=== PATIENT | male | born 1945 | race Caucasian/White ===

== ENCOUNTER 2022-09-13 07:16 | Outpatient (OUT) | payer MEDICARE, SELFPAY ==
[2022-09-13 07:51] LABS: Basophils Percent Auto 0.5 % (0.2-2.0); Eosinophils Absolute Auto 0.1 10^3/uL (0.0-0.7); Eosinophils Percent Auto 1.9 % (0.9-7.0); Hematocrit 43.2 % (42.0-54.0); Immature Granulocytes Abs Auto 0.04 10^3/uL (0.00-0.03); Immature Granulocytes Pct Auto 0.7 % (0.0-0.5); Lymphocytes Absolute Auto 2.5 10^3/uL (1.2-3.8); Lymphocytes Percent Auto 42.4 % (20.5-60.0); Mean Corpuscular HGB Conc 32.4 g/dL (29.9-35.2); Mean Corpuscular Hemoglobin 30.9 pg (25.9-34.0); Mean Corpuscular Volume 95.4 fL (80.0-94.0); Mean Platelet Volume 10.1 fL (9.5-13.5); Monocytes Absolute Auto 0.6 10^3/uL (0.3-0.8); Monocytes Percent Auto 9.5 % (1.7-12.0); Neutrophils Absolute Auto 2.6 10^3/uL (1.4-6.5); Platelet Count 227 10^3/uL (150-450); Red Blood Count 4.53 10^6/uL (4.70-6.10); Red Cell Distribution Width 13.2 % (11.0-15.0); White Blood Count 5.9 10^3/uL (4.0-11.0)
[2022-09-13 08:31] LABS: Estimated Average Glucose 160 mg/dL; Glycohemoglobin A1C 7.2 % (4.5-6.2)
[2022-09-13 08:34] LABS: Alanine Aminotransferase 24 U/L (16-63); Anion Gap 12.2; BUN Creatinine Ratio 19.1; Calcium 9.5 mg/dL (8.5-10.1); Carbon Dioxide 26.4 mmol/L (21.0-32.0); Chloride 107 mmol/L (98-107); Chol HDL Ratio 4.6; Cholesterol 146 mg/dL (<=200); Estimated GFR (African America 52 (>=60); Estimated GFR (Non-African Ame 43 (>=60); Glucose 148 mg/dL (74-106); HDL Cholesterol 32 mg/dL (40-60); Potassium 4.6 mmol/L (3.5-5.1); Sodium 141 mmol/L (136-145); Triglycerides 99 mg/dL (<=150); VLDL CHOLESTEROL 19.8 mg/dL
[2022-09-13 09:35] LABS: Microalbumin Urine Random 2.6 mg/dL (<=30.0)
[2022-09-13 11:05] LABS: Prostate Specific Antigen Scrn 0.94 ng/mL (<=4.00)
== END 2022-09-13 07:17 | disposition home or self-care (01) ==
LOC: LAB 07:24
PROVIDERS: PCP Internal Medicine; Visit Provider Internal Medicine
DX: E11.65 Type 2 diabetes mellitus with hyperglycemia (principal); E78.00 Pure hypercholesterolemia, unspecified; I10 Essential (primary) hypertension; Z12.5 Encounter for screening for malignant neoplasm of prostate; Z79.899 Other long term (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 therapy
CPT/HCPCS: 36415; 80048; 80061; 82043; 83036; 84460; 85025; G0103

== ENCOUNTER 2023-02-05 06:43 | Outpatient (OUT) | payer MEDICARE, SELFPAY ==
[2023-02-05 07:41] LABS: Estimated Average Glucose 146 mg/dL; Glycohemoglobin A1C 6.7 % (4.5-6.2)
== END 2023-02-05 06:44 | disposition home or self-care (01) ==
LOC: LAB 06:44
PROVIDERS: PCP Internal Medicine; Visit Provider Internal Medicine
DX: E11.65 Type 2 diabetes mellitus with hyperglycemia (principal)
CPT/HCPCS: 36415; 83036

== ENCOUNTER 2023-10-30 07:53 | Outpatient (OUT) | payer MEDICARE, SELFPAY ==
--- OUTSIDE RECORDS SUMMARY | 2023-10-30 08:14 | XMS_ITS | CCD ---
Author Organization [facility] Care Team Providers Care Placement Assistant Name Role Phone NAOMI, DR PRITCHETT Attending Unavailable BALL, DR PRITCHETT Consulting Unavailable BALL, DR PRITCHETT Primary Care Unavailable BALL, DR PRITCHETT Admitting Unavailable BALL, DR PRITCHETT Attending Unavailable BALL, DR PRITCHETT Consulting Unavailable BALL, DR PRITCHETT Primary Care Unavailable BALL, DR PRITCHETT Admitting Unavailable BALL, DR PRITCHETT Consulting Unavailable BALL, DR PRITCHETT Primary Care Unavailable BALL, DR PRITCHETT Admitting Unavailable BALL, DR PRITCHETT Attending Unavailable Ball, Brian Unavailable Allergies Allergy Classification Reported Allergen(s) Allergy Type Date of Onset Reaction(s) Facility (5 sources) empagliflozin Drug Allergy 06-11-19 Unknown, Unknown Reaction [facility] (5 sources) Simvastatin Drug Allergy 06-11-19 Unknown, Unknown Reaction [facility] (3 sources) Sulfonamides (Antibiotic) Propensity to adverse reactions Unknown [facility] Other (1 source) Substance with sulfonamide structure and antibacterial mechanism of action (substance) Drug allergy Unknown [facility] Other (2 sources) Sulfonamides (Antibiotic) Allergy to substance 06-11-19 Unknown Reaction [facility] Medications Current Medications Medication Drug Class(es) Dates Sig (Normalized) Sig (Original) benazepril hydrochloride 20 mg oral tablet (5 sources) Angiotensin Converting Enzyme Inhibitor Start: 06-08-2023 take 20 mg by mouth once daily Benazepril Active 20 MG PO Daily June 08, 2023 12:00am take 1 tablet by mouth once jordan y Benazepril HCl 20 MG TAKE 1 TABLET BY MOUTH DAILY Active fenofibrate 160 mg oral tablet (5 sources) Peroxisome Proliferator Receptor alpha Agonist Start: 06-08-2023 take 160 mg by mouth once daily Fenofibrate Active 160 MG PO Daily June 08, 2023 12:00am take 1 tablet by mouth once jordan y Fenofibrate 160 MG TAKE 1 TABLET BY MOUTH DAILY Active glimepiride 4 mg oral tablet (5 sources) Sulfonylurea Start: 06-08-2023 take 1 tablet by mouth once daily at breakfast Glimepiride Active 4 MG PO Daily June 08, 2023 12:00am TAKE 1 TABLET BY MOUTH DAILY 1/2 HOUR PRIOR TO BREAKFAST take 1 tablet by eddie th once daily at breakfast Glimepiride 4 MG TAKE 1 TABLET BY MOUTH DAILY 1/2 HOUR PRIOR TO BREAKFAST Active linagliptin 5 mg oral tablet (5 sources) Dipeptidyl Peptidase 4 Inhibitor Start: 06-08-2023 take 5 mg by mouth once daily Linagliptin Active 5 MG PO Daily June 08, 2023 12:00am take 1 tablet by mouth once jordan y Tradjenta 5 MG TAKE 1 TABLET BY MOUTH DAILY Active pioglitazone 45 mg oral tablet (5 sources) Peroxisome Proliferator Receptor alpha Agonist, Peroxisome Proliferator Receptor gamma Agonist, Thiazolidinedione Start: 06-08-2023 take 45 mg by mouth once daily Pioglitazone Active 45 MG PO Daily June 08, 2023 12:00am take 1 tablet by mouth once jordan y Pioglitazone HCl 45 MG TAKE 1 TABLET BY MOUTH DAILY Active Problems Problem Classification Problem Date Documented Date Episodic/Chronic Anxiety disorders (7 sources) Generalized anxiety disorder; Translations: [Generalized anxiety disorder] Chronic Chronic kidney disease (4 sources) Chronic kidney disease; Translations: [Chronic kidney disease, unspecified] 06-08-2023 Chronic Chronic kidney disease (1 source) Chronic kidney disease; Translations: [CHRONIC KIDNEY DISEASE STAGE 3B] Onset: 08-17-2021 Diabetes mellitus with complications (20 sources) Type 2 diabetes mellitus with hyperglycemia; Translations: [Type 2 diabetes mellitus with diabetic chronic kidney disease] Onset: 08-17-2021 Chronic Disorders of lipid metabolism (14 sources) Mixed hyperlipidemia; Translations: [Hypercholesterolemi a] Onset: 08-15-2021 Chronic Essential hypertension (11 sources) Essential (primary) hypertension; Translations: [Essential hypertension] Onset: 08-17-2021 Chronic Other aftercare (1 source) Other usp (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 therapy Episodic Other diseases of veins and lymphatics (1 source) Venous insufficiency of leg; Translations: [Venous insufficiency (chronic) (peripheral)] 09-10-2023 Episodic Other diseases of veins and lymphatics (1 source) Venous insufficiency (chronic) (peripheral); Translations: [Venous (peripheral) insufficiency, unspecified] 09-10-2023 Episodic Other nutritional; endocrine; and metabolic disorders (6 sources) Body mass index 30+ - obesity; Translations: [Body mass index (BMI) 31.0-31.9, adult] Chronic Other nutritional; endocrine; and metabolic disorders (3 sources) Obesity; Translations: [Other obesity due to excess calories] Chronic Other nutritional; endocrine; and metabolic disorders (2 sources) Other obesity due to excess calories Chronic Other nutritional; endocrine; and metabolic disorders (2 sources) Body mass index (BMI) 31.0-31.9, adult Chronic Other screening for suspected conditions (not mental disorders or infectious disease) (4 sources) Encounter for screening for malignant neoplasm of prostate; Translations: [Patient encounter status] Onset: 08-17-2021 Episodic Results Test Name Value Interpretation Reference Range Facil ity GLYCOHEMOGLOBIN A1Con 2021 ADA RECOMMENDATION SEE BELOW Normal [facility] Comment on above: Result Comment: ADA RECOMMENDED LIMIT 4.0 - 6.0 ADA THERAPEUTIC TARGET < 7.0 ACTION SUGGESTED > 7.0 Performed By: #### A 1C #### [facility] [address] [place] [address] Dr. Petros Perez Glucose [Mass/Vol] 143 mg/dL Normal [facility] Comment on above: Performed By: #### A 1C #### [facility] [address] [place] [address] Dr. Petros Perez HbA1c (Bld) [Mass fraction] 6.6 % Critically high 4.5-6.2 The [facility] Comment on above: Performed By: #### A 1C #### [facility] [address] [address] [address] Petros Perez CBC AUTO DIFFon 08-15-2021 BASO # 0.0 103/ul Normal 0.0-0.1 [facility] Comment on above: Performed By: #### C BC #### [facility] [address] [address] [address] Petros Perez Basophils/100 WBC (Bld) 0.3 % Normal 0.2-2.0 [facility] Comment on above: Performed By: #### C BC #### [facility] [address] [address] [address] Petros Perez EO # 0.1 103/ul Normal 0.0-0.7 The [facility] Comment on above: Performed By: #### C BC #### [facility] [address] [address] [address] Petros Perez Eosinophils/100 WBC (Bld) 2.2 % Normal 0.9-7.0 [facility] Comment on above: Performed By: #### C BC #### [facility] [address] [place] [address] Dr. Petros Perez Erythrocyte distribution width (RBC) [Ratio] 13.4 % Normal 11.0-15.0 [facility] Comment on above: Performed By: #### C BC #### [facility] [address] [place] [address] Dr. Petros Perez Hematocrit (Bld) [Volume fraction] 42.8 % Normal 42.0-54.0 [facility] Comment on above: Performed By: #### C BC #### [facility] [address] [place] [address] Dr. Petros Perez Hemoglobin (Bld) [Mass/Vol] 14.1 g/dL Normal 14.0-18.0 [facility] Comment on above: Performed By: #### C BC #### [facility] [address] [place] [address] Dr. Petros Perez IG # 0.04 10e3/ul Critically high 0.00-0.03 The [facility] Comment on above: Performed By: #### C BC #### [facility] [address] [place] [address] Dr. Petros Perez IG % 0.7 % Critically high 0.0-0.5 [facility] Comment on above: Performed By: #### C BC #### [facility] [address] [place] [address] Dr. Petros Perez LYMPH # 2.2 103/ul Normal 1.2-3.8 The [facility] Comment on above: Performed By: #### C BC #### [facility] [address] [place] [address] Dr. Petros Perez Lymphocytes/100 WBC (Bld) 38.2 % Normal 20.5-60.0 The [facility] Comment on above: Performed By: #### C BC #### [facility] [address] [place] [address] Dr. Petros Perez MANUAL DIFF REQ NO Normal [facility] Comment on above: Performed By: #### C BC #### [facility] [address] [place] [address] Dr. Petros Perez MCH (RBC) [Entitic mass] 30.6 pg Normal 25.9-34.0 The [facility] Comment on above: Performed By: #### C BC #### [facility] [address] [place] [address] Dr. Petros Perez MCHC (RBC) [Mass/Vol] 32.9 g/dL Normal 29.9-35.2 The [facility] Comment on above: Performed By: #### C BC #### [facility] [address] [place] [address] Dr. Petros Perez MCV (RBC) [Entitic vol] 92.8 fL Normal 80.0-94.0 The [facility] Comment on above: Performed By: #### C BC #### [facility] [address] [place] [address] Dr. Petros Perez MONO # 0.5 103/ul Normal 0.3-0.8 The [facility] Comment on above: Performed By: #### C BC #### [facility] [address] [place] [address] Dr. Petros Perez Monocytes/100 WBC (Bld) 8.6 % Normal 1.7-12.0 The [facility] Comment on above: Performed By: #### C BC #### [facility] [address] [place] [address] Dr. Petros Perez NEUT # 2.9 103/ul Normal 1.4-6.5 The [facility] Comment on above: Performed By: #### C BC #### [facility] [address] [place] [address] Dr. Petros Perez Neutrophils/100 WBC (Bld) 50.0 % Normal 43.0-75.0 [facility] Comment on above: Performed By: #### C BC #### [facility] [address] [address] [address] Petros Perez Platelet mean volume (Bld) [Entitic vol] 10.2 fL Normal 9.5-13.5 [facility] Comment on above: Performed By: #### C BC #### [facility] [address] [address] [address] Petros Perez PLT 219 103/ul Normal 150-450 [facility] Comment on above: Performed By: #### C BC #### [facility] [address] [address] [address] Petros Perez RBC 4.61 106/ul Critically low 4.70-6.10 [facility] Comment on above: Performed By: #### C BC #### [facility] [address] [address] [address] Petros Perez WBC 5.8 103/ul Normal 4.0-11.0 [facility] Comment on above: Performed By: #### C BC #### [facility] [address] [place] [address] Dr. Petros Perez GLYCOHEMOGLOBIN A1Con 2021 ADA RECOMMENDATION SEE BELOW Normal [facility] Comment on above: Result Comment: ADA RECOMMENDED LIMIT 4.0 - 6.0 ADA THERAPEUTIC TARGET < 7.0 ACTION SUGGESTED > 7.0 Performed By: #### A 1C #### [facility] [address] [place] [address] Dr. Petros Perez Glucose [Mass/Vol] 163 mg/dL Normal [facility] Comment on above: Performed By: #### A 1C #### [facility] [address] [place] [address] Dr. Petros Perez HbA1c (Bld) [Mass fraction] 7.3 % Critically high 4.5-6.2 [facility] Comment on above: Performed By: #### A 1C #### [facility] [address] [place] [address] Dr. Petros Perez LIPID PROFILEon 08-15-2021 CHOL-HDL RATIO NORM SEE BELOW Normal [facility] Comment on above: Result Comment: 3.3 - 4.4 LOW RISK 4.4 - 7.1 AVERAGE RISK 7.1 - 11.0 MODERATE RISK >11.0 HIGH RISK Performed By: #### L IPID, BMP #### [facility] [address] [address] [address] Petros Perez Cholesterol [Mass/Vol] 148 mg/dL Normal <=200 [facility] Comment on above: Performed By: #### L IPID, BMP #### [facility] [address] [address] [address] Petros Perez Cholesterol in HDL [Mass/Vol] 33 mg/dL Critically low 40-60 [facility] Comment on above: Performed By: #### L IPID, BMP #### [facility] [address] [place] [address] Dr. Petros Perez Cholesterol in LDL [Mass/Vol] 95.8 mg/dL Normal [facility] Comment on above: Performed By: #### L IPID, BMP #### [facility] [address] [place] [address] Dr. Petros Perez Cholesterol.total/Cho lesterol in HDL [Mass ratio] 4.5 {ratio} Normal [facility] Comment on above: Performed By: #### L IPID, BMP #### [facility] [address] [place] [address] Dr. Petros Perez HDL NORMAL > or = 60 mg/dl - LOW CARDIOVASCULAR RISK <40 mg/dl - HIGH CARDIOVASCULAR RISK Normal [facility] Comment on above: Performed By: #### L IPID, BMP #### [facility] [address] [place] [address] Dr. Petros Perez LDL CALC NORMAL SEE BELOW Normal [facility] Comment on above: Result Comment: <100 mg/dl OPTIMAL 100 - 129 mg/dl NEAR OR ABOVE OPTIMAL 130 - 159 mg/dl BORDERLINE HIGH 160 - 189 mg/dl HIGH >190 mg/dl VERY HIGH Performed By: #### L IPID, BMP #### [facility] [address] [address] [address] Petros Perez Triglyceride [Mass/Vol] 96 mg/dL Normal <=150 [facility] Comment on above: Performed By: #### L IPID, BMP #### [facility] [address] [address] [address] Petros Perez VLDL CALC 19.2 mg/dL Normal [facility] Comment on above: Performed By: #### L IPID, BMP #### [facility] [address] [place] [address] Dr. Petros Perez MICROALBUMIN, RAND URon - mALB 3.2 mg/L Normal <=30.0 [facility] Comment on above: Performed By: #### M ALBR #### [facility] [address] [place] [address] Dr. Petros Perez PROF CHEM 8 (BAS METB)on Anion gap [Moles/Vol] 13.1 mmol/L Normal [facility] Comment on above: Performed By: #### L IPID, BMP #### [facility] [address] [address] [address] Petros Perez Calcium [Mass/Vol] 9.2 mg/dL Normal 8.5-10.1 [facility] Comment on above: Performed By: #### L IPID, BMP #### [facility] [address] [place] [address] Dr. Petros Perez Chloride [Moles/Vol] 106 mmol/L Normal 98-107 [facility] Comment on above: Performed By: #### L IPID, BMP #### [facility] [address] [place] [address] Dr. Petros Perez CO2 [Moles/Vol] 24.1 mmol/L Normal 21.0-32.0 [facility] Comment on above: Performed By: #### L IPID, BMP #### [facility] [address] [address] [address] Petros Perez Creatinine [Mass/Vol] 1.56 mg/dL Critically high 0.70-1.30 [facility] Comment on above: Performed By: #### L IPID, BMP #### [facility] [address] [place] [address] Dr. Petros Perez EGFR-AF IRISH 53 mL/min/1.73m2 Critically low >=60 [facility] Comment on above: Performed By: #### L IPID, BMP #### [facility] [address] [place] [address] Dr. Petros Perez EGFR-NON AF IRISH 43 mL/min/1.73m2 Critically low >=60 [facility] Comment on above: Performed By: #### L IPID, BMP #### [facility] [address] [place] [address] Dr. Petros Perez Glucose [Mass/Vol] 139 mg/dL Critically high 74-106 [facility] Comment on above: Performed By: #### L IPID, BMP #### [facility] [address] [place] [address] Dr. Petros Perez Potassium [Moles/Vol] 4.2 mmol/L Normal 3.5-5.1 [facility] Comment on above: Performed By: #### L IPID, BMP #### [facility] [address] [place] [address] Dr. Petros Perez Sodium [Moles/Vol] 139 mmol/L Normal 136-145 [facility] Comment on above: Performed By: #### L IPID, BMP #### [facility] [address] [place] [address] Dr. Petros Perez Urea nitrogen [Mass/Vol] 25.0 mg/dL Critically high 7.0-18.0 [facility] Comment on above: Performed By: #### L IPID, BMP #### [facility] [address] [place] [address] Dr. Petros Perez Urea nitrogen/Creatinine [Mass ratio] 16.0 mg/mg Normal [facility] Comment on above: Performed By: #### L IPID, BMP #### [facility] [address] [place] [address] Dr. Petros Perez GLYCOHEMOGLOBIN A1Con 2021 ADA RECOMMENDATION ADA THERAPEUTIC TARGET 6.0 - 7.0 ACTION SUGGESTED > 7.0 Normal [facility] Comment on above: Performed By: #### A 1C #### [facility] [address] [address] [address] Petros Perez Glucose [Mass/Vol] 180 mg/dL Normal [facility] Comment on above: Performed By: #### A 1C #### [facility] [address] [address] [address] Petros Perez HbA1c (Bld) [Mass fraction] 7.9 % Critically high <=6.0 [facility] Comment on above: Performed By: #### A 1C #### [facility] [address] [address] [address] Petros Perez Consent for COVID Vaccineon 05-14-2020 SARS-CoV-2 (COVID-19) RNA EUN+probe Ql (Unsp spec) [id number] 3#1.00CD:127 Normal [facility] Consent for Treatmenton 05-02 Consent for Treatment [id number] 8#1.00CD:127 Normal [facility] Coding Summary.on 05-13-2020 Coding Summary. CODING DATE: 05/13/2020 [facility] STATUS: PAYOR: Medicare ADMIT DX: REASON FOR VISIT DX: Z23 Encounter for immunization FINAL DX: PRINCIPAL: Z23 Encounter for immunization SECONDARY: PYMT PROC APC STAT DESCRIPTION DOCTOR NAME DATE NOTE: The code number assigned matches the documented diagnosis and / or procedure in the patient's chart. However, the narrative phrase printed from the coding software may appear abbreviated, or result in slightly different terminology. Coded By: Saritha Simmons Date Saved: 05/13/2020 11:13 am [facility] Vital Signs Date Time Vital Sign Value Performing Clinician Facility 09-10-2023 [id number] Body height 182.88 cm [facility] 09-10-2023 09:28-0400 Body mass index (BMI) [Ratio] 32.3 kg/m2 [facility] 09-10-2023 09:28-0400 Body weight 108.12 kg [facility] 09-10-2023 09:28-0400 Diastolic blood pressure 61 mm[Hg] [facility] 09-10-2023 09:28-0400 Heart rate 56 /min [facility] 09-10-2023 09:28-0400 Respiratory rate 12 /min [facility] 09-10-2023 09:28-0400 Systolic blood pressure 123 mm[Hg] [facility] 06-11-2023 09:02-0400 Body height 182.88 cm [facility] 06-11-2023 09:02-0400 Body mass index (BMI) [Ratio] 33 kg/m2 [facility] 06-11-2023 09:02-0400 Body weight 110.67 kg [facility] 06-11-2023 09:02-0400 Diastolic blood pressure 65 mm[Hg] [facility] 06-11-2023 09:02-0400 Heart rate 62 /min [facility] 06-11-2023 09:02-0400 Respiratory rate 12 /min [facility] 06-11-2023 09:02-0400 Systolic blood pressure 149 mm[Hg] [facility] 11-08-2022 10:00-0400 Body height 182.88 cm Brian Ball Other [facility] [employer] Other 11-08-2022 10:00-0400 Body mass index (BMI) [Ratio] 31.27 kg/m2 Brian Ball Other [employer] [facility] [employer] Other 11-08-2022 10:00-0400 Body weight 104.6 kg Brian Ball Other [employer] [facility] [employer] Other 11-08-2022 10:00-0400 Diastolic blood pressure 72 mm[Hg] Brian Ball Other [employer] [facility] [employer] Other 11-08-2022 10:00-0400 Respiratory rate 12 /min Brian Ball Other [facility] Other 11-08-2022 10:00-0400 Systolic blood pressure 148 mm[Hg] Brian Ball Other [facility] Other 08-09-2022 10:00-0400 Body height 182.88 cm Brian Ball Other [facility] Other 08-09-2022 10:00-0400 Body mass index (BMI) [Ratio] 31.46 kg/m2 Brian Ball Other [facility] Other 08-09-2022 10:00-0400 Body weight 105.24 kg Brian Ball Other [facility] Other 08-09-2022 10:00-0400 Diastolic blood pressure 75 mm[Hg] Brian Ball Other [facility] Other 08-09-2022 10:00-0400 Respiratory rate 12 /min Brian Ball Other [facility] Other 08-09-2022 10:00-0400 Systolic blood pressure 170 mm[Hg] Brian Ball Other [facility] Other Encounters Encounter Date Encounter Type Care Provider Facility Start: 09-10-2023 End: 09-10-2023 ambulatory [facility] Work Phone: Start: 09-10-2023 End: 09-10-2023 Patient encounter procedure [facility] Physician [facility] Work Phone: Start: 06-11-2023 End: 06-11-2023 ambulatory [facility] Work Phone: Start: 06-11-2023 End: 06-11-2023 Patient encounter procedure [facility] Work Phone: Start: 11-08-2022 End: 11-08-2022 ambulatory Brian Salgado Other [facility] Other Start: 11-08-2022 Office outpatient vi sit 25 minutes Brian Salagdo [facility] Start: 09-13-2022 End: 09-13-2022 ambulatory Brian Salgado Other [facility] Other Start: 09-13-2022 Telephone encounter Brian Salgado FP [facility] Start: 08-09-2022 End: 08-09-2022 ambulatory Brian Salgado Other [facility] Other Start: 08-09-2022 Patient encounter procedure Brian Salgado [facility] Start: 12-27-2021 End: 12-28-[address] BRIAN SALGADO Facility:[facility] Start: 08-15-2021 End: 08-16-[address] BRIAN SALGADO Facility:[facility] Start: 04-25-2021 End: 04-26-[address] BRIAN SALGADO Facility:[facility] Procedures Date Procedure Procedure Detail Performing Clinician Start: 08-15-[address] LAM [place] Comment on above: Performed By: #### [facility] #### [facility] [address] [place] [address] Dr. Petros Perez Plan of Treatment Date Care Activity Detail Author Comprehensive metabo lic 2000 panel - Serum or Plasma [facility] enter [facility] Immunizations Immunization Date Immunization Notes Care Provider Fa cility 01-21-2023 influenza virus vaccine, unspecified formulation [facility] 11-21-2021 influenza virus vaccine, split virus (incl. purified surface antigen) Brian Salgado Other [facility] Other 11-21-2021 influenza virus vaccine, unspecified formulation [facility] 11-21-2021 influenza, high dose seasonal, preservative-free Brian Salgado Other [facility] Other 02-22-2021 COVID-19 Vaccine Pfi zer - Documentation Purposes Only Brian Salgado Other [facility] 12-30-2020 influenza virus vaccine, split virus (incl. purified surface antigen) Brian Naomi Other [employer] Other 12-30-2020 influenza virus vaccine, unspecified formulation [facility] 05-06-2020 COVID-19 Vaccine Slim - Documentation Purposes Only Brian Naomi Other [facility] 01-12-2020 influenza virus vaccine, split virus (incl. purified surface antigen) Brian Naomi Other [employer] Other 01-12-2020 influenza virus vaccine, unspecified formulation [facility] 01-13-2019 influenza virus vaccine, split virus (incl. purified surface antigen) Brian Naomi Other [employer] Other 01-13-2019 influenza virus vaccine, unspecified formulation [facility] 12-02-2017 influenza virus vaccine, split virus (incl. purified surface antigen) Brian Naomi Other [employer] Other 12-02-2017 influenza virus vaccine, unspecified formulation [facility] 12-27-2016 influenza virus vaccine, split virus (incl. purified surface antigen) Brian Naomi Other [employer] Other 12-27-2016 influenza virus vaccine, unspecified formulation [facility] 12-22-2015 influenza virus vaccine, split virus (incl. purified surface antigen) Brian Salgado Other [employer] Other 12-22-2015 influenza virus vaccine, unspecified formulation [facility] 03-15-2015 pneumococcal conjuga te vaccine, 13 valent Brian Salgado Other [facility] 12-07-2014 influenza virus vaccine, split virus (incl. purified surface antigen) Brian Salgado Other [facility] [employer] Other 12-07-2014 influenza virus vaccine, unspecified formulation [facility] 11-10-2013 tetanus and diphther ia toxoids, adsorbed, preservative free, for adult use (5 Lf of tetanus toxoid and 2 Lf of diphtheria toxoid) Brian Salgado Other [facility] 12-10-2012 tetanus and diphther ia toxoids, adsorbed, preservative free, for adult use (5 Lf of tetanus toxoid and 2 Lf of diphtheria toxoid) Brian Salgado Other [facility] 02-14-2011 pneumococcal polysaccharide vaccine, 23 valent Brian Salgado Other [facility] Payers Date Payer Category Payer Medicare [id number] 1960 Unknown [id number] 1945 Unknown [id number] 1945 Unknown [id number] 1945 Unknown [id number] Social History Date Type Detail Facility Sex Assigned At [facility] [employer] Other Start: 1945 Sex Assigned At Male [facility] Evaluation note 11-08-2022 Note Date & Type Note Facility 11-08-2022 Evaluation note Encounter Date Diagnosis Assessment Notes Nov, Primary hypertension (ICD-10 - I10) This patient is instructed to consume a healthy, low-fat, low-salt diet. They are also encouraged to continue exercise to achieve/maintain a normal BMI. Patient is instructed on home BP measurements: - rest for 5 minutes w/o talking- positioned w/ feet on floor and arm supported- average best 2/3 readings w/ goal < 135/85 Nov, Type 2 diabetes mellitus with hyperglycemia, without long-term current use of insulin (ICD-10 - E11.65) This patient is following a comprehensive diabetic treatment plan. They are checking their feet daily for calluses and nonhealing ulcers. They are being seen for yearly dilated eye examinations. Goals: SBP less than 130, LDL less than 100, FBS less than 140, AC and A1C less than 7%. They are checking their BS daily, will which are reviewed at the office visit. Continue regular routine monitoring of A1C,] Microalbumin, Dilated eye exam and Foot exam Nov, Type 2 diabetes mellitus with diabetic polyneuropathy, without long-term current use of insulin (ICD-10 - E11.42) Inspect feet daily for cuts and calluses.Recommen d diabetic shoes and inserts to prevent callus formation.Fall precautions. Nov, Elevated cholesterol (ICD-10 - E78.00) Instructed on diet and exercise with continued statin therapy.Discussed the beneficial effects of lowering cholesterol in reducing the risk for cerebrovascular and cardiovascular disease. Nov, EMERSON (generalized anxiety disorder) (ICD-10 - F41.1) Healthy diet, exercise and keep active No change in medical therapy Nov, Other obesity due to excess calories (ICD-10 - E66.09) This patient has been instructed on a low-fat, high-fiber diet. They are instructed to reduce calories, portion sizes and snacks. It is recommended that they exercise for 30 minutes, 3-5 times weekly. Nov, Body mass index [BMI] 31.0-31.9, adult (ICD-10 - Z68.31) Goal is BMI < 30 Increase exercise and reduce calories. [employer] Other Evaluation note 08-09-2022 Note Date & Type Note Facility 08-09-2022 Evaluation note Encounter Date Diagnosis Assessment Notes Aug, Medicare annual wellness visit, subsequent (ICD-10 - Z00.00) Personalized health advice was given to the beneficiary including a written plan for screenings discussed and provided. Advanced care planning reviewed and/or information given as requested. Additional counseling was provided here today in regards to, [ ]. The above visit was performed by [ ], under direct supervision of [ ]. Document reviewed and amended by provider signed below. Aug, Primary hypertension (ICD-10 - I10) This patient is instructed to consume a healthy, low-fat, low-salt diet. They are also encouraged to continue exercise to achieve/maintain a normal BMI. Patient is instructed on home BP measurements: - rest for 5 minutes w/o talking- positioned w/ feet on floor and arm supported- average best 2/3 readings w/ goal < 135-85 Aug, Elevated cholesterol (ICD-10 - E78.00) Instructed on diet and exercise with continued statin therapy.Discussed the beneficial effects of lowering cholesterol in reducing the risk for cerebrovascular and cardiovascular disease. Aug, Type 2 diabetes mellitus with hyperglycemia, without long-term current use of insulin (ICD-10 - E11.65) This patient is following a comprehensive diabetic treatment plan. They are checking their feet daily for calluses and nonhealing ulcers. They are being seen for yearly dilated eye examinations. Goals: SBP less than 130, LDL less than 100, FBS less than 140, AC and A1C less than 7%. They are checking their BS daily, will which are reviewed at the office visit. Continue regular routine monitoring of A1C,] Microalbumin, Dilated eye exam and Foot exam Aug, Type 2 diabetes mellitus with diabetic polyneuropathy, without long-term current use of insulin (ICD-10 - E11.42) Inspect feet daily for cuts and calluses.Recommen d diabetic shoes and inserts to prevent callus formation.Fall precautions. Aug, EMERSON (generalized anxiety disorder) (ICD-10 - F41.1) Healthy diet, exercise and keep active Aug, Screening PSA (prostate specific antigen) (ICD-10 - Z12.5) Aug, Other obesity due to excess calories (ICD-10 - E66.09) This patient has been instructed on a low-fat, high-fiber diet. They are instructed to reduce calories, portion sizes and snacks. It is recommended that they exercise for 30 minutes, 3-5 times weekly. Aug, Body mass index [BMI] 31.0-31.9, adult (ICD-10 - Z68.31) Aug, High risk medication use (ICD-10 - Z79.899) [employer] Other Evaluation note Note Date & Type Note Facility Evaluation note No [employer] Other Evaluation note Note Date & Type Note Facility Evaluation note Diagnosis Onset Date Chronic kidney disease acute Elevated cholesterol acute Hypertension acute Type 2 diabetes mellitus wit h diabetic polyneuropathy acute Type 2 diabetes mellitus with hyperglycemia acute [facility] Work Phone: Evaluation note Note Date & Type Note Facility Evaluation note Diagnosis Onset Date Chronic kidney disease acute Chronic venous insufficiency of lower extremity acute Elevated cholesterol acute Hypertension acute Screening PSA (prostate specific antigen) acute Type 2 diabetes mellitus wit h diabetic polyneuropathy acute Type 2 diabetes mellitus with hyperglycemia acute Medicare annual wellness visit, subsequent noneactive [facility] Work Phone: History general Narrative - Reported Note Date & Type Note Facility History general Narrative - Reported Type Medical History Primary hypertension Medical History Elevated cholesterol Medical History Controlled type 2 di abetes mellitus with hyperglycemia, without long-term current use of insulin Medical History Type 2 diabetes jeanette itus with diabetic polyneuropathy, without long-term current use of insulin Surgical History TONSILLECTOMY Surgical History APPENDECTOMY Hospitalization History SEE SURGICAL HX [employer] Other Summary Purpose Family History No Family History Records FoundNo Family History Records Found Advance Directives Advance Directive Response Recorded Date/ Time Advance Directives No March 27, 2023 1:44pm Chief Complaint and Reason for Visit Chief Complaint 4 month follow up Reason for Visit Chronic kidney disea se Elevated cholesterol Hypertension Type 2 diabetes mellitus with diabetic polyneuropathy Type 2 diabetes mellitus with hyperglycemia Chief Complaint 3 month follow up Reason for Visit Chronic kidney disea se Chronic venous insufficiency of lower extremity Elevated cholesterol Hypertension Screening PSA (prostate specific antigen) Type 2 diabetes mellitus with diabetic polyneuropathy Type 2 diabetes mellitus with hyperglycemia Medicare annual wellness visit, subsequent Additional Source Comments (unrecognized sect ion and content) No Status Records FoundNo Status Records Found INFORMATION SOURCE (unrecogn ized section and content) DATE CREATED AUTHOR 08/06/2020 [facility] DATE CREATED AUTHOR AUTHOR'S ORGANIZ ATION 12/31/2021 [facility] REASON FOR VISIT (unrecogniz ed section and content) WELLNESSLab Results3 month F ollow up Care Teams (unrecognized sec tion and content) Team Status: Active Member Role Status Dates Brian Salgado DO Primary Care Provider Active Team Status: Inactive Member Role Status Dates Brian Salgado DO Primary Care Provide r, Attending Provider Active Start: June 11, 2023 End: Theresa 9th, 2024 Team Status: Inactive Member Role Status Dates Brian Salgado , DO Primary Care Provide r, Attending Provider Active Start: September 10, 2023 End: September 10, 2023 Goals (unrecognized section and content) Goals may be documented in a n alternate section FOR RECORDS PERTAINING TO PATIENTS WHO ARE OR HAVE BEEN ENROLLED IN A CHEMICAL DEPENDENCY/SUBSTANCEABUSE PROGRAM, SOME INFORMATION MAY BE OMITTED. This clinical summary was aggregated from multiple sources. Caution should be exercised in using it in the provision of clinical care. This summary normalizes information from multiple sources, and as a consequence, information in this document may materially change the coding, format and clinical context of patient data. In addition, data may be omitted in some cases. CLINICAL DECISIONS SHOULD BE BASED ON THE PRIMARY CLINICAL RECORDS. [facility] [employer] provides no warranty or guarantee of the accuracy or completeness of information in this document.
[2023-10-30 08:18] LABS: Basophils Absolute Auto 0.1 10^3/uL (0.0-0.1); Basophils Percent Auto 0.8 % (0.2-2.0); Hematocrit 38.8 % (42.0-54.0); Hemoglobin 12.8 g/dL (14.0-18.0); Immature Granulocytes Abs Auto 0.04 10^3/uL (0.00-0.03); Immature Granulocytes Pct Auto 0.6 % (0.0-0.5); Lymphocytes Absolute Auto 2.1 10^3/uL (1.2-3.8); Lymphocytes Percent Auto 31.4 % (20.5-60.0); Mean Corpuscular Hemoglobin 31.7 pg (25.9-34.0); Mean Platelet Volume 10.1 fL (9.5-13.5); Monocytes Absolute Auto 0.6 10^3/uL (0.3-0.8); Monocytes Percent Auto 9.2 % (1.7-12.0); Neutrophils Absolute Auto 3.8 10^3/uL (1.4-6.5); Platelet Count 221 10^3/uL (150-450); Red Blood Count 4.04 10^6/uL (4.70-6.10); Red Cell Distribution Width 13.7 % (11.0-15.0); White Blood Count 6.6 10^3/uL (4.0-11.0)
[2023-10-30 08:40] LABS: Alanine Aminotransferase 22 U/L (16-63); Albumin Globulin Ratio 0.9; Albumin Level 3.2 g/dL (3.4-5.0); Alkaline Phosphatase 31 U/L (46-116); Anion Gap 14.4; Aspartate Amino Transferase 22 U/L (15-37); BUN Creatinine Ratio 18.2; Bilirubin Total 0.5 mg/dL (0.2-1.0); Calcium 9.4 mg/dL (8.5-10.1); Chloride 109 mmol/L (98-107); Chol HDL Ratio 4.5; Cholesterol 116 mg/dL (<=200); Estimated GFR (African America 41 (>=60); Estimated GFR (Non-African Ame 34 (>=60); Globulin 3.4 g/dL; Glucose 118 mg/dL (74-106); HDL Cholesterol 26 mg/dL (40-60); Potassium 5.4 mmol/L (3.5-5.1); Sodium 142 mmol/L (136-145); Total Protein 6.6 g/dL (6.4-8.2); Triglycerides 97 mg/dL (<=150); VLDL CHOLESTEROL 19.4 mg/dL
[2023-10-30 08:48] LABS: Estimated Average Glucose 126 mg/dL
[2023-10-30 09:37] LABS: Prostate Specific Antigen Scrn 1.04 ng/mL (<=4.00)
[2023-10-30 15:21] LABS: Creatinine Urine Random 148.56 mg/dL (20.00-300.00); Total Protein Urine Random 15.4 mg/dL (<=11.9)
== END 2023-10-30 07:54 | disposition home or self-care (01) ==
LOC: LAB 07:55
PROVIDERS: PCP Internal Medicine; Visit Provider Internal Medicine
DX: I12.9 Hypertensive chronic kidney disease with stage 1 through stage 4 chronic kidney disease, or unspecified chronic kidney disease (principal); N18.9 Chronic kidney disease, unspecified; E11.65 Type 2 diabetes mellitus with hyperglycemia; E78.00 Pure hypercholesterolemia, unspecified; Z12.5 Encounter for screening for malignant neoplasm of prostate
CPT/HCPCS: 36415; 80053; 80061; 82570; 83036; 84156; 85025; G0103

== ENCOUNTER 2023-11-08 09:29 | Outpatient (OUT) | payer MEDICARE, SELFPAY ==
--- NOTE | 2023-11-08 09:33 | US_ITS ---
The [address] [address] Patient Name: JF HERNÁNDEZ MRN: [id number] date: 1945 Sex: M Assigned Patient Location: Current Patient Location: LAB Accession/Order Number: [id number] Exam Date: 11/08/2023 09:38 Report Date: 11/08/2023 17:18 At the request of: YARELY SALGADO Procedure: US renal BI Ultrasound kidneys, bilateral HISTORY: Chronic Kidney Disease COMPARISON: None. TECHNIQUE: Transabdominal ultrasound imaging of both kidneys was performed. FINDINGS: Both kidneys demonstrate normal echotexture and echogenicity. The right kidney measures 11.5 x 4.9 x 6.3 cm. Renal cortex measures 1.5 cm. There is no hydronephrosis of right kidney. The left kidney measures 10.8 x 4.8 x 6.3 cm. Renal cortex of 0.9 cm. No hydronephrosis of left kidney. The bladder is decompressed with prevoid bladder volume of 72 cc. US/US renal BI IMPRESSION: 1. Normal size kidneys for age with mild left renal cortical thinning. No hydronephrosis. 2. Nondistended bladder. Electronically authenticated by: NATHANIEL QUIÑONEZ Date: 11/08/2023 17:18
--- OUTSIDE RECORDS SUMMARY | 2023-11-08 09:53 | XMS_ITS | CCD ---
Author Organization [facility] Care Team Providers Care Inspector And Clipper Name Role Phone NAOMI, DR PRITCHETT Attending [...] empagliflozin Drug Allergy 06-11-19 Unknown, Unknown Reaction [facility] (5 sources) Simvastatin Drug Allergy 06-11-19 Unknown, Unknown Reaction [facility] (3 sources) Sulfonamides (Antibiotic) Propensity to adverse reactions Unknown [facility] (1 source) Substance with sulfonamide structure and antibacterial mechanism of action (substance) Drug allergy Unknown [facility] (2 sources) Sulfonamides (Antibiotic) Allergy to substance 06-11-19 Unknown Reaction [facility] Medications Current Medications Medication Drug Class(es) Dates [...] 08-17-2021 Chronic Other aftercare (1 source) 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 [address] [place] [address] Dr. Petros Perez Glucose [Mass/Vol] 143 mg/dL Normal [facility] Comment on above: Performed By: #### A 1C #### [facility] [address] [place] [address] Dr. Petros Perez HbA1c (Bld) [Mass fraction] 6.6 % Critically high 4.5-6.[address] [facility] Comment on above: Performed By: #### A 1C #### [facility] [address] [address] [address] Petros Perez CBC AUTO DIFFon 08-15-2021 BASO # 0.0 103/ul Normal 0.0-0.1 [facility] Comment on above: Performed By: #### C BC #### [facility] [address] [address] [address] Petros Perez Basophils/100 WBC (Bld) 0.3 % Normal 0.2-2.0 [facility] Comment on above: Performed By: #### C BC #### [facility] [address] [address] [address] Petros Perez EO # 0.1 103/ul Normal 0.0-0.[address] [facility] Comment on above: Performed By: #### C BC #### [facility] [address] [address] [address] Petros Perez Eosinophils/100 WBC (Bld) 2.2 % Normal 0.9-7.0 [facility] Comment on above: Performed By: #### C BC #### [facility] [address] [place] [address] Dr. Petros Perez Erythrocyte distribution width (RBC) [Ratio] 13.4 % Normal 11.0-15.0 [facility] Comment on above: Performed By: #### C BC #### [facility] [address] [place] [address] Dr. Petros Perez Hematocrit (Bld) [Volume fraction] 42.8 % Normal 42.0-54.0 [facility] Comment on above: Performed By: #### C BC #### [facility] [address] [place] [address] Dr. Petros Perez Hemoglobin (Bld) [Mass/Vol] 14.1 g/dL Normal 14.0-18.0 [facility] Comment on above: Performed By: #### C BC #### [facility] [address] [place] [address] Dr. Pertos Perez IG # 0.04 10e3/ul Critically high 0.00-0.03 [facility] Comment on above: Performed By: #### C BC #### [facility] [address] [place] [address] Dr. Petros Perez IG % 0.7 % Critically high 0.0-0.5 [facility] Comment on above: Performed By: #### C BC #### [facility] [address] [place] [address] Dr. Petros Perez LYMPH # 2.2 103/ul Normal 1.2-3.[address] [facility] Comment on above: Performed By: #### C BC #### [facility] [address] [place] [address] Dr. Petros Perez Lymphocytes/100 WBC (Bld) 38.2 % Normal 20.5-60.[address] [facility] Comment on above: Performed By: #### C BC #### [facility] [address] [place] [address] Dr. Petros Perez MANUAL DIFF REQ NO Normal [facility] Comment on above: Performed By: #### C BC #### [facility] [address] [place] [address] Dr. Petros Perez MCH (RBC) [Entitic mass] 30.6 pg Normal 25.9-34.[address] [facility] Comment on above: Performed By: #### C BC #### [facility] [address] [place] [address] Dr. Petros Perez MCHC (RBC) [Mass/Vol] 32.9 g/dL Normal 29.9-35.[address] [facility] Comment on above: Performed By: #### C BC #### [facility] [address] [place] [address] Dr. Petros Perez MCV (RBC) [Entitic vol] 92.8 fL Normal 80.0-94.[address] [facility] Comment on above: Performed By: #### C BC #### [facility] [address] [place] [address] Dr. Petros Perez MONO # 0.5 103/ul Normal 0.3-0.[address] [facility] Comment on above: Performed By: #### C BC #### [facility] [address] [place] [address] Dr. Petros Perez Monocytes/100 WBC (Bld) 8.6 % Normal 1.7-12.[address] [facility] Comment on above: Performed By: #### C BC #### [facility] [address] [place] [address] Dr. Petros Perez NEUT # 2.9 103/ul Normal 1.4-6.[address] [facility] Comment on above: Performed By: #### C BC #### [facility] [address] [place] [address] Dr. Petros Perez Neutrophils/100 WBC (Bld) 50.0 % Normal 43.0-75.0 [facility] Comment on above: Performed By: #### C BC #### [facility] [address] [address] [address] Petros Peerz Platelet mean volume (Bld) [Entitic vol] 10.2 fL Normal 9.5-13.5 [facility] Comment on above: Performed By: #### C BC #### [facility] [address] [address] [address] Petros Perez PLT 219 103/ul Normal 150-450 [facility] Comment on above: Performed By: #### C BC #### [facility] [address] [address] [address] Petros Perez RBC 4.61 106/ul Critically low 4.70-6.10 [facility] Comment on above: Performed By: #### C BC #### [facility] [address] [address] [address] Petros Perez WBC 5.8 103/ul Normal 4.0-11.0 [facility] Comment on above: Performed By: #### C BC #### [facility] [address] [place] [address] Dr. Petros Perez GLYCOHEMOGLOBIN A1Con 2021 ADA RECOMMENDATION SEE BELOW Normal [facility] Comment on above: Result Comment: ADA RECOMMENDED LIMIT 4.0 - 6.0 ADA THERAPEUTIC TARGET < 7.0 ACTION SUGGESTED > 7.0 Performed By: #### A 1C #### [facility] [address] [place] [address] Dr. Petros Perez Glucose [Mass/Vol] 163 mg/dL Normal [facility] Comment on above: Performed By: #### A 1C #### [facility] [address] [place] [address] Dr. Petros Perez HbA1c (Bld) [Mass fraction] 7.3 % Critically high 4.5-6.2 [facility] Comment on above: Performed By: #### A 1C #### [facility] [address] [place] [address] Dr. Petros Perez LIPID PROFILEon 08-15-2021 CHOL-HDL RATIO NORM SEE BELOW Normal [facility] Comment on above: Result Comment: 3.3 - 4.4 LOW RISK 4.4 - 7.1 AVERAGE RISK 7.1 - 11.0 MODERATE RISK >11.0 HIGH RISK Performed By: #### L IPID, BMP #### [facility] [address] [address] [address] Petros Perez Cholesterol [Mass/Vol] 148 mg/dL Normal <=200 [facility] Comment on above: Performed By: #### L IPID, BMP #### [facility] [address] [address] [address] Petros Perez Cholesterol in HDL [Mass/Vol] 33 mg/dL Critically low 40-60 [facility] Comment on above: Performed By: #### L IPID, BMP #### [facility] [address] [place] [address] Dr. Petros Perez Cholesterol in LDL [Mass/Vol] 95.8 mg/dL Normal [facility] Comment on above: Performed By: #### L IPID, BMP #### [facility] [address] [place] [address] Dr. Petros Perez Cholesterol.total/Cho lesterol in HDL [Mass ratio] 4.5 {ratio} Normal [facility] Comment on above: Performed By: #### L IPID, BMP #### [facility] [address] [place] [address] Dr. Petros Perez HDL NORMAL > or = 60 mg/dl - LOW CARDIOVASCULAR RISK <40 mg/dl - HIGH CARDIOVASCULAR RISK Normal [facility] Comment on above: Performed By: #### L IPID, BMP #### [facility] [address] [place] [address] Dr. Petros Perez LDL CALC NORMAL SEE BELOW Normal [facility] Comment on above: Result Comment: <100 mg/dl OPTIMAL 100 - 129 mg/dl NEAR OR ABOVE OPTIMAL 130 - 159 mg/dl BORDERLINE HIGH 160 - 189 mg/dl HIGH >190 mg/dl VERY HIGH Performed By: #### L IPID, BMP #### [facility] [address] [address] [address] Petros Perez Triglyceride [Mass/Vol] 96 mg/dL Normal <=150 [facility] Comment on above: Performed By: #### L IPID, BMP #### [facility] [address] [address] [address] Petros Perez VLDL CALC 19.2 mg/dL Normal [facility] Comment on above: Performed By: #### L IPID, BMP #### [facility] [address] [place] [address] Dr. Petros Perez MICROALBUMIN, RAND URon - mALB 3.2 mg/L Normal <=30.0 [facility] Comment on above: Performed By: #### M ALBR #### [facility] [address] [place] [address] Dr. Petros Perez PROF CHEM 8 (BAS METB)on Anion gap [Moles/Vol] 13.1 mmol/L Normal [facility] Comment on above: Performed By: #### L IPID, BMP #### [facility] [address] [address] [address] Petros Perez Calcium [Mass/Vol] 9.2 mg/dL Normal 8.5-10.1 [facility] Comment on above: Performed By: #### L IPID, BMP #### [facility] [address] [place] [address] Dr. Petros Perez Chloride [Moles/Vol] 106 mmol/L Normal 98-107 [facility] Comment on above: Performed By: #### L IPID, BMP #### [facility] [address] [place] [address] Dr. Petros Perez CO2 [Moles/Vol] 24.1 mmol/L Normal 21.0-32.0 [facility] Comment on above: Performed By: #### L IPID, BMP #### [facility] [address] [address] [address] Petros Preez Creatinine [Mass/Vol] 1.56 mg/dL Critically high 0.70-1.30 [facility] Comment on above: Performed By: #### L IPID, BMP #### [facility] [address] [place] [address] Dr. Petros Perez EGFR-AF UGANDAN 53 mL/min/1.73m2 Critically low >=60 [facility] Comment on above: Performed By: #### L IPID, BMP #### [facility] [address] [place] [address] Dr. Petros Perez EGFR-NON AF UGANDAN 43 mL/min/1.73m2 Critically low >=60 [facility] Comment on above: Performed By: #### L IPID, BMP #### [facility] [address] [place] [address] Dr. Petros Perez Glucose [Mass/Vol] 139 mg/dL Critically high 74-106 [facility] Comment on above: Performed By: #### L IPID, BMP #### [facility] [address] [place] [address] Dr. Petros Perez Potassium [Moles/Vol] 4.2 mmol/L Normal 3.5-5.1 [facility] Comment on above: Performed By: #### L IPID, BMP #### [facility] [address] [place] [address] Dr. Petros Perez Sodium [Moles/Vol] 139 mmol/L Normal 136-145 [facility] Comment on above: Performed By: #### L IPID, BMP #### [facility] [address] [place] [address] Dr. Petros Perez Urea nitrogen [Mass/Vol] 25.0 mg/dL Critically high 7.0-18.0 [facility] Comment on above: Performed By: #### L IPID, BMP #### [facility] [address] [place] [address] Dr. Petros Perez Urea nitrogen/Creatinine [Mass ratio] 16.0 mg/mg Normal [facility] Comment on above: Performed By: #### L IPID, BMP #### [facility] [address] [place] [address] Dr. Petros Perez GLYCOHEMOGLOBIN A1Con 2021 ADA RECOMMENDATION ADA THERAPEUTIC TARGET 6.0 - 7.0 ACTION SUGGESTED > 7.0 Normal [facility] Comment on above: Performed By: #### A 1C #### [facility] [address] [address] [address] Petros Perez Glucose [Mass/Vol] 180 mg/dL Normal [facility] Comment on above: Performed By: #### A 1C #### [facility] [address] [address] [address] Petros Perez HbA1c (Bld) [Mass fraction] 7.9 % Critically high <=6.0 [facility] Comment on above: Performed By: #### A 1C #### [facility] [address] [address] [address] Petros Perez Consent for COVID Vaccineon 05-14-2020 SARS-CoV-2 (COVID-19) RNA EUN+probe Ql (Unsp spec) [id number] 3#1.00CD:127 Normal [facility] Consent for Treatmenton 05-02 Consent for Treatment [id number] 8#1.00CD:127 Normal [facility] Coding Summary.on 05-13-2020 Coding Summary. CODING DATE: 05/13/2020 [facility] STATUS: PAYOR: Medicare ADMIT DX: REASON [...] Saritha Simmons Date Saved: 05/13/2020 11:13 am [facility] Vital Signs Date Time Vital Sign Value Performing Clinician Facility 09-10-2023 [id number] Body height 182.88 cm [facility] 09-10-2023 09:28-0400 Body mass index (BMI) [Ratio] 32.3 kg/m2 [facility] 09-10-2023 09:28-0400 Body weight 108.12 kg [facility] 09-10-2023 09:28-0400 Diastolic blood pressure 61 mm[Hg] [facility] 09-10-2023 09:28-0400 Heart rate 56 /min [facility] 09-10-2023 09:28-0400 Respiratory rate 12 /min [facility] 09-10-2023 09:28-0400 Systolic blood pressure 123 mm[Hg] [facility] 06-11-2023 09:02-0400 Body height 182.88 cm [facility] 06-11-2023 09:02-0400 Body mass index (BMI) [Ratio] 33 kg/m2 [facility] 06-11-2023 09:02-0400 Body weight 110.67 kg [facility] 06-11-2023 09:02-0400 Diastolic blood pressure 65 mm[Hg] [facility] 06-11-2023 09:02-0400 Heart rate 62 /min [facility] 06-11-2023 09:02-0400 Respiratory rate 12 /min [facility] 06-11-2023 09:02-0400 Systolic blood pressure 149 mm[Hg] [facility] 11-08-2022 10:00-0400 Body height 182.88 cm Brian Ball Other [facility] Other 11-08-2022 10:00-0400 Body mass index (BMI) [Ratio] 31.27 kg/m2 Brian Ball Other [facility] Other 11-08-2022 10:00-0400 Body weight 104.6 kg Brian Ball Other [facility] Other 11-08-2022 10:00-0400 Diastolic blood pressure 72 mm[Hg] Brian Ball Other [facility] Other 11-08-2022 10:00-0400 Respiratory rate 12 /min Brian Ball Other [facility] Other 11-08-2022 10:00-0400 Systolic blood pressure 148 mm[Hg] Brian Ball Other [facility] Other 08-09-2022 10:00-0400 Body height 182.88 cm Brian Ball Other [facility] Other 08-09-2022 10:00-0400 Body mass index (BMI) [Ratio] 31.46 kg/m2 Brian Ball Other [facility] Other 08-09-2022 10:00-0400 Body weight 105.24 kg Brian Ball Other [facility] Other 08-09-2022 10:00-0400 Diastolic blood pressure 75 mm[Hg] Brian Ball Other [facility] Other 08-09-2022 10:00-0400 Respiratory rate 12 /min Brian Ball Other [facility] Other 08-09-2022 10:00-0400 Systolic blood pressure 170 mm[Hg] Brian Ball Other [facility] Other Encounters Encounter Date Encounter Type Care Provider Facility Start: 09-10-2023 End: 09-10-2023 ambulatory [facility] Work Phone: Start: 09-10-2023 End: 09-10-2023 Patient encounter procedure Counts Include 234 Beds At [facility] Physician [facility] Work Phone: Start: 06-11-2023 End: 06-11-2023 ambulatory [facility] Work Phone: Start: 06-11-2023 End: 06-11-2023 Patient encounter procedure Counts Include 234 Beds At [facility] Work Phone: Start: 11-08-2022 End: 11-08-2022 ambulatory Brian Salgado Other [facility] Other Start: 11-08-2022 Office outpatient vi sit 25 minutes Brian Salgado [facility] Start: 09-13-2022 End: 09-13-2022 ambulatory Brian Salgado Other [facility] Other Start: 09-13-2022 Telephone encounter Brian Salgado FP [facility] Start: 08-09-2022 End: 08-09-2022 ambulatory Brian Salgado Other [facility] Other Start: 08-09-2022 Patient encounter procedure Brian Slagado [facility] Start: 12-27-2021 End: 12-28-[address] BRIAN SALGADO Facility:[facility] Start: 08-15-2021 End: 08-16-[address] BRIAN SALGADO Facility:[facility] Start: 04-25-2021 End: 04-26-[address] BRIAN SALGADO Facility:[facility] Procedures Date Procedure Procedure Detail Performing Clinician Start: 08-15-[address] LAM [place] Comment on above: Performed By: #### P [facility] #### [facility] [address] [place] [address] Dr. Petros Perez Plan of Treatment Date Care Activity Detail Author Comprehensive metabo lic 2000 panel - Serum or Plasma [facility] enter [facility] Immunizations Immunization Date Immunization Notes Care Provider Fa cility 01-21-2023 influenza virus vaccine, unspecified formulation [facility] 11-21-2021 influenza virus vaccine, split virus (incl. purified surface antigen) Brian Salgado Other [facility] Other 11-21-2021 influenza virus vaccine, unspecified formulation [facility] 11-21-2021 influenza, high dose seasonal, preservative-free Brian Salgado Other [facility] Other 02-22-2021 COVID-19 Vaccine Pfi zer - Documentation Purposes Only Brian Salgado Other [facility] 12-30-2020 influenza virus vaccine, split virus (incl. purified surface antigen) Brian Naomi Other [place] [facility] Other 12-30-2020 influenza virus vaccine, unspecified formulation [facility] 05-06-2020 COVID-19 Vaccine Slim - Documentation Purposes Only Brian Naomi Other [facility] 01-12-2020 influenza virus vaccine, split virus (incl. purified surface antigen) Brian Naomi Other [place] [facility] Other 01-12-2020 influenza virus vaccine, unspecified formulation [facility] 01-13-2019 influenza virus vaccine, split virus (incl. purified surface antigen) Brian Naomi Other [place] [facility] Other 01-13-2019 influenza virus vaccine, unspecified formulation [facility] 12-02-2017 influenza virus vaccine, split virus (incl. purified surface antigen) Brian Naomi Other [place] [facility] Other 12-02-2017 influenza virus vaccine, unspecified formulation [facility] 12-27-2016 influenza virus vaccine, split virus (incl. purified surface antigen) Brian Naomi Other [facility] Other 12-27-2016 influenza virus vaccine, unspecified formulation [facility] 12-22-2015 influenza virus vaccine, split virus (incl. purified surface antigen) Brian Salgado Other [place] [facility] Other 12-22-2015 influenza virus vaccine, unspecified formulation [facility] 03-15-2015 pneumococcal conjuga te vaccine, 13 valent Brian Salgado Other [facility] 12-07-2014 influenza virus vaccine, split virus (incl. purified surface antigen) Brian Salgado Other [facility] Other 12-07-2014 influenza virus vaccine, unspecified formulation [facility] 11-10-2013 tetanus and diphther ia toxoids, adsorbed, preservative free, for adult use (5 Lf of tetanus toxoid and 2 Lf of diphtheria toxoid) Brian Salgado Other [facility] 12-10-2012 tetanus and diphther ia toxoids, adsorbed, preservative free, for adult use (5 Lf of tetanus toxoid and 2 Lf of diphtheria toxoid) Brian Salgado Other [facility] 02-14-2011 pneumococcal polysaccharide vaccine, 23 valent Brian Salgado Other [facility] Payers Date Payer Category Payer Medicare [id number] 1960 Unknown [id number] 1945 Unknown [id number] 1945 Unknown [id number] 1945 Unknown [id number] Social History Date Type Detail Facility Sex Assigned At [facility] Other Start: 1945 Sex Assigned At Male F [facility] Evaluation note 11-08-2022 Note Date & Type [...] < 30 Increase exercise and reduce calories. [facility] Other Evaluation note 08-09-2022 Note Date & [...] High risk medication use (ICD-10 - Z79.899) [facility] Other Evaluation note Note Date & Type Note Facility Evaluation note No Information [facility] Other Evaluation note Note Date & Type Note Facility Evaluation note Diagnosis Onset Date Chronic kidney disease acute Elevated cholesterol acute Hypertension acute Type 2 diabetes mellitus wit h diabetic polyneuropathy acute Type 2 diabetes mellitus with hyperglycemia acute [facility] Work Phone: Evaluation note Note Date & Type Note Facility Evaluation note Diagnosis Onset Date Chronic kidney disease acute Chronic venous insufficiency of lower extremity acute Elevated cholesterol acute Hypertension acute Screening PSA (prostate specific antigen) acute Type 2 diabetes mellitus wit h diabetic polyneuropathy acute Type 2 diabetes mellitus with hyperglycemia acute Medicare annual wellness visit, subsequent noneactive [facility] Work Phone: History general Narrative - Reported [...] History APPENDECTOMY Hospitalization History SEE SURGICAL HX [facility] Other Summary Purpose Family History No Family [...] and content) DATE CREATED AUTHOR 08/06/2020 Perea Starke [facility] DATE CREATED AUTHOR AUTHOR'S ORGANIZ ATION [...] BE BASED ON THE PRIMARY CLINICAL RECORDS. [facility] [employer] provides no warranty or guarantee of the accuracy or completeness of information in this document.
== END 2023-11-08 09:30 | disposition home or self-care (01) ==
LOC: US 09:29
PROVIDERS: PCP Internal Medicine; Visit Provider Internal Medicine
DX: N18.32 Chronic kidney disease, stage 3b (principal)
CPT/HCPCS: 76775

== ENCOUNTER 2023-11-08 10:06 | Outpatient (OUT) | payer MEDICARE, SELFPAY ==
--- NOTE | 2023-11-08 | XR_ITS ---
The [address] [address] Patient Name: JF HERNÁNDEZ MRN: [id number] date: 1945 Sex: M Assigned Patient Location: Current Patient Location: Accession/Order Number: [id number] Exam Date: 11/08/2023 10:15 Report Date: 11/09/2023 08:03 At the request of: EVELIN PICHARDO Procedure: XR foot LT min 3V PROCEDURE: XR foot LT min 3V HISTORY: LEFT FOOT PAIN COMPARISON: XR foot left 09/09/2018 FINDINGS: BONES:Moderate degenerative change of first metatarsophalangeal joint. Prior resection of the head of the third metatarsal and base of the third proximal phalanx. SOFT TISSUES:Distal dorsal soft tissue swelling. EFFUSION:None visible. OTHER: Negative. XR/XR foot LT min 3V IMPRESSION: 1. No appreciable acute abnormality or findings to suggest osteomyelitis. 2. Surgical resection of bones adjacent the third metatarsophalangeal joint. 4. Moderate degenerative change of first metatarsophalangeal joint. Electronically authenticated by: MARICARMEN LIEBERMAN Date: 11/09/2023 08:03
--- OUTSIDE RECORDS SUMMARY | 2023-11-08 10:26 | XMS_ITS | CCD ---
Author Organization [facility] Care Team Providers Care Corporate Health Consultant Name Role Phone NAOMI, DR PRITCHETT Attending [...] empagliflozin Drug Allergy 06-11-19 Unknown, Unknown Reaction [facility] (5 sources) Simvastatin Drug Allergy 06-11-19 Unknown, Unknown Reaction [facility] (3 sources) Sulfonamides (Antibiotic) Propensity to adverse reactions Unknown [facility] Other (1 source) Substance with sulfonamide structure and antibacterial mechanism of action (substance) Drug allergy Unknown [facility] Other (2 sources) Sulfonamides (Antibiotic) Allergy to substance 06-11-19 Unknown Reaction [facility] Medications Current Medications Medication Drug Class(es) [...] 08-17-2021 Chronic Other aftercare (1 source) 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 Petros Perez Glucose [Mass/Vol] 143 mg/dL Normal [facility] Comment on above: Performed By: #### A 1C #### [facility] [address] [place] [address] Dr. Petros Perez HbA1c (Bld) [Mass fraction] 6.6 % Critically high 4.5-6.2 [facility] Comment on above: Performed By: #### A 1C #### [facility] [address] [address] [address] Petros Perez CBC AUTO DIFFon 08-15-2021 BASO # 0.0 103/ul Normal 0.0-0.1 [facility] Comment on above: Performed By: #### C BC #### [facility] [address] [address] [address] Petros Perez Basophils/100 WBC (Bld) 0.3 % Normal 0.2-2.0 [facility] Comment on above: Performed By: #### C BC #### [facility] [address] [address] [address] Petros Perez EO # 0.1 103/ul Normal 0.0-0.7 [facility] Comment on above: Performed By: #### C BC #### [facility] [address] [address] [address] Petros Perez Eosinophils/100 WBC (Bld) 2.2 % Normal 0.9-7.0 [facility] Comment on above: Performed By: #### C BC #### [facility] [address] [place] [address] Dr. Petros Perez Erythrocyte distribution width (RBC) [Ratio] 13.4 % Normal 11.0-15.0 [facility] Comment on above: Performed By: #### C BC #### [facility] [address] [place] [address] Dr. Petros Perez Hematocrit (Bld) [Volume fraction] 42.8 % Normal 42.0-54.0 [facility] Comment on above: Performed By: #### C BC #### [facility] [address] [place] [address] Dr. Petros Perez Hemoglobin (Bld) [Mass/Vol] 14.1 g/dL Normal 14.0-18.0 [facility] Comment on above: Performed By: #### C BC #### [facility] [address] [place] [address] Dr. Petros Perez IG # 0.04 10e3/ul Critically high 0.00-0.03 [facility] Comment on above: Performed By: #### C BC #### [facility] [address] [place] [address] Dr. Petros Perez IG % 0.7 % Critically high 0.0-0.5 [facility] Comment on above: Performed By: #### C BC #### [facility] [address] [place] [address] Dr. Petros Perez LYMPH # 2.2 103/ul Normal 1.2-3.8 [facility] Comment on above: Performed By: #### C BC #### [facility] [address] [place] [address] Dr. Petros Perez Lymphocytes/100 WBC (Bld) 38.2 % Normal 20.5-60.0 [facility] Comment on above: Performed By: #### C BC #### [facility] [address] [place] [address] Dr. Petros Perez MANUAL DIFF REQ NO Normal [facility] Comment on above: Performed By: #### C BC #### [facility] [address] [place] [address] Dr. Petros Perez MCH (RBC) [Entitic mass] 30.6 pg Normal 25.9-34.0 [facility] Comment on above: Performed By: #### C BC #### [facility] [address] [place] [address] Dr. Petros Perez MCHC (RBC) [Mass/Vol] 32.9 g/dL Normal 29.9-35.2 [facility] Comment on above: Performed By: #### C BC #### [facility] [address] [place] [address] Dr. Petros Perez MCV (RBC) [Entitic vol] 92.8 fL Normal 80.0-94.0 [facility] Comment on above: Performed By: #### C BC #### [facility] [address] [place] [address] Dr. Petros Perez MONO # 0.5 103/ul Normal 0.3-0.8 [facility] Comment on above: Performed By: #### C BC #### [facility] [address] [place] [address] Dr. Petros Perez Monocytes/100 WBC (Bld) 8.6 % Normal 1.7-12.0 [facility] Comment on above: Performed By: #### C BC #### [facility] [address] [place] [address] Dr. Petros Perez NEUT # 2.9 103/ul Normal 1.4-6.5 [facility] Comment on above: Performed By: #### C BC #### [facility] [address] [place] [address] Dr. Petros Perez Neutrophils/100 WBC (Bld) 50.0 % Normal 43.0-75.0 [facility] Comment on above: Performed By: #### C BC #### [facility] [address] [address] [address] Petros Perez Platelet mean volume (Bld) [Entitic vol] 10.2 fL Normal 9.5-13.5 [facility] Comment on above: Performed By: #### C BC #### [facility] [address] [address] [address] Petros Perez PLT 219 103/ul Normal 150-450 [facility] Comment on above: Performed By: #### C BC #### [facility] [address] [address] [address] Petros Perez RBC 4.61 106/ul Critically low 4.70-6.10 [facility] Comment on above: Performed By: #### C BC #### [facility] [address] [address] [address] Petros Perez WBC 5.8 103/ul Normal 4.0-11.0 [facility] Comment on above: Performed By: #### C BC #### [facility] [address] [place] [address] Dr. Petros Perez GLYCOHEMOGLOBIN A1Con 2021 ADA RECOMMENDATION SEE BELOW Normal [facility] Comment on above: Result Comment: ADA RECOMMENDED LIMIT 4.0 - 6.0 ADA THERAPEUTIC TARGET < 7.0 ACTION SUGGESTED > 7.0 Performed By: #### A 1C #### [facility] [address] [place] [address] Dr. Petros Perez Glucose [Mass/Vol] 163 mg/dL Normal [facility] Comment on above: Performed By: #### A 1C #### [facility] [address] [place] [address] Dr. Petros Perez HbA1c (Bld) [Mass fraction] 7.3 % Critically high 4.5-6.2 [facility] Comment on above: Performed By: #### A 1C #### [facility] [address] [place] [address] Dr. Petros Perez LIPID PROFILEon 08-15-2021 CHOL-HDL RATIO NORM SEE BELOW Normal [facility] Comment on above: Result Comment: 3.3 - 4.4 LOW RISK 4.4 - 7.1 AVERAGE RISK 7.1 - 11.0 MODERATE RISK >11.0 HIGH RISK Performed By: #### L IPID, BMP #### [facility] [address] [address] [address] Petros Perez Cholesterol [Mass/Vol] 148 mg/dL Normal <=200 [facility] Comment on above: Performed By: #### L IPID, BMP #### [facility] [address] [address] [address] Petros Perez Cholesterol in HDL [Mass/Vol] 33 mg/dL Critically low 40-60 [facility] Comment on above: Performed By: #### L IPID, BMP #### [facility] [address] [place] [address] Dr. Petros Perez Cholesterol in LDL [Mass/Vol] 95.8 mg/dL Normal [facility] Comment on above: Performed By: #### L IPID, BMP #### [facility] [address] [place] [address] Dr. Petros Perez Cholesterol.total/Cho lesterol in HDL [Mass ratio] 4.5 {ratio} Normal [facility] Comment on above: Performed By: #### L IPID, BMP #### [facility] [address] [place] [address] Dr. Petros Perez HDL NORMAL > or = 60 mg/dl - LOW CARDIOVASCULAR RISK <40 mg/dl - HIGH CARDIOVASCULAR RISK Normal [facility] Comment on above: Performed By: #### L IPID, BMP #### [facility] [address] [place] [address] Dr. Petros Perez LDL CALC NORMAL SEE BELOW Normal [facility] Comment on above: Result Comment: <100 mg/dl OPTIMAL 100 - 129 mg/dl NEAR OR ABOVE OPTIMAL 130 - 159 mg/dl BORDERLINE HIGH 160 - 189 mg/dl HIGH >190 mg/dl VERY HIGH Performed By: #### L IPID, BMP #### [facility] [address] [address] [address] Petros Perez Triglyceride [Mass/Vol] 96 mg/dL Normal <=150 [facility] Comment on above: Performed By: #### L IPID, BMP #### [facility] [address] [address] [address] Petros Perez VLDL CALC 19.2 mg/dL Normal [facility] Comment on above: Performed By: #### L IPID, BMP #### [facility] [address] [place] [address] Dr. Petros Perez MICROALBUMIN, RAND URon - mALB 3.2 mg/L Normal <=30.0 [facility] Comment on above: Performed By: #### M ALBR #### [facility] [address] [place] [address] Dr. Petros Perez PROF CHEM 8 (BAS METB)on Anion gap [Moles/Vol] 13.1 mmol/L Normal [facility] Comment on above: Performed By: #### L IPID, BMP #### [facility] [address] [address] [address] Petros Perez Calcium [Mass/Vol] 9.2 mg/dL Normal 8.5-10.1 [facility] Comment on above: Performed By: #### L IPID, BMP #### [facility] [address] [place] [address] Dr. Petros Perez Chloride [Moles/Vol] 106 mmol/L Normal 98-107 [facility] Comment on above: Performed By: #### L IPID, BMP #### [facility] [address] [place] [address] Dr. Petros Perez CO2 [Moles/Vol] 24.1 mmol/L Normal 21.0-32.0 [facility] Comment on above: Performed By: #### L IPID, BMP #### [facility] [address] [address] [address] Petros Perez Creatinine [Mass/Vol] 1.56 mg/dL Critically high 0.70-1.30 [facility] Comment on above: Performed By: #### L IPID, BMP #### [facility] [address] [place] [address] Dr. Petros Perez EGFR-AF MALAYSIAN 53 mL/min/1.73m2 Critically low >=60 [facility] Comment on above: Performed By: #### L IPID, BMP #### [facility] [address] [place] [address] Dr. Petros Perez EGFR-NON AF MALAYSIAN 43 mL/min/1.73m2 Critically low >=60 [facility] Comment on above: Performed By: #### L IPID, BMP #### [facility] [address] [place] [address] Dr. Petros Perez Glucose [Mass/Vol] 139 mg/dL Critically high 74-106 T [facility] Comment on above: Performed By: #### L IPID, BMP #### [facility] [address] [place] [address] Dr. Petros Perez Potassium [Moles/Vol] 4.2 mmol/L Normal 3.5-5.1 [facility] Comment on above: Performed By: #### L IPID, BMP #### [facility] [address] [place] [address] Dr. Petros Perez Sodium [Moles/Vol] 139 mmol/L Normal 136-145 [facility] Comment on above: Performed By: #### L IPID, BMP #### [facility] [address] [place] [address] Dr. Petros Perez Urea nitrogen [Mass/Vol] 25.0 mg/dL Critically high 7.0-18.0 [facility] Comment on above: Performed By: #### L IPID, BMP #### [facility] [address] [place] [address] Dr. Petros Perez Urea nitrogen/Creatinine [Mass ratio] 16.0 mg/mg Normal [facility] Comment on above: Performed By: #### L IPID, BMP #### [facility] [address] [place] [address] Dr. Petros Perez GLYCOHEMOGLOBIN A1Con 2021 ADA RECOMMENDATION ADA THERAPEUTIC TARGET 6.0 - 7.0 ACTION SUGGESTED > 7.0 Normal [facility] Comment on above: Performed By: #### A 1C #### [facility] [address] [address] [address] Petros Perez Glucose [Mass/Vol] 180 mg/dL Normal [facility] Comment on above: Performed By: #### A 1C #### [facility] [address] [address] [address] Petros Perez HbA1c (Bld) [Mass fraction] 7.9 % Critically high <=6.0 [facility] Comment on above: Performed By: #### A 1C #### [facility] [address] [address] [address] Petros Perez Consent for COVID Vaccineon 05-14-2020 SARS-CoV-2 (COVID-19) RNA EUN+probe Ql (Unsp spec) [id number] 3#1.00CD:127 Normal [facility] Consent for Treatmenton 05-02 Consent for Treatment [id number] 8#1.00CD:127 Normal [facility] Coding Summary.on 05-13-2020 Coding Summary. CODING DATE: 05/13/2020 [facility] STATUS: PAYOR: Medicare ADMIT DX: REASON [...] Saritha Simmons Date Saved: 05/13/2020 11:13 am [facility] Vital Signs Date Time Vital Sign Value Performing Clinician Facility 09-10-2023 [id number] Body height 182.88 cm [facility] 09-10-2023 09:28-0400 Body mass index (BMI) [Ratio] 32.3 kg/m2 [facility] 09-10-2023 09:28-0400 Body weight 108.12 kg [facility] 09-10-2023 09:28-0400 Diastolic blood pressure 61 mm[Hg] [facility] 09-10-2023 09:28-0400 Heart rate 56 /min [facility] 09-10-2023 09:28-0400 Respiratory rate 12 /min [facility] 09-10-2023 09:28-0400 Systolic blood pressure 123 mm[Hg] [facility] 06-11-2023 09:02-0400 Body height 182.88 cm [facility] 06-11-2023 09:02-0400 Body mass index (BMI) [Ratio] 33 kg/m2 [facility] 06-11-2023 09:02-0400 Body weight 110.67 kg [facility] 06-11-2023 09:02-0400 Diastolic blood pressure 65 mm[Hg] [facility] 06-11-2023 09:02-0400 Heart rate 62 /min [facility] 06-11-2023 09:02-0400 Respiratory rate 12 /min [facility] 06-11-2023 09:02-0400 Systolic blood pressure 149 mm[Hg] [facility] 11-08-2022 10:00-0400 Body height 182.88 cm Brian Ball Other [facility] Other 11-08-2022 10:00-0400 Body mass index (BMI) [Ratio] 31.27 kg/m2 Brian Ball Other [facility] Other 11-08-2022 10:00-0400 Body weight 104.6 kg Brian Ball Other [facility] Other 11-08-2022 10:00-0400 Diastolic blood pressure 72 mm[Hg] Brian Ball Other [facility] Other 11-08-2022 10:00-0400 Respiratory rate 12 /min Brian Ball Other [facility] Other 11-08-2022 10:00-0400 Systolic blood pressure 148 mm[Hg] Brian Ball Other [facility] Other 08-09-2022 10:00-0400 Body height 182.88 cm Brian Ball Other [facility] Other 08-09-2022 10:00-0400 Body mass index (BMI) [Ratio] 31.46 kg/m2 Brian Ball Other [facility] Other 08-09-2022 10:00-0400 Body weight 105.24 kg Brian Ball Other [facility] Other 08-09-2022 10:00-0400 Diastolic blood pressure 75 mm[Hg] Brian Ball Other [facility] Other 08-09-2022 10:00-0400 Respiratory rate 12 /min Brian Ball Other [facility] Other 08-09-2022 10:00-0400 Systolic blood pressure 170 mm[Hg] Brian Ball Other [facility] Other Encounters Encounter Date Encounter Type Care Provider Facility Start: 09-10-2023 End: 09-10-2023 ambulatory [facility] Work Phone: Start: 09-10-2023 End: 09-10-2023 Patient encounter procedure [facility] Physician [facility] Work Phone: Start: 06-11-2023 End: 06-11-2023 ambulatory [facility] Work Phone: Start: 06-11-2023 End: 06-11-2023 Patient encounter procedure [facility] Work Phone: Start: 11-08-2022 End: 11-08-2022 ambulatory Brian Salgado Other [facility] Other Start: 11-08-2022 Office outpatient vi sit 25 minutes Brian Salgado [facility] Start: 09-13-2022 End: 09-13-2022 ambulatory Brian Salgado Other [facility] Other Start: 09-13-2022 Telephone encounter Brian Salgado [facility] Start: 08-09-2022 End: 08-09-2022 ambulatory Brian Salgado Other [facility] Other Start: 08-09-2022 Patient encounter procedure Brian Salgado [facility] Start: 12-27-2021 End: 12-28-[address] BRIAN SALGADO Facility:[facility] Start: 08-15-2021 End: 08-16-[address] BRIAN SALGADO Facility:[facility] Start: 04-25-2021 End: 04-26-[address] BRIAN SALGADO Facility:[facility] Procedures Date Procedure Procedure Detail Performing Clinician Start: 08-15-[address] LAM [place] Comment on above: Performed By: #### P [facility] #### [facility] [address] [place] [address] Dr. Petros Perez Plan of Treatment Date Care Activity Detail Author Comprehensive metabo lic 2000 panel - Serum or Plasma [facility] enter [facility] Immunizations Immunization Date Immunization Notes Care Provider Fa cility 01-21-2023 influenza virus vaccine, unspecified formulation [facility] 11-21-2021 influenza virus vaccine, split virus (incl. purified surface antigen) Brian Salgado Other [facility] Other 11-21-2021 influenza virus vaccine, unspecified formulation [facility] 11-21-2021 influenza, high dose seasonal, preservative-free Brian Salgado Other [facility] Other 02-22-2021 COVID-19 Vaccine Pfi zer - Documentation Purposes Only Brian Salgado Other [facility] 12-30-2020 influenza virus vaccine, split virus (incl. purified surface antigen) Brian Naomi Other [facility] Other 12-30-2020 influenza virus vaccine, unspecified formulation [facility] 05-06-2020 COVID-19 Vaccine Slim - Documentation Purposes Only Brian Naomi Other [facility] 01-12-2020 influenza virus vaccine, split virus (incl. purified surface antigen) Brian Naomi Other [facility] Other 01-12-2020 influenza virus vaccine, unspecified formulation [facility] 01-13-2019 influenza virus vaccine, split virus (incl. purified surface antigen) Brian Naomi Other [facility] Other 01-13-2019 influenza virus vaccine, unspecified formulation [facility] 12-02-2017 influenza virus vaccine, split virus (incl. purified surface antigen) Brian Naomi Other [facility] Other 12-02-2017 influenza virus vaccine, unspecified formulation [facility] 12-27-2016 influenza virus vaccine, split virus (incl. purified surface antigen) Brian Naomi Other [facility] Other 12-27-2016 influenza virus vaccine, unspecified formulation [facility] 12-22-2015 influenza virus vaccine, split virus (incl. purified surface antigen) Brian Salgado Other [facility] Other 12-22-2015 influenza virus vaccine, unspecified formulation [facility] 03-15-2015 pneumococcal conjuga te vaccine, 13 valent Brian Salgado Other [facility] 12-07-2014 influenza virus vaccine, split virus (incl. purified surface antigen) Brian Salgado Other [facility] Other 12-07-2014 influenza virus vaccine, unspecified formulation [facility] 11-10-2013 tetanus and diphther ia toxoids, adsorbed, preservative free, for adult use (5 Lf of tetanus toxoid and 2 Lf of diphtheria toxoid) Brian Salgado Other [facility] 12-10-2012 tetanus and diphther ia toxoids, adsorbed, preservative free, for adult use (5 Lf of tetanus toxoid and 2 Lf of diphtheria toxoid) Brian Salgado Other [facility] 02-14-2011 pneumococcal polysaccharide vaccine, 23 valent Brian Salgado Other [facility] Payers Date Payer Category Payer Medicare [id number] 1960 Unknown [id number] 1945 Unknown [id number] 1945 Unknown [id number] 1945 Unknown [id number] Social History Date Type Detail Facility Sex Assigned At [facility] Other Start: 1945 Sex Assigned At Male F [facility] Evaluation note 11-08-2022 Note Date & Type [...] < 30 Increase exercise and reduce calories. [facility] Other Evaluation note 08-09-2022 Note Date & [...] High risk medication use (ICD-10 - Z79.899) [facility] Other Evaluation note Note Date & Type Note Facility Evaluation note No Information [facility] Other Evaluation note Note Date & Type Note Facility Evaluation note Diagnosis Onset Date Chronic kidney disease acute Elevated cholesterol acute Hypertension acute Type 2 diabetes mellitus wit h diabetic polyneuropathy acute Type 2 diabetes mellitus with hyperglycemia acute [facility] Work Phone: Evaluation note Note Date & Type Note Facility Evaluation note Diagnosis Onset Date Chronic kidney disease acute Chronic venous insufficiency of lower extremity acute Elevated cholesterol acute Hypertension acute Screening PSA (prostate specific antigen) acute Type 2 diabetes mellitus wit h diabetic polyneuropathy acute Type 2 diabetes mellitus with hyperglycemia acute Medicare annual wellness visit, subsequent noneactive [facility] Work Phone: History general Narrative - [...] History APPENDECTOMY Hospitalization History SEE SURGICAL HX [facility] Other Summary Purpose Family History No Family [...] and content) DATE CREATED AUTHOR 08/06/2020 [place] [facility] DATE CREATED AUTHOR AUTHOR'S ORGANIZ [...] BE BASED ON THE PRIMARY CLINICAL RECORDS. [facility] provides no warranty or guarantee of the accuracy or completeness of information in this document.
== END 2023-11-08 10:07 | disposition home or self-care (01) ==
LOC: WC 10:06
PROVIDERS: PCP Internal Medicine; Visit Provider Podiatrist Foot & Ankle Surgery
DX: N18.32 Chronic kidney disease, stage 3b (principal); S91.302A Unspecified open wound, left foot, initial encounter; E11.621 Type 2 diabetes mellitus with foot ulcer; L97.423 Non-pressure chronic ulcer of left heel and midfoot with necrosis of muscle; T81.89XD Other complications of procedures, not elsewhere classified, subsequent encounter
CPT/HCPCS: 11043; 73630; 76775; 87070; 87075; 87150; 87186; G0463

== ENCOUNTER 2023-11-08 12:01 | Outpatient (REF) | payer MEDICARE, SELFPAY ==
--- OUTSIDE RECORDS SUMMARY | 2023-11-08 12:18 | XMS_ITS | CCD ---
Author Organization [facility] Care Team Providers Care Sustainability Coordinator Name Role Phone NAOMI, DR PRITCHETT Attending [...] empagliflozin Drug Allergy 06-11-19 Unknown, Unknown Reaction [facility] (5 sources) Simvastatin Drug Allergy 06-11-19 Unknown, Unknown Reaction [facility] (3 sources) Sulfonamides (Antibiotic) Propensity to adverse reactions Unknown [facility] Other (1 source) Substance with sulfonamide structure and antibacterial mechanism of action (substance) Drug allergy Unknown [facility] Other (2 sources) Sulfonamides (Antibiotic) Allergy to substance 06-11-19 Unknown Reaction [facility] Medications Current Medications Medication Drug Class(es) [...] 08-17-2021 Chronic Other aftercare (1 source) Other termination clerk (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 therapy Episodic Other diseases of [...] 2021 ADA RECOMMENDATION SEE BELOW Normal [facility] Comment on above: Result Comment: ADA RECOMMENDED LIMIT 4.0 - 6.0 ADA THERAPEUTIC TARGET < 7.0 ACTION SUGGESTED > 7.0 Performed By: #### A 1C #### [facility] [address] [place] [address] Dr. Petros Perez Glucose [Mass/Vol] 143 mg/dL Normal [facility] Comment on above: Performed By: #### A 1C #### [facility] [address] [place] [address] Dr. Petros Perez HbA1c (Bld) [Mass fraction] 6.6 % Critically high 4.5-6.2 [facility] Comment on above: Performed By: #### A 1C #### [facility] [address] [address] [address] Petros Perez CBC AUTO DIFFon 08-15-2021 BASO # 0.0 103/ul Normal 0.0-0.1 [facility] Comment on above: Performed By: #### C BC #### [facility] [address] [address] [address] Petros Perez Basophils/100 WBC (Bld) 0.3 % Normal 0.2-2.0 [facility] Comment on above: Performed By: #### C BC #### [facility] [address] [address] [address] Petros Perez EO # 0.1 103/ul Normal 0.0-0.7 [facility] Comment on above: Performed By: #### C BC #### [facility] [address] [address] [address] Petros Perez Eosinophils/100 WBC (Bld) 2.2 % Normal 0.9-7.0 [facility] Comment on above: Performed By: #### C BC #### [facility] [address] [place] [address] Dr. Petros Perez Erythrocyte distribution width (RBC) [Ratio] 13.4 % Normal 11.0-15.0 [facility] Comment on above: Performed By: #### C BC #### [facility] [address] [place] [address] Dr. Petros Perez Hematocrit (Bld) [Volume fraction] 42.8 % Normal 42.0-54.0 [facility] Comment on above: Performed By: #### C BC #### [facility] [address] [place] [address] Dr. Petros Perez Hemoglobin (Bld) [Mass/Vol] 14.1 g/dL Normal 14.0-18.0 [facility] Comment on above: Performed By: #### C BC #### [facility] [address] [place] [address] Dr. Petros Perez IG # 0.04 10e3/ul Critically high 0.00-0.03 [facility] Comment on above: Performed By: #### C BC #### [facility] [address] [place] [address] Dr. Petros Perez IG % 0.7 % Critically high 0.0-0.5 [facility] Comment on above: Performed By: #### C BC #### [facility] [address] [place] [address] Dr. Petros Perez LYMPH # 2.2 103/ul Normal 1.2-3.8 [facility] Comment on above: Performed By: #### C BC #### [facility] [address] [place] [address] Dr. Petros Perez Lymphocytes/100 WBC (Bld) 38.2 % Normal 20.5-60.0 [facility] Comment on above: Performed By: #### C BC #### [facility] [address] [place] [address] Dr. Petros Perez MANUAL DIFF REQ NO Normal [facility] Comment on above: Performed By: #### C BC #### [facility] [address] [place] [address] Dr. Petros Perez MCH (RBC) [Entitic mass] 30.6 pg Normal 25.9-34.0 [facility] Comment on above: Performed By: #### C BC #### [facility] [address] [place] [address] Dr. Petros Perez MCHC (RBC) [Mass/Vol] 32.9 g/dL Normal 29.9-35.2 [facility] Comment on above: Performed By: #### C BC #### [facility] [address] [place] [address] Dr. Petros Perez MCV (RBC) [Entitic vol] 92.8 fL Normal 80.0-94.0 [facility] Comment on above: Performed By: #### C BC #### [facility] [address] [place] [address] Dr. Petros Perez MONO # 0.5 103/ul Normal 0.3-0.8 [facility] Comment on above: Performed By: #### C BC #### [facility] [address] [place] [address] Dr. Petros Perez Monocytes/100 WBC (Bld) 8.6 % Normal 1.7-12.0 [facility] Comment on above: Performed By: #### C BC #### [facility] [address] [place] [address] Dr. Petros Perez NEUT # 2.9 103/ul Normal 1.4-6.5 [facility] Comment on above: Performed By: #### C BC #### [facility] [address] [place] [address] Dr. Petros Perez Neutrophils/100 WBC (Bld) 50.0 % Normal 43.0-75.0 [facility] Comment on above: Performed By: #### C BC #### [facility] [address] [address] [address] Petros Perez Platelet mean volume (Bld) [Entitic vol] 10.2 fL Normal 9.5-13.5 [facility] Comment on above: Performed By: #### C BC #### [facility] [address] [address] [address] Petros Perez PLT 219 103/ul Normal 150-450 [facility] Comment on above: Performed By: #### C BC #### [facility] [address] [address] [address] Petros Perez RBC 4.61 106/ul Critically low 4.70-6.10 [facility] Comment on above: Performed By: #### C BC #### [facility] [address] [address] [address] Petros Perez WBC 5.8 103/ul Normal 4.0-11.0 [facility] Comment on above: Performed By: #### C BC #### [facility] [address] [place] [address] Dr. Petros Perez GLYCOHEMOGLOBIN A1Con 2021 ADA RECOMMENDATION SEE BELOW Normal [facility] Comment on above: Result Comment: ADA RECOMMENDED LIMIT 4.0 - 6.0 ADA THERAPEUTIC TARGET < 7.0 ACTION SUGGESTED > 7.0 Performed By: #### A 1C #### [facility] [address] [place] [address] Dr. Petros Perez Glucose [Mass/Vol] 163 mg/dL Normal [facility] Comment on above: Performed By: #### A 1C #### [facility] [address] [place] [address] Dr. Petros Perez HbA1c (Bld) [Mass fraction] 7.3 % Critically high 4.5-6.2 [facility] Comment on above: Performed By: #### A 1C #### [facility] [address] [place] [address] Dr. Petros Perez LIPID PROFILEon 08-15-2021 CHOL-HDL RATIO NORM SEE BELOW Normal [facility] Comment on above: Result Comment: 3.3 - 4.4 LOW RISK 4.4 - 7.1 AVERAGE RISK 7.1 - 11.0 MODERATE RISK >11.0 HIGH RISK Performed By: #### L IPID, BMP #### [facility] [address] [address] [address] Petros Perez Cholesterol [Mass/Vol] 148 mg/dL Normal <=200 [facility] Comment on above: Performed By: #### L IPID, BMP #### [facility] [address] [address] [address] Petros Perez Cholesterol in HDL [Mass/Vol] 33 mg/dL Critically low 40-60 [facility] Comment on above: Performed By: #### L IPID, BMP #### [facility] [address] [place] [address] Dr. Petros Perez Cholesterol in LDL [Mass/Vol] 95.8 mg/dL Normal [facility] Comment on above: Performed By: #### L IPID, BMP #### [facility] [address] [place] [address] Dr. Petros Perez Cholesterol.total/Cho lesterol in HDL [Mass ratio] 4.5 {ratio} Normal [facility] Comment on above: Performed By: #### L IPID, BMP #### [facility] [address] [place] [address] Dr. Petros Perez HDL NORMAL > or = 60 mg/dl - LOW CARDIOVASCULAR RISK <40 mg/dl - HIGH CARDIOVASCULAR RISK Normal [facility] Comment on above: Performed By: #### L IPID, BMP #### [facility] [address] [place] [address] Dr. Petros Perez LDL CALC NORMAL SEE BELOW Normal [facility] Comment on above: Result Comment: <100 mg/dl OPTIMAL 100 - 129 mg/dl NEAR OR ABOVE OPTIMAL 130 - 159 mg/dl BORDERLINE HIGH 160 - 189 mg/dl HIGH >190 mg/dl VERY HIGH Performed By: #### L IPID, BMP #### [facility] [address] [address] [address] Petros Perez Triglyceride [Mass/Vol] 96 mg/dL Normal <=150 [facility] Comment on above: Performed By: #### L IPID, BMP #### [facility] [address] [address] [address] Petros Perez VLDL CALC 19.2 mg/dL Normal [facility] Comment on above: Performed By: #### L IPID, BMP #### [facility] [address] [place] [address] Dr. Petros Perez MICROALBUMIN, RAND URon - mALB 3.2 mg/L Normal <=30.0 [facility] Comment on above: Performed By: #### M ALBR #### [facility] [address] [place] [address] Dr. Petros Perez PROF CHEM 8 (BAS METB)on Anion gap [Moles/Vol] 13.1 mmol/L Normal [facility] Comment on above: Performed By: #### L IPID, BMP #### [facility] [address] [address] [address] Petros Perez Calcium [Mass/Vol] 9.2 mg/dL Normal 8.5-10.1 [facility] Comment on above: Performed By: #### L IPID, BMP #### [facility] [address] [place] [address] Dr. Petros Perez Chloride [Moles/Vol] 106 mmol/L Normal 98-107 [facility] Comment on above: Performed By: #### L IPID, BMP #### [facility] [address] [place] [address] Dr. Petros Perez CO2 [Moles/Vol] 24.1 mmol/L Normal 21.0-32.0 [facility] Comment on above: Performed By: #### L IPID, BMP #### [facility] [address] [address] [address] Petros Perez Creatinine [Mass/Vol] 1.56 mg/dL Critically high 0.70-1.30 [facility] Comment on above: Performed By: #### L IPID, BMP #### [facility] [address] [place] [address] Dr. Petros Preez EGFR-AF BELGIAN 53 mL/min/1.73m2 Critically low >=60 [facility] Comment on above: Performed By: #### L IPID, BMP #### [facility] [address] [place] [address] Dr. Petros Perez EGFR-NON AF BELGIAN 43 mL/min/1.73m2 Critically low >=60 [facility] Comment on above: Performed By: #### L IPID, BMP #### [facility] [address] [place] [address] Dr. Petros Perez Glucose [Mass/Vol] 139 mg/dL Critically high 74-106 T [facility] Comment on above: Performed By: #### L IPID, BMP #### [facility] [address] [place] [address] Dr. Petros Perez Potassium [Moles/Vol] 4.2 mmol/L Normal 3.5-5.1 [facility] Comment on above: Performed By: #### L IPID, BMP #### [facility] [address] [place] [address] Dr. Petros Perez Sodium [Moles/Vol] 139 mmol/L Normal 136-145 [facility] Comment on above: Performed By: #### L IPID, BMP #### [facility] [address] [place] [address] Dr. Petros Perez Urea nitrogen [Mass/Vol] 25.0 mg/dL Critically high 7.0-18.0 [facility] Comment on above: Performed By: #### L IPID, BMP #### [facility] [address] [place] [address] Dr. Petros Perez Urea nitrogen/Creatinine [Mass ratio] 16.0 mg/mg Normal [facility] Comment on above: Performed By: #### L IPID, BMP #### [facility] [address] [place] [address] Dr. Petros Perez GLYCOHEMOGLOBIN A1Con 2021 ADA RECOMMENDATION ADA THERAPEUTIC TARGET 6.0 - 7.0 ACTION SUGGESTED > 7.0 Normal [facility] Comment on above: Performed By: #### A 1C #### [facility] [address] [address] [address] Petros Perez Glucose [Mass/Vol] 180 mg/dL Normal [facility] Comment on above: Performed By: #### A 1C #### [facility] [address] [address] [address] Petros Perez HbA1c (Bld) [Mass fraction] 7.9 % Critically high <=6.0 [facility] Comment on above: Performed By: #### A 1C #### [facility] [address] [address] [address] Petros Perez Consent for COVID Vaccineon 05-14-2020 SARS-CoV-2 (COVID-19) RNA EUN+probe Ql (Unsp spec) [id number] 3#1.00CD:127 Normal [place] Consent for Treatmenton 05-02 Consent for Treatment [id number] 8#1.00CD:127 Normal [place] Coding Summary.on 05-13-2020 Coding Summary. CODING DATE: 05/13/2020 [facility] STATUS: PAYOR: Medicare ADMIT DX: REASON FOR [...] Saritha Simmons Date Saved: 05/13/2020 11:13 am [facility] Vital Signs Date Time Vital Sign Value Performing Clinician Facility 09-10-2023 [id number] Body height 182.88 cm [facility] 09-10-2023 09:28-0400 Body mass index (BMI) [Ratio] 32.3 kg/m2 [facility] 09-10-2023 09:28-0400 Body weight 108.12 kg [facility] 09-10-2023 09:28-0400 Diastolic blood pressure 61 mm[Hg] [facility] 09-10-2023 09:28-0400 Heart rate 56 /min [facility] 09-10-2023 09:28-0400 Respiratory rate 12 /min [facility] 09-10-2023 09:28-0400 Systolic blood pressure 123 mm[Hg] [facility] 06-11-2023 09:02-0400 Body height 182.88 cm [facility] 06-11-2023 09:02-0400 Body mass index (BMI) [Ratio] 33 kg/m2 [facility] 06-11-2023 09:02-0400 Body weight 110.67 kg [facility] 06-11-2023 09:02-0400 Diastolic blood pressure 65 mm[Hg] [facility] 06-11-2023 09:02-0400 Heart rate 62 /min [facility] 06-11-2023 09:02-0400 Respiratory rate 12 /min [facility] 06-11-2023 09:02-0400 Systolic blood pressure 149 mm[Hg] [facility] 11-08-2022 10:00-0400 Body height 182.88 cm Brian Ball Other [facility] Other 11-08-2022 10:00-0400 Body mass index (BMI) [Ratio] 31.27 kg/m2 Brian Ball Other [place] Other 11-08-2022 10:00-0400 Body weight 104.6 kg Brian Ball Other [place] [facility] Other 11-08-2022 10:00-0400 Diastolic blood pressure 72 mm[Hg] Brian Ball Other [place] [facility] Other 11-08-2022 10:00-0400 Respiratory rate 12 /min Brian Ball Other [facility] Other 11-08-2022 10:00-0400 Systolic blood pressure 148 mm[Hg] Brian Ball Other [facility] Other 08-09-2022 10:00-0400 Body height 182.88 cm Brian Ball Other [facility] Other 08-09-2022 10:00-0400 Body mass index (BMI) [Ratio] 31.46 kg/m2 Brian Ball Other [facility] Other 08-09-2022 10:00-0400 Body weight 105.24 kg Brian Ball Other [facility] Other 08-09-2022 10:00-0400 Diastolic blood pressure 75 mm[Hg] Brian Ball Other [facility] Other 08-09-2022 10:00-0400 Respiratory rate 12 /min Brian Ball Other [facility] Other 08-09-2022 10:00-0400 Systolic blood pressure 170 mm[Hg] Brian Ball Other [facility] Other Encounters Encounter Date Encounter Type Care Provider Facility Start: 09-10-2023 End: 09-10-2023 ambulatory [facility] Work Phone: Start: 09-10-2023 End: 09-10-2023 Patient encounter procedure [facility] Work Phone: Start: 06-11-2023 End: 06-11-2023 ambulatory [facility] Work Phone: Start: 06-11-2023 End: 06-11-2023 Patient encounter procedure [facility] Work Phone: Start: 11-08-2022 End: 11-08-2022 ambulatory Brian Salgado Other [employer] Other Start: 11-08-2022 Office outpatient vi sit 25 minutes Brian Salgado [facility] Start: 09-13-2022 End: 09-13-2022 ambulatory Brian Salgado Other [facility] Other Start: 09-13-2022 Telephone encounter Brian Salgado [facility] Start: 08-09-2022 End: 08-09-2022 ambulatory Brian Salgado Other [facility] Other Start: 08-09-2022 Patient encounter procedure Brian Salgado [facility] Start: 12-27-2021 End: 12-28-[address] BRIAN SALGADO Facility:[facility] Start: 08-15-2021 End: 08-16-[address] BRIAN SALGADO Facility:[facility] Start: 04-25-2021 End: 04-26-[address] BRIAN SALGADO Facility:[facility] Procedures Date Procedure Procedure Detail Performing Clinician Start: 08-15-[address] LAM [facility] Comment on above: Performed By: #### P [facility] #### [facility] [address] [place] [address] Dr. Petros Perez Plan of Treatment Date Care Activity Detail Author Comprehensive metabo lic 2000 panel - Serum or Plasma [facility] enter [facility] Immunizations Immunization Date Immunization Notes Care Provider Fa cility 01-21-2023 influenza virus vaccine, unspecified formulation [facility] 11-21-2021 influenza virus vaccine, split virus (incl. purified surface antigen) Brian Salgado Other [employer] [facility] Other 11-21-2021 influenza virus vaccine, unspecified formulation [facility] 11-21-2021 influenza, high dose seasonal, preservative-free Brian Salgado Other [employer] [facility] Other 02-22-2021 COVID-19 Vaccine Pfi zer - Documentation Purposes Only Brian Salgado Other [facility] 12-30-2020 influenza virus vaccine, split virus (incl. purified surface antigen) Brian Naomi Other [place] [facility] Other 12-30-2020 influenza virus vaccine, unspecified formulation [facility] 05-06-2020 COVID-19 Vaccine Slim - Documentation Purposes Only Brian Naomi Other [facility] 01-12-2020 influenza virus vaccine, split virus (incl. purified surface antigen) Brian Naomi Other [place] [facility] Other 01-12-2020 influenza virus vaccine, unspecified formulation [facility] 01-13-2019 influenza virus vaccine, split virus (incl. purified surface antigen) Brian Naomi Other [place] [facility] Other 01-13-2019 influenza virus vaccine, unspecified formulation [facility] 12-02-2017 influenza virus vaccine, split virus (incl. purified surface antigen) Brian Naomi Other [place] [facility] Other 12-02-2017 influenza virus vaccine, unspecified formulation [facility] 12-27-2016 influenza virus vaccine, split virus (incl. purified surface antigen) Brian Naomi Other [employer] [facility] Other 12-27-2016 influenza virus vaccine, unspecified formulation [facility] 12-22-2015 influenza virus vaccine, split virus (incl. purified surface antigen) Brian Salgado Other [place] [employer] Other 12-22-2015 influenza virus vaccine, unspecified formulation [facility] 03-15-2015 pneumococcal conjuga te vaccine, 13 valent Brian Salgado Other [facility] 12-07-2014 influenza virus vaccine, split virus (incl. purified surface antigen) Brian Salgado Other [facility] Other 12-07-2014 influenza virus vaccine, unspecified formulation [facility] 11-10-2013 tetanus and diphther ia toxoids, adsorbed, preservative free, for adult use (5 Lf of tetanus toxoid and 2 Lf of diphtheria toxoid) Brian Salgado Other [facility] 12-10-2012 tetanus and diphther ia toxoids, adsorbed, preservative free, for adult use (5 Lf of tetanus toxoid and 2 Lf of diphtheria toxoid) Brian Salgado Other [facility] 02-14-2011 pneumococcal polysaccharide vaccine, 23 valent Brian Salgado Other [facility] Payers Date Payer Category Payer Medicare [id number] 1960 Unknown [id number] 1945 Unknown [id number] 1945 Unknown [id number] 1945 Unknown [id number] Social History Date Type Detail Facility Sex Assigned At [facility] Other Start: 1945 Sex Assigned At Male [facility] Evaluation note 11-08-2022 Note Date & [...] < 30 Increase exercise and reduce calories. [facility] Other Evaluation note 08-09-2022 Note Date & [...] High risk medication use (ICD-10 - Z79.899) [facility] Other Evaluation note Note Date & Type Note Facility Evaluation note No Information [facility] Other Evaluation note Note Date & Type Note Facility Evaluation note Diagnosis Onset Date Chronic kidney disease acute Elevated cholesterol acute Hypertension acute Type 2 diabetes mellitus wit h diabetic polyneuropathy acute Type 2 diabetes mellitus with hyperglycemia acute [facility] Work Phone: Evaluation note Note Date & Type Note Facility Evaluation note Diagnosis Onset Date Chronic kidney disease acute Chronic venous insufficiency of lower extremity acute Elevated cholesterol acute Hypertension acute Screening PSA (prostate specific antigen) acute Type 2 diabetes mellitus wit h diabetic polyneuropathy acute Type 2 diabetes mellitus with hyperglycemia acute Medicare annual wellness visit, subsequent noneactive [facility] Work Phone: History general Narrative - [...] History APPENDECTOMY Hospitalization History SEE SURGICAL HX [facility] Other Summary Purpose Family History No Family [...] and content) DATE CREATED AUTHOR 08/06/2020 [facility] DATE CREATED AUTHOR AUTHOR'S ORGANIZ ATION [...] BE BASED ON THE PRIMARY CLINICAL RECORDS. [facility] [employer] provides no warranty or guarantee of the accuracy or completeness of information in this document.
== END 2023-11-08 12:02 | disposition home or self-care (01) ==
LOC: LAB 12:01
PROVIDERS: PCP Internal Medicine
DX: S91.302A Unspecified open wound, left foot, initial encounter (principal)
CPT/HCPCS: 87070; 87075

== ENCOUNTER 2023-11-18 15:11 | Outpatient (OUT) | payer MEDICARE, SELFPAY | END 2023-11-18 15:12 | disposition home or self-care (01) | LOC: WC 15:11 | PROVIDERS: PCP Internal Medicine; Visit Provider Physician Assistant | DX: E11.621 Type 2 diabetes mellitus with foot ulcer (principal); L97.423 Non-pressure chronic ulcer of left heel and midfoot with necrosis of muscle | CPT/HCPCS: 11043 ==

== ENCOUNTER 2023-11-27 10:39 | Outpatient (OUT) | payer MEDICARE, SELFPAY ==
--- NOTE | 2023-11-27 10:40 | VEIN_ITS ---
The [address] [address] Patient Name: JF HERNÁNDEZ MRN: [id number] date: 1945 Sex: M Assigned Patient Location: Current Patient Location: Accession/Order Number: [id number] Exam Date: 11/27/2023 10:41 Report Date: 11/27/2023 12:57 At the request of: EVELIN PICHARDO Procedure: VC SEGMENTAL PRESSURES EXAM: VC SEGMENTAL PRESSURES HISTORY: R09.80 Peripheral vascular disease COMPARISON: None TECHNIQUE: Resting ABIs and segmental limb pressures FINDINGS: Right resting TONI 1.27. Left resting TONI 1.35. Waveforms are multiphasic. Thigh cuffs were abnormally high likely due to rigidity. VEIN/VC SEGMENTAL PRESSURES IMPRESSION: Normal resting ABIs. No gradients noted. Electronically authenticated by: Walter OSCAR Date: 11/27/2023 12:57
--- OUTSIDE RECORDS SUMMARY | 2023-11-27 10:49 | XMS_ITS | CCD ---
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 Name Role Phone NAOMI, DR PRITCHETT Attending [...] empagliflozin Drug Allergy 06-11-19 Unknown, Unknown Reaction [facility] (5 sources) Simvastatin Drug Allergy 06-11-19 Unknown, Unknown Reaction [facility] (3 sources) Sulfonamides (Antibiotic) Propensity to adverse reactions Unknown [facility] Other (1 source) Substance with sulfonamide structure and antibacterial mechanism of action (substance) Drug allergy Unknown [facility] Other (2 sources) Sulfonamides (Antibiotic) Allergy to substance 06-11-19 Unknown Reaction [facility] Medications Current Medications Medication Drug Class(es) [...] 08-17-2021 Chronic Other aftercare (1 source) Other prison (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 therapy Episodic Other diseases of [...] 2021 ADA RECOMMENDATION SEE BELOW Normal The [facility] Comment on above: Result Comment: ADA RECOMMENDED LIMIT 4.0 - 6.0 ADA THERAPEUTIC TARGET < 7.0 ACTION SUGGESTED > 7.0 Performed By: #### A 1C #### [facility] [address] [place] [address] Dr. Petros Perez Glucose [Mass/Vol] 143 mg/dL Normal [facility] Comment on above: Performed By: #### A 1C #### [facility] [address] [place] [address] Dr. Petros Perez HbA1c (Bld) [Mass fraction] 6.6 % Critically high 4.5-6.2 [facility] Comment on above: Performed By: #### A 1C #### [facility] [address] [address] [address] Petros Perez CBC AUTO DIFFon 08-15-2021 BASO # 0.0 103/ul Normal 0.0-0.1 [facility] Comment on above: Performed By: #### C BC #### [facility] [address] [address] [address] Petros Perez Basophils/100 WBC (Bld) 0.3 % Normal 0.2-2.0 [facility] Comment on above: Performed By: #### C BC #### [facility] [address] [address] [address] Petros Perez EO # 0.1 103/ul Normal 0.0-0.7 [facility] Comment on above: Performed By: #### C BC #### [facility] [address] [address] [address] Petros Perez Eosinophils/100 WBC (Bld) 2.2 % Normal 0.9-7.0 [facility] Comment on above: Performed By: #### C BC #### [facility] [address] [place] [address] Dr. Petros Perez Erythrocyte distribution width (RBC) [Ratio] 13.4 % Normal 11.0-15.0 [facility] Comment on above: Performed By: #### C BC #### [facility] [address] [place] [address] Dr. Petros Perez Hematocrit (Bld) [Volume fraction] 42.8 % Normal 42.0-54.0 [facility] Comment on above: Performed By: #### C BC #### [facility] [address] [place] [address] Dr. Petros Perez Hemoglobin (Bld) [Mass/Vol] 14.1 g/dL Normal 14.0-18.0 [facility] Comment on above: Performed By: #### C BC #### [facility] [address] [place] [address] Dr. Petros Perez IG # 0.04 10e3/ul Critically high 0.00-0.03 [facility] Comment on above: Performed By: #### C BC #### [facility] [address] [place] [address] Dr. Petros Perez IG % 0.7 % Critically high 0.0-0.5 [facility] Comment on above: Performed By: #### C BC #### [facility] [address] [place] [address] Dr. Petros Perez LYMPH # 2.2 103/ul Normal 1.2-3.8 [facility] Comment on above: Performed By: #### C BC #### [facility] [address] [place] [address] Dr. Petros Perez Lymphocytes/100 WBC (Bld) 38.2 % Normal 20.5-60.0 [facility] Comment on above: Performed By: #### C BC #### [facility] [address] [place] [address] Dr. Petros Perez MANUAL DIFF REQ NO Normal [facility] Comment on above: Performed By: #### C BC #### [facility] [address] [place] [address] Dr. Petros Perez MCH (RBC) [Entitic mass] 30.6 pg Normal 25.9-34.0 [facility] Comment on above: Performed By: #### C BC #### [facility] [address] [place] [address] Dr. Petros Perez MCHC (RBC) [Mass/Vol] 32.9 g/dL Normal 29.9-35.2 [facility] Comment on above: Performed By: #### C BC #### [facility] [address] [place] [address] Dr. Petros Perez MCV (RBC) [Entitic vol] 92.8 fL Normal 80.0-94.0 [facility] Comment on above: Performed By: #### C BC #### [facility] [address] [place] [address] Dr. Petros Perez MONO # 0.5 103/ul Normal 0.3-0.8 [facility] Comment on above: Performed By: #### C BC #### [facility] [address] [place] [address] Dr. Petros Perez Monocytes/100 WBC (Bld) 8.6 % Normal 1.7-12.0 [facility] Comment on above: Performed By: #### C BC #### [facility] [address] [place] [address] Dr. Petros Perez NEUT # 2.9 103/ul Normal 1.4-6.5 [facility] Comment on above: Performed By: #### C BC #### [facility] [address] [place] [address] Dr. Petros Perez Neutrophils/100 WBC (Bld) 50.0 % Normal 43.0-75.0 [facility] Comment on above: Performed By: #### C BC #### [facility] [address] [address] [address] Petros Perez Platelet mean volume (Bld) [Entitic vol] 10.2 fL Normal 9.5-13.5 [facility] Comment on above: Performed By: #### C BC #### [facility] [address] [address] [address] Petros Perez PLT 219 103/ul Normal 150-450 [facility] Comment on above: Performed By: #### C BC #### [facility] [address] [address] [address] Petros Perez RBC 4.61 106/ul Critically low 4.70-6.10 [facility] Comment on above: Performed By: #### C BC #### [facility] [address] [address] [address] Petros Perez WBC 5.8 103/ul Normal 4.0-11.0 [facility] Comment on above: Performed By: #### C BC #### [facility] [address] [place] [address] Dr. Petros Perez GLYCOHEMOGLOBIN A1Con 2021 ADA RECOMMENDATION SEE BELOW Normal [facility] Comment on above: Result Comment: ADA RECOMMENDED LIMIT 4.0 - 6.0 ADA THERAPEUTIC TARGET < 7.0 ACTION SUGGESTED > 7.0 Performed By: #### A 1C #### [facility] [address] [place] [address] Dr. Petros Perez Glucose [Mass/Vol] 163 mg/dL Normal [facility] Comment on above: Performed By: #### A 1C #### [facility] [address] [place] [address] Dr. Petros Perez HbA1c (Bld) [Mass fraction] 7.3 % Critically high 4.5-6.2 [facility] Comment on above: Performed By: #### A 1C #### [facility] [address] [place] [address] Dr. Petros Perez LIPID PROFILEon 08-15-2021 CHOL-HDL RATIO NORM SEE BELOW Normal [facility] Comment on above: Result Comment: 3.3 - 4.4 LOW RISK 4.4 - 7.1 AVERAGE RISK 7.1 - 11.0 MODERATE RISK >11.0 HIGH RISK Performed By: #### L IPID, BMP #### [facility] [address] [address] [address] Petros Perez Cholesterol [Mass/Vol] 148 mg/dL Normal <=200 [facility] Comment on above: Performed By: #### L IPID, BMP #### [facility] [address] [address] [address] Petros Perez Cholesterol in HDL [Mass/Vol] 33 mg/dL Critically low 40-60 [facility] Comment on above: Performed By: #### L IPID, BMP #### [facility] [address] [place] [address] Dr. Petros Perez Cholesterol in LDL [Mass/Vol] 95.8 mg/dL Normal [facility] Comment on above: Performed By: #### L IPID, BMP #### [facility] [address] [place] [address] Dr. Petros Perez Cholesterol.total/Cho lesterol in HDL [Mass ratio] 4.5 {ratio} Normal [facility] Comment on above: Performed By: #### L IPID, BMP #### [facility] [address] [place] [address] Dr. Petros Perez HDL NORMAL > or = 60 mg/dl - LOW CARDIOVASCULAR RISK <40 mg/dl - HIGH CARDIOVASCULAR RISK Normal [facility] Comment on above: Performed By: #### L IPID, BMP #### [facility] [address] [place] [address] Dr. Petros Perez LDL CALC NORMAL SEE BELOW Normal [facility] Comment on above: Result Comment: <100 mg/dl OPTIMAL 100 - 129 mg/dl NEAR OR ABOVE OPTIMAL 130 - 159 mg/dl BORDERLINE HIGH 160 - 189 mg/dl HIGH >190 mg/dl VERY HIGH Performed By: #### L IPID, BMP #### [facility] [address] [address] [address] Petros Perez Triglyceride [Mass/Vol] 96 mg/dL Normal <=150 [facility] Comment on above: Performed By: #### L IPID, BMP #### [facility] [address] [address] [address] Petros Perez VLDL CALC 19.2 mg/dL Normal [facility] Comment on above: Performed By: #### L IPID, BMP #### [facility] [address] [place] [address] Dr. Petros Perez MICROALBUMIN, RAND URon - mALB 3.2 mg/L Normal <=30.0 [facility] Comment on above: Performed By: #### M ALBR #### [facility] [address] [place] [address] Dr. Petros Perez PROF CHEM 8 (BAS METB)on Anion gap [Moles/Vol] 13.1 mmol/L Normal [facility] Comment on above: Performed By: #### L IPID, BMP #### [facility] [address] [address] [address] Petros Perez Calcium [Mass/Vol] 9.2 mg/dL Normal 8.5-10.1 [facility] Comment on above: Performed By: #### L IPID, BMP #### [facility] [address] [place] [address] Dr. Petros Perez Chloride [Moles/Vol] 106 mmol/L Normal 98-107 [facility] Comment on above: Performed By: #### L IPID, BMP #### [facility] [address] [place] [address] Dr. Petros Perez CO2 [Moles/Vol] 24.1 mmol/L Normal 21.0-32.0 [facility] Comment on above: Performed By: #### L IPID, BMP #### [facility] [address] [address] [address] Petros Perez Creatinine [Mass/Vol] 1.56 mg/dL Critically high 0.70-1.30 [facility] Comment on above: Performed By: #### L IPID, BMP #### [facility] [address] [place] [address] Dr. Petros Perez EGFR-AF CHILEAN 53 mL/min/1.73m2 Critically low >=60 [facility] Comment on above: Performed By: #### L IPID, BMP #### [facility] [address] [place] [address] Dr. Petros Perez EGFR-NON AF CHILEAN 43 mL/min/1.73m2 Critically low >=60 [facility] Comment on above: Performed By: #### L IPID, BMP #### [facility] [address] [place] [address] Dr. Petros Perez Glucose [Mass/Vol] 139 mg/dL Critically high 74-[address] [facility] Comment on above: Performed By: #### L IPID, BMP #### [facility] [address] [place] [address] Dr. Petros Perez Potassium [Moles/Vol] 4.2 mmol/L Normal 3.5-5.1 [facility] Comment on above: Performed By: #### L IPID, BMP #### [facility] [address] [place] [address] Dr. Petros Perez Sodium [Moles/Vol] 139 mmol/L Normal 136-145 [facility] Comment on above: Performed By: #### L IPID, BMP #### [facility] [address] [place] [address] Dr. Petros Perez Urea nitrogen [Mass/Vol] 25.0 mg/dL Critically high 7.0-18.0 [facility] Comment on above: Performed By: #### L IPID, BMP #### [facility] [address] [place] [address] Dr. Petros Perez Urea nitrogen/Creatinine [Mass ratio] 16.0 mg/mg Normal [facility] Comment on above: Performed By: #### L IPID, BMP #### [facility] [address] [place] [address] Dr. Petros Perez GLYCOHEMOGLOBIN A1Con 2021 ADA RECOMMENDATION ADA THERAPEUTIC TARGET 6.0 - 7.0 ACTION SUGGESTED > 7.0 Normal [facility] Comment on above: Performed By: #### A 1C #### [facility] [address] [address] [address] Petros Perez Glucose [Mass/Vol] 180 mg/dL Normal [facility] Comment on above: Performed By: #### A 1C #### [facility] [address] [address] [address] Petros Perez HbA1c (Bld) [Mass fraction] 7.9 % Critically high <=6.0 [facility] Comment on above: Performed By: #### A 1C #### [facility] [address] [address] [address] Petros Perez Consent for COVID Vaccineon 05-14-2020 SARS-CoV-2 (COVID-19) RNA EUN+probe Ql (Unsp spec) [id number] 3#1.00CD:127 Normal [facility] Consent for Treatmenton 05-02 Consent for Treatment [id number] 8#1.00CD:127 Normal [facility] Coding Summary.on 05-13-2020 Coding Summary. CODING DATE: 05/13/2020 [facility] STATUS: PAYOR: Medicare ADMIT DX: REASON [...] Saritha Simmons Date Saved: 05/13/2020 11:13 am [facility] Vital Signs Date Time Vital Sign Value Performing Clinician Facility 09-10-2023 [id number] Body height 182.88 cm [facility] 09-10-2023 09:28-0400 Body mass index (BMI) [Ratio] 32.3 kg/m2 [facility] 09-10-2023 09:28-0400 Body weight 108.12 kg [facility] 09-10-2023 09:28-0400 Diastolic blood pressure 61 mm[Hg] [facility] 09-10-2023 09:28-0400 Heart rate 56 /min [facility] 09-10-2023 09:28-0400 Respiratory rate 12 /min [facility] 09-10-2023 09:28-0400 Systolic blood pressure 123 mm[Hg] [facility] 06-11-2023 09:02-0400 Body height 182.88 cm [facility] 06-11-2023 09:02-0400 Body mass index (BMI) [Ratio] 33 kg/m2 [facility] 06-11-2023 09:02-0400 Body weight 110.67 kg [facility] 06-11-2023 09:02-0400 Diastolic blood pressure 65 mm[Hg] [facility] 06-11-2023 09:02-0400 Heart rate 62 /min [facility] 06-11-2023 09:02-0400 Respiratory rate 12 /min [facility] 06-11-2023 09:02-0400 Systolic blood pressure 149 mm[Hg] [facility] 11-08-2022 10:00-0400 Body height 182.88 cm Brian Ball Other [facility] Other 11-08-2022 10:00-0400 Body mass index (BMI) [Ratio] 31.27 kg/m2 Brian Ball Other [facility] [employer] Other 11-08-2022 10:00-0400 Body weight 104.6 kg Brian Ball Other [facility] Other 11-08-2022 10:00-0400 Diastolic blood pressure 72 mm[Hg] Brian Ball Other [facility] [employer] Other 11-08-2022 10:00-0400 Respiratory rate 12 /min Brian Ball Other [facility] Other 11-08-2022 10:00-0400 Systolic blood pressure 148 mm[Hg] Brian Ball Other [facility] Other 08-09-2022 10:00-0400 Body height 182.88 cm Brian Ball Other [facility] Other 08-09-2022 10:00-0400 Body mass index (BMI) [Ratio] 31.46 kg/m2 Brian Ball Other [facility] Other 08-09-2022 10:00-0400 Body weight 105.24 kg Brian Ball Other [facility] Other 08-09-2022 10:00-0400 Diastolic blood pressure 75 mm[Hg] Brian Ball Other [facility] Other 08-09-2022 10:00-0400 Respiratory rate 12 /min Brian Ball Other [facility] Other 08-09-2022 10:00-0400 Systolic blood pressure 170 mm[Hg] Brian Ball Other [facility] Other Encounters Encounter Date Encounter Type Care Provider Facility Start: 09-10-2023 End: 09-10-[address] [facility] Work Phone: Start: 09-10-2023 End: 09-10-2023 Patient encounter procedure [facility] Physician [facility] Work Phone: Start: 06-11-2023 End: 06-11-[address] [facility] Work Phone: Start: 06-11-2023 End: 06-11-2023 Patient encounter procedure [facility] Work Phone: Start: 11-08-2022 End: 11-08-2022 ambulatory Brian Salgado Other [facility] Other Start: 11-08-2022 Office outpatient vi sit 25 minutes Brian Salgado [facility] Start: 09-13-2022 End: 09-13-2022 ambulatory Brian Salgado Other [facility] Other Start: 09-13-2022 Telephone encounter Brian Salgado FP [facility] Start: 08-09-2022 End: 08-09-2022 ambulatory Brian Salgado Other [facility] Other Start: 08-09-2022 Patient encounter procedure Brain Salgado [facility] Start: 12-27-2021 End: 12-28-[address] BRIAN SALGADO Facility:[facility] Start: 08-15-2021 End: 08-16-[address] BRIAN SALGADO Facility:[facility] Start: 04-25-2021 End: 04-26-[address] BRIAN SALGADO Facility:[facility] Procedures Date Procedure Procedure Detail Performing Clinician Start: 08-15-[address] LAM [place] Comment on above: Performed By: #### P [facility] #### [facility] [address] [place] [address] Dr. Petros Perez Plan of Treatment Date Care Activity Detail Author Comprehensive metabo lic 2000 panel - Serum or Plasma [facility] Immunizations Immunization Date Immunization Notes Care Provider Fa cility 01-21-2023 influenza virus vaccine, unspecified formulation [facility] 11-21-2021 influenza virus vaccine, split virus (incl. purified surface antigen) Brian Salgado Other [facility] Other 11-21-2021 influenza virus vaccine, unspecified formulation [facility] 11-21-2021 influenza, high dose seasonal, preservative-free Brian Salgado Other [facility] Other 02-22-2021 COVID-19 Vaccine Pfi zer - Documentation Purposes Only Brian Salgado Other [facility] 12-30-2020 influenza virus vaccine, split virus (incl. purified surface antigen) Brian Naomi Other [place] [employer] Other 12-30-2020 influenza virus vaccine, unspecified formulation [facility] 05-06-2020 COVID-19 Vaccine Slim - Documentation Purposes Only Brian Naomi Other [facility] 01-12-2020 influenza virus vaccine, split virus (incl. purified surface antigen) Brian Naomi Other [place] [employer] Other 01-12-2020 influenza virus vaccine, unspecified formulation [facility] 01-13-2019 influenza virus vaccine, split virus (incl. purified surface antigen) Brian Naomi Other [place] [employer] Other 01-13-2019 influenza virus vaccine, unspecified formulation [facility] 12-02-2017 influenza virus vaccine, split virus (incl. purified surface antigen) Brian Naomi Other [place] [employer] Other 12-02-2017 influenza virus vaccine, unspecified formulation [facility] 12-27-2016 influenza virus vaccine, split virus (incl. purified surface antigen) Brian Naomi Other [facility] Other 12-27-2016 influenza virus vaccine, unspecified formulation [facility] 12-22-2015 influenza virus vaccine, split virus (incl. purified surface antigen) Brian Salgado Other [place] [employer] Other 12-22-2015 influenza virus vaccine, unspecified formulation [facility] 03-15-2015 pneumococcal conjuga te vaccine, 13 valent Brian Salgado Other [facility] 12-07-2014 influenza virus vaccine, split virus (incl. purified surface antigen) Brian Salgado Other [facility] Other 12-07-2014 influenza virus vaccine, unspecified formulation [facility] 11-10-2013 tetanus and diphther ia toxoids, adsorbed, preservative free, for adult use (5 Lf of tetanus toxoid and 2 Lf of diphtheria toxoid) Brian Salgado Other [facility] 12-10-2012 tetanus and diphther ia toxoids, adsorbed, preservative free, for adult use (5 Lf of tetanus toxoid and 2 Lf of diphtheria toxoid) Brian Salgado Other [facility] 02-14-2011 pneumococcal polysaccharide vaccine, 23 valent Brian Salgado Other [facility] Payers Date Payer Category Payer Medicare [id number] 1960 Unknown [id number] 1945 Unknown [id number] 1945 Unknown [id number] 1945 Unknown [id number] Social History Date Type Detail Facility Sex Assigned At [facility] Other Start: 1945 Sex Assigned At Male F [facility] Evaluation note 11-08-2022 Note Date & [...] < 30 Increase exercise and reduce calories. [facility] Other Evaluation note 08-09-2022 Note Date & [...] High risk medication use (ICD-10 - Z79.899) [facility] Other Evaluation note Note Date & Type Note Facility Evaluation note No Information [facility] Other Evaluation note Note Date & Type Note Facility Evaluation note Diagnosis Onset Date Chronic kidney disease acute Elevated cholesterol acute Hypertension acute Type 2 diabetes mellitus wit h diabetic polyneuropathy acute Type 2 diabetes mellitus with hyperglycemia acute [facility] Work Phone: Evaluation note Note Date & Type Note Facility Evaluation note Diagnosis Onset Date Chronic kidney disease acute Chronic venous insufficiency of lower extremity acute Elevated cholesterol acute Hypertension acute Screening PSA (prostate specific antigen) acute Type 2 diabetes mellitus wit h diabetic polyneuropathy acute Type 2 diabetes mellitus with hyperglycemia acute Medicare annual wellness visit, subsequent noneactive [facility] Work Phone: History general Narrative - [...] History APPENDECTOMY Hospitalization History SEE SURGICAL HX [facility] Other Summary Purpose Family History No Family [...] content) DATE CREATED AUTHOR 08/06/2020 Perea Carlos [facility] DATE CREATED AUTHOR AUTHOR'S ORGANIZ ATION 12/31/2021 [facility] REASON FOR VISIT (unrecogniz ed [...] PRIMARY CLINICAL RECORDS. [facility] [employer] provides no warranty or guarantee of the accuracy or completeness of information in this document.
== END 2023-11-27 10:40 | disposition home or self-care (01) ==
LOC: VC 10:39
PROVIDERS: PCP Internal Medicine; Visit Provider Podiatrist Foot & Ankle Surgery
DX: R09.89 Other specified symptoms and signs involving the circulatory and respiratory systems (principal)
CPT/HCPCS: 93923

== ENCOUNTER 2023-12-03 12:06 | Outpatient (OUT) | payer MEDICARE, SELFPAY ==
--- OUTSIDE RECORDS SUMMARY | 2023-12-03 12:13 | XMS_ITS | CCD ---
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 Name Role Phone NAOMI, DR PRITCHETT Attending [...] empagliflozin Drug Allergy 06-11-19 Unknown, Unknown Reaction [facility] (5 sources) Simvastatin Drug Allergy 06-11-19 Unknown, Unknown Reaction [facility] (3 sources) Sulfonamides (Antibiotic) Propensity to adverse reactions Unknown [facility] Other (1 source) Substance with sulfonamide structure and antibacterial mechanism of action (substance) Drug allergy Unknown [facility] Other (2 sources) Sulfonamides (Antibiotic) Allergy to substance 06-11-19 Unknown Reaction [facility] Medications Current Medications Medication Drug [...] 08-17-2021 Chronic Other aftercare (1 source) Other snf (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 therapy Episodic Other diseases of [...] 2021 ADA RECOMMENDATION SEE BELOW Normal [facility] Comment on above: Result Comment: ADA RECOMMENDED LIMIT 4.0 - 6.0 ADA THERAPEUTIC TARGET < 7.0 ACTION SUGGESTED > 7.0 Performed By: #### A 1C #### [facility] [address] [place] [address] Dr. Petros Perez Glucose [Mass/Vol] 143 mg/dL Normal [facility] Comment on above: Performed By: #### A 1C #### [facility] [address] [place] [address] Dr. Petros Perez HbA1c (Bld) [Mass fraction] 6.6 % Critically high 4.5-6.2 [facility] Comment on above: Performed By: #### A 1C #### [facility] [address] [address] [address] Petros Perez CBC AUTO DIFFon 08-15-2021 BASO # 0.0 103/ul Normal 0.0-0.1 [facility] Comment on above: Performed By: #### C BC #### [facility] [address] [address] [address] Petros Perez Basophils/100 WBC (Bld) 0.3 % Normal 0.2-2.0 [facility] Comment on above: Performed By: #### C BC #### [facility] [address] [address] [address] Petros Perez EO # 0.1 103/ul Normal 0.0-0.7 [facility] Comment on above: Performed By: #### C BC #### [facility] [address] [address] [address] Petros Perez Eosinophils/100 WBC (Bld) 2.2 % Normal 0.9-7.0 [facility] Comment on above: Performed By: #### C BC #### [facility] [address] [place] [address] Dr. Petros Perez Erythrocyte distribution width (RBC) [Ratio] 13.4 % Normal 11.0-15.0 [facility] Comment on above: Performed By: #### C BC #### [facility] [address] [place] [address] Dr. Petros Perez Hematocrit (Bld) [Volume fraction] 42.8 % Normal 42.0-54.0 [facility] Comment on above: Performed By: #### C BC #### [facility] [address] [place] [address] Dr. Petros Perez Hemoglobin (Bld) [Mass/Vol] 14.1 g/dL Normal 14.0-18.0 [facility] Comment on above: Performed By: #### C BC #### [facility] [address] [place] [address] Dr. Petros Perez IG # 0.04 10e3/ul Critically high 0.00-0.03 [facility] Comment on above: Performed By: #### C BC #### [facility] [address] [place] [address] Dr. Petros Perez IG % 0.7 % Critically high 0.0-0.5 [facility] Comment on above: Performed By: #### C BC #### [facility] [address] [place] [address] Dr. Petros Perez LYMPH # 2.2 103/ul Normal 1.2-3.8 [facility] Comment on above: Performed By: #### C BC #### [facility] [address] [place] [address] Dr. Petros Perez Lymphocytes/100 WBC (Bld) 38.2 % Normal 20.5-60.0 [facility] Comment on above: Performed By: #### C BC #### [facility] [address] [place] [address] Dr. Petros Perez MANUAL DIFF REQ NO Normal [facility] Comment on above: Performed By: #### C BC #### [facility] [address] [place] [address] Dr. Petros Perez MCH (RBC) [Entitic mass] 30.6 pg Normal 25.9-34.0 [facility] Comment on above: Performed By: #### C BC #### [facility] [address] [place] [address] Dr. Petros Perze MCHC (RBC) [Mass/Vol] 32.9 g/dL Normal 29.9-35.2 [facility] Comment on above: Performed By: #### C BC #### [facility] [address] [place] [address] Dr. Petros Perez MCV (RBC) [Entitic vol] 92.8 fL Normal 80.0-94.0 [facility] Comment on above: Performed By: #### C BC #### [facility] [address] [place] [address] Dr. Petros Perez MONO # 0.5 103/ul Normal 0.3-0.8 [facility] Comment on above: Performed By: #### C BC #### [facility] [address] [place] [address] Dr. Petros Perez Monocytes/100 WBC (Bld) 8.6 % Normal 1.7-12.0 [facility] Comment on above: Performed By: #### C BC #### [facility] [address] [place] [address] Dr. Petros Perez NEUT # 2.9 103/ul Normal 1.4-6.5 [facility] Comment on above: Performed By: #### C BC #### [facility] [address] [place] [address] Dr. Petros Perez Neutrophils/100 WBC (Bld) 50.0 % Normal 43.0-75.0 [facility] Comment on above: Performed By: #### C BC #### [facility] [address] [address] [address] Petros Perez Platelet mean volume (Bld) [Entitic vol] 10.2 fL Normal 9.5-13.5 [facility] Comment on above: Performed By: #### C BC #### [facility] [address] [address] [address] Petros Perez PLT 219 103/ul Normal 150-450 [facility] Comment on above: Performed By: #### C BC #### [facility] [address] [address] [address] Petros Perez RBC 4.61 106/ul Critically low 4.70-6.10 [facility] Comment on above: Performed By: #### C BC #### [facility] [address] [address] [address] Petros Perez WBC 5.8 103/ul Normal 4.0-11.0 [facility] Comment on above: Performed By: #### C BC #### [facility] [address] [place] [address] Dr. Petros Perez GLYCOHEMOGLOBIN A1Con 2021 ADA RECOMMENDATION SEE BELOW Normal [facility] Comment on above: Result Comment: ADA RECOMMENDED LIMIT 4.0 - 6.0 ADA THERAPEUTIC TARGET < 7.0 ACTION SUGGESTED > 7.0 Performed By: #### A 1C #### [facility] [address] [place] [address] Dr. Petros Perez Glucose [Mass/Vol] 163 mg/dL Normal [facility] Comment on above: Performed By: #### A 1C #### [facility] [address] [place] [address] Dr. Petros Perez HbA1c (Bld) [Mass fraction] 7.3 % Critically high 4.5-6.2 [facility] Comment on above: Performed By: #### A 1C #### [facility] [address] [place] [address] Dr. Petros Perez LIPID PROFILEon 08-15-2021 CHOL-HDL RATIO NORM SEE BELOW Normal [facility] Comment on above: Result Comment: 3.3 - 4.4 LOW RISK 4.4 - 7.1 AVERAGE RISK 7.1 - 11.0 MODERATE RISK >11.0 HIGH RISK Performed By: #### L IPID, BMP #### [facility] [address] [address] [address] Petros Perez Cholesterol [Mass/Vol] 148 mg/dL Normal <=200 [facility] Comment on above: Performed By: #### L IPID, BMP #### [facility] [address] [address] [address] Petros Perez Cholesterol in HDL [Mass/Vol] 33 mg/dL Critically low 40-60 [facility] Comment on above: Performed By: #### L IPID, BMP #### [facility] [address] [place] [address] Dr. Petros Perez Cholesterol in LDL [Mass/Vol] 95.8 mg/dL Normal [facility] Comment on above: Performed By: #### L IPID, BMP #### [facility] [address] [place] [address] Dr. Petros Perez Cholesterol.total/Cho lesterol in HDL [Mass ratio] 4.5 {ratio} Normal [facility] Comment on above: Performed By: #### L IPID, BMP #### [facility] [address] [place] [address] Dr. Petros Perez HDL NORMAL > or = 60 mg/dl - LOW CARDIOVASCULAR RISK <40 mg/dl - HIGH CARDIOVASCULAR RISK Normal [facility] Comment on above: Performed By: #### L IPID, BMP #### [facility] [address] [place] [address] Dr. Petros Perez LDL CALC NORMAL SEE BELOW Normal [facility] Comment on above: Result Comment: <100 mg/dl OPTIMAL 100 - 129 mg/dl NEAR OR ABOVE OPTIMAL 130 - 159 mg/dl BORDERLINE HIGH 160 - 189 mg/dl HIGH >190 mg/dl VERY HIGH Performed By: #### L IPID, BMP #### [facility] [address] [address] [address] Petros Perez Triglyceride [Mass/Vol] 96 mg/dL Normal <=150 [facility] Comment on above: Performed By: #### L IPID, BMP #### [facility] [address] [address] [address] Petros Perez VLDL CALC 19.2 mg/dL Normal [facility] Comment on above: Performed By: #### L IPID, BMP #### [facility] [address] [place] [address] Dr. Petros Perez MICROALBUMIN, RAND URon - mALB 3.2 mg/L Normal <=30.0 [facility] Comment on above: Performed By: #### M ALBR #### [facility] [address] [place] [address] Dr. Petros Perez PROF CHEM 8 (BAS METB)on Anion gap [Moles/Vol] 13.1 mmol/L Normal [facility] Comment on above: Performed By: #### L IPID, BMP #### [facility] [address] [address] [address] Petros Perez Calcium [Mass/Vol] 9.2 mg/dL Normal 8.5-10.1 [facility] Comment on above: Performed By: #### L IPID, BMP #### [facility] [address] [place] [address] Dr. Petros Perez Chloride [Moles/Vol] 106 mmol/L Normal 98-107 [facility] Comment on above: Performed By: #### L IPID, BMP #### [facility] [address] [place] [address] Dr. Petros Perez CO2 [Moles/Vol] 24.1 mmol/L Normal 21.0-32.0 [facility] Comment on above: Performed By: #### L IPID, BMP #### [facility] [address] [address] [address] Petros Perez Creatinine [Mass/Vol] 1.56 mg/dL Critically high 0.70-1.30 [facility] Comment on above: Performed By: #### L IPID, BMP #### [facility] [address] [place] [address] Dr. Petros Perez EGFR-AF [place] 53 mL/min/1.73m2 Critically low >=60 [facility] Comment on above: Performed By: #### L IPID, BMP #### [facility] [address] [place] [address] Dr. Petros Perez EGFR-NON AF [place] 43 mL/min/1.73m2 Critically low >=60 [facility] Comment on above: Performed By: #### L IPID, BMP #### [facility] [address] [place] [address] Dr. Petros Perez Glucose [Mass/Vol] 139 mg/dL Critically high 74-106 [facility] Comment on above: Performed By: #### L IPID, BMP #### [facility] [address] [place] [address] Dr. Petros Perez Potassium [Moles/Vol] 4.2 mmol/L Normal 3.5-5.1 [facility] Comment on above: Performed By: #### L IPID, BMP #### [facility] [address] [place] [address] Dr. Petros Perez Sodium [Moles/Vol] 139 mmol/L Normal 136-145 [facility] Comment on above: Performed By: #### L IPID, BMP #### [facility] [address] [place] [address] Dr. Petros Perez Urea nitrogen [Mass/Vol] 25.0 mg/dL Critically high 7.0-18.0 [facility] Comment on above: Performed By: #### L IPID, BMP #### [facility] [address] [place] [address] Dr. Petros Perez Urea nitrogen/Creatinine [Mass ratio] 16.0 mg/mg Normal [facility] Comment on above: Performed By: #### L IPID, BMP #### [facility] [address] [place] [address] Dr. Petros Perez GLYCOHEMOGLOBIN A1Con 2021 ADA RECOMMENDATION ADA THERAPEUTIC TARGET 6.0 - 7.0 ACTION SUGGESTED > 7.0 Normal [facility] Comment on above: Performed By: #### A 1C #### [facility] [address] [address] [address] Petros Perez Glucose [Mass/Vol] 180 mg/dL Normal [facility] Comment on above: Performed By: #### A 1C #### [facility] [address] [address] [address] Petros Perez HbA1c (Bld) [Mass fraction] 7.9 % Critically high <=6.0 [facility] Comment on above: Performed By: #### A 1C #### [facility] [address] [address] [address] Petros Perez Consent for COVID Vaccineon 05-14-2020 SARS-CoV-2 (COVID-19) RNA EUN+probe Ql (Unsp spec) [id number] 3#1.00CD:127 Normal [facility] Consent for Treatmenton 05-02 Consent for Treatment [id number] 8#1.00CD:127 Normal [facility] Coding Summary.on 05-13-2020 Coding Summary. CODING DATE: 05/13/2020 [facility] STATUS: PAYOR: Medicare ADMIT DX: REASON [...] Saritha Simmons Date Saved: 05/13/2020 11:13 am [facility] Vital Signs Date Time Vital Sign Value Performing Clinician Facility 09-10-2023 [id number] Body height 182.[address] [facility] 09-10-2023 09:28-0400 Body mass index (BMI) [Ratio] 32.3 kg/m2 [facility] 09-10-2023 09:28-0400 Body weight 108.[address] [facility] 09-10-2023 09:28-0400 Diastolic blood pressure 61 mm[Hg] [facility] 09-10-2023 09:28-0400 Heart rate 56 /min [facility] 09-10-2023 09:28-0400 Respiratory rate 12 /min [facility] 09-10-2023 09:28-0400 Systolic blood pressure 123 mm[Hg] [facility] 06-11-2023 09:02-0400 Body height 182.[address] [facility] 06-11-2023 09:02-0400 Body mass index (BMI) [Ratio] 33 kg/m2 [facility] 06-11-2023 09:02-0400 Body weight 110.[address] [facility] 06-11-2023 09:02-0400 Diastolic blood pressure 65 mm[Hg] [facility] 06-11-2023 09:02-0400 Heart rate 62 /min [facility] 06-11-2023 09:02-0400 Respiratory rate 12 /min [facility] 06-11-2023 09:02-0400 Systolic blood pressure 149 mm[Hg] [facility] 11-08-2022 10:00-0400 Body height 182.88 cm Brian Ball Other [facility] Other 11-08-2022 10:00-0400 Body mass index (BMI) [Ratio] 31.27 kg/m2 Brian Ball Other [facility] Other 11-08-2022 10:00-0400 Body weight 104.6 kg Brian Ball Other [facility] Other 11-08-2022 10:00-0400 Diastolic blood pressure 72 mm[Hg] Brian Ball Other [facility] Other 11-08-2022 10:00-0400 Respiratory rate 12 /min Brian Ball Other [facility] Other 11-08-2022 10:00-0400 Systolic blood pressure 148 mm[Hg] Brian Ball Other [facility] Other 08-09-2022 10:00-0400 Body height 182.88 cm Brian Ball Other [facility] Other 08-09-2022 10:00-0400 Body mass index (BMI) [Ratio] 31.46 kg/m2 Brian Ball Other [facility] Other 08-09-2022 10:00-0400 Body weight 105.24 kg Brian Ball Other [facility] Other 08-09-2022 10:00-0400 Diastolic blood pressure 75 mm[Hg] Brian Ball Other [facility] Other 08-09-2022 10:00-0400 Respiratory rate 12 /min Brian Ball Other [facility] Other 08-09-2022 10:00-0400 Systolic blood pressure 170 mm[Hg] Brian Ball Other [facility] Other Encounters Encounter Date Encounter Type Care Provider Facility Start: 09-10-2023 End: 09-10-2023 ambulatory [facility] Work Phone: Start: 09-10-2023 End: 09-10-2023 Patient encounter procedure [facility] Work Phone: Start: 06-11-2023 End: 06-11-2023 ambulatory [facility] Work Phone: Start: 06-11-2023 End: 06-11-2023 Patient encounter procedure [facility] Work Phone: Start: 11-08-2022 End: 11-08-2022 ambulatory Brian Salgado Other [facility] Other Start: 11-08-2022 Office outpatient vi sit 25 minutes Brian Salgado [facility] Start: 09-13-2022 End: 09-13-2022 ambulatory Brian Salgado Other [facility] Other Start: 09-13-2022 Telephone encounter Brian Salgado FP [facility] Start: 08-09-2022 End: 08-09-2022 ambulatory Brian Salgado Other [facility] Other Start: 08-09-2022 Patient encounter procedure Brian Salgado [facility] Start: 12-27-2021 End: 12-28-[address] BRIAN SALGADO Facility:[facility] Start: 08-15-2021 End: 08-16-[address] BRIAN SALGADO Facility:[facility] Start: 04-25-2021 End: 04-26-[address] BRIAN SALGADO Facility:[facility] Procedures Date Procedure Procedure Detail Performing Clinician Start: 08-15-[address] LAM [place] Comment on above: Performed By: #### [facility] #### [facility] [address] [place] [address] Dr. Petros Perez Plan of Treatment Date Care Activity Detail Author Comprehensive metabo lic 2000 panel - Serum or Plasma [facility] Immunizations Immunization Date Immunization Notes Care Provider Fa cility 01-21-2023 influenza virus vaccine, unspecified formulation [facility] 11-21-2021 influenza virus vaccine, split virus (incl. purified surface antigen) Brian Salgado Other [facility] Other 11-21-2021 influenza virus vaccine, unspecified formulation [facility] 11-21-2021 influenza, high dose seasonal, preservative-free Brian Salgado Other [facility] Other 02-22-2021 COVID-19 Vaccine Pfi zer - Documentation Purposes Only Brian Salgado Other [facility] 12-30-2020 influenza virus vaccine, split virus (incl. purified surface antigen) Brian Naomi Other [place] [facility] Other 12-30-2020 influenza virus vaccine, unspecified formulation [facility] 05-06-2020 COVID-19 Vaccine Slim - Documentation Purposes Only Brian Naomi Other [facility] 01-12-2020 influenza virus vaccine, split virus (incl. purified surface antigen) Brian Naomi Other [place] [facility] Other 01-12-2020 influenza virus vaccine, unspecified formulation [facility] 01-13-2019 influenza virus vaccine, split virus (incl. purified surface antigen) Brian Naomi Other [place] [facility] Other 01-13-2019 influenza virus vaccine, unspecified formulation [facility] 12-02-2017 influenza virus vaccine, split virus (incl. purified surface antigen) Brian Naomi Other [place] [facility] Other 12-02-2017 influenza virus vaccine, unspecified formulation [facility] 12-27-2016 influenza virus vaccine, split virus (incl. purified surface antigen) Brian Naomi Other [facility] Other 12-27-2016 influenza virus vaccine, unspecified formulation [facility] 12-22-2015 influenza virus vaccine, split virus (incl. purified surface antigen) Brian Salgado Other [place] [facility] Other 12-22-2015 influenza virus vaccine, unspecified formulation [facility] 03-15-2015 pneumococcal conjuga te vaccine, 13 valent Brian Salgado Other [facility] 12-07-2014 influenza virus vaccine, split virus (incl. purified surface antigen) Brian Salgado Other [facility] Other 12-07-2014 influenza virus vaccine, unspecified formulation [facility] 11-10-2013 tetanus and diphther ia toxoids, adsorbed, preservative free, for adult use (5 Lf of tetanus toxoid and 2 Lf of diphtheria toxoid) Brian Salgado Other [facility] 12-10-2012 tetanus and diphther ia toxoids, adsorbed, preservative free, for adult use (5 Lf of tetanus toxoid and 2 Lf of diphtheria toxoid) Brian Salgado Other [facility] 02-14-2011 pneumococcal polysaccharide vaccine, 23 valent Brian Salgado Other [facility] Payers Date Payer Category Payer Medicare [id number] 1960 Unknown [id number] 1945 Unknown [id number] 1945 Unknown [id number] 1945 Unknown [id number] Social History Date Type Detail Facility Sex Assigned At [facility] Other Start: 1945 Sex Assigned At Male F [facility] Evaluation note 11-08-2022 Note Date & [...] < 30 Increase exercise and reduce calories. [facility] Other Evaluation note 08-09-2022 Note Date & [...] High risk medication use (ICD-10 - Z79.899) [facility] Other Evaluation note Note Date & Type Note Facility Evaluation note No Information [employer] Other Evaluation note Note Date & Type Note Facility Evaluation note Diagnosis Onset Date Chronic kidney disease acute Elevated cholesterol acute Hypertension acute Type 2 diabetes mellitus wit h diabetic polyneuropathy acute Type 2 diabetes mellitus with hyperglycemia acute [facility] Work Phone: Evaluation note Note Date & Type Note Facility Evaluation note Diagnosis Onset Date Chronic kidney disease acute Chronic venous insufficiency of lower extremity acute Elevated cholesterol acute Hypertension acute Screening PSA (prostate specific antigen) acute Type 2 diabetes mellitus wit h diabetic polyneuropathy acute Type 2 diabetes mellitus with hyperglycemia acute Medicare annual wellness visit, subsequent noneactive [facility] Work Phone: History general Narrative - Reported [...] History APPENDECTOMY Hospitalization History SEE SURGICAL HX [facility] Other Summary Purpose Family History No Family [...] content) DATE CREATED AUTHOR 08/06/2020 Perea Carlos [facility] DATE CREATED AUTHOR AUTHOR'S ORGANIZ ATION [...] BASED ON THE PRIMARY CLINICAL RECORDS. [facility] [employer] provides no warranty or guarantee of the accuracy or completeness of information in this document.
== END 2023-12-03 12:07 | disposition home or self-care (01) ==
LOC: WC 12:06
PROVIDERS: PCP Internal Medicine; Visit Provider Physician Assistant
DX: E11.621 Type 2 diabetes mellitus with foot ulcer (principal); L97.423 Non-pressure chronic ulcer of left heel and midfoot with necrosis of muscle
CPT/HCPCS: 11043; 29445

== ENCOUNTER 2023-12-06 09:41 | Outpatient (OUT) | payer MEDICARE, SELFPAY ==
--- OUTSIDE RECORDS SUMMARY | 2023-12-06 09:50 | XMS_ITS | CCD ---
Author Organization [facility] Care Team Providers Care Warp Clamper Name Role Phone NAOMI, DR PRITCHETT Attending Unavailable BALL, DR PRITCHETT Consulting Unavailable BALL, DR PRITCHETT Primary Care Unavailable BALL, DR PRITCHETT Admitting Unavailable BALL, DR PRITCHETT Attending Unavailable BALL, DR PRITCHETT Consulting Unavailable BALL, DR PRITCHETT Primary Care Unavailable BALL, DR PRITCHETT Admitting Unavailable BALL, DR PRITCHETT Consulting Unavailable BALL, DR PIRTCHETT Primary Care Unavailable BALL, DR PRITCHETT Admitting Unavailable BALL, DR PRITCHETT Attending Unavailable Ball, Brian Unavailable Allergies Allergy Classification Reported Allergen(s) Allergy Type Date of Onset Reaction(s) Facility (5 sources) empagliflozin Drug Allergy 06-11-19 Unknown, Unknown Reaction [facility] (5 sources) Simvastatin Drug Allergy 06-11-19 Unknown, Unknown Reaction [facility] (3 sources) Sulfonamides (Antibiotic) Propensity to adverse reactions Unknown [facility] Other (1 source) Substance with sulfonamide structure and antibacterial mechanism of action (substance) Drug allergy Unknown [facility] Other (2 sources) Sulfonamides (Antibiotic) Allergy to substance 06-11-19 Unknown Reaction [facility] Medications Current Medications Medication Drug [...] 2021 ADA RECOMMENDATION SEE BELOW Normal [facility] Comment on above: Result Comment: ADA RECOMMENDED LIMIT 4.0 - 6.0 ADA THERAPEUTIC TARGET < 7.0 ACTION SUGGESTED > 7.0 Performed By: #### A 1C #### [facility] [address] [place] [address] Dr. Petros Perez Glucose [Mass/Vol] 143 mg/dL Normal [facility] Comment on above: Performed By: #### A 1C #### [facility] [address] [place] [address] Dr. Petros Perez HbA1c (Bld) [Mass fraction] 6.6 % Critically high 4.5-6.2 [facility] Comment on above: Performed By: #### A 1C #### [facility] [address] [address] [address] Petros Perez CBC AUTO DIFFon 08-15-2021 BASO # 0.0 103/ul Normal 0.0-0.1 [facility] Comment on above: Performed By: #### C BC #### [facility] [address] [address] [address] Petros Perez Basophils/100 WBC (Bld) 0.3 % Normal 0.2-2.0 [facility] Comment on above: Performed By: #### C BC #### [facility] [address] [address] [address] Petros Perez EO # 0.1 103/ul Normal 0.0-0.7 [facility] Comment on above: Performed By: #### C BC #### [facility] [address] [address] [address] Petros Perez Eosinophils/100 WBC (Bld) 2.2 % Normal 0.9-7.0 [facility] Comment on above: Performed By: #### C BC #### [facility] [address] [place] [address] Dr. Petros Perez Erythrocyte distribution width (RBC) [Ratio] 13.4 % Normal 11.0-15.0 [facility] Comment on above: Performed By: #### C BC #### [facility] [address] [place] [address] Dr. Petros Perez Hematocrit (Bld) [Volume fraction] 42.8 % Normal 42.0-54.0 [facility] Comment on above: Performed By: #### C BC #### [facility] [address] [place] [address] Dr. Petros Perez Hemoglobin (Bld) [Mass/Vol] 14.1 g/dL Normal 14.0-18.0 [facility] Comment on above: Performed By: #### C BC #### [facility] [address] [place] [address] Dr. Petros Perez IG # 0.04 10e3/ul Critically high 0.00-0.03 [facility] Comment on above: Performed By: #### C BC #### [facility] [address] [place] [address] Dr. Petros Perez IG % 0.7 % Critically high 0.0-0.5 [facility] Comment on above: Performed By: #### C BC #### [facility] [address] [place] [address] Dr. Petros Perez LYMPH # 2.2 103/ul Normal 1.2-3.8 [facility] Comment on above: Performed By: #### C BC #### [facility] [address] [place] [address] Dr. Petros Perez Lymphocytes/100 WBC (Bld) 38.2 % Normal 20.5-60.0 [facility] Comment on above: Performed By: #### C BC #### [facility] [address] [place] [address] Dr. Petros Perez MANUAL DIFF REQ NO Normal [facility] Comment on above: Performed By: #### C BC #### [facility] [address] [place] [address] Dr. Petros Perez MCH (RBC) [Entitic mass] 30.6 pg Normal 25.9-34.0 [facility] Comment on above: Performed By: #### C BC #### [facility] [address] [place] [address] Dr. Petros Perez MCHC (RBC) [Mass/Vol] 32.9 g/dL Normal 29.9-35.2 [facility] Comment on above: Performed By: #### C BC #### [facility] [address] [place] [address] Dr. Petros Perez MCV (RBC) [Entitic vol] 92.8 fL Normal 80.0-94.0 [facility] Comment on above: Performed By: #### C BC #### [facility] [address] [place] [address] Dr. Petros Perez MONO # 0.5 103/ul Normal 0.3-0.8 [facility] Comment on above: Performed By: #### C BC #### [facility] [address] [place] [address] Dr. Petros Perez Monocytes/100 WBC (Bld) 8.6 % Normal 1.7-12.0 [facility] Comment on above: Performed By: #### C BC #### [facility] [address] [place] [address] Dr. Petros Perez NEUT # 2.9 103/ul Normal 1.4-6.5 [facility] Comment on above: Performed By: #### C BC #### [facility] [address] [place] [address] Dr. Petros Perez Neutrophils/100 WBC (Bld) 50.0 % Normal 43.0-75.0 [facility] Comment on above: Performed By: #### C BC #### [facility] [address] [address] [address] Petros Perez Platelet mean volume (Bld) [Entitic vol] 10.2 fL Normal 9.5-13.5 [facility] Comment on above: Performed By: #### C BC #### [facility] [address] [address] [address] Petros Perez PLT 219 103/ul Normal 150-450 [facility] Comment on above: Performed By: #### C BC #### [facility] [address] [address] [address] Petros Perez RBC 4.61 106/ul Critically low 4.70-6.10 [facility] Comment on above: Performed By: #### C BC #### [facility] [address] [address] [address] Petros Perez WBC 5.8 103/ul Normal 4.0-11.0 [facility] Comment on above: Performed By: #### C BC #### [facility] [address] [place] [address] Dr. Petros Perez GLYCOHEMOGLOBIN A1Con 2021 ADA RECOMMENDATION SEE BELOW Normal [facility] Comment on above: Result Comment: ADA RECOMMENDED LIMIT 4.0 - 6.0 ADA THERAPEUTIC TARGET < 7.0 ACTION SUGGESTED > 7.0 Performed By: #### A 1C #### [facility] [address] [place] [address] Dr. Petros Perez Glucose [Mass/Vol] 163 mg/dL Normal [facility] Comment on above: Performed By: #### A 1C #### [facility] [address] [place] [address] Dr. Petros Perez HbA1c (Bld) [Mass fraction] 7.3 % Critically high 4.5-6.2 [facility] Comment on above: Performed By: #### A 1C #### [facility] [address] [place] [address] Dr. Petros Perez LIPID PROFILEon 08-15-2021 CHOL-HDL RATIO NORM SEE BELOW Normal [facility] Comment on above: Result Comment: 3.3 - 4.4 LOW RISK 4.4 - 7.1 AVERAGE RISK 7.1 - 11.0 MODERATE RISK >11.0 HIGH RISK Performed By: #### L IPID, BMP #### [facility] [address] [address] [address] Petros Perez Cholesterol [Mass/Vol] 148 mg/dL Normal <=200 [facility] Comment on above: Performed By: #### L IPID, BMP #### [facility] [address] [address] [address] Petros Perez Cholesterol in HDL [Mass/Vol] 33 mg/dL Critically low 40-60 [facility] Comment on above: Performed By: #### L IPID, BMP #### [facility] [address] [place] [address] Dr. Petros Perez Cholesterol in LDL [Mass/Vol] 95.8 mg/dL Normal [facility] Comment on above: Performed By: #### L IPID, BMP #### [facility] [address] [place] [address] Dr. Petros Perez Cholesterol.total/Cho lesterol in HDL [Mass ratio] 4.5 {ratio} Normal [facility] Comment on above: Performed By: #### L IPID, BMP #### [facility] [address] [place] [address] Dr. Petros Perez HDL NORMAL > or = 60 mg/dl - LOW CARDIOVASCULAR RISK <40 mg/dl - HIGH CARDIOVASCULAR RISK Normal [facility] Comment on above: Performed By: #### L IPID, BMP #### [facility] [address] [place] [address] Dr. Petros Perez LDL CALC NORMAL SEE BELOW Normal [facility] Comment on above: Result Comment: <100 mg/dl OPTIMAL 100 - 129 mg/dl NEAR OR ABOVE OPTIMAL 130 - 159 mg/dl BORDERLINE HIGH 160 - 189 mg/dl HIGH >190 mg/dl VERY HIGH Performed By: #### L IPID, BMP #### [facility] [address] [address] [address] Petros Perez Triglyceride [Mass/Vol] 96 mg/dL Normal <=150 [facility] Comment on above: Performed By: #### L IPID, BMP #### [facility] [address] [address] [address] Petros Perez VLDL CALC 19.2 mg/dL Normal [facility] Comment on above: Performed By: #### L IPID, BMP #### [facility] [address] [place] [address] Dr. Petros Perez MICROALBUMIN, RAND URon - mALB 3.2 mg/L Normal <=30.0 [facility] Comment on above: Performed By: #### M ALBR #### [facility] [address] [place] [address] Dr. Petros Perez PROF CHEM 8 (BAS METB)on Anion gap [Moles/Vol] 13.1 mmol/L Normal [facility] Comment on above: Performed By: #### L IPID, BMP #### [facility] [address] [address] [address] Petros Perez Calcium [Mass/Vol] 9.2 mg/dL Normal 8.5-10.1 [facility] Comment on above: Performed By: #### L IPID, BMP #### [facility] [address] [place] [address] Dr. Petros Perez Chloride [Moles/Vol] 106 mmol/L Normal 98-107 [facility] Comment on above: Performed By: #### L IPID, BMP #### [facility] [address] [place] [address] Dr. Petros Perez CO2 [Moles/Vol] 24.1 mmol/L Normal 21.0-32.0 [facility] Comment on above: Performed By: #### L IPID, BMP #### [facility] [address] [address] [address] Petros Perez Creatinine [Mass/Vol] 1.56 mg/dL Critically high 0.70-1.30 [facility] Comment on above: Performed By: #### L IPID, BMP #### [facility] [address] [place] [address] Dr. Petros Perez EGFR-AF ANDORRAN 53 mL/min/1.73m2 Critically low >=60 [facility] Comment on above: Performed By: #### L IPID, BMP #### [facility] [address] [place] [address] Dr. Petros Perez EGFR-NON AF ANDORRAN 43 mL/min/1.73m2 Critically low >=60 [facility] Comment on above: Performed By: #### L IPID, BMP #### [facility] [address] [place] [address] Dr. Petros Perez Glucose [Mass/Vol] 139 mg/dL Critically high 74-106 [facility] Comment on above: Performed By: #### L IPID, BMP #### [facility] [address] [place] [address] Dr. Petros Perez Potassium [Moles/Vol] 4.2 mmol/L Normal 3.5-5.1 [facility] Comment on above: Performed By: #### L IPID, BMP #### [facility] [address] [place] [address] Dr. Petros Perez Sodium [Moles/Vol] 139 mmol/L Normal 136-145 [facility] Comment on above: Performed By: #### L IPID, BMP #### [facility] [address] [place] [address] Dr. Petros Perez Urea nitrogen [Mass/Vol] 25.0 mg/dL Critically high 7.0-18.0 [facility] Comment on above: Performed By: #### L IPID, BMP #### [facility] [address] [place] [address] Dr. Petros Perez Urea nitrogen/Creatinine [Mass ratio] 16.0 mg/mg Normal [facility] Comment on above: Performed By: #### L IPID, BMP #### [facility] [address] [place] [address] Dr. Petros Perez GLYCOHEMOGLOBIN A1Con 2021 ADA RECOMMENDATION ADA THERAPEUTIC TARGET 6.0 - 7.0 ACTION SUGGESTED > 7.0 Normal [facility] Comment on above: Performed By: #### A 1C #### [facility] [address] [address] [address] Petros Perez Glucose [Mass/Vol] 180 mg/dL Normal [facility] Comment on above: Performed By: #### A 1C #### [facility] [address] [address] [address] Petros Perez HbA1c (Bld) [Mass fraction] 7.9 % Critically high <=6.0 [facility] Comment on above: Performed By: #### A 1C #### [facility] [address] [address] [address] Petros Perez Consent for COVID Vaccineon 05-14-2020 SARS-CoV-2 (COVID-19) RNA EUN+probe Ql (Unsp spec) [id number] 3#1.00CD:127 Normal [facility] Consent for Treatmenton 05-02 Consent for Treatment [id number] 8#1.00CD:127 Normal [facility] Coding Summary.on 05-13-2020 Coding Summary. CODING DATE: 05/13/2020 [facility] STATUS: PAYOR: Medicare ADMIT DX: REASON [...] Saritha Simmons Date Saved: 05/13/2020 11:13 am [facility] Vital Signs Date Time Vital Sign Value Performing Clinician Facility 09-10-2023 [id number] Body height 182.88 cm [facility] 09-10-2023 09:28-0400 Body mass index (BMI) [Ratio] 32.3 kg/m2 [facility] 09-10-2023 09:28-0400 Body weight 108.12 kg [facility] 09-10-2023 09:28-0400 Diastolic blood pressure 61 mm[Hg] [facility] 09-10-2023 09:28-0400 Heart rate 56 /min [facility] 09-10-2023 09:28-0400 Respiratory rate 12 /min [facility] 09-10-2023 09:28-0400 Systolic blood pressure 123 mm[Hg] [facility] 06-11-2023 09:02-0400 Body height 182.88 cm [facility] 06-11-2023 09:02-0400 Body mass index (BMI) [Ratio] 33 kg/m2 [facility] 06-11-2023 09:02-0400 Body weight 110.67 kg [facility] 06-11-2023 09:02-0400 Diastolic blood pressure 65 mm[Hg] [facility] 06-11-2023 09:02-0400 Heart rate 62 /min [facility] 06-11-2023 09:02-0400 Respiratory rate 12 /min [facility] 06-11-2023 09:02-0400 Systolic blood pressure 149 mm[Hg] [facility] 11-08-2022 10:00-0400 Body height 182.88 cm Brian Ball Other [facility] Other 11-08-2022 10:00-0400 Body mass index (BMI) [Ratio] 31.27 kg/m2 Brian Ball Other [facility] Other 11-08-2022 10:00-0400 Body weight 104.6 kg Brian Ball Other [facility] Other 11-08-2022 10:00-0400 Diastolic blood pressure 72 mm[Hg] Brian Ball Other [facility] Other 11-08-2022 10:00-0400 Respiratory rate 12 /min Brian Ball Other [facility] Other 11-08-2022 10:00-0400 Systolic blood pressure 148 mm[Hg] Brian Ball Other [facility] Other 08-09-2022 10:00-0400 Body height 182.88 cm Brian Ball Other [facility] Other 08-09-2022 10:00-0400 Body mass index (BMI) [Ratio] 31.46 kg/m2 Brian Ball Other [facility] Other 08-09-2022 10:00-0400 Body weight 105.24 kg Brian Ball Other [facility] Other 08-09-2022 10:00-0400 Diastolic blood pressure 75 mm[Hg] Brian Ball Other [facility] Other 08-09-2022 10:00-0400 Respiratory rate 12 /min Brian Ball Other [facility] Other 08-09-2022 10:00-0400 Systolic blood pressure 170 mm[Hg] Brian Ball Other [facility] Other Encounters Encounter Date Encounter Type Care Provider Facility Start: 09-10-2023 End: 09-10-2023 ambulatory [facility] Work Phone: Start: 09-10-2023 End: 09-10-2023 Patient encounter procedure Formerly [facility] Physician [facility] Work Phone: Start: 06-11-2023 End: 06-11-2023 ambulatory [facility] Work Phone: Start: 06-11-2023 End: 06-11-2023 Patient encounter procedure Formerly [facility]ician [facility] Work Phone: Start: 11-08-2022 End: 11-08-2022 ambulatory Brian Salgado Other [facility] Other Start: 11-08-2022 Office outpatient vi sit 25 minutes Brian Salgado [facility] Start: 09-13-2022 End: 09-13-2022 ambulatory Brian Salgado Other [facility] Other Start: 09-13-2022 Telephone encounter Brian Salgado FP [facility] Start: 08-09-2022 End: 08-09-2022 ambulatory Brian Salgado Other [facility] Other Start: 08-09-2022 Patient encounter procedure Brian Salgado [facility] Start: 12-27-2021 End: 12-28-[address] BRIAN SALGADO Facility:[facility] Start: 08-15-2021 End: 08-16-[address] BRIAN SALGADO Facility:[facility] Start: 04-25-2021 End: 04-26-[address] BRIAN SALGADO Facility:[facility] Procedures Date Procedure Procedure Detail Performing Clinician Start: 08-15-[address] LAM [place] Comment on above: Performed By: #### P [facility] #### [facility] [address] [place] [address] Dr. Petros Perez Plan of Treatment Date Care Activity Detail Author Comprehensive metabo lic 2000 panel - Serum or Plasma [facility] enter [facility] Immunizations Immunization Date Immunization Notes Care Provider Fa cility 01-21-2023 influenza virus vaccine, unspecified formulation [facility] 11-21-2021 influenza virus vaccine, split virus (incl. purified surface antigen) Brian Salgado Other [facility] Other 11-21-2021 influenza virus vaccine, unspecified formulation [facility] 11-21-2021 influenza, high dose seasonal, preservative-free Brian Salgado Other [facility] Other 02-22-2021 COVID-19 Vaccine Pfi zer - Documentation Purposes Only Brian Salgado Other [facility] 12-30-2020 influenza virus vaccine, split virus (incl. purified surface antigen) Brian Naomi Other [facility] Other 12-30-2020 influenza virus vaccine, unspecified formulation [facility] 05-06-2020 COVID-19 Vaccine Slim - Documentation Purposes Only Brian Naomi Other [facility] 01-12-2020 influenza virus vaccine, split virus (incl. purified surface antigen) Brian Naomi Other [facility] Other 01-12-2020 influenza virus vaccine, unspecified formulation [facility] 01-13-2019 influenza virus vaccine, split virus (incl. purified surface antigen) Brian Naomi Other [facility] Other 01-13-2019 influenza virus vaccine, unspecified formulation [facility] 12-02-2017 influenza virus vaccine, split virus (incl. purified surface antigen) Brian Naomi Other [facility] Other 12-02-2017 influenza virus vaccine, unspecified formulation [facility] 12-27-2016 influenza virus vaccine, split virus (incl. purified surface antigen) Brian Naomi Other [facility] Other 12-27-2016 influenza virus vaccine, unspecified formulation [facility] 12-22-2015 influenza virus vaccine, split virus (incl. purified surface antigen) Brian Salgado Other [facility] Other 12-22-2015 influenza virus vaccine, unspecified formulation [facility] 03-15-2015 pneumococcal conjuga te vaccine, 13 valent Brian Salgado Other [facility] 12-07-2014 influenza virus vaccine, split virus (incl. purified surface antigen) Brian Salgado Other [facility] Other 12-07-2014 influenza virus vaccine, unspecified formulation [facility] 11-10-2013 tetanus and diphther ia toxoids, adsorbed, preservative free, for adult use (5 Lf of tetanus toxoid and 2 Lf of diphtheria toxoid) Brian Salgado Other [facility] 12-10-2012 tetanus and diphther ia toxoids, adsorbed, preservative free, for adult use (5 Lf of tetanus toxoid and 2 Lf of diphtheria toxoid) Brian Salgado Other [facility] 02-14-2011 pneumococcal polysaccharide vaccine, 23 valent Brian Salgado Other [facility] Payers Date Payer Category Payer Medicare [id number] 1960 Unknown [id number] 1945 Unknown [id number] 1945 Unknown [id number] 1945 Unknown [id number] Social History Date Type Detail Facility Sex Assigned At [facility] Other Start: 1945 Sex Assigned At Male F [facility] Evaluation note 11-08-2022 Note Date & Type [...] < 30 Increase exercise and reduce calories. [facility] Other Evaluation note 08-09-2022 Note Date & [...] High risk medication use (ICD-10 - Z79.899) [facility] Other Evaluation note Note Date & Type Note Facility Evaluation note No Information [facility] Other Evaluation note Note Date & Type Note Facility Evaluation note Diagnosis Onset Date Chronic kidney disease acute Elevated cholesterol acute Hypertension acute Type 2 diabetes mellitus wit h diabetic polyneuropathy acute Type 2 diabetes mellitus with hyperglycemia acute [facility] Work Phone: Evaluation note Note Date & Type Note Facility Evaluation note Diagnosis Onset Date Chronic kidney disease acute Chronic venous insufficiency of lower extremity acute Elevated cholesterol acute Hypertension acute Screening PSA (prostate specific antigen) acute Type 2 diabetes mellitus wit h diabetic polyneuropathy acute Type 2 diabetes mellitus with hyperglycemia acute Medicare annual wellness visit, subsequent noneactive [facility] Work Phone: History general Narrative - Reported [...] History APPENDECTOMY Hospitalization History SEE SURGICAL HX [employer] Other Summary Purpose Family History No Family [...] content) DATE CREATED AUTHOR 08/06/2020 Perea Carlos [facility] DATE CREATED AUTHOR AUTHOR'S [...] BE BASED ON THE PRIMARY CLINICAL RECORDS. [facility] [employer] provides no warranty or guarantee of the accuracy or completeness of information in this document.
[2023-12-06 09:56] LABS: Bilirubin Urine NEGATIVE (NEGATIVE); Blood Urine NEGATIVE (NEGATIVE); Clarity Urine CLEAR (CLEAR); Color Urine LT. YELLOW (YELLOW); Glucose Urine UA NEGATIVE (NEGATIVE); Ketones Urine NEGATIVE (NEGATIVE); Leukocyte Esterase Urine NEGATIVE (NEGATIVE); Nitrite Urine NEGATIVE (NEGATIVE); Protein Urine NEGATIVE (NEG/TRACE); Specific Gravity Urine 1.025 (1.005-1.025); Urobilinogen Urine 0.2 EU/dL (0.2-1.0); pH Urine 5.5 (5.0-9.0)
[2023-12-06 10:34] LABS: Bacteria Urine NONE SEEN #/HPF (NONE SEEN); Cast Seen? NONE SEEN #/LPF (NONE SEEN); Crystals Seen? None Seen #/HPF (None Seen); Mucus Urine NONE SEEN (NONE SEEN); RBC Urine 0-2 #/HPF (0-2); Squamous Epithelial Cell Urine FEW #/LPF (NONE/RARE); WBC Urine NONE SEEN #/HPF (NONE SEEN)
[2023-12-06 10:52] LABS: BUN Creatinine Ratio 23.1; Calcium 8.7 mg/dL (8.5-10.1); Chloride 107 mmol/L (98-107); Estimated GFR (African America 35 (>=60 mL/min/1.73m^2); Estimated GFR (Non-African Ame 29 (>=60 mL/min/1.73m^2); Glucose 91 mg/dL (74-106); Potassium 4.1 mmol/L (3.5-5.1); Sodium 138 mmol/L (136-145)
[2023-12-06 11:18] LABS: Anion Gap 12.9; Carbon Dioxide 22.2 mmol/L (21.0-32.0)
[2023-12-07 05:08] LABS: HBsAg Screen Negative (Negative); Hep B Core Ab, Tot Negative (Negative)
[2023-12-09 17:11] LABS: Albumin 3.2 g/dL (2.9-4.4); Alpha-1-Globulin 0.3 g/dL (0.0-0.4); Alpha-2-Globulin 0.8 g/dL (0.4-1.0); Free Kappa Lt Chains,S 34.5 mg/L (3.3-19.4); Free Lambda Lt Chains,S 18.2 mg/L (5.7-26.3); Immunoglobulin A, Qn, Serum 367 mg/dL (61-437); Immunoglobulin G, Qn, Serum 1078 mg/dL (603-1613); Immunoglobulin M, Qn, Serum 38 mg/dL (15-143); Protein, Total 6.3 g/dL (6.0-8.5)
== END 2023-12-06 09:42 | disposition home or self-care (01) ==
LOC: LAB 09:41
PROVIDERS: PCP Internal Medicine; Visit Provider Internal Medicine
DX: I12.9 Hypertensive chronic kidney disease with stage 1 through stage 4 chronic kidney disease, or unspecified chronic kidney disease (principal); N18.32 Chronic kidney disease, stage 3b; E11.65 Type 2 diabetes mellitus with hyperglycemia
CPT/HCPCS: 36415; 80048; 81001; 82784; 83521; 84155; 84165; 86317; 86704; 87340

== ENCOUNTER 2023-12-06 10:15 | Outpatient (OUT) | payer MEDICARE, SELFPAY ==
--- OUTSIDE RECORDS SUMMARY | 2023-12-06 10:27 | XMS_ITS | CCD ---
Author Organization [facility] Care Team Providers Care Crm Technical Lead Name Role Phone NAOMI, DR PRITCHETT Attending Unavailable BALL, DR PRITCHETT Consulting Unavailable BALL, DR PRITCHETT Primary Care Unavailable BALL, DR PRITCHETT Admitting Unavailable BALL, DR PRITCHTET Attending Unavailable BALL, DR PRITCHETT Consulting Unavailable BALL, DR PRITCHETT Primary Care Unavailable BALL, DR PRITCHETT Admitting Unavailable BALL, DR PRITCHETT Consulting Unavailable BALL, DR PRITCHETT Primary Care Unavailable BALL, DR PRITCHETT Admitting Unavailable BALL, DR PRITCHETT Attending Unavailable Ball, Brian Unavailable Allergies Allergy Classification Reported Allergen(s) Allergy Type Date of Onset Reaction(s) Facility (5 sources) empagliflozin Drug Allergy 06-11-19 Unknown, Unknown Reaction [facility] (5 sources) Simvastatin Drug Allergy 06-11-19 Unknown, Unknown Reaction [facility] (3 sources) Sulfonamides (Antibiotic) Propensity to adverse reactions Unknown [facility] Other (1 source) Substance with sulfonamide structure and antibacterial mechanism of action (substance) Drug allergy Unknown [facility] Other (2 sources) Sulfonamides (Antibiotic) Allergy to substance 06-11-19 Unknown Reaction [facility] Medications Current Medications Medication Drug Class(es) Dates [...] 08-17-2021 Chronic Other aftercare (1 source) Other skilled nursing (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 therapy Episodic Other diseases of [...] 2021 ADA RECOMMENDATION SEE BELOW Normal [facility] Comment on above: Result Comment: ADA RECOMMENDED LIMIT 4.0 - 6.0 ADA THERAPEUTIC TARGET < 7.0 ACTION SUGGESTED > 7.0 Performed By: #### A 1C #### [facility] [address] [place] [address] Dr. Petros Perez Glucose [Mass/Vol] 143 mg/dL Normal [facility] Comment on above: Performed By: #### A 1C #### [facility] [address] [place] [address] Dr. Petros Perez HbA1c (Bld) [Mass fraction] 6.6 % Critically high 4.5-6.2 [facility] Comment on above: Performed By: #### A 1C #### [facility] [address] [address] [address] Petros Perez CBC AUTO DIFFon 08-15-2021 BASO # 0.0 103/ul Normal 0.0-0.1 [facility] Comment on above: Performed By: #### C BC #### [facility] [address] [address] [address] Petros Perez Basophils/100 WBC (Bld) 0.3 % Normal 0.2-2.0 [facility] Comment on above: Performed By: #### C BC #### [facility] [address] [address] [address] Petros Perez EO # 0.1 103/ul Normal 0.0-0.7 [facility] Comment on above: Performed By: #### C BC #### [facility] [address] [address] [address] Petros Perez Eosinophils/100 WBC (Bld) 2.2 % Normal 0.9-7.0 [facility] Comment on above: Performed By: #### C BC #### [facility] [address] [place] [address] Dr. Petros Perez Erythrocyte distribution width (RBC) [Ratio] 13.4 % Normal 11.0-15.0 [facility] Comment on above: Performed By: #### C BC #### [facility] [address] [place] [address] Dr. Petros Perez Hematocrit (Bld) [Volume fraction] 42.8 % Normal 42.0-54.0 [facility] Comment on above: Performed By: #### C BC #### [facility] [address] [place] [address] Dr. Petros Perez Hemoglobin (Bld) [Mass/Vol] 14.1 g/dL Normal 14.0-18.0 [facility] Comment on above: Performed By: #### C BC #### [facility] [address] [place] [address] Dr. Petros Perez IG # 0.04 10e3/ul Critically high 0.00-0.03 [facility] Comment on above: Performed By: #### C BC #### [facility] [address] [place] [address] Dr. Petros Perez IG % 0.7 % Critically high 0.0-0.5 [facility] Comment on above: Performed By: #### C BC #### [facility] [address] [place] [address] Dr. Petros Perez LYMPH # 2.2 103/ul Normal 1.2-3.8 [facility] Comment on above: Performed By: #### C BC #### [facility] [address] [place] [address] Dr. Petros Perez Lymphocytes/100 WBC (Bld) 38.2 % Normal 20.5-60.0 [facility] Comment on above: Performed By: #### C BC #### [facility] [address] [place] [address] Dr. Petros Perez MANUAL DIFF REQ NO Normal [facility] Comment on above: Performed By: #### C BC #### [facility] [address] [place] [address] Dr. Petros Perez MCH (RBC) [Entitic mass] 30.6 pg Normal 25.9-34.0 [facility] Comment on above: Performed By: #### C BC #### [facility] [address] [place] [address] Dr. Petros Perez MCHC (RBC) [Mass/Vol] 32.9 g/dL Normal 29.9-35.2 [facility] Comment on above: Performed By: #### C BC #### [facility] [address] [place] [address] Dr. Petros Perez MCV (RBC) [Entitic vol] 92.8 fL Normal 80.0-94.0 [facility] Comment on above: Performed By: #### C BC #### [facility] [address] [place] [address] Dr. Petros Perez MONO # 0.5 103/ul Normal 0.3-0.8 [facility] Comment on above: Performed By: #### C BC #### [facility] [address] [place] [address] Dr. Petros Perez Monocytes/100 WBC (Bld) 8.6 % Normal 1.7-12.0 [facility] Comment on above: Performed By: #### C BC #### [facility] [address] [place] [address] Dr. Petros Perez NEUT # 2.9 103/ul Normal 1.4-6.5 [facility] Comment on above: Performed By: #### C BC #### [facility] [address] [place] [address] Dr. Petros Perez Neutrophils/100 WBC (Bld) 50.0 % Normal 43.0-75.0 [facility] Comment on above: Performed By: #### C BC #### [facility] [address] [address] [address] Petros Perez Platelet mean volume (Bld) [Entitic vol] 10.2 fL Normal 9.5-13.5 [facility] Comment on above: Performed By: #### C BC #### [facility] [address] [address] [address] Petros Perez PLT 219 103/ul Normal 150-450 [facility] Comment on above: Performed By: #### C BC #### [facility] [address] [address] [address] Petros Perez RBC 4.61 106/ul Critically low 4.70-6.10 [facility] Comment on above: Performed By: #### C BC #### [facility] [address] [address] [address] Petros Perez WBC 5.8 103/ul Normal 4.0-11.0 [facility] Comment on above: Performed By: #### C BC #### [facility] [address] [place] [address] Dr. Petros Perez GLYCOHEMOGLOBIN A1Con 2021 ADA RECOMMENDATION SEE BELOW Normal [facility] Comment on above: Result Comment: ADA RECOMMENDED LIMIT 4.0 - 6.0 ADA THERAPEUTIC TARGET < 7.0 ACTION SUGGESTED > 7.0 Performed By: #### A 1C #### [facility] [address] [place] [address] Dr. Petros Perez Glucose [Mass/Vol] 163 mg/dL Normal [facility] Comment on above: Performed By: #### A 1C #### [facility] [address] [place] [address] Dr. Petros Perez HbA1c (Bld) [Mass fraction] 7.3 % Critically high 4.5-6.2 [facility] Comment on above: Performed By: #### A 1C #### [facility] [address] [place] [address] Dr. Petros Perez LIPID PROFILEon 08-15-2021 CHOL-HDL RATIO NORM SEE BELOW Normal [facility] Comment on above: Result Comment: 3.3 - 4.4 LOW RISK 4.4 - 7.1 AVERAGE RISK 7.1 - 11.0 MODERATE RISK >11.0 HIGH RISK Performed By: #### L IPID, BMP #### [facility] [address] [address] [address] Petros Perez Cholesterol [Mass/Vol] 148 mg/dL Normal <=200 [facility] Comment on above: Performed By: #### L IPID, BMP #### [facility] [address] [address] [address] Petros Perez Cholesterol in HDL [Mass/Vol] 33 mg/dL Critically low 40-60 [facility] Comment on above: Performed By: #### L IPID, BMP #### [facility] [address] [place] [address] Dr. Petros Perez Cholesterol in LDL [Mass/Vol] 95.8 mg/dL Normal [facility] Comment on above: Performed By: #### L IPID, BMP #### [facility] [address] [place] [address] Dr. Petros Perez Cholesterol.total/Cho lesterol in HDL [Mass ratio] 4.5 {ratio} Normal [facility] Comment on above: Performed By: #### L IPID, BMP #### [facility] [address] [place] [address] Dr. Petros Perez HDL NORMAL > or = 60 mg/dl - LOW CARDIOVASCULAR RISK <40 mg/dl - HIGH CARDIOVASCULAR RISK Normal [facility] Comment on above: Performed By: #### L IPID, BMP #### [facility] [address] [place] [address] Dr. Petros Perez LDL CALC NORMAL SEE BELOW Normal [facility] Comment on above: Result Comment: <100 mg/dl OPTIMAL 100 - 129 mg/dl NEAR OR ABOVE OPTIMAL 130 - 159 mg/dl BORDERLINE HIGH 160 - 189 mg/dl HIGH >190 mg/dl VERY HIGH Performed By: #### L IPID, BMP #### [facility] [address] [address] [address] Petros Perez Triglyceride [Mass/Vol] 96 mg/dL Normal <=150 [facility] Comment on above: Performed By: #### L IPID, BMP #### [facility] [address] [address] [address] Petros Perez VLDL CALC 19.2 mg/dL Normal [facility] Comment on above: Performed By: #### L IPID, BMP #### [facility] [address] [place] [address] Dr. Petros Perez MICROALBUMIN, RAND URon - mALB 3.2 mg/L Normal <=30.0 [facility] Comment on above: Performed By: #### M ALBR #### [facility] [address] [place] [address] Dr. Petros Perez PROF CHEM 8 (BAS METB)on Anion gap [Moles/Vol] 13.1 mmol/L Normal [facility] Comment on above: Performed By: #### L IPID, BMP #### [facility] [address] [address] [address] Petros Perez Calcium [Mass/Vol] 9.2 mg/dL Normal 8.5-10.1 [facility] Comment on above: Performed By: #### L IPID, BMP #### [facility] [address] [place] [address] Dr. Petros Perez Chloride [Moles/Vol] 106 mmol/L Normal 98-107 [facility] Comment on above: Performed By: #### L IPID, BMP #### [facility] [address] [place] [address] Dr. Petros Perez CO2 [Moles/Vol] 24.1 mmol/L Normal 21.0-32.0 [facility] Comment on above: Performed By: #### L IPID, BMP #### [facility] [address] [address] [address] Petros Perez Creatinine [Mass/Vol] 1.56 mg/dL Critically high 0.70-1.30 [facility] Comment on above: Performed By: #### L IPID, BMP #### [facility] [address] [place] [address] Dr. Petros Perez EGFR-AF SINGAPOREAN 53 mL/min/1.73m2 Critically low >=60 [facility] Comment on above: Performed By: #### L IPID, BMP #### [facility] [address] [place] [address] Dr. Petros Perez EGFR-NON AF [place]OREAN 43 mL/min/1.73m2 Critically low >=60 [facility] Comment on above: Performed By: #### L IPID, BMP #### [facility] [address] [place] [address] Dr. Petros Perez Glucose [Mass/Vol] 139 mg/dL Critically high 74-106 [facility] Comment on above: Performed By: #### L IPID, BMP #### [facility] [address] [place] [address] Dr. Petros Perez Potassium [Moles/Vol] 4.2 mmol/L Normal 3.5-5.1 [facility] Comment on above: Performed By: #### L IPID, BMP #### [facility] [address] [place] [address] Dr. Petros Perez Sodium [Moles/Vol] 139 mmol/L Normal 136-145 [facility] Comment on above: Performed By: #### L IPID, BMP #### [facility] [address] [place] [address] Dr. Petros Preez Urea nitrogen [Mass/Vol] 25.0 mg/dL Critically high 7.0-18.0 [facility] Comment on above: Performed By: #### L IPID, BMP #### [facility] [address] [place] [address] Dr. Petros Perez Urea nitrogen/Creatinine [Mass ratio] 16.0 mg/mg Normal [facility] Comment on above: Performed By: #### L IPID, BMP #### [facility] [address] [place] [address] Dr. Petros ePrez GLYCOHEMOGLOBIN A1Con 2021 ADA RECOMMENDATION ADA THERAPEUTIC TARGET 6.0 - 7.0 ACTION SUGGESTED > 7.0 Normal [facility] Comment on above: Performed By: #### A 1C #### [facility] [address] [address] [address] Petros Perez Glucose [Mass/Vol] 180 mg/dL Normal [facility] Comment on above: Performed By: #### A 1C #### [facility] [address] [address] [address] Petros Perez HbA1c (Bld) [Mass fraction] 7.9 % Critically high <=6.0 [facility] Comment on above: Performed By: #### A 1C #### [facility] [address] [address] [address] Petros Perez Consent for COVID Vaccineon 05-14-2020 SARS-CoV-2 (COVID-19) RNA EUN+probe Ql (Unsp spec) [id number] 3#1.00CD:127 Normal [facility] Consent for Treatmenton 05-02 Consent for Treatment [id number] 8#1.00CD:127 Normal [facility] Coding Summary.on 05-13-2020 Coding Summary. CODING DATE: 05/13/2020 [facility] STATUS: PAYOR: Medicare ADMIT DX: [...] Saritha Simmons Date Saved: 05/13/2020 11:13 am [facility] Vital Signs Date Time Vital Sign Value Performing Clinician Facility 09-10-2023 [id number] Body height 182.88 cm [facility] 09-10-2023 09:28-0400 Body mass index (BMI) [Ratio] 32.3 kg/m2 [facility] 09-10-2023 09:28-0400 Body weight 108.12 kg [facility] 09-10-2023 09:28-0400 Diastolic blood pressure 61 mm[Hg] [facility] 09-10-2023 09:28-0400 Heart rate 56 /min [facility] 09-10-2023 09:28-0400 Respiratory rate 12 /min [facility] 09-10-2023 09:28-0400 Systolic blood pressure 123 mm[Hg] [facility] 06-11-2023 09:02-0400 Body height 182.88 cm [facility] 06-11-2023 09:02-0400 Body mass index (BMI) [Ratio] 33 kg/m2 [facility] 06-11-2023 09:02-0400 Body weight 110.67 kg [facility] 06-11-2023 09:02-0400 Diastolic blood pressure 65 mm[Hg] [facility] 06-11-2023 09:02-0400 Heart rate 62 /min [facility] 06-11-2023 09:02-0400 Respiratory rate 12 /min [facility] 06-11-2023 09:02-0400 Systolic blood pressure 149 mm[Hg] [facility] 11-08-2022 10:00-0400 Body height 182.88 cm Brian Ball Other [facility] Other 11-08-2022 10:00-0400 Body mass index (BMI) [Ratio] 31.27 kg/m2 Brian Ball Other [facility] Other 11-08-2022 10:00-0400 Body weight 104.6 kg Brian Ball Other [facility] Other 11-08-2022 10:00-0400 Diastolic blood pressure 72 mm[Hg] Brian Ball Other [facility] Other 11-08-2022 10:00-0400 Respiratory rate 12 /min Brian Ball Other [facility] Other 11-08-2022 10:00-0400 Systolic blood pressure 148 mm[Hg] Brian Ball Other [facility] Other 08-09-2022 10:00-0400 Body height 182.88 cm Brian Ball Other [facility] Other 08-09-2022 10:00-0400 Body mass index (BMI) [Ratio] 31.46 kg/m2 Brian Ball Other [facility] Other 08-09-2022 10:00-0400 Body weight 105.24 kg Brian Ball Other [facility] Other 08-09-2022 10:00-0400 Diastolic blood pressure 75 mm[Hg] Brian Ball Other [facility] Other 08-09-2022 10:00-0400 Respiratory rate 12 /min Brian Ball Other [facility] Other 08-09-2022 10:00-0400 Systolic blood pressure 170 mm[Hg] Brian Ball Other [facility] Other Encounters Encounter Date Encounter Type Care Provider Facility Start: 09-10-2023 End: 09-10-2023 ambulatory [facility] Work Phone: Start: 09-10-2023 End: 09-10-2023 Patient encounter procedure [facility] Physician [facility] Work Phone: Start: 06-11-2023 End: 06-11-2023 ambulatory [facility] Work Phone: Start: 06-11-2023 End: 06-11-2023 Patient encounter procedure [facility] Work Phone: Start: 11-08-2022 End: 11-08-2022 ambulatory Brian Salgado Other [facility] Other Start: 11-08-2022 Office outpatient vi sit 25 minutes Brian Salgado [facility] Start: 09-13-2022 End: 09-13-2022 ambulatory Brian Salgado Other [facility] Other Start: 09-13-2022 Telephone encounter Brian Salgado [facility] Start: 08-09-2022 End: 08-09-2022 ambulatory Brian Salgado Other [facility] Other Start: 08-09-2022 Patient encounter procedure Brian Salgado [facility] Start: 12-27-2021 End: 12-28-[address] BRIAN SALGADO Facility:[facility] Start: 08-15-2021 End: 08-16-[address] BRIAN SALGADO Facility:[facility] Start: 04-25-2021 End: 04-26-[address] BRIAN SALGADO Facility:[facility] Procedures Date Procedure Procedure Detail Performing Clinician Start: 08-15-[address] LAM [facility] [place] Comment on above: Performed By: #### P [facility] #### [facility] [address] [place] [address] Dr. Petros Perez Plan of Treatment Date Care Activity Detail Author Comprehensive metabo lic 2000 panel - Serum or Plasma [facility] Immunizations Immunization Date Immunization Notes Care Provider Fa cility 01-21-2023 influenza virus vaccine, unspecified formulation [facility] 11-21-2021 influenza virus vaccine, split virus (incl. purified surface antigen) Brian Salgado Other [facility] Other 11-21-2021 influenza virus vaccine, unspecified formulation [facility] 11-21-2021 influenza, high dose seasonal, preservative-free Brian Salgado Other [facility] Other 02-22-2021 COVID-19 Vaccine Pfi zer - Documentation Purposes Only Brian Salgado Other [facility] 12-30-2020 influenza virus vaccine, split virus (incl. purified surface antigen) Brian Naomi Other [place] [facility] Other 12-30-2020 influenza virus vaccine, unspecified formulation [facility] 05-06-2020 COVID-19 Vaccine Slim - Documentation Purposes Only Brian Naomi Other [facility] 01-12-2020 influenza virus vaccine, split virus (incl. purified surface antigen) Brian Naomi Other [place] [facility] Other 01-12-2020 influenza virus vaccine, unspecified formulation [facility] 01-13-2019 influenza virus vaccine, split virus (incl. purified surface antigen) Brian Naomi Other [place] [facility] Other 01-13-2019 influenza virus vaccine, unspecified formulation [facility] 12-02-2017 influenza virus vaccine, split virus (incl. purified surface antigen) Brian Naomi Other [place] [facility] Other 12-02-2017 influenza virus vaccine, unspecified formulation [facility] 12-27-2016 influenza virus vaccine, split virus (incl. purified surface antigen) Brian Naomi Other [facility] Other 12-27-2016 influenza virus vaccine, unspecified formulation [facility] 12-22-2015 influenza virus vaccine, split virus (incl. purified surface antigen) Brian Salgado Other [place] [employer] Other 12-22-2015 influenza virus vaccine, unspecified formulation [facility] 03-15-2015 pneumococcal conjuga te vaccine, 13 valent Brian Salgado Other [facility] 12-07-2014 influenza virus vaccine, split virus (incl. purified surface antigen) Brian Salgado Other [facility] Other 12-07-2014 influenza virus vaccine, unspecified formulation [facility] 11-10-2013 tetanus and diphther ia toxoids, adsorbed, preservative free, for adult use (5 Lf of tetanus toxoid and 2 Lf of diphtheria toxoid) Brian Salgado Other [facility] 12-10-2012 tetanus and diphther ia toxoids, adsorbed, preservative free, for adult use (5 Lf of tetanus toxoid and 2 Lf of diphtheria toxoid) Brian Salgado Other [facility] 02-14-2011 pneumococcal polysaccharide vaccine, 23 valent Brian Salgado Other [facility] Payers Date Payer Category Payer Medicare [id number] 1960 Unknown [id number] 1945 Unknown [id number] 1945 Unknown [id number] 1945 Unknown [id number] Social History Date Type Detail Facility Sex Assigned At [facility] Other Start: 1945 Sex Assigned At Male F [facility] Evaluation note 11-08-2022 Note Date [...] < 30 Increase exercise and reduce calories. [facility] Other Evaluation note 08-09-2022 Note Date & [...] High risk medication use (ICD-10 - Z79.899) [facility] Other Evaluation note Note Date & Type Note Facility Evaluation note No Information [employer] Other Evaluation note Note Date & Type Note Facility Evaluation note Diagnosis Onset Date Chronic kidney disease acute Elevated cholesterol acute Hypertension acute Type 2 diabetes mellitus wit h diabetic polyneuropathy acute Type 2 diabetes mellitus with hyperglycemia acute [facility] Work Phone: Evaluation note Note Date & Type Note Facility Evaluation note Diagnosis Onset Date Chronic kidney disease acute Chronic venous insufficiency of lower extremity acute Elevated cholesterol acute Hypertension acute Screening PSA (prostate specific antigen) acute Type 2 diabetes mellitus wit h diabetic polyneuropathy acute Type 2 diabetes mellitus with hyperglycemia acute Medicare annual wellness visit, subsequent noneactive [facility] Work Phone: History general Narrative - [...] History APPENDECTOMY Hospitalization History SEE SURGICAL HX [place] Other Summary Purpose Family History No Family [...] content) DATE CREATED AUTHOR 08/06/2020 Perea Carlos [facility] DATE CREATED AUTHOR AUTHOR'S ORGANIZ [...] BE BASED ON THE PRIMARY CLINICAL RECORDS. [facility] [employer] provides no warranty or guarantee of the accuracy or completeness of information in this document.
== END 2023-12-06 10:16 | disposition home or self-care (01) ==
LOC: WC 10:15
PROVIDERS: PCP Internal Medicine; Visit Provider Podiatrist Foot & Ankle Surgery
DX: E11.621 Type 2 diabetes mellitus with foot ulcer (principal); L97.423 Non-pressure chronic ulcer of left heel and midfoot with necrosis of muscle; L97.526 Non-pressure chronic ulcer of other part of left foot with bone involvement without evidence of necrosis
CPT/HCPCS: 29445

== ENCOUNTER 2023-12-12 15:39 | Outpatient (OUT) | payer MEDICARE, SELFPAY ==
--- OUTSIDE RECORDS SUMMARY | 2023-12-12 15:44 | XMS_ITS | CCD ---
Author Organization [facility] Care Team Providers Care Vice President [employer]idential [employer] Name Role Phone NAOMI, DR PRITCHETT Attending [...] empagliflozin Drug Allergy 06-11-[address], [address] [facility] (5 sources) Simvastatin Drug Allergy 06-11-[address], [address] [facility] (3 sources) Sulfonamides (Antibiotic) Propensity to adverse reactions Unknown [facility] Other (1 source) Substance with sulfonamide structure and antibacterial mechanism of action (substance) Drug allergy Unknown [facility] Other (2 sources) Sulfonamides (Antibiotic) Allergy to substance 06-11-[address] [facility] Medications Current Medications Medication Drug Class(es) [...] 08-17-2021 Chronic Other aftercare (1 source) Other custodial (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 therapy Episodic Other diseases of [...] 2021 ADA RECOMMENDATION SEE BELOW Normal [facility] Comment on above: Result Comment: ADA RECOMMENDED LIMIT 4.0 - 6.0 ADA THERAPEUTIC TARGET < 7.0 ACTION SUGGESTED > 7.0 Performed By: #### A 1C #### [facility] [address] [place] [address] Dr. Petros Perez Glucose [Mass/Vol] 143 mg/dL Normal [facility] Comment on above: Performed By: #### A 1C #### [facility] [address] [place] [address] Dr. Petros Perez HbA1c (Bld) [Mass fraction] 6.6 % Critically high 4.5-6.2 [facility] Comment on above: Performed By: #### A 1C #### [facility] [address] [address] [address] Petros Perez CBC AUTO DIFFon 08-15-2021 BASO # 0.0 103/ul Normal 0.0-0.1 [facility] Comment on above: Performed By: #### C BC #### [facility] [address] [address] [address] Petros Perez Basophils/100 WBC (Bld) 0.3 % Normal 0.2-2.0 [facility] Comment on above: Performed By: #### C BC #### [facility] [address] [address] [address] Petros Perez EO # 0.1 103/ul Normal 0.0-0.7 [facility] Comment on above: Performed By: #### C BC #### [facility] [address] [address] [address] Petros Perez Eosinophils/100 WBC (Bld) 2.2 % Normal 0.9-7.0 [facility] Comment on above: Performed By: #### C BC #### [facility] [address] [place] [address] Dr. Petros Perez Erythrocyte distribution width (RBC) [Ratio] 13.4 % Normal 11.0-15.0 [facility] Comment on above: Performed By: #### C BC #### [facility] [address] [place] [address] Dr. Petros Perez Hematocrit (Bld) [Volume fraction] 42.8 % Normal 42.0-54.0 [facility] Comment on above: Performed By: #### C BC #### [facility] [address] [place] [address] Dr. Petros Perez Hemoglobin (Bld) [Mass/Vol] 14.1 g/dL Normal 14.0-18.0 [facility] Comment on above: Performed By: #### C BC #### [facility] [address] [place] [address] Dr. Petros Perez IG # 0.04 10e3/ul Critically high 0.00-0.03 [facility] Comment on above: Performed By: #### C BC #### [facility] [address] [place] [address] Dr. Petros Perez IG % 0.7 % Critically high 0.0-0.5 [facility] Comment on above: Performed By: #### C BC #### [facility] [address] [place] [address] Dr. Petros Perez LYMPH # 2.2 103/ul Normal 1.2-3.8 [facility] Comment on above: Performed By: #### C BC #### [facility] [address] [place] [address] Dr. Petros Perez Lymphocytes/100 WBC (Bld) 38.2 % Normal 20.5-60.0 [facility] Comment on above: Performed By: #### C BC #### [facility] [address] [place] [address] Dr. Petros Perez MANUAL DIFF REQ NO Normal [facility] Comment on above: Performed By: #### C BC #### [facility] [address] [place] [address] Dr. Petros Perez MCH (RBC) [Entitic mass] 30.6 pg Normal 25.9-34.0 [facility] Comment on above: Performed By: #### C BC #### [facility] [address] [place] [address] Dr. Petros Perez MCHC (RBC) [Mass/Vol] 32.9 g/dL Normal 29.9-35.2 [facility] Comment on above: Performed By: #### C BC #### [facility] [address] [place] [address] Dr. Petros Perez MCV (RBC) [Entitic vol] 92.8 fL Normal 80.0-94.0 [facility] Comment on above: Performed By: #### C BC #### [facility] [address] [place] [address] Dr. Petros Perez MONO # 0.5 103/ul Normal 0.3-0.8 [facility] Comment on above: Performed By: #### C BC #### [facility] [address] [place] [address] Dr. Petros Perez Monocytes/100 WBC (Bld) 8.6 % Normal 1.7-12.0 [facility] Comment on above: Performed By: #### C BC #### [facility] [address] [place] [address] Dr. Petros Perez NEUT # 2.9 103/ul Normal 1.4-6.5 [facility] Comment on above: Performed By: #### C BC #### [facility] [address] [place] [address] Dr. Petros Perez Neutrophils/100 WBC (Bld) 50.0 % Normal 43.0-75.0 [facility] Comment on above: Performed By: #### C BC #### [facility] [address] [address] [address] Petros Perez Platelet mean volume (Bld) [Entitic vol] 10.2 fL Normal 9.5-13.5 [facility] Comment on above: Performed By: #### C BC #### [facility] [address] [address] [address] Petros Perez PLT 219 103/ul Normal 150-450 [facility] Comment on above: Performed By: #### C BC #### [facility] [address] [address] [address] Petros Perez RBC 4.61 106/ul Critically low 4.70-6.10 [facility] Comment on above: Performed By: #### C BC #### [facility] [address] [address] [address] Petros Perez WBC 5.8 103/ul Normal 4.0-11.0 [facility] Comment on above: Performed By: #### C BC #### [facility] [address] [place] [address] Dr. Petros Perez GLYCOHEMOGLOBIN A1Con 2021 ADA RECOMMENDATION SEE BELOW Normal [facility] Comment on above: Result Comment: ADA RECOMMENDED LIMIT 4.0 - 6.0 ADA THERAPEUTIC TARGET < 7.0 ACTION SUGGESTED > 7.0 Performed By: #### A 1C #### [facility] [address] [place] [address] Dr. Petros Perez Glucose [Mass/Vol] 163 mg/dL Normal [facility] Comment on above: Performed By: #### A 1C #### [facility] [address] [place] [address] Dr. Petros Perez HbA1c (Bld) [Mass fraction] 7.3 % Critically high 4.5-6.2 [facility] Comment on above: Performed By: #### A 1C #### [facility] [address] [place] [address] Dr. Petros Perez LIPID PROFILEon 08-15-2021 CHOL-HDL RATIO NORM SEE BELOW Normal [facility] Comment on above: Result Comment: 3.3 - 4.4 LOW RISK 4.4 - 7.1 AVERAGE RISK 7.1 - 11.0 MODERATE RISK >11.0 HIGH RISK Performed By: #### L IPID, BMP #### [facility] [address] [address] [address] Petros Perez Cholesterol [Mass/Vol] 148 mg/dL Normal <=200 [facility] Comment on above: Performed By: #### L IPID, BMP #### [facility] [address] [address] [address] Petros Perez Cholesterol in HDL [Mass/Vol] 33 mg/dL Critically low 40-60 [facility] Comment on above: Performed By: #### L IPID, BMP #### [facility] [address] [place] [address] Dr. Petros Perez Cholesterol in LDL [Mass/Vol] 95.8 mg/dL Normal [facility] Comment on above: Performed By: #### L IPID, BMP #### [facility] [address] [place] [address] Dr. Petros Perez Cholesterol.total/Cho lesterol in HDL [Mass ratio] 4.5 {ratio} Normal [facility] Comment on above: Performed By: #### L IPID, BMP #### [facility] [address] [place] [address] Dr. Petros Perez HDL NORMAL > or = 60 mg/dl - LOW CARDIOVASCULAR RISK <40 mg/dl - HIGH CARDIOVASCULAR RISK Normal [facility] Comment on above: Performed By: #### L IPID, BMP #### [facility] [address] [place] [address] Dr. Petros Perez LDL CALC NORMAL SEE BELOW Normal [facility] Comment on above: Result Comment: <100 mg/dl OPTIMAL 100 - 129 mg/dl NEAR OR ABOVE OPTIMAL 130 - 159 mg/dl BORDERLINE HIGH 160 - 189 mg/dl HIGH >190 mg/dl VERY HIGH Performed By: #### L IPID, BMP #### [facility] [address] [address] [address] Petros Perez Triglyceride [Mass/Vol] 96 mg/dL Normal <=150 [facility] Comment on above: Performed By: #### L IPID, BMP #### [facility] [address] [address] [address] Petros Perez VLDL CALC 19.2 mg/dL Normal [facility] Comment on above: Performed By: #### L IPID, BMP #### [facility] [address] [place] [address] Dr. Petros Perez MICROALBUMIN, RAND URon - mALB 3.2 mg/L Normal <=30.0 [facility] Comment on above: Performed By: #### M ALBR #### [facility] [address] [place] [address] Dr. Petros Perez PROF CHEM 8 (BAS METB)on Anion gap [Moles/Vol] 13.1 mmol/L Normal [facility] Comment on above: Performed By: #### L IPID, BMP #### [facility] [address] [address] [address] Petros Perez Calcium [Mass/Vol] 9.2 mg/dL Normal 8.5-10.1 [facility] Comment on above: Performed By: #### L IPID, BMP #### [facility] [address] [place] [address] Dr. Petros Perez Chloride [Moles/Vol] 106 mmol/L Normal 98-107 [facility] Comment on above: Performed By: #### L IPID, BMP #### [facility] [address] [place] [address] Dr. Petros Perez CO2 [Moles/Vol] 24.1 mmol/L Normal 21.0-32.0 [facility] Comment on above: Performed By: #### L IPID, BMP #### [facility] [address] [address] [address] Petros Perez Creatinine [Mass/Vol] 1.56 mg/dL Critically high 0.70-1.30 [facility] Comment on above: Performed By: #### L IPID, BMP #### [facility] [address] [place] [address] Dr. Petros Perez EGFR-AF SWEDISH 53 mL/min/1.73m2 Critically low >=60 [facility] Comment on above: Performed By: #### L IPID, BMP #### [facility] [address] [place] [address] Dr. Petros Perez EGFR-NON AF SWEDISH 43 mL/min/1.73m2 Critically low >=60 [facility] Comment on above: Performed By: #### L IPID, BMP #### [facility] [address] [place] [address] Dr. Petros Perez Glucose [Mass/Vol] 139 mg/dL Critically high 74-106 [facility] Comment on above: Performed By: #### L IPID, BMP #### [facility] [address] [place] [address] Dr. Petros Perez Potassium [Moles/Vol] 4.2 mmol/L Normal 3.5-5.1 [facility] Comment on above: Performed By: #### L IPID, BMP #### [facility] [address] [place] [address] Dr. Petros Perez Sodium [Moles/Vol] 139 mmol/L Normal 136-145 [facility] Comment on above: Performed By: #### L IPID, BMP #### [facility] [address] [place] [address] Dr. Petros Perez Urea nitrogen [Mass/Vol] 25.0 mg/dL Critically high 7.0-18.0 [facility] Comment on above: Performed By: #### L IPID, BMP #### [facility] [address] [place] [address] Dr. Petros Perez Urea nitrogen/Creatinine [Mass ratio] 16.0 mg/mg Normal [facility] Comment on above: Performed By: #### L IPID, BMP #### [facility] [address] [place] [address] Dr. Petros Perez GLYCOHEMOGLOBIN A1Con 2021 ADA RECOMMENDATION ADA THERAPEUTIC TARGET 6.0 - 7.0 ACTION SUGGESTED > 7.0 Normal [facility] Comment on above: Performed By: #### A 1C #### [facility] [address] [address] [address] Petros Perez Glucose [Mass/Vol] 180 mg/dL Normal [facility] Comment on above: Performed By: #### A 1C #### [facility] [address] [address] [address] Petros Perez HbA1c (Bld) [Mass fraction] 7.9 % Critically high <=6.0 [facility] Comment on above: Performed By: #### A 1C #### [facility] [address] [address] [address] Petros Perez Consent for COVID Vaccineon 05-14-2020 SARS-CoV-2 (COVID-19) RNA EUN+probe Ql (Unsp spec) [id number] 3#1.00CD:127 Normal [facility] Consent for Treatmenton 05-02 Consent for Treatment [id number] 8#1.00CD:127 Normal [facility] Coding Summary.on 05-13-2020 Coding Summary. CODING DATE: 05/13/2020 [facility] STATUS: PAYOR: Medicare ADMIT DX: REASON [...] Saritha Simmons Date Saved: 05/13/2020 11:13 am [facility] Vital Signs Date Time Vital Sign Value Performing Clinician Facility 09-10-2023 [id number] Body height 182.88 cm [facility] 09-10-2023 09:28-0400 Body mass index (BMI) [Ratio] 32.3 kg/m2 [facility] 09-10-2023 09:28-0400 Body weight 108.12 kg [facility] 09-10-2023 09:28-0400 Diastolic blood pressure 61 mm[Hg] [facility] 09-10-2023 09:28-0400 Heart rate 56 /min [facility] 09-10-2023 09:28-0400 Respiratory rate 12 /min [facility] 09-10-2023 09:28-0400 Systolic blood pressure 123 mm[Hg] [facility] 06-11-2023 09:02-0400 Body height 182.88 cm [facility] 06-11-2023 09:02-0400 Body mass index (BMI) [Ratio] 33 kg/m2 [facility] 06-11-2023 09:02-0400 Body weight 110.67 kg [facility] 06-11-2023 09:02-0400 Diastolic blood pressure 65 mm[Hg] [facility] 06-11-2023 09:02-0400 Heart rate 62 /min [facility] 06-11-2023 09:02-0400 Respiratory rate 12 /min [facility] 06-11-2023 09:02-0400 Systolic blood pressure 149 mm[Hg] [facility] 11-08-2022 10:00-0400 Body height 182.88 cm Brian Ball Other [facility] Other 11-08-2022 10:00-0400 Body mass index (BMI) [Ratio] 31.27 kg/m2 Brian Ball Other [employer] [facility] Other 11-08-2022 10:00-0400 Body weight 104.6 kg Brian Ball Other [employer] [facility] Other 11-08-2022 10:00-0400 Diastolic blood pressure 72 mm[Hg] Brian Ball Other [employer] [facility] Other 11-08-2022 10:00-0400 Respiratory rate 12 /min Brian Ball Other [facility] Other 11-08-2022 10:00-0400 Systolic blood pressure 148 mm[Hg] Brian Ball Other [facility] Other 08-09-2022 10:00-0400 Body height 182.88 cm Brian Ball Other [facility] Other 08-09-2022 10:00-0400 Body mass index (BMI) [Ratio] 31.46 kg/m2 Brian Ball Other [facility] Other 08-09-2022 10:00-0400 Body weight 105.24 kg Brian Ball Other [facility] Other 08-09-2022 10:00-0400 Diastolic blood pressure 75 mm[Hg] Brian Ball Other [facility] Other 08-09-2022 10:00-0400 Respiratory rate 12 /min Brian Ball Other [facility] Other 08-09-2022 10:00-0400 Systolic blood pressure 170 mm[Hg] Brian Ball Other [facility] Other Encounters Encounter Date Encounter Type Care Provider Facility Start: 09-10-2023 End: 09-10-2023 ambulatory [facility] Work Phone: Start: 09-10-2023 End: 09-10-2023 Patient encounter procedure [facility] Work Phone: Start: 06-11-2023 End: 06-11-2023 ambulatory [facility] Work Phone: Start: 06-11-2023 End: 06-11-2023 Patient encounter procedure [facility] Work Phone: Start: 11-08-2022 End: 11-08-2022 ambulatory Brian Salgado Other [facility] Other Start: 11-08-2022 Office outpatient vi sit 25 minutes Brian Salgado [facility] Start: 09-13-2022 End: 09-13-2022 ambulatory Brian Salgado Other [facility] Other Start: 09-13-2022 Telephone encounter Brian Slagado [facility] Start: 08-09-2022 End: 08-09-2022 ambulatory Brian Salgado Other [facility] Other Start: 08-09-2022 Patient encounter procedure Brian Salgado [facility] Start: 12-27-2021 End: 12-28-[address] BRIAN SALGADO Facility:[facility] Start: 08-15-2021 End: 08-16-[address] BRIAN SALGADO Facility:[facility] Start: 04-25-2021 End: 04-26-[address] BRIAN SALGADO Facility:[facility] Procedures Date Procedure Procedure Detail Performing Clinician Start: 08-15-[address] LAM IN [place] Comment on above: Performed By: #### [facility] #### [facility] [address] [place] [address] Dr. Petros Perez Plan of Treatment Date Care Activity Detail Author Comprehensive metabo lic 2000 panel - Serum or Plasma [facility] enter [facility] Immunizations Immunization Date Immunization Notes Care Provider Fa cility 01-21-2023 influenza virus vaccine, unspecified formulation [facility] 11-21-2021 influenza virus vaccine, split virus (incl. purified surface antigen) Brian Salgado Other [facility] Other 11-21-2021 influenza virus vaccine, unspecified formulation [facility] 11-21-2021 influenza, high dose seasonal, preservative-free Brian Salgado Other [facility] Other 02-22-2021 COVID-19 Vaccine Pfi zer - Documentation Purposes Only Brian Salgado Other [facility] 12-30-2020 influenza virus vaccine, split virus (incl. purified surface antigen) Brian Naomi Other [place] [facility] Other 12-30-2020 influenza virus vaccine, unspecified formulation [facility] 05-06-2020 COVID-19 Vaccine Slim - Documentation Purposes Only Brian Naomi Other [facility] 01-12-2020 influenza virus vaccine, split virus (incl. purified surface antigen) Brian Naomi Other [place] [facility] Other 01-12-2020 influenza virus vaccine, unspecified formulation [facility] 01-13-2019 influenza virus vaccine, split virus (incl. purified surface antigen) Brian Naomi Other [place] [facility] Other 01-13-2019 influenza virus vaccine, unspecified formulation [facility] 12-02-2017 influenza virus vaccine, split virus (incl. purified surface antigen) Brian Naomi Other [place] [facility] Other 12-02-2017 influenza virus vaccine, unspecified formulation [facility] 12-27-2016 influenza virus vaccine, split virus (incl. purified surface antigen) Brian Naomi Other [facility] Other 12-27-2016 influenza virus vaccine, unspecified formulation [facility] 12-22-2015 influenza virus vaccine, split virus (incl. purified surface antigen) Brian Salgado Other [place] [facility] Other 12-22-2015 influenza virus vaccine, unspecified formulation [facility] 03-15-2015 pneumococcal conjuga te vaccine, 13 valent Brian Salgado Other [facility] 12-07-2014 influenza virus vaccine, split virus (incl. purified surface antigen) Brian Salgado Other [facility] [employer] Other 12-07-2014 influenza virus vaccine, unspecified formulation [facility] 11-10-2013 tetanus and diphther ia toxoids, adsorbed, preservative free, for adult use (5 Lf of tetanus toxoid and 2 Lf of diphtheria toxoid) Brian Salgado Other [facility] 12-10-2012 tetanus and diphther ia toxoids, adsorbed, preservative free, for adult use (5 Lf of tetanus toxoid and 2 Lf of diphtheria toxoid) Brian Salgado Other [facility] 02-14-2011 pneumococcal polysaccharide vaccine, 23 valent Brian Salgado Other [facility] Payers Date Payer Category Payer Medicare [id number] 1960 Unknown [id number] 1945 Unknown [id number] 1945 Unknown [id number] 1945 Unknown [id number] Social History Date Type Detail Facility Sex Assigned At [facility] [employer] Other Start: 1945 Sex Assigned At Male F [facility] Evaluation note 11-08-2022 Note Date & [...] < 30 Increase exercise and reduce calories. [facility] Other Evaluation note 08-09-2022 Note Date & [...] High risk medication use (ICD-10 - Z79.899) [facility] Other Evaluation note Note Date & Type Note Facility Evaluation note No Information [employer] Other Evaluation note Note Date & Type Note Facility Evaluation note Diagnosis Onset Date Chronic kidney disease acute Elevated cholesterol acute Hypertension acute Type 2 diabetes mellitus wit h diabetic polyneuropathy acute Type 2 diabetes mellitus with hyperglycemia acute [facility] Work Phone: Evaluation note Note Date & Type Note Facility Evaluation note Diagnosis Onset Date Chronic kidney disease acute Chronic venous insufficiency of lower extremity acute Elevated cholesterol acute Hypertension acute Screening PSA (prostate specific antigen) acute Type 2 diabetes mellitus wit h diabetic polyneuropathy acute Type 2 diabetes mellitus with hyperglycemia acute Medicare annual wellness visit, subsequent noneactive [facility] Work Phone: History general Narrative - Reported [...] History APPENDECTOMY Hospitalization History SEE SURGICAL HX [facility] Other Summary Purpose Family History No Family [...] and content) DATE CREATED AUTHOR 08/06/[address] [place] [place] [facility] DATE CREATED AUTHOR AUTHOR'S ORGANIZ ATION 12/31/2021 [facility] REASON FOR VISIT (unrecogniz ed section and content) WELLNESSLab Results3 month F ollow up Care Teams (unrecognized sec tion and content) Team Status: Active Member Role Status Dates Brian Salgado DO Primary Care Provider Active Team Status: Inactive Member Role Status Dates Brian Salgado DO Primary Care Provide r, Attending Provider Active Start: June 11, 2023 End: Thereas 9th, 2024 Team Status: Inactive Member Role [...] BE BASED ON THE PRIMARY CLINICAL RECORDS. [facility] [employer] provides no warranty or guarantee of the accuracy or completeness of information in this document.
== END 2023-12-12 15:40 | disposition home or self-care (01) ==
LOC: WC 15:40
PROVIDERS: PCP Internal Medicine; Visit Provider Physician Assistant
DX: L97.526 Non-pressure chronic ulcer of other part of left foot with bone involvement without evidence of necrosis (principal)
CPT/HCPCS: 29445

== ENCOUNTER 2023-12-16 13:10 | Outpatient (OUT) | payer MEDICARE, SELFPAY ==
--- NOTE | 2023-12-16 13:26 | ECG_ITS ---
[facility] Test Date: 2023-12-16 Pat Name: JF HERNÁNDEZ Department: Room: - Gender: Male Director Of Social Work: : 1945 Requested By: EVELIN PICHARDO Order Number: [id number] Reading MD: YARELY SALGADO Measurements Intervals [place] Rate: 62 P: TX: 160 QRS: -21 QRSD: 94 T: 29 QT: 399 QTc: 407 Interpretive Statements Sinus arrhythmia BORDERLINE LEFT AXIS DEVIATION [QRS AXIS < -20] ABNORMAL RHYTHM ECG Compared to ECG 08/28/2018 20:15:02 No significant change Electronically Signed On 12-16-2023 22:46:11 EDT by YARELY SALGADO
--- NOTE | 2023-12-16 14:06 | P.GSHP_ITS ---
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 Please see HPI from Dr. Carroll dated 12/06/2023. Review of Systems ROS Narrative REVIEW OF SYSTEMS: Negative except as stated in HPI, ten or more systems reviewed. Constitutional: No fever, chills, weakness ENT: No sore throat or epistaxis Cardiovascular: No edema, chest pain, palpitations, or activity intolerance Respiratory: No shortness of breath, cough, or wheezing Gastrointestinal: No abdominal pain, constipation, diarrhea, or vomiting Genitourinary: No dysuria or hematuria Neurological: No numbness, tingling, weakness, or headache Psychiatric: No mood changes PFSH PFSH Medical History (Updated 12/16/23 @ 13:34 by Yvonne Sexton NP) Osteoarthritis ?M19.90 - Unspecified osteoarthritis, unspecified site (ICD-10) Hypertension ?I10 - Essential (primary) hypertension (ICD-10) Neuropathy ?G62.9 - Polyneuropathy, unspecified (ICD-10) Chronic kidney disease, stage 3 ?N18.30 - Chronic kidney disease, stage 3 unspecified (ICD-10) Hammertoe of left foot ?M20.42 - Other hammer toe(s) (acquired), left foot (ICD-10) Acquired deformity of left foot ?M21.962 - Unspecified acquired deformity of left lower leg (ICD-10) Diabetes ?E11.9 - Type 2 diabetes mellitus without complications (ICD-10) Diabetic foot ulcer ?E11.621 - Type 2 diabetes mellitus with foot ulcer (ICD-10) ?L97.509 - Non-pressure chronic ulcer of other part of unspecified foot with unspecified severity (ICD-10) Surgical History (Updated 12/16/23 @ 13:47 by Yvonne Sexton NP) S/P cataract extraction and insertion of intraocular lens ?Z98.49 - Cataract extraction status, unspecified eye (ICD-10) ?Z96.1 - Presence of intraocular lens (ICD-10) History of foot surgery ?Z98.890 - Other specified postprocedural states (ICD-10) History of appendectomy ?Z90.49 - Acquired absence of other specified parts of digestive tract (ICD- 10) Family History (Updated 12/16/23 @ 13:32 by Yvonne Sexton NP) Other Family history of cancer Heart disease Social History (Updated 12/16/23 @ 13:43 by Yvonne Sexton NP) Within the past year, how often did you have a drink containing alcohol: monthly or less Smoking status: Former smoker Non-prescribed substance use: denies use Highest level of school completed/degree received: high school graduate Meds Home Medications and Allergies Home Medications ?Medication ?Instructions ?Recorded ?Confirmed ?Type benazepril 20 mg tablet 20 mg PO DAILY 12/16/23 12/16/23 History fenofibrate 160 mg tablet 160 mg PO DAILY 12/16/23 12/16/23 History glimepiride 4 mg tablet 4 mg PO DAILY 12/16/23 12/16/23 History linagliptin 5 mg tablet (Tradjenta) 5 mg PO DAILY 12/16/23 12/16/23 History pioglitazone 15 mg tablet 15 mg PO DAILY 12/16/23 12/16/23 History Allergies Allergy/AdvReac Type Severity Reaction Status Date / Time No Known Drug Allergies Allergy Verified 12/16/23 13:42 Exam Narrative Exam Narrative: Constitutional: Awake, alert, comfortable, well-appearing, nontoxic, interactive, vital signs as charted Head: Normocephalic, atraumatic Neck: Supple, normal appearance, normal range of motion, no meningeal signs, no lymphadenopathy Respiratory: No respiratory distress, breath sounds clear Cardiovascular: Irregularly irregular rhythm, normal rate, no murmur Psychiatric: Oriented ?3, normal affect Assessment and Plan Assessment and Plan (1) Diabetic foot ulcer: (2) Acquired deformity of left foot: (3) Hammertoe of left foot: Plan Left second metatarsal head resection with delayed primary closure and application of total contact cast scheduled with Dr. Carroll December 26, 2023. Patient had an abnormal EKG here today in preadmission testing. This was reported to Dr. Foote's office. Dr. Foote requested a 30 second monitor strip to be sent to his office, he states the patient can be discharged home and he will follow-up with the patient tomorrow or as needed.
[2023-12-16 14:30] LABS: BUN Creatinine Ratio 17.4; Carbon Dioxide 23.7 mmol/L (21.0-32.0); Chloride 113 mmol/L (98-107); Estimated GFR (African America 48 (>=60 mL/min/1.73m^2); Estimated GFR (Non-African Ame 40 (>=60 mL/min/1.73m^2); Glucose 106 mg/dL (74-106); Potassium 4.7 mmol/L (3.5-5.1); Sodium 145 mmol/L (136-145)
[2023-12-16 14:32] LABS: Basophils Percent Auto 0.4 % (0.2-2.0); Eosinophils Percent Auto 0.1 % (0.9-7.0); Hematocrit 34.5 % (42.0-54.0); Hemoglobin 11.1 g/dL (14.0-18.0); Immature Granulocytes Abs Auto 0.05 10^3/uL (0.00-0.03); Immature Granulocytes Pct Auto 0.7 % (0.0-0.5); Lymphocytes Absolute Auto 1.4 10^3/uL (1.2-3.8); Lymphocytes Percent Auto 21.1 % (20.5-60.0); Mean Corpuscular HGB Conc 32.2 g/dL (29.9-35.2); Mean Corpuscular Volume 99.4 fL (80.0-94.0); Mean Platelet Volume 10.7 fL (9.5-13.5); Monocytes Absolute Auto 0.7 10^3/uL (0.3-0.8); Monocytes Percent Auto 10.1 % (1.7-12.0); Neutrophils Absolute Auto 4.5 10^3/uL (1.4-6.5); Neutrophils Percent Auto 67.6 % (43.0-75.0); Platelet Count 233 10^3/uL (150-450); Red Blood Count 3.47 10^6/uL (4.70-6.10); Red Cell Distribution Width 14.8 % (11.0-15.0); White Blood Count 6.7 10^3/uL (4.0-11.0)
== END 2023-12-16 13:11 | disposition home or self-care (01) ==
LOC: PST 13:12
PROVIDERS: PCP Internal Medicine; Visit Provider Podiatrist Foot & Ankle Surgery
DX: Z01.810 Encounter for preprocedural cardiovascular examination (principal); Z01.812 Encounter for preprocedural laboratory examination; E11.621 Type 2 diabetes mellitus with foot ulcer; L97.429 Non-pressure chronic ulcer of left heel and midfoot with unspecified severity; N18.9 Chronic kidney disease, unspecified; E11.22 Type 2 diabetes mellitus with diabetic chronic kidney disease
CPT/HCPCS: 80048; 85025; 93005; G0463

== ENCOUNTER 2023-12-19 15:31 | Outpatient (OUT) | payer MEDICARE, SELFPAY ==
--- OUTSIDE RECORDS SUMMARY | 2023-12-19 15:36 | XMS_ITS | CCD ---
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 Name Role Phone QAMAR, DR PRITCHETT Attending Unavailable BALL, DR PRITCHETT [...] Allergy Type Date of Onset Reaction(s) Facility (6 sources) empagliflozin Drug Allergy 06-11-19 Unknown, Unknown Reaction [facility] (6 sources) Simvastatin Drug Allergy 06-11-19 Unknown, Unknown Reaction [facility] (3 sources) Sulfonamides (Antibiotic) Propensity to adverse reactions Unknown [email or web address] Other (1 source) Substance with sulfonamide structure and antibacterial mechanism of action (substance) Drug allergy Unknown [email or web address] Other (3 sources) Sulfonamides (Antibiotic) Allergy to substance 06-11-19 Unknown Reaction [facility] Medications Current Medications Medication Drug Class(es) Dates Sig (Normalized) Sig (Original) benazepril hydrochloride 20 mg oral tablet (6 sources) Angiotensin Converting Enzyme Inhibitor Start: 06-08-2023 take 20 mg by mouth once daily Benazepril Active 20 MG PO Daily June 08, 2023 12:00am take 1 tablet by mouth once jordan y Benazepril HCl 20 MG TAKE 1 TABLET BY MOUTH DAILY Active fenofibrate 160 mg oral tablet (6 sources) Peroxisome Proliferator Receptor alpha Agonist Start: 06-08-2023 take 160 mg by mouth once daily Fenofibrate Active 160 MG PO Daily June 08, 2023 12:00am take 1 tablet by mouth once jordan y Fenofibrate 160 MG TAKE 1 TABLET BY MOUTH DAILY Active glimepiride 4 mg oral tablet (6 sources) Sulfonylurea Start: 06-08-2023 take 1 tablet [...] BREAKFAST Active linagliptin 5 mg oral tablet (6 sources) Dipeptidyl Peptidase 4 Inhibitor Start: 06-08-2023 take 5 mg by mouth once daily Linagliptin Active 5 MG PO Daily June 08, 2023 12:00am take 1 tablet by mouth once jordan y Tradjenta 5 MG TAKE 1 TABLET BY MOUTH DAILY Active pioglitazone 45 mg oral tablet (6 sources) Peroxisome Proliferator Receptor alpha Agonist, Peroxisome Proliferator Receptor gamma Agonist, Thiazolidinedione Start: 06-08-2023 take 45 mg by mouth once daily Pioglitazone Active 45 MG PO Daily June 08, 2023 12:00am take 1 tablet by mouth once jordan y Pioglitazone HCl 45 MG TAKE 1 TABLET BY MOUTH DAILY Active Problems Problem Classification Problem Date Documented Date Episodic/Chronic Anxiety disorders (8 sources) Generalized anxiety disorder; Translations: [Generalized anxiety disorder] Chronic Chronic kidney disease (6 sources) Chronic kidney disease; Translations: [Chronic kidney disease, unspecified] 06-08-2023 Chronic Chronic kidney disease (1 source) Chronic kidney disease; Translations: [CHRONIC KIDNEY DISEASE STAGE 3B] Onset: 08-17-2021 Diabetes mellitus with complications (20 sources) Type 2 diabetes mellitus with hyperglycemia; Translations: [Type 2 diabetes mellitus with diabetic chronic kidney disease] Onset: 08-17-2021 Chronic Disorders of lipid metabolism (16 sources) Mixed hyperlipidemia; Translations: [Hypercholesterolemi a] Onset: 08-15-2021 Chronic Essential hypertension (13 sources) Essential (primary) hypertension; Translations: [Essential hypertension] Onset: 08-17-2021 Chronic Other aftercare (1 source) Other skilled nursing (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 therapy Episodic Other diseases of veins and lymphatics (2 sources) Venous insufficiency of leg; Translations: [Venous insufficiency (chronic) (peripheral)] 09-10-2023 Episodic Other diseases of veins and lymphatics (2 sources) Venous insufficiency (chronic) (peripheral); Translations: [Venous (peripheral) [...] conditions (not mental disorders or infectious disease) (5 sources) Encounter for screening for malignant neoplasm of prostate; Translations: [Patient encounter status] Onset: 08-17-2021 Episodic Results Test Name Value Interpretation Reference Range Facility Albumin [Mass/volume] in Ser um or Plasmaon 12-06-2023 Albumin [Mass/Vol] 3.2 g/dL 2.9-4.4 [facility] Estimated glomerular filtrat ion rate (GFR) non- Americanon 12-06-2023 GFR/1.73 sq M.predicted among non-blacks MDRD (S/P/Bld) [Vol rate/Area] 29 mL/min/{1.73_m2} Low >=60 mL/min/1.73m 2 [facility] Hepatitis B virus surface Ab [Presence] in Serumon 12-06-2023 HBV surface Ab Ql (S) 40478.0 mIU/mL Immunity>1 0 [facility] Comment on above: Results confirmed on dilution. Status of Immunity Anti-HBs Level Inconsistent with Immunity 0.0 - 10.0Consistent with Immunity >10.0 Hepatitis B virus surface Ag [Presence] in Serum or Plasma by Immunoassayon 12-06-2023 HBV surface Ag IA Ql Negative Negative [facility] IgA [Mass/volume] in Serum o r Plasmaon 12-06-2023 IgA [Mass/Vol] 367 mg/dL 61-437 [facility] IgG [Mass/volume] in Serum o r Plasmaon 12-06-2023 IgG [Mass/Vol] 1078 mg/dL [id number] [facility] IgM [Mass/volume] in Serum o r Plasmaon 12-06-2023 IgM [Mass/Vol] 38 mg/dL 15-143 [facility] Immunoglobulin light chains. kappa.free [Mass/volume] in Serumon 12-06-2023 Immunoglobulin light chains.kappa.free (S) [Mass/Vol] 34.5 mg/L Abnormal 3.3-19.4 [facility] Immunoglobulin light chains. kappa.free/Immunoglobulin light chains.lambda.free [Luis 12-06-2023 Immunoglobulin light chains.kappa.free/Immunog lobulin light chains.lambda.free (S) [Mass ratio] 1.90 Abnormal 0.26-1.65 [facility] Comment on above: Performed at: [facility] [employer] [id number] Director: Lb Kaur PhD, Phone: [phone] Immunoglobulin light chains. lambda.free [Mass/volume] in Serum or Plasmaon 12-06-2023 Immunoglobulin light chains.lambda.free [Mass/Vol] 18.2 mg/L 5.7-26.3 [facility] Laboratory - Chemistry and C hemistry - challengeon 12-06-2023 Calcium [Mass/Vol] 8.7 mg/dL 8.5-10.1 [facility] Chloride [Moles/Vol] 107 mmol/L 98-107 [facility] CO2 [Moles/Vol] 22.2 mmol/L 21.0-32.0 [facility] Creatinine [Mass/Vol] 2.21 mg/dL High 0.70-1.[address] [facility] GFR/1.73 sq M.predicted MDRD (S/P/Bld) [Vol rate/Area] 35 mL/min/{1.73_m2} Low >=60 mL/min/1.73m 2 [facility] Glucose [Mass/Vol] 91 mg/dL 74-106 [facility] Potassium [Moles/Vol] 4.1 mmol/L 3.5-5.[address] [facility] Sodium [Moles/Vol] 138 mmol/L 136-145 [facility] Urea nitrogen [Mass/Vol] 51.0 mg/dL High 7.0-18.0 [facility] Urea nitrogen/Creatinine [Mass ratio] 23.1 mg/mg [facility] Bilirubin Ql (U) Negative NEGATIVE [facility] Glucose (U) [Mass/Vol] Negative NEGATIVE [facility] Ketones Ql (U) Negative NEGATIVE [facility] pH (U) 5.5 [pH] 5.0-9.0 [facility] Specific gravity (U) [Rel density] 1.025 1.005-1.025 [facility] Urobilinogen Qn (U) 0.2 {Mirta'U}/dL 0.2-1.0 [facility] Laboratory - Specimen inform ationon 12-06-2023 Appearance (U) CLEAR CLEAR [facility] Color (U) LT. YELLOW YELLOW [facility] Laboratory - Urinalysison Leukocyte esterase Test strip Ql (U) Negative NEGATIVE [facility] Mucus Ql (Urine sed) NONE SEEN NONE SEEN [facility] Nitrite Ql (U) Negative NEGATIVE [facility] Protein Ql (U) Negative NEG/TRACE [facility] No Panel Informationon 12-05 Hepatitis B Core Total Antibody Negative Negative [facility] Comment on above: Performed at: - [employer] [address] [id number] Director: Lb Kaur PhD, Phone: [phone] Protein Electrophoresis M-Alexandru Not Observed g/dL Not Observed [facility] Protein Electrophoresis Note Comment . [facility] Comment on above: Protein electrophore sis scan will follow via computer,mail, or spline rolling machine job setter delivery. Urine Bacteria NONE SEEN #/HPF NONE SEEN [facility] Urine Occult Blood Negative NEGATIVE [facility] Urine Other Casts NONE SEEN #/LPF NONE SEEN [facility] Urine Other Crystals None Seen #/HPF None Seen [facility] Urine RBC 0-2 #/HPF 0-2 [facility] Urine Squamous Epithelial Cells FEW #/LPF Abnormal NONE/RARE [facility] Urine WBC NONE SEEN #/HPF NONE SEEN [facility] Protein [Mass/volume] in Ser um or Plasmaon 12-06-2023 Protein [Mass/Vol] 6.3 g/dL 6.0-8.5 [facility] Serum globulin measurement ( mass/volume)on 12-06-2023 Globulin (S) [Mass/Vol] 3.1 g/dL 2.2-3.9 [facility] Serum or plasma albumin/glob ulin mass ratioon 12-06-2023 Albumin/Globulin [Mass ratio] 1.1 {ratio} 0.7-1.7 [facility] Serum or plasma alpha 1 glob ulin measurement by electrophoresis (mass/volume)on 12-06-2023 Alpha 1 globulin Elph [Mass/Vol] 0.3 g/dL 0.0-0.4 [facility] Serum or plasma alpha 2 glob ulin measurement by electrophoresis (mass/volume)on 12-06-2023 Alpha 2 globulin Elph [Mass/Vol] 0.8 g/dL 0.4-1.0 [facility] Serum or plasma anion gap de terminationon 12-06-2023 Anion gap [Moles/Vol] 12.9 mmol/L [facility] Serum or plasma beta globuli n measurement by electrophoresis (mass/volume)on 12-06-2023 Beta globulin Elph [Mass/Vol] 1.0 g/dL 0.7-1.3 [facility] Serum or plasma gamma globul in measurement by electrophoresis (mass/volume)on 12-06-2023 Gamma globulin Elph [Mass/Vol] 1.0 g/dL 0.4-1.8 [facility] Serum or plasma immunoelectr ophoresis interpretationon 12-06-2023 Interpretation IEP [Interp] Comment . [facility] Comment on above: No monoclonality det ected. No Panel InformationOrdered By: Brian Salgado on 11-08-2023 Aerobic Culture [facility] Anaerobic Culture [facility] Basophils Auto (Bld) [#/Vol] on 10-30-2023 Basophils (Bld) [#/Vol] 0.1 10 3/uL 0.0-0.1 [facility] Basophils/100 WBC Auto (Bld) on 10-30-2023 Basophils/100 WBC (Bld) 0.8 % 0.2-2.0 [facility] Cholesterol in LDL Calc [Mas s/Vol]on 10-30-2023 Cholesterol in LDL [Mass/Vol] 71.0 mg/dL [facility] Comment on above: <100 mg/dl [id number] 0-129 mg/dl NEAR OR ABOVE [id number] mg/dl BORDERLINE [id number] mg/dl HIGH>190 mg/dl VERY HIGH Cholesterol in VLDL Calc [Ma ss/Vol]on 10-30-2023 Cholesterol in VLDL [Mass/Vol] 19.4 mg/dL [facility] Eosinophils/100 WBC Auto (Bl d)on 10-30-2023 Eosinophils/100 WBC (Bld) 0.0 % Low 0.9-7.0 [facility] Erythrocyte distribution wid th Auto (RBC) [Ratio]on 10-30-2023 Erythrocyte distribution width (RBC) [Ratio] 13.7 % 11.0-15.0 [facility] Estimated glomerular filtrat ion rate (GFR) non- Americanon 10-30-2023 GFR/1.73 sq M.predicted among non-blacks MDRD (S/P/Bld) [Vol rate/Area] 34 mL/min/{1.73_m2} Low >=60 [facility] Globulin Calc (S) [Mass/Vol] on 10-30-2023 Globulin (S) [Mass/Vol] 3.4 g/dL [facility] Glucose mean value [Mass/vol ume] in Blood Estimated from glycated hemoglobinon 10-30-2023 Average glucose Estimated from glycated hemoglobin (Bld) [Mass/Vol] 126 mg/dL [facility] Hematocrit Auto (Bld) [Volum e fraction]on 10-30-2023 Hematocrit (Bld) [Volume fraction] 38.8 % Low 42.0-54.0 [facility] Hemoglobin [Mass/volume] in Bloodon 10-30-2023 Hemoglobin (Bld) [Mass/Vol] 12.8 g/dL Low 14.0-18.0 [facility] Laboratory - Chemistry and C hemistry - challengeon 10-30-2023 Albumin [Mass/Vol] 3.2 g/dL Low 3.4-5.0 [facility] ALP [Catalytic activity/Vol] 31 U/L Low 46-116 [facility] ALT [Catalytic activity/Vol] 22 U/L 16-63 [facility] AST [Catalytic activity/Vol] 22 U/L 15-37 [facility] Bilirubin [Mass/Vol] 0.5 mg/dL 0.2-1.0 [facility] Calcium [Mass/Vol] 9.4 mg/dL 8.5-10.1 [facility] Chloride [Moles/Vol] 109 mmol/L High 98-107 [facility] Cholesterol [Mass/Vol] 116 mg/dL <=200 [facility] Cholesterol in HDL [Mass/Vol] 26 mg/dL Low 40-60 [facility] Comment on above: > or =60 mg/dl - LOW CARDIOVASCULAR RISK<40 mg/dl - HIGH CARDIOVASCULAR RISK CO2 [Moles/Vol] 24.0 mmol/L 21.0-32.0 [facility] Creatinine [Mass/Vol] 1.92 mg/dL High 0.70-1.[address] [facility] GFR/1.73 sq M.predicted MDRD (S/P/Bld) [Vol rate/Area] 41 mL/min/{1.73_m2} Low >=60 [facility] Glucose [Mass/Vol] 118 mg/dL High 74-106 [facility] Potassium [Moles/Vol] 5.4 mmol/L High 3.5-5.[address] [facility] Protein [Mass/Vol] 6.6 g/dL 6.4-8.2 [facility] Sodium [Moles/Vol] 142 mmol/L 136-145 [facility] Triglyceride [Mass/Vol] 97 mg/dL <=150 [facility] Urea nitrogen [Mass/Vol] 35.0 mg/dL High 7.0-18.0 [facility] Urea nitrogen/Creatinine [Mass ratio] 18.2 mg/mg [facility] Laboratory - Hematology and Cell countson 10-30-2023 HbA1c (Bld) [Mass fraction] 6.0 % 4.5-6.2 [facility] Comment on above: ADA RECOMMENDED LIMI T 4.0 - 6.0ADA THERAPEUTIC TARGET < 7.0ACTION SUGGESTED> 7.0 Immature granulocytes/100 WBC (Bld) 0.6 % High 0.0-0.5 [facility] Laboratory - Urinalysison Protein (U) [Mass/Vol] 15.4 mg/dL High <=11.9 [facility] Leukocytes [#/volume] correc ben for nucleated erythrocytes in Blood by Automated counon 10-30-2023 WBC corrected for nucl RBC Auto (Bld) [#/Vol] 6.6 10 3/uL 4.0-11.0 [facility] Lymphocytes Auto (Bld) [#/Vo l]on 10-30-2023 Lymphocytes (Bld) [#/Vol] 2.1 10 3/uL 1.2-3.8 [facility] Lymphocytes/100 WBC Auto (Bl d)on 10-30-2023 Lymphocytes/100 WBC (Bld) 31.4 % 20.5-60.0 [facility] MCH Auto (RBC) [Entitic mass ]on 10-30-2023 MCH (RBC) [Entitic mass] 31.7 pg 25.9-34.0 [facility] MCHC Auto (RBC) [Mass/Vol]on 10-30-2023 MCHC (RBC) [Mass/Vol] 33.0 g/dL 29.9-35.2 [facility] MCV Auto (RBC) [Entitic vol] on 10-30-2023 MCV (RBC) [Entitic vol] 96.0 fL High 80.0-94.0 [facility] Monocytes Auto (Bld) [#/Vol] on 10-30-2023 Monocytes (Bld) [#/Vol] 0.6 10 3/uL 0.3-0.8 [facility] Monocytes/100 WBC Auto (Bld) on 10-30-2023 Monocytes/100 WBC (Bld) 9.2 % 1.7-12.0 [facility] Neutrophils Auto (Bld) [#/Vo l]on 10-30-2023 Neutrophils (Bld) [#/Vol] 3.8 10 3/uL 1.4-6.5 [facility] Neutrophils/100 WBC Auto (Bl d)on 10-30-2023 Neutrophils/100 WBC (Bld) 58.0 % 43.0-75.0 [facility] No Panel Informationon 10-29 Urine Random Creatinine 148.56 mg/dL 20.00-300. 00 [facility] Eosinophils # (Auto) 0.0 10 3/uL 0.0-0.7 [facility] Immature Granulocyte # (Auto) 0.04 10 3/uL High 0.00-0.03 [facility] Prostate Specific Antigen Screen 1.04 ng/mL <=4.00 [facility] Platelet mean volume Auto (B ld) [Entitic vol]on 10-30-2023 Platelet mean volume (Bld) [Entitic vol] 10.1 fL 9.5-13.5 [facility] Platelets Auto (Bld) [#/Vol] on 10-30-2023 Platelets (Bld) [#/Vol] 221 10 3/uL 150-450 [facility] RBC Auto (Bld) [#/Vol]on RBC (Bld) [#/Vol] 4.04 10 6/uL Low 4.70-6.10 [facility] Serum or plasma albumin/glob ulin mass ratioon 10-30-2023 Albumin/Globulin [Mass ratio] 0.9 {ratio} [facility] Serum or plasma anion gap de terminationon 10-30-2023 Anion gap [Moles/Vol] 14.4 mmol/L [facility] Serum or plasma total choles terol/high density lipoprotein (HDL) cholesterol mass gene 10-30-2023 Cholesterol.total/Cholest andrea in HDL [Mass ratio] 4.5 {ratio} [facility] Comment on above: 3.3 - 4.4 LOW RISK4. 4 - 7.1 AVERAGE RISK7.1 - 11.0 MODERATE RISK>11.0 HIGH RISK Urine protein/creatinine rat ioon 10-30-2023 Protein/Creatinine (U) [Ratio] 0.10 [facility] GLYCOHEMOGLOBIN A1Con 2021 ADA RECOMMENDATION SEE BELOW Normal [facility] Comment on above: Result Comment: ADA RECOMMENDED LIMIT 4.0 - 6.0 ADA THERAPEUTIC TARGET < 7.0 ACTION SUGGESTED > 7.0 Performed By: #### A 1C #### [facility] [address] [place] [address] Dr. Petros Perez Glucose [Mass/Vol] 143 mg/dL Normal [facility] Comment on above: Performed By: #### A 1C #### [facility] [address] [place] [address] Dr. Petros Perez HbA1c (Bld) [Mass fraction] 6.6 % Critically high 4.5-6.2 [facility] Comment on above: Performed By: #### A 1C #### [facility] [address] [place] [address] Dr. Petros Perez CBC AUTO DIFFon 08-15-2021 BASO # 0.0 103/ul Normal 0.0-0.1 [facility] Comment on above: Performed By: #### C BC #### [facility] [address] [place] [address] Dr. Petros Perez Basophils/100 WBC (Bld) 0.3 % Normal 0.2-2.0 [facility] Comment on above: Performed By: #### C BC #### [facility] [address] [place] [address] Dr. Petros Perez EO # 0.1 103/ul Normal 0.0-0.7 [facility] Comment on above: Performed By: #### C BC #### [facility] [address] [place] [address] Dr. Petros Perez Eosinophils/100 WBC (Bld) 2.2 % Normal 0.9-7.0 [facility] Comment on above: Performed By: #### C BC #### [facility] [address] [place] [address] Dr. Petros Perez Erythrocyte distribution width (RBC) [Ratio] 13.4 % Normal 11.0-15.0 [facility] Comment on above: Performed By: #### C BC #### [facility] [address] [place] [address] Dr. Petros Perez Hematocrit (Bld) [Volume fraction] 42.8 % Normal 42.0-54.0 [facility] Comment on above: Performed By: #### C BC #### [facility] [address] [place] [address] Dr. Petros Perez Hemoglobin (Bld) [Mass/Vol] 14.1 g/dL Normal 14.0-18.0 [facility] Comment on above: Performed By: #### C BC #### [facility] [address] [place] [address] Dr. Petros Perez IG # 0.04 10e3/ul Critically high 0.00-0.[address] [facility] Comment on above: Performed By: #### C BC #### [facility] [address] [place] [address] Dr. Petros Perez IG % 0.7 % Critically high 0.0-0.5 [facility] Comment on above: Performed By: #### C BC #### [facility] [address] [place] [address] Dr. Petros Perez LYMPH # 2.2 103/ul Normal 1.2-3.8 [facility] Comment on above: Performed By: #### C BC #### [facility] [address] [place] [address] Dr. Petros ePrez Lymphocytes/100 WBC (Bld) 38.2 % Normal 20.5-60.0 [facility] Comment on above: Performed By: #### C BC #### [facility] [address] [place] [address] Dr. Petros Perez MANUAL DIFF REQ NO Normal [facility] Comment on above: Performed By: #### C BC #### [facility] [address] [place] [address] Dr. Petros Perez MCH (RBC) [Entitic mass] 30.6 pg Normal 25.9-34.0 [facility] Comment on above: Performed By: #### C BC #### [facility] [address] [place] [address] Dr. Petros Perez MCHC (RBC) [Mass/Vol] 32.9 g/dL Normal 29.9-35.2 [facility] Comment on above: Performed By: #### C BC #### [facility] [address] [place] [address] Dr. Petros Perez MCV (RBC) [Entitic vol] 92.8 fL Normal 80.0-94.0 [facility] Comment on above: Performed By: #### C BC #### [facility] [address] [place] [address] Dr. Petros Perez MONO # 0.5 103/ul Normal 0.3-0.8 [facility] Comment on above: Performed By: #### C BC #### [facility] [address] [place] [address] Dr. Petros Perez Monocytes/100 WBC (Bld) 8.6 % Normal 1.7-12.0 [facility] Comment on above: Performed By: #### C BC #### [facility] [address] [place] [address] Dr. Petros Perez NEUT # 2.9 103/ul Normal 1.4-6.5 [facility] Comment on above: Performed By: #### C BC #### [facility] [address] [place] [address] Dr. Petros Perez Neutrophils/100 WBC (Bld) 50.0 % Normal 43.0-75.0 [facility] Comment on above: Performed By: #### C BC #### [facility] [address] [place] [address] Dr. Petros Perez Platelet mean volume (Bld) [Entitic vol] 10.2 fL Normal 9.5-13.5 [facility] Comment on above: Performed By: #### C BC #### [facility] [address] [place] [address] Dr. Petros Perez PLT 219 103/ul Normal 150-450 [facility] Comment on above: Performed By: #### C BC #### [facility] [address] [place] [address] Dr. Petros Perez RBC 4.61 106/ul Critically low 4.70-6.10 [facility] Comment on above: Performed By: #### C BC #### [facility] [address] [address] [address] Petros Perez WBC 5.8 103/ul Normal 4.0-11.0 [facility] Comment on above: Performed By: #### C BC #### [facility] [address] [address] [address] Petros Perez GLYCOHEMOGLOBIN A1Con 2021 ADA RECOMMENDATION SEE BELOW Normal [facility] Comment on above: Result Comment: ADA RECOMMENDED LIMIT 4.0 - 6.0 ADA THERAPEUTIC TARGET < 7.0 ACTION SUGGESTED > 7.0 Performed By: #### A 1C #### [facility] [address] [place] [address] Dr. Petros Perez Glucose [Mass/Vol] 163 mg/dL Normal [facility] Comment on above: Performed By: #### A 1C #### [facility] [address] [place] [address] Dr. Petros Perez HbA1c (Bld) [Mass fraction] 7.3 % Critically high 4.5-6.2 [facility] Comment on above: Performed By: #### A 1C #### [facility] [address] [place] [address] Dr. Petros Perez LIPID PROFILEon 08-15-2021 CHOL-HDL RATIO NORM SEE BELOW Normal [facility] Comment on above: Result Comment: 3.3 - 4.4 LOW RISK 4.4 - 7.1 AVERAGE RISK 7.1 - 11.0 MODERATE RISK >11.0 HIGH RISK Performed By: #### L IPID, BMP #### [facility] [address] [address] [address] Petros Perez Cholesterol [Mass/Vol] 148 mg/dL Normal <=200 [facility] Comment on above: Performed By: #### L IPID, BMP #### [facility] [address] [address] [address] Petros Perez Cholesterol in HDL [Mass/Vol] 33 mg/dL Critically low 40-60 [facility] Comment on above: Performed By: #### L IPID, BMP #### [facility] [address] [address] [address] Petros Perez Cholesterol in LDL [Mass/Vol] 95.8 mg/dL Normal [facility] Comment on above: Performed By: #### L IPID, BMP #### [facility] [address] [address] [address] Petros Perez Cholesterol.total/Cholest andrea in HDL [Mass ratio] 4.5 {ratio} Normal [facility] Comment on above: Performed By: #### L IPID, BMP #### [facility] [address] [address] [address] Petros Perez HDL NORMAL > or = 60 mg/dl - LOW CARDIOVASCULAR RISK <40 mg/dl - HIGH CARDIOVASCULAR RISK Normal [facility] Comment on above: Performed By: #### L IPID, BMP #### [facility] [address] [place] [address] Dr. Petros Perez LDL CALC NORMAL SEE BELOW Normal [facility] Comment on above: Result Comment: <100 mg/dl OPTIMAL 100 - 129 mg/dl NEAR OR ABOVE OPTIMAL 130 - 159 mg/dl BORDERLINE HIGH 160 - 189 mg/dl HIGH >190 mg/dl VERY HIGH Performed By: #### L IPID, BMP #### [facility] [address] [address] [address] Petros Perez Triglyceride [Mass/Vol] 96 mg/dL Normal <=150 T [facility] Comment on above: Performed By: #### L IPID, BMP #### [facility] [address] [address] [address] Petros Perez VLDL CALC 19.2 mg/dL Normal [facility] Comment on above: Performed By: #### L IPID, BMP #### [facility] [address] [place] [address] Dr. Petros Perez MICROALBUMIN, RAND URon 06-1 mALB 3.2 mg/L Normal <=30.0 [facility] Comment on above: Performed By: #### M ALBR #### [facility] [address] [address] [address] Petros Perez PROF CHEM 8 (BAS METB)on Anion gap [Moles/Vol] 13.1 mmol/L Normal Th [facility] Comment on above: Performed By: #### L IPID, BMP #### [facility] [address] [place] [address] Dr. Petros Perez Calcium [Mass/Vol] 9.2 mg/dL Normal 8.5-10.1 [facility] Comment on above: Performed By: #### L IPID, BMP #### [facility] [address] [address] [address] Petros Perez Chloride [Moles/Vol] 106 mmol/L Normal 98-107 [facility] Comment on above: Performed By: #### L IPID, BMP #### [facility] [address] [place] [address] Dr. Petros Perez CO2 [Moles/Vol] 24.1 mmol/L Normal 21.0-32.0 [facility] Comment on above: Performed By: #### L IPID, BMP #### [facility] [address] [place] [address] Dr. Petros Perez Creatinine [Mass/Vol] 1.56 mg/dL Critically high 0.70-1.30 [facility] Comment on above: Performed By: #### L IPID, BMP #### [facility] [address] [place] [address] Dr. Petros Perez EGFR-AF [place]IZ[place] 53 mL/min/1.73m2 Critically low >=60 [facility] Comment on above: Performed By: #### L IPID, BMP #### [facility] [address] [place] [address] Dr. Petros Perez EGFR-NON AF CITIZEN OF [place] 43 mL/min/1.73m2 Critically low >=60 [facility] Comment on above: Performed By: #### L IPID, BMP #### [facility] [address] [place] [address] Dr. Petros Perez Glucose [Mass/Vol] 139 mg/dL Critically high 74-106 [facility] Comment on above: Performed By: #### L IPID, BMP #### [facility] [address] [place] [address] Dr. Petros Perez Potassium [Moles/Vol] 4.2 mmol/L Normal 3.5-5.1 [facility] Comment on above: Performed By: #### L IPID, BMP #### [facility] [address] [address] [address] Petros Perez Sodium [Moles/Vol] 139 mmol/L Normal 136-145 [facility] Comment on above: Performed By: #### L IPID, BMP #### [facility] [address] [place] [address] Dr. Petros Perez Urea nitrogen [Mass/Vol] 25.0 mg/dL Critically high 7.0-18 .0 [facility] Comment on above: Performed By: #### L IPID, BMP #### [facility] [address] [place] [address] Dr. Petros Perez Urea nitrogen/Creatinine [Mass ratio] 16.0 mg/mg Normal [facility] Comment on above: Performed By: #### L IPID, BMP #### [facility] [address] [place] [address] Dr. Petros Perez GLYCOHEMOGLOBIN A1Con 2021 ADA RECOMMENDATION ADA THERAPEUTIC TARGET 6.0 - 7.0 ACTION SUGGESTED > 7.0 Normal [facility] Comment on above: Performed By: #### A 1C #### [facility] [address] [place] [address] Dr. Petros Perez Glucose [Mass/Vol] 180 mg/dL Normal [facility] Comment on above: Performed By: #### A 1C #### [facility] [address] [place] [address] Dr. Petros Perez HbA1c (Bld) [Mass fraction] 7.9 % Critically high <=6.0 [facility] Comment on above: Performed By: #### A 1C #### [facility] [address] [place] [address] Dr. Petros Perez Consent for COVID Vaccineon 05-14-2020 SARS-CoV-2 (COVID-19) RNA EUN+probe Ql (Unsp spec) [id number]#1.00CD:127 [facility] Consent for Treatmenton 05-02 Consent for Treatment [id number]#1.00CD:127 [facility] Coding Summary.on 05-13-2020 Coding Summary. CODING DATE: 05/13/2020 FINAL [facility] STATUS: PAYOR: Medicare ADMIT DX: REASON [...] Saritha Simmons Date Saved: 05/13/2020 11:13 am [facility] Vital Signs Date Time Vital Sign Value Performing Clinician Facility 12-12-2023 09:250400 Body height 182.88 cm [facility] 12-12-2023 09:25-0400 Body mass index (BMI) [Ratio] 33.7 kg/m2 [facility] 12-12-2023 09:25-0400 Body weight 112.94 kg [facility] 12-12-2023 09:25-0400 Diastolic blood pressure 71 mm[Hg] [facility] 12-12-2023 09:25-0400 Heart rate 76 /min [facility] 12-12-2023 09:25-0400 Respiratory rate 12 /min [facility] 12-12-2023 09:25-0400 Systolic blood pressure 149 mm[Hg] [facility] 09-10-2023 09:28-0400 Body height 182.88 cm [facility] 09-10-2023 09:28-0400 Body mass index (BMI) [Ratio] 32.3 kg/m2 [facility] 09-10-2023 09:28-0400 Body weight 108.12 kg [facility] 09-10-2023 09:28-0400 Diastolic blood pressure 61 mm[Hg] [facility] 09-10-2023 09:28-0400 Heart rate 56 /min [facility] 09-10-2023 09:28-0400 Respiratory rate 12 /min [facility] 09-10-2023 09:28-0400 Systolic blood pressure 123 mm[Hg] [facility] 06-11-2023 09:02-0400 Body height 182.88 cm [facility] 06-11-2023 09:02-0400 Body mass index (BMI) [Ratio] 33 kg/m2 [facility] 06-11-2023 09:02-0400 Body weight 110.67 kg [facility] 06-11-2023 09:02-0400 Diastolic blood pressure 65 mm[Hg] [facility] 06-11-2023 09:02-0400 Heart rate 62 /min [facility] 06-11-2023 09:02-0400 Respiratory rate 12 /min [facility] 06-11-2023 09:02-0400 Systolic blood pressure 149 mm[Hg] [facility] 11-08-2022 10:00-0400 Body height 182.88 cm Brian Ball Other [facility] [email or web address] Other 11-08-2022 10:00-0400 Body mass index (BMI) [Ratio] 31.27 kg/m2 Brian Ball Other [facility] [email or web address] Other 11-08-2022 10:00-0400 Body weight 104.6 kg Brian Ball Other [email or web address] Other 11-08-2022 10:00-0400 Diastolic blood pressure 72 mm[Hg] Brian Ball Other [email or web address] Other 11-08-2022 10:00-0400 Respiratory rate 12 /min Brian Ball Other [email or web address] Other 11-08-2022 10:00-0400 Systolic blood pressure 148 mm[Hg] Brian Ball Other [email or web address] Other 08-09-2022 10:00-0400 Body height 182.88 cm Brian Ball Other [email or web address] Other 08-09-2022 10:00-0400 Body mass index (BMI) [Ratio] 31.46 kg/m2 Brian [employer] Other [email or web address] Other 08-09-2022 10:00-0400 Body weight 105.24 kg Brian Ball Other [email or web address] Other 08-09-2022 10:00-0400 Diastolic blood pressure 75 mm[Hg] Brian Ball Other [email or web address] Other 08-09-2022 10:00-0400 Respiratory rate 12 /min Brian [employer] Other [email or web address] Other 08-09-2022 10:00-0400 Systolic blood pressure 170 mm[Hg] Brian [employer] Other [email or web address] Other Encounters Encounter Date Encounter Type Care Provider Facility Start: 12-12-2023 End: 12-12-2023 ambulatory [facility] Work Phone: Start: 12-12-2023 End: 12-12-2023 Patient encounter procedure [facility] Work Phone: Start: 12-06-2023 Non-patient / Non-visit [facility] Work Phone: Start: 11-08-2023 [facility] Start: 10-30-2023 Non-patient / Non-visit [facility] [employer] Work Phone: Start: 09-10-2023 End: 09-10-2023 ambulatory [facility] Work Phone: Start: 09-10-2023 End: 09-10-2023 Patient encounter procedure [facility] Work Phone: Start: 06-11-2023 End: 06-11-2023 ambulatory [facility] Work Phone: Start: 06-11-2023 End: 06-11-2023 Patient encounter procedure [facility] Work Phone: Start: 11-08-2022 End: 11-08-2022 ambulatory Brian Salgado Other [email or web address] Other Start: 11-08-2022 Office outpatient vi sit 25 minutes Brian Salgado [facility] Start: 09-13-2022 End: 09-13-2022 ambulatory Brian Salgado Other [email or web address] Other Start: 09-13-2022 Telephone encounter Brian Salgado [facility] Start: 08-09-2022 End: 08-09-2022 ambulatory Brian Salgado Other [email or web address] Other Start: 08-09-2022 Patient encounter procedure Brian Salgado [facility] Start: 12-27-2021 End: 12-28-[address] BRIAN SALGADO Facility:[facility] Start: 08-15-2021 End: 08-16-[address] BRIAN SALGADO Facility:[facility] Start: 04-25-2021 End: 04-26-[address] BRIAN SALGADO Facility:[facility] Procedures Date Procedure Procedure Detail Performing Clinician Start: 11-08-2023 Aerobic Culture Start: 11-08-2023 Anaerobic Culture Start: 08-15-[address] LAM [place] Comment on above: Performed By: #### P [facility] #### [facility] [address] [address] [address] Petros Perez Plan of Treatment Date Care Activity Detail Author Comprehensive metabo lic 2000 panel - Serum or Plasma [facility] enter [facility] Immunizations Immunization Date Immunization Notes Care Provider Fa ciligabi 01-21-2023 influenza virus vaccine, unspecified formulation [facility] 11-21-2021 influenza virus vaccine, split virus (incl. purified surface antigen) Brian Salgado Other [facility] [email or web address] Other 11-21-2021 influenza virus vaccine, unspecified formulation [facility] 11-21-2021 influenza, high dose seasonal, preservative-free Brian Salgado Other [facility] [email or web address] Other 02-22-2021 COVID-19 Vaccine Pfi zer - Documentation Purposes Only Brian Salgado Other [facility] 12-30-2020 influenza virus vaccine, split virus (incl. purified surface antigen) Brian Salgado Other [facility] [email or web address] Other 12-30-2020 influenza virus vaccine, unspecified formulation [facility] 05-06-2020 COVID-19 Vaccine Slim - Documentation Purposes Only Brian Salgado Other [facility] 01-12-2020 influenza virus vaccine, split virus (incl. purified surface antigen) Brian Salgado Other [facility] [email or web address] Other 01-12-2020 influenza virus vaccine, unspecified formulation [facility] 01-13-2019 influenza virus vaccine, split virus (incl. purified surface antigen) Brian Salgado Other [facility] [email or web address] Other 01-13-2019 influenza virus vaccine, unspecified formulation [facility] 12-02-2017 influenza virus vaccine, split virus (incl. purified surface antigen) Brian Salgado Other [facility] [email or web address] Other 12-02-2017 influenza virus vaccine, unspecified formulation [facility] 12-27-2016 influenza virus vaccine, split virus (incl. purified surface antigen) Brian Qamar Other [facility] [email or web address] Other 12-27-2016 influenza virus vaccine, unspecified formulation [facility] 12-22-2015 influenza virus vaccine, split virus (incl. purified surface antigen) Brian Qamar Other [facility] [email or web address] Other 12-22-2015 influenza virus vaccine, unspecified formulation [facility] 03-15-2015 pneumococcal conjuga te vaccine, 13 valent Brian Qamar Other [facility] 12-07-2014 influenza virus vaccine, split virus (incl. purified surface antigen) Brian Qamar Other [facility] [email or web address] Other 12-07-2014 influenza virus vaccine, unspecified formulation [facility] 11-10-2013 tetanus and diphther ia toxoids, adsorbed, preservative free, for adult use (5 Lf of tetanus toxoid and 2 Lf of diphtheria toxoid) Brian Qamar Other [facility] 12-10-2012 tetanus and diphther ia toxoids, adsorbed, preservative free, for adult use (5 Lf of tetanus toxoid and 2 Lf of diphtheria toxoid) Brian Salgado Other [facility] 02-14-2011 pneumococcal polysaccharide vaccine, 23 valent Brian Qamar Other [facility] Payers Date Payer Category Payer Medicare [id number] 1960 Unknown [id number] 1945 Unknown [id number] 1945 Unknown [id number] 1945 Unknown [id number] Social History Date Type Detail Facility Sex Assigned At [facility] [email or web address] Other Start: 1945 Sex Assigned At Male F [facility] Evaluation note 11-08-2022 Note Date & Type [...] < 30 Increase exercise and reduce calories. [email or web address] Other Evaluation note 08-09-2022 Note Date & [...] High risk medication use (ICD-10 - Z79.899) [email or web address] Other Evaluation note Note Date & Type Note Facility Evaluation note No Information [employer] Other Evaluation note Note Date & Type Note Facility Evaluation note Diagnosis Onset Date Chronic kidney disease acute Elevated cholesterol acute Hypertension acute Type 2 diabetes mellitus wit h diabetic polyneuropathy acute Type 2 diabetes mellitus with hyperglycemia acute [facility] Work Phone: Evaluation note Note Date & Type Note Facility Evaluation note Diagnosis Onset Date Chronic kidney disease acute Chronic venous insufficiency of lower extremity acute Elevated cholesterol acute Hypertension acute Screening PSA (prostate specific antigen) acute Type 2 diabetes mellitus wit h diabetic polyneuropathy acute Type 2 diabetes mellitus with hyperglycemia acute Medicare annual wellness visit, subsequent noneactive [facility] Work Phone: Evaluation note Note Date & Type Note Facility Evaluation note Diagnosis Onset Date Chronic kidney disease acute Chronic venous insufficiency of lower extremity acute Elevated cholesterol acute Hypertension acute Type 2 diabetes mellitus wit h diabetic polyneuropathy acute Type 2 diabetes mellitus with hyperglycemia acute [facility] Work Phone: History general Narrative - [...] History APPENDECTOMY Hospitalization History SEE SURGICAL HX [email or web address] Other Summary Purpose Family History No Family [...] with hyperglycemia Medicare annual wellness visit, subsequent Chief Complaint 3 MONTH F/U Reason for Visit Chronic kidney disea se Chronic venous insufficiency of lower extremity Elevated cholesterol Hypertension Type 2 diabetes mellitus with diabetic polyneuropathy Type 2 diabetes mellitus with hyperglycemia Additional Source Comments (unrecognized sect ion and content) No Status Records FoundNo Status Records Found INFORMATION SOURCE (unrecogn ized section and content) DATE CREATED AUTHOR [facility] CREATED AUTHOR AUTHOR'S ORGANIZ ATION 12/31/2021 [facility] REASON FOR VISIT (unrecogniz ed section and content) WELLNESSLab Results3 month F ollow up Care Teams (unrecognized sec tion and content) Team Status: Active Member Role Status Luis Salgado DO Primary Care Provider Active Team Status: Active Member Role Status Luis Salgado DO Primary Care Provide r, Attending Provider Active Start: October 30, 2023 Team Status: Active Member Role Status Luis Salgado DO Primary Care Provide r, Attending Provider Active Start: November 08, 2023 Team Status: Active Member Role Status Luis Salgado DO Primary Care Provide r, Attending Provider Active Start: December 06, 2023 Team Status: Inactive Member Role Status Luis Salgado DO Primary Care Provide r, Attending Provider Active Start: December 12, 2023 End: December 12, 2023 Team Status: Active Member Role Status Luis Salgado DO Primary Care Provider Active Team Status: Inactive Member Role Status Luis Salgado DO Primary Care Provide r, Attending Provider Active Start: June 11, 2023 End: June 11, 2023 Team Status: Inactive Member Role Status Luis Salgado DO Primary Care Provide r, Attending Provider Active Start: September 10, 2023 End: September 10, 2023 Team Status: Active Member Role Status Luis Salgado DO Primary Care Provide r, Attending Provider Active Start: October 30, 2023 Team Status: Active Member Role Status Luis Salgado DO Primary Care Provide r, Attending Provider Active Start: November 08, 2023 Team Status: Active Member Role Status Dates Brian Salgado , DO Primary Care Provide r, Attending Provider Active Start: December 06, 2023 Team Status: Inactive Member Role Status Dates Brian Salgado , DO Primary Care Provide r, Attending Provider Active Start: December 12, 2023 End: December 12, 2023 Goals (unrecognized section and content) Goals [...] BE BASED ON THE PRIMARY CLINICAL RECORDS. [facility] [employer] [facility]. provides no warranty or guarantee of the accuracy or completeness of information in this document.
== END 2023-12-19 15:32 | disposition home or self-care (01) ==
LOC: WC 15:32
PROVIDERS: PCP Internal Medicine; Visit Provider Physician Assistant
DX: L97.526 Non-pressure chronic ulcer of other part of left foot with bone involvement without evidence of necrosis (principal)
CPT/HCPCS: 29445

== ENCOUNTER 2023-12-26 08:34 | Day surgery (SDC) | payer MEDICARE, SELFPAY ==
[2023-12-16 14:03] VITALS: BP 165/73; PULSE 60; TEMP 36.3; O2SAT 99; BMI 34.8
[2023-12-26] VITALS (10 sets, daily range): BP systolic 130–154; BP diastolic 54–70; PULSE 52–68; TEMP 36.1–36.6; O2SAT 94–98; BMI 34.8
--- OUTSIDE RECORDS SUMMARY | 2023-12-26 08:38 | XMS_ITS | CCD ---
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 Name Role Phone QAMAR, DR PRITCHETT Attending [...] Allergy Type Date of Onset Reaction(s) Facility (7 sources) empagliflozin Drug Allergy 06-11-19 Unknown, Unknown Reaction [facility] (7 sources) Simvastatin Drug Allergy 06-11-19 Unknown, Unknown Reaction [facility] (3 sources) Sulfonamides (Antibiotic) Propensity to adverse reactions Unknown [facility] Other (1 source) Substance with sulfonamide structure and antibacterial mechanism of action (substance) Drug allergy Unknown [place] Other (4 sources) Sulfonamides (Antibiotic) Allergy to substance 06-11-19 Unknown Reaction [facility] Medications Current Medications Medication Drug Class(es) Dates Sig (Normalized) Sig (Original) benazepril hydrochloride 20 mg oral tablet (7 sources) Angiotensin Converting Enzyme Inhibitor Start: 06-08-2023 take 20 mg by mouth once daily Benazepril Active 20 MG PO Daily June 08, 2023 12:00am take 1 tablet by mouth once jordan y Benazepril HCl 20 MG TAKE 1 TABLET BY MOUTH DAILY Active fenofibrate 160 mg oral tablet (7 sources) Peroxisome Proliferator Receptor alpha Agonist Start: 06-08-2023 take 160 mg by mouth once daily Fenofibrate Active 160 MG PO Daily June 08, 2023 12:00am take 1 tablet by mouth once jordan y Fenofibrate 160 MG TAKE 1 TABLET BY MOUTH DAILY Active glimepiride 4 mg oral tablet (7 sources) Sulfonylurea Start: 06-08-2023 take 1 tablet [...] BREAKFAST Active linagliptin 5 mg oral tablet (7 sources) Dipeptidyl Peptidase 4 Inhibitor Start: 06-08-2023 take 5 mg by mouth once daily Linagliptin Active 5 MG PO Daily June 08, 2023 12:00am take 1 tablet by mouth once jordan y Tradjenta 5 MG TAKE 1 TABLET BY MOUTH DAILY Active Completed/Discontinued Medications Medication Drug Class(es) Dates Sig (Normalized) Sig (Original) pioglitazone 45 mg oral tablet (7 sources) Peroxisome Proliferator Receptor alpha Agonist, Peroxisome Proliferator Receptor gamma Agonist, Thiazolidinedione Start: 06-08-2023 End: 12-19-2023 take 45 mg by mouth once daily Pioglitazone Discontinued 45 MG PO Daily June 08, 2023 12:00am December 19, 2023 9:23pm take 1 tablet by mouth once jordan y Pioglitazone HCl 45 MG TAKE 1 TABLET BY MOUTH DAILY Active Problems Problem Classification Problem Date Documented Date Episodic/Chronic Anxiety disorders (9 sources) Generalized anxiety disorder; Translations: [Generalized anxiety disorder] Chronic Chronic kidney disease (9 sources) Chronic kidney disease; Translations: [Chronic kidney disease, unspecified] 06-08-2023 Chronic Chronic kidney disease (1 source) Chronic kidney disease; Translations: [CHRONIC KIDNEY DISEASE STAGE 3B] Onset: 08-17-2021 Diabetes mellitus with complications (20 sources) Type 2 diabetes mellitus with hyperglycemia; Translations: [Type 2 diabetes mellitus with diabetic chronic kidney disease] Onset: 08-17-2021 Chronic Disorders of lipid metabolism (19 sources) Mixed hyperlipidemia; Translations: [Hypercholesterolemi a] Onset: 08-15-2021 Chronic Essential hypertension (16 sources) Essential (primary) hypertension; Translations: [Essential hypertension] Onset: 08-17-2021 Chronic Other aftercare (1 source) Other director long term care (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 therapy Episodic Other diseases of veins and lymphatics (3 sources) Venous insufficiency of leg; Translations: [Venous insufficiency (chronic) (peripheral)] 09-10-2023 Episodic Other diseases of veins and lymphatics (4 sources) Venous insufficiency (chronic) (peripheral); Translations: [Venous [...] conditions (not mental disorders or infectious disease) (6 sources) Encounter for screening for malignant neoplasm of prostate; Translations: [Patient encounter status] Onset: 08-17-2021 Episodic Results Test Name Value Interpretation Reference Range Facility Basophils Auto (Bld) [#/Vol] on 12-16-2023 Basophils (Bld) [#/Vol] 0.0 10 3/uL 0.0-0.1 [facility] Basophils/100 WBC Auto (Bld) on 12-16-2023 Basophils/100 WBC (Bld) 0.4 % 0.2-2.0 [facility] Eosinophils/100 WBC Auto (Bl d)on 12-16-2023 Eosinophils/100 WBC (Bld) 0.1 % Low 0.9-7.0 [facility] Erythrocyte distribution wid th Auto (RBC) [Ratio]on 12-16-2023 Erythrocyte distribution width (RBC) [Ratio] 14.8 % 11.0-15.0 [facility] Estimated glomerular filtrat ion rate (GFR) non- Americanon 12-16-2023 GFR/1.73 sq M.predicted among non-blacks MDRD (S/P/Bld) [Vol rate/Area] 40 mL/min/{1.73_m2} Low >=60 mL/min/1.73m 2 [facility] Hematocrit Auto (Bld) [Volum e fraction]on 12-16-2023 Hematocrit (Bld) [Volume fraction] 34.5 % Low 42.0-54.0 [facility] Hemoglobin [Mass/volume] in Bloodon 12-16-2023 Hemoglobin (Bld) [Mass/Vol] 11.1 g/dL Low 14.0-18.0 [facility] Laboratory - Chemistry and C hemistry - challengeon 12-16-2023 Calcium [Mass/Vol] 9.0 mg/dL 8.5-10.1 [facility] Chloride [Moles/Vol] 113 mmol/L High 98-107 [facility] CO2 [Moles/Vol] 23.7 mmol/L 21.0-32.0 [facility] Creatinine [Mass/Vol] 1.67 mg/dL High 0.70-1.30 [facility] GFR/1.73 sq M.predicted MDRD (S/P/Bld) [Vol rate/Area] 48 mL/min/{1.73_m2} Low >=60 mL/min/1.73m 2 [facility] Glucose [Mass/Vol] 106 mg/dL 74-106 [facility] Potassium [Moles/Vol] 4.7 mmol/L 3.5-5.1 [facility] Sodium [Moles/Vol] 145 mmol/L 136-145 [facility] Urea nitrogen [Mass/Vol] 29.0 mg/dL High 7.0-18.0 [facility] Urea nitrogen/Creatinine [Mass ratio] 17.4 mg/mg [facility] Laboratory - Hematology and Cell countson 12-16-2023 Immature granulocytes/100 WBC (Bld) 0.7 % High 0.0-0.5 [facility] Leukocytes [#/volume] correc ben for nucleated erythrocytes in Blood by Automated counon 12-16-2023 WBC corrected for nucl RBC Auto (Bld) [#/Vol] 6.7 10 3/uL 4.0-11.0 [facility] Lymphocytes Auto (Bld) [#/Vo l]on 12-16-2023 Lymphocytes (Bld) [#/Vol] 1.4 10 3/uL 1.2-3.8 [facility] Lymphocytes/100 WBC Auto (Bl d)on 12-16-2023 Lymphocytes/100 WBC (Bld) 21.1 % 20.5-60.0 [facility] MCH Auto (RBC) [Entitic mass ]on 12-16-2023 MCH (RBC) [Entitic mass] 32.0 pg 25.9-34.0 [facility] MCHC Auto (RBC) [Mass/Vol]on 12-16-2023 MCHC (RBC) [Mass/Vol] 32.2 g/dL 29.9-35.2 [facility] MCV Auto (RBC) [Entitic vol] on 12-16-2023 MCV (RBC) [Entitic vol] 99.4 fL High 80.0-94.0 [facility] Monocytes Auto (Bld) [#/Vol] on 12-16-2023 Monocytes (Bld) [#/Vol] 0.7 10 3/uL 0.3-0.8 [facility] Monocytes/100 WBC Auto (Bld) on 12-16-2023 Monocytes/100 WBC (Bld) 10.1 % 1.7-12.0 [facility] Neutrophils Auto (Bld) [#/Vo l]on 12-16-2023 Neutrophils (Bld) [#/Vol] 4.5 10 3/uL 1.4-6.5 [facility] Neutrophils/100 WBC Auto (Bl d)on 12-16-2023 Neutrophils/100 WBC (Bld) 67.6 % 43.0-75.0 [facility] No Panel Informationon 12-15 Eosinophils # (Auto) 0.0 10 3/uL 0.0-0.7 [facility] Immature Granulocyte # (Auto) 0.05 10 3/uL High 0.00-0.03 [facility] Platelet mean volume Auto (B ld) [Entitic vol]on 12-16-2023 Platelet mean volume (Bld) [Entitic vol] 10.7 fL 9.5-13.5 [facility] Platelets Auto (Bld) [#/Vol] on 12-16-2023 Platelets (Bld) [#/Vol] 233 10 3/uL 150-450 [facility] RBC Auto (Bld) [#/Vol]on RBC (Bld) [#/Vol] 3.47 10 6/uL Low 4.70-6.10 [facility] Serum or plasma anion gap de terminationon 12-16-2023 Anion gap [Moles/Vol] 13.0 mmol/L [facility] Albumin [Mass/volume] in Ser um or Plasmaon 12-06-2023 Albumin [Mass/Vol] 3.2 g/dL 2.9-4.4 [facility] Estimated glomerular filtrat ion rate (GFR) non- Americanon 12-06-2023 GFR/1.73 sq M.predicted among non-blacks MDRD (S/P/Bld) [Vol rate/Area] 29 mL/min/{1.73_m2} Low >=60 mL/min/1.73m 2 [facility] Hepatitis B virus surface Ab [Presence] in Serumon 12-06-2023 HBV surface Ab Ql (S) 07836.0 mIU/mL Immunity>1 0 [facility] Comment on above: Results confirmed on dilution. Status of Immunity Anti-HBs Level Inconsistent with Immunity 0.0 - 10.0Consistent with Immunity >10.0 Hepatitis B virus surface Ag [Presence] in Serum or Plasma by Immunoassayon 12-06-2023 HBV surface Ag IA Ql Negative Negative [facility] IgA [Mass/volume] in Serum o r Plasmaon 12-06-2023 IgA [Mass/Vol] 367 mg/dL 61-437 [facility] IgG [Mass/volume] in Serum o r Plasmaon 12-06-2023 IgG [Mass/Vol] 1078 mg/dL 603-1613 [facility] IgM [Mass/volume] in Serum o r Plasmaon 12-06-2023 IgM [Mass/Vol] 38 mg/dL 15-143 [facility] Immunoglobulin light chains. kappa.free [Mass/volume] in Serumon 12-06-2023 Immunoglobulin light chains.kappa.free (S) [Mass/Vol] 34.5 mg/L Abnormal 3.3-19.4 [facility] Immunoglobulin light chains. kappa.free/Immunoglobulin light chains.lambda.free [Luis 12-06-2023 Immunoglobulin light chains.kappa.free/Immunog lobulin light chains.lambda.free (S) [Mass ratio] 1.90 Abnormal 0.26-1.65 [facility] Comment on above: Performed at: - [address] [id number] Director: Lb Kaur PhD, Phone: [phone] Immunoglobulin light chains. lambda.free [Mass/volume] in Serum or Plasmaon 12-06-2023 Immunoglobulin light chains.lambda.free [Mass/Vol] 18.2 mg/L 5.7-26.3 [facility] Laboratory - Chemistry and C hemistry - challengeon 12-06-2023 Calcium [Mass/Vol] 8.7 mg/dL 8.5-10.1 [facility] Chloride [Moles/Vol] 107 mmol/L 98-107 [facility] CO2 [Moles/Vol] 22.2 mmol/L 21.0-32.0 [facility] Creatinine [Mass/Vol] 2.21 mg/dL High 0.70-1.30 [facility] GFR/1.73 sq M.predicted MDRD (S/P/Bld) [Vol rate/Area] 35 mL/min/{1.73_m2} Low >=60 mL/min/1.73m 2 [facility] Glucose [Mass/Vol] 91 mg/dL 74-106 [facility] Potassium [Moles/Vol] 4.1 mmol/L 3.5-5.1 [facility] Sodium [Moles/Vol] 138 mmol/L 136-145 [facility] Urea nitrogen [Mass/Vol] 51.0 mg/dL High 7.0-18.0 [facility] Urea nitrogen/Creatinine [Mass ratio] 23.1 mg/mg [facility] Bilirubin Ql (U) Negative NEGATIVE [facility] Glucose (U) [Mass/Vol] Negative NEGATIVE [facility] Ketones Ql (U) Negative NEGATIVE [facility] pH (U) 5.5 [pH] 5.0-9.0 [facility] Specific gravity (U) [Rel density] 1.025 1.005-1.025 [facility] Urobilinogen Qn (U) 0.2 {Mirta'U}/dL 0.2-1.0 [facility] Laboratory - Specimen inform ationon 12-06-2023 Appearance (U) CLEAR CLEAR [facility] Color (U) LT. YELLOW YELLOW [facility] Laboratory - Urinalysison Leukocyte esterase Test strip Ql (U) Negative NEGATIVE [facility] Mucus Ql (Urine sed) NONE SEEN NONE SEEN [facility] Nitrite Ql (U) Negative NEGATIVE [facility] Protein Ql (U) Negative NEG/TRACE [facility] No Panel Informationon 12-05 Hepatitis B Core Total Antibody Negative Negative [facility] Comment on above: Performed at: [facility] [place] [id number] Director: Lb Kaur PhD, Phone: [phone] Protein Electrophoresis M-Alexandru Not Observed g/dL Not Observed [facility] Protein Electrophoresis Note Comment . [facility] Comment on above: Protein electrophore sis scan will follow via computer,mail, or roller staker delivery. Urine Bacteria NONE SEEN #/HPF NONE SEEN [facility] Urine Occult Blood Negative NEGATIVE [facility] Urine Other Casts NONE SEEN #/LPF NONE SEEN [facility] Urine Other Crystals None Seen #/HPF None Seen [facility] Urine RBC 0-2 #/HPF 0-2 [facility] Urine Squamous Epithelial Cells FEW #/LPF Abnormal NONE/RARE [facility] Urine WBC NONE SEEN #/HPF NONE SEEN [facility] Protein [Mass/volume] in Ser um or Plasmaon 12-06-2023 Protein [Mass/Vol] 6.3 g/dL 6.0-8.5 [facility] Serum globulin measurement ( mass/volume)on 12-06-2023 Globulin (S) [Mass/Vol] 3.1 g/dL 2.2-3.9 [facility] Serum or plasma albumin/glob ulin mass ratioon 12-06-2023 Albumin/Globulin [Mass ratio] 1.1 {ratio} 0.7-1.7 [facility] Serum or plasma alpha 1 glob ulin measurement by electrophoresis (mass/volume)on 12-06-2023 Alpha 1 globulin Elph [Mass/Vol] 0.3 g/dL 0.0-0.4 [facility] Serum or plasma alpha 2 glob ulin measurement by electrophoresis (mass/volume)on 12-06-2023 Alpha 2 globulin Elph [Mass/Vol] 0.8 g/dL 0.4-1.0 [facility] Serum or plasma anion gap de terminationon 12-06-2023 Anion gap [Moles/Vol] 12.9 mmol/L [facility] Serum or plasma beta globuli n measurement by electrophoresis (mass/volume)on 12-06-2023 Beta globulin Elph [Mass/Vol] 1.0 g/dL 0.7-1.3 [facility] Serum or plasma gamma globul in measurement by electrophoresis (mass/volume)on 12-06-2023 Gamma globulin Elph [Mass/Vol] 1.0 g/dL 0.4-1.8 [facility] Serum or plasma immunoelectr ophoresis interpretationon 12-06-2023 Interpretation IEP [Interp] Comment . [facility] Comment on above: No monoclonality det ected. No Panel InformationOrdered By: Brian Salgado on 11-08-2023 Aerobic Culture [facility] Anaerobic Culture [facility] Basophils Auto (Bld) [#/Vol] on 10-30-2023 Basophils (Bld) [#/Vol] 0.1 10 3/uL 0.0-0.1 [facility] Basophils/100 WBC Auto (Bld) on 10-30-2023 Basophils/100 WBC (Bld) 0.8 % 0.2-2.0 [facility] Cholesterol in LDL Calc [Mas s/Vol]on 10-30-2023 Cholesterol in LDL [Mass/Vol] 71.0 mg/dL [facility] Comment on above: <100 mg/dl [id number] 0-129 mg/dl NEAR OR ABOVE [id number] mg/dl BORDERLINE [id number] mg/dl HIGH>190 mg/dl VERY HIGH Cholesterol in VLDL Calc [Ma ss/Vol]on 10-30-2023 Cholesterol in VLDL [Mass/Vol] 19.4 mg/dL [facility] Eosinophils/100 WBC Auto (Bl d)on 10-30-2023 Eosinophils/100 WBC (Bld) 0.0 % Low 0.9-7.0 [facility] Erythrocyte distribution wid th Auto (RBC) [Ratio]on 10-30-2023 Erythrocyte distribution width (RBC) [Ratio] 13.7 % 11.0-15.0 [facility] Estimated glomerular filtrat ion rate (GFR) non- Americanon 10-30-2023 GFR/1.73 sq M.predicted among non-blacks MDRD (S/P/Bld) [Vol rate/Area] 34 mL/min/{1.73_m2} Low >=[address] [facility] Globulin Calc (S) [Mass/Vol] on 10-30-2023 Globulin (S) [Mass/Vol] 3.4 g/dL [facility] Glucose mean value [Mass/vol ume] in Blood Estimated from glycated hemoglobinon 10-30-2023 Average glucose Estimated from glycated hemoglobin (Bld) [Mass/Vol] 126 mg/dL [facility] Hematocrit Auto (Bld) [Volum e fraction]on 10-30-2023 Hematocrit (Bld) [Volume fraction] 38.8 % Low 42.0-54.0 [facility] Hemoglobin [Mass/volume] in Bloodon 10-30-2023 Hemoglobin (Bld) [Mass/Vol] 12.8 g/dL Low 14.0-18.0 [facility] Laboratory - Chemistry and C hemistry - challengeon 10-30-2023 Albumin [Mass/Vol] 3.2 g/dL Low 3.4-5.0 [facility] ALP [Catalytic activity/Vol] 31 U/L Low 46-116 [facility] ALT [Catalytic activity/Vol] 22 U/L 16-63 [facility] AST [Catalytic activity/Vol] 22 U/L 15-37 [facility] Bilirubin [Mass/Vol] 0.5 mg/dL 0.2-1.0 [facility] Calcium [Mass/Vol] 9.4 mg/dL 8.5-10.1 [facility] Chloride [Moles/Vol] 109 mmol/L High 98-107 [facility] Cholesterol [Mass/Vol] 116 mg/dL <=200 [facility] Cholesterol in HDL [Mass/Vol] 26 mg/dL Low 40-60 [facility] Comment on above: > or =60 mg/dl - LOW CARDIOVASCULAR RISK<40 mg/dl - HIGH CARDIOVASCULAR RISK CO2 [Moles/Vol] 24.0 mmol/L 21.0-32.0 [facility] Creatinine [Mass/Vol] 1.92 mg/dL High 0.70-1.30 [facility] GFR/1.73 sq M.predicted MDRD (S/P/Bld) [Vol rate/Area] 41 mL/min/{1.73_m2} Low >=60 [facility] Glucose [Mass/Vol] 118 mg/dL High 74-106 [facility] Potassium [Moles/Vol] 5.4 mmol/L High 3.5-5.1 [facility] Protein [Mass/Vol] 6.6 g/dL 6.4-8.2 [facility] Sodium [Moles/Vol] 142 mmol/L 136-145 [facility] Triglyceride [Mass/Vol] 97 mg/dL <=150 [facility] Urea nitrogen [Mass/Vol] 35.0 mg/dL High 7.0-18.0 [facility] Urea nitrogen/Creatinine [Mass ratio] 18.2 mg/mg [facility] Laboratory - Hematology and Cell countson 10-30-2023 HbA1c (Bld) [Mass fraction] 6.0 % 4.5-6.2 [facility] Comment on above: ADA RECOMMENDED LIMI T 4.0 - 6.0ADA THERAPEUTIC TARGET < 7.0ACTION SUGGESTED> 7.0 Immature granulocytes/100 WBC (Bld) 0.6 % High 0.0-0.5 [facility] Laboratory - Urinalysison Protein (U) [Mass/Vol] 15.4 mg/dL High <=11.9 [facility] Leukocytes [#/volume] correc ben for nucleated erythrocytes in Blood by Automated counon 10-30-2023 WBC corrected for nucl RBC Auto (Bld) [#/Vol] 6.6 10 3/uL 4.0-11.0 [facility] Lymphocytes Auto (Bld) [#/Vo l]on 10-30-2023 Lymphocytes (Bld) [#/Vol] 2.1 10 3/uL 1.2-3.8 [facility] Lymphocytes/100 WBC Auto (Bl d)on 10-30-2023 Lymphocytes/100 WBC (Bld) 31.4 % 20.5-60.0 [facility] MCH Auto (RBC) [Entitic mass ]on 10-30-2023 MCH (RBC) [Entitic mass] 31.7 pg 25.9-34.0 [facility] MCHC Auto (RBC) [Mass/Vol]on 10-30-2023 MCHC (RBC) [Mass/Vol] 33.0 g/dL 29.9-35.2 [facility] MCV Auto (RBC) [Entitic vol] on 10-30-2023 MCV (RBC) [Entitic vol] 96.0 fL High 80.0-94.0 [facility] Monocytes Auto (Bld) [#/Vol] on 10-30-2023 Monocytes (Bld) [#/Vol] 0.6 10 3/uL 0.3-0.8 [facility] Monocytes/100 WBC Auto (Bld) on 10-30-2023 Monocytes/100 WBC (Bld) 9.2 % 1.7-12.0 [facility] Neutrophils Auto (Bld) [#/Vo l]on 10-30-2023 Neutrophils (Bld) [#/Vol] 3.8 10 3/uL 1.4-6.5 [facility] Neutrophils/100 WBC Auto (Bl d)on 10-30-2023 Neutrophils/100 WBC (Bld) 58.0 % 43.0-75.0 [facility] No Panel Informationon 10-29 Urine Random Creatinine 148.56 mg/dL 20.00-300. 00 [facility] Eosinophils # (Auto) 0.0 10 3/uL 0.0-0.7 [facility] Immature Granulocyte # (Auto) 0.04 10 3/uL High 0.00-0.03 [facility] Prostate Specific Antigen Screen 1.04 ng/mL <=4.00 [facility] Platelet mean volume Auto (B ld) [Entitic vol]on 10-30-2023 Platelet mean volume (Bld) [Entitic vol] 10.1 fL 9.5-13.5 [facility] Platelets Auto (Bld) [#/Vol] on 10-30-2023 Platelets (Bld) [#/Vol] 221 10 3/uL 150-450 [facility] RBC Auto (Bld) [#/Vol]on RBC (Bld) [#/Vol] 4.04 10 6/uL Low 4.70-6.10 [facility] Serum or plasma albumin/glob ulin mass ratioon 10-30-2023 Albumin/Globulin [Mass ratio] 0.9 {ratio} [facility] Serum or plasma anion gap de terminationon 10-30-2023 Anion gap [Moles/Vol] 14.4 mmol/L Fi [facility] Serum or plasma total choles terol/high density lipoprotein (HDL) cholesterol mass gene 10-30-2023 Cholesterol.total/Cholest andrea in HDL [Mass ratio] 4.5 {ratio} [facility] Comment on above: 3.3 - 4.4 LOW RISK4. 4 - 7.1 AVERAGE RISK7.1 - 11.0 MODERATE RISK>11.0 HIGH RISK Urine protein/creatinine rat ioon 10-30-2023 Protein/Creatinine (U) [Ratio] 0.10 [facility] GLYCOHEMOGLOBIN A1Con 2021 ADA RECOMMENDATION SEE BELOW Normal [facility] Comment on above: Result Comment: ADA RECOMMENDED LIMIT 4.0 - 6.0 ADA THERAPEUTIC TARGET < 7.0 ACTION SUGGESTED > 7.0 Performed By: #### A 1C #### [facility] [address] [address] [address] Petros Perez Glucose [Mass/Vol] 143 mg/dL Normal [facility] Comment on above: Performed By: #### A 1C #### [facility] [address] [place] [address] Dr. Petros Perez HbA1c (Bld) [Mass fraction] 6.6 % Critically high 4.5-6.2 [facility] Comment on above: Performed By: #### A 1C #### [facility] [address] [place] [address] Dr. Petros Perez CBC AUTO DIFFon 08-15-2021 BASO # 0.0 103/ul Normal 0.0-0.1 [facility] Comment on above: Performed By: #### C BC #### [facility] [address] [place] [address] Dr. Petros Perez Basophils/100 WBC (Bld) 0.3 % Normal 0.2-2.0 [facility] Comment on above: Performed By: #### C BC #### [facility] [address] [place] [address] Dr. Petros Perez EO # 0.1 103/ul Normal 0.0-0.7 [facility] Comment on above: Performed By: #### C BC #### [facility] [address] [place] [address] Dr. Petros Perez Eosinophils/100 WBC (Bld) 2.2 % Normal 0.9-7.0 [facility] Comment on above: Performed By: #### C BC #### [facility] [address] [place] [address] Dr. Petros Perez Erythrocyte distribution width (RBC) [Ratio] 13.4 % Normal 11.0-15.0 [facility] Comment on above: Performed By: #### C BC #### [facility] [address] [place] [address] Dr. Petros Perez Hematocrit (Bld) [Volume fraction] 42.8 % Normal 42.0-54.0 [facility] Comment on above: Performed By: #### C BC #### [facility] [address] [place] [address] Dr. Petros Perez Hemoglobin (Bld) [Mass/Vol] 14.1 g/dL Normal 14.0-18.0 [facility] Comment on above: Performed By: #### C BC #### [facility] [address] [place] [address] Dr. Petros Perez IG # 0.04 10e3/ul Critically high 0.00-0.03 [facility] Comment on above: Performed By: #### C BC #### [facility] [address] [place] [address] Dr. Petros Perez IG % 0.7 % Critically high 0.0-0.5 [facility] Comment on above: Performed By: #### C BC #### [facility] [address] [place] [address] Dr. Petros Perez LYMPH # 2.2 103/ul Normal 1.2-3.8 [facility] Comment on above: Performed By: #### C BC #### [facility] [address] [place] [address] Dr. Petros Perez Lymphocytes/100 WBC (Bld) 38.2 % Normal 20.5-60.0 [facility] Comment on above: Performed By: #### C BC #### [facility] [address] [place] [address] Dr. Petros Perez MANUAL DIFF REQ NO Normal [facility] Comment on above: Performed By: #### C BC #### [facility] [address] [place] [address] Dr. Petros Perez MCH (RBC) [Entitic mass] 30.6 pg Normal 25.9-34.0 [facility] Comment on above: Performed By: #### C BC #### [facility] [address] [place] [address] Dr. Petros Perez MCHC (RBC) [Mass/Vol] 32.9 g/dL Normal 29.9-35.2 [facility] Comment on above: Performed By: #### C BC #### [facility] [address] [place] [address] Dr. Petros Perez MCV (RBC) [Entitic vol] 92.8 fL Normal 80.0-94.0 [facility] Comment on above: Performed By: #### C BC #### [facility] [address] [address] [address] Petros Perez MONO # 0.5 103/ul Normal 0.3-0.8 [facility] Comment on above: Performed By: #### C BC #### [facility] [address] [address] [address] Petros Perez Monocytes/100 WBC (Bld) 8.6 % Normal 1.7-12.0 [facility] Comment on above: Performed By: #### C BC #### [facility] [address] [place] [address] Dr. Petros Perez NEUT # 2.9 103/ul Normal 1.4-6.5 [facility] Comment on above: Performed By: #### C BC #### [facility] [address] [place] [address] Dr. Petros Perez Neutrophils/100 WBC (Bld) 50.0 % Normal 43.0-75.0 [facility] Comment on above: Performed By: #### C BC #### [facility] [address] [place] [address] Dr. Petros Perez Platelet mean volume (Bld) [Entitic vol] 10.2 fL Normal 9.5-13.5 [facility] Comment on above: Performed By: #### C BC #### [facility] [address] [place] [address] Dr. Petros Perez PLT 219 103/ul Normal 150-450 [facility] Comment on above: Performed By: #### C BC #### [facility] [address] [place] [address] Dr. Petros Perez RBC 4.61 106/ul Critically low 4.70-6.10 [facility] Comment on above: Performed By: #### C BC #### [facility] [address] [place] [address] Dr. Petros Perez WBC 5.8 103/ul Normal 4.0-11.0 [facility] Comment on above: Performed By: #### C BC #### [facility] [address] [place] [address] Dr. Petros Perez GLYCOHEMOGLOBIN A1Con 2021 ADA RECOMMENDATION SEE BELOW Normal [facility] Comment on above: Result Comment: ADA RECOMMENDED LIMIT 4.0 - 6.0 ADA THERAPEUTIC TARGET < 7.0 ACTION SUGGESTED > 7.0 Performed By: #### A 1C #### [facility] [address] [place] [address] Dr. Petros Perez Glucose [Mass/Vol] 163 mg/dL Normal [facility] Comment on above: Performed By: #### A 1C #### [facility] [address] [place] [address] Dr. Petros Perez HbA1c (Bld) [Mass fraction] 7.3 % Critically high 4.5-6.2 [facility] Comment on above: Performed By: #### A 1C #### [facility] [address] [place] [address] Dr. Petros Perez LIPID PROFILEon 08-15-2021 CHOL-HDL RATIO NORM SEE BELOW Normal [facility] Comment on above: Result Comment: 3.3 - 4.4 LOW RISK 4.4 - 7.1 AVERAGE RISK 7.1 - 11.0 MODERATE RISK >11.0 HIGH RISK Performed By: #### L IPID, BMP #### [facility] [address] [place] [address] Dr. Petros Perez Cholesterol [Mass/Vol] 148 mg/dL Normal <=200 [facility] Comment on above: Performed By: #### L IPID, BMP #### [facility] [address] [place] [address] Dr. Petros Perez Cholesterol in HDL [Mass/Vol] 33 mg/dL Critically low 40-60 [facility] Comment on above: Performed By: #### L IPID, BMP #### [facility] [address] [place] [address] Dr. Petros Perez Cholesterol in LDL [Mass/Vol] 95.8 mg/dL Normal [facility] Comment on above: Performed By: #### L IPID, BMP #### [facility] [address] [place] [address] Dr. Petros Perez Cholesterol.total/Cholest andrea in HDL [Mass ratio] 4.5 {ratio} Normal [facility] Comment on above: Performed By: #### L IPID, BMP #### [facility] [address] [address] [address] Petros Perez HDL NORMAL > or = 60 mg/dl - LOW CARDIOVASCULAR RISK <40 mg/dl - HIGH CARDIOVASCULAR RISK Normal [facility] Comment on above: Performed By: #### L IPID, BMP #### [facility] [address] [address] [address] Petros Perez LDL CALC NORMAL SEE BELOW Normal [facility] Comment on above: Result Comment: <100 mg/dl OPTIMAL 100 - 129 mg/dl NEAR OR ABOVE OPTIMAL 130 - 159 mg/dl BORDERLINE HIGH 160 - 189 mg/dl HIGH >190 mg/dl VERY HIGH Performed By: #### L IPID, BMP #### [facility] [address] [address] [address] Petros Perez Triglyceride [Mass/Vol] 96 mg/dL Normal <=150 [facility] Comment on above: Performed By: #### L IPID, BMP #### [facility] [address] [address] [address] Petros Perez VLDL CALC 19.2 mg/dL Normal [facility] Comment on above: Performed By: #### L IPID, BMP #### [facility] [address] [place] [address] Dr. Petros Perez MICROALBUMIN, RAND URon 06- mALB 3.2 mg/L Normal <=30.0 [facility] Comment on above: Performed By: #### M ALBR #### [facility] [address] [address] [address] Petros Perez PROF CHEM 8 (BAS METB)on Anion gap [Moles/Vol] 13.1 mmol/L Normal [facility] Comment on above: Performed By: #### L IPID, BMP #### [facility] [address] [address] [address] Petros Perez Calcium [Mass/Vol] 9.2 mg/dL Normal 8.5-10.1 [facility] Comment on above: Performed By: #### L IPID, BMP #### [facility] [address] [place] [address] Dr. Petros Perez Chloride [Moles/Vol] 106 mmol/L Normal 98-107 [facility] Comment on above: Performed By: #### L IPID, BMP #### [facility] [address] [place] [address] Dr. Petros Perez CO2 [Moles/Vol] 24.1 mmol/L Normal 21.0-32.0 [facility] Comment on above: Performed By: #### L IPID, BMP #### [facility] [address] [place] [address] Dr. Petros Perez Creatinine [Mass/Vol] 1.56 mg/dL Critically high 0.70-1.30 [facility] Comment on above: Performed By: #### L IPID, BMP #### [facility] [address] [place] [address] Dr. Petros Perez EGFR-AF [place]THER[place] 53 mL/min/1.73m2 Critically low >=60 [facility] Comment on above: Performed By: #### L IPID, BMP #### [facility] [address] [place] [address] Dr. Petros Perez EGFR-NON AF [place] 43 mL/min/1.73m2 Critically low >=60 [facility] Comment on above: Performed By: #### L IPID, BMP #### [facility] [address] [place] [address] Dr. Petros Perez Glucose [Mass/Vol] 139 mg/dL Critically high 74-106 [facility] Comment on above: Performed By: #### L IPID, BMP #### [facility] [address] [place] [address] Dr. Petros Perez Potassium [Moles/Vol] 4.2 mmol/L Normal 3.5-5.1 [facility] Comment on above: Performed By: #### L IPID, BMP #### [facility] [address] [place] [address] Dr. Petros Perez Sodium [Moles/Vol] 139 mmol/L Normal 136-145 [facility] Comment on above: Performed By: #### L IPID, BMP #### [facility] [address] [place] [address] Dr. Petros Perez Urea nitrogen [Mass/Vol] 25.0 mg/dL Critically high 7.0-18 .0 [facility] Comment on above: Performed By: #### L IPID, BMP #### [facility] [address] [place] [address] Dr. Petros Perez Urea nitrogen/Creatinine [Mass ratio] 16.0 mg/mg Normal [facility] Comment on above: Performed By: #### L IPJILLIAN, BMP #### [facility] [address] [place] [address] Dr. Petros Perez GLYCOHEMOGLOBIN A1Con 2021 ADA RECOMMENDATION ADA THERAPEUTIC TARGET 6.0 - 7.0 ACTION SUGGESTED > 7.0 Normal [facility] Comment on above: Performed By: #### A 1C #### [facility] [address] [place] [address] Dr. Petros Perez Glucose [Mass/Vol] 180 mg/dL Normal [facility] Comment on above: Performed By: #### A 1C #### [facility] [address] [place] [address] Dr. Petros Perez HbA1c (Bld) [Mass fraction] 7.9 % Critically high <=6.0 [facility] Comment on above: Performed By: #### A 1C #### [facility] [address] [place] [address] Dr. Petros Perez Consent for COVID Vaccineon 05-14-2020 SARS-CoV-2 (COVID-19) RNA EUN+probe Ql (Unsp spec) 170..121.. [id number] 373#1.00CD:127 [facility] Consent for Treatmenton 05-02 Consent for Treatment [id number] 0 [id number]#1.00CD:127 [facility] Coding Summary.on 05-13-2020 Coding Summary. CODING DATE: 05/13/2020 FINAL [facility] STATUS: PAYOR: Medicare ADMIT DX: [...] Saritha Simmons Date Saved: 05/13/2020 11:13 am [facility] Vital Signs Date Time Vital Sign Value Performing Clinician Facility 12-20-2023 14:48-0400 Body height 182.88 cm [facility] 12-20-2023 14:48-0400 Body mass index (BMI) [Ratio] 33.5 kg/m2 [facility] 12-20-2023 14:48-0400 Body weight 112.2 kg [facility] 12-20-2023 14:48-0400 Diastolic blood pressure 64 mm[Hg] [facility] 12-20-2023 14:48-0400 Heart rate 69 /min [facility] 12-20-2023 14:48-0400 Respiratory rate 12 /min [facility] 12-20-2023 14:48-0400 Systolic blood pressure 159 mm[Hg] [facility] 12-12-2023 09:25-0400 Body height 182.88 cm [facility] 12-12-2023 09:25-0400 Body mass index (BMI) [Ratio] 33.7 kg/m2 [facility] 12-12-2023 09:25-0400 Body weight 112.94 kg [facility] 12-12-2023 09:25-0400 Diastolic blood pressure 71 mm[Hg] [facility] 12-12-2023 09:25-0400 Heart rate 76 /min [facility] 12-12-2023 09:25-0400 Respiratory rate 12 /min [facility] 12-12-2023 09:25-0400 Systolic blood pressure 149 mm[Hg] [facility] 09-10-2023 09:28-0400 Body height 182.88 cm [facility] 09-10-2023 09:28-0400 Body mass index (BMI) [Ratio] 32.3 kg/m2 [facility] 09-10-2023 09:28-0400 Body weight 108.12 kg [facility] 09-10-2023 09:28-0400 Diastolic blood pressure 61 mm[Hg] [facility] 09-10-2023 09:28-0400 Heart rate 56 /min [facility] 09-10-2023 09:28-0400 Respiratory rate 12 /min [facility] 09-10-2023 09:28-0400 Systolic blood pressure 123 mm[Hg] [facility] 06-11-2023 09:02-0400 Body height 182.88 cm [facility] 06-11-2023 09:02-0400 Body mass index (BMI) [Ratio] 33 kg/m2 [facility] 06-11-2023 09:02-0400 Body weight 110.67 kg [facility] 06-11-2023 09:02-0400 Diastolic blood pressure 65 mm[Hg] [facility] 06-11-2023 09:02-0400 Heart rate 62 /min [facility] 06-11-2023 09:02-0400 Respiratory rate 12 /min [facility] 06-11-2023 09:02-0400 Systolic blood pressure 149 mm[Hg] [facility] 11-08-2022 10:00-0400 Body height 182.88 cm Brian Ball Other [facility] Other 11-08-2022 10:00-0400 Body mass index (BMI) [Ratio] 31.27 kg/m2 Brian Ball Other [facility] Other 11-08-2022 10:00-0400 Body weight 104.6 kg Brian Ball Other [facility] Other 11-08-2022 10:00-0400 Diastolic blood pressure 72 mm[Hg] Brian Ball Other [facility] Other 11-08-2022 10:00-0400 Respiratory rate 12 /min Brian Ball Other [facility] Other 11-08-2022 10:00-0400 Systolic blood pressure 148 mm[Hg] Brian Ball Other [facility] Other 08-09-2022 10:00-0400 Body height 182.88 cm Brian Ball Other [facility] Other 08-09-2022 10:00-0400 Body mass index (BMI) [Ratio] 31.46 kg/m2 Brian Ball Other [facility] Other 08-09-2022 10:00-0400 Body weight 105.24 kg Brian Ball Other [facility] Other 08-09-2022 10:00-0400 Diastolic blood pressure 75 mm[Hg] Brian Ball Other [facility] Other 08-09-2022 10:00-0400 Respiratory rate 12 /min Brian Ball Other [facility] Other 08-09-2022 10:00-0400 Systolic blood pressure 170 mm[Hg] Brian Ball Other [facility] Other Encounters Encounter Date Encounter Type Care Provider Facility Start: 12-20-2023 End: 12-20-2023 ambulatory [facility] Work Phone: Start: 12-20-2023 End: 12-20-2023 Patient encounter procedure [facility] Work Phone: Start: 12-19-2023 Patient encounter status [facility] Start: 12-16-2023 Non-patient / Non-visit [facility] Work Phone: Start: 12-12-2023 End: 12-12-2023 ambulatory [facility] Work Phone: Start: 12-12-2023 End: 12-12-2023 Patient encounter procedure [facility] Work Phone: Start: 12-06-2023 Non-patient / Non-visit [facility] Work Phone: Start: 11-08-2023 Non-patient / Non-visit [facility] Work Phone: Start: 10-30-2023 Non-patient / Non-visit [facility] Work Phone: Start: 09-10-2023 End: 09-10-2023 ambulatory [facility] Work Phone: Start: 09-10-2023 End: 09-10-2023 Patient encounter procedure [facility] Work Phone: Start: 06-11-2023 End: 06-11-2023 ambulatory [facility] Work Phone: Start: 06-11-2023 End: 06-11-2023 Patient encounter procedure [facility] Work Phone: Start: 11-08-2022 End: 11-08-2022 ambulatory Brian Salgado Other [facility] Other Start: 11-08-2022 Office outpatient vi sit 25 minutes Brian Salgado [facility] Start: 09-13-2022 End: 09-13-2022 ambulatory Brian Qamar Other [facility] Other Start: 09-13-2022 Telephone encounter Brian Salgado [facility] Start: 08-09-2022 End: 08-09-2022 ambulatory Brian Qamar Other [facility] Other Start: 08-09-2022 Patient encounter procedure Brian REAVES [facility] Start: 12-27-2021 End: 12-28-[address] BRIAN SALGADO Facility:[facility] Start: 08-15-2021 End: 08-16-[address] BRIAN SALGADO Facility:[facility] Start: 04-25-2021 End: 04-26-[address] BRIAN SALGADO Facility:[facility] Procedures Date Procedure Procedure Detail Performing Clinician Start: 11-08-2023 Aerobic Culture Start: 11-08-2023 Anaerobic Culture Start: 08-15-[address] [place] Comment on above: Performed By: #### P [facility] #### [facility] [address] [place] [address] Dr. Petros Perez Plan of Treatment Date Care Activity Detail Author Start: 12-12-2023 Patient referral [facility] Work Phone: Comprehensive metabo lic 2000 panel - Serum or Plasma [facility] Patient referral [facility] Work Phone: [facility] Immunizations Immunization Date Immunization Notes Care Provider Franck madrigal 01-21-2023 influenza virus vaccine, unspecified formulation [facility] 11-21-2021 influenza virus vaccine, split virus (incl. purified surface antigen) Brian Salgado Other [facility] Other 11-21-2021 influenza virus vaccine, unspecified formulation [facility] 11-21-2021 influenza, high dose seasonal, preservative-free Brian Salgado Other [facility] Other 02-22-2021 COVID-19 Vaccine Pfi zer - Documentation Purposes Only Brian Salgado Other [facility] 12-30-2020 influenza virus vaccine, split virus (incl. purified surface antigen) Brian Salgado Other [facility] Other 12-30-2020 influenza virus vaccine, unspecified formulation [facility] 05-06-2020 COVID-19 Vaccine Slim - Documentation Purposes Only Brian Salgado Other [facility] 01-12-2020 influenza virus vaccine, split virus (incl. purified surface antigen) Brian Qamar Other [facility] [employer] Other 01-12-2020 influenza virus vaccine, unspecified formulation [facility] 01-13-2019 influenza virus vaccine, split virus (incl. purified surface antigen) Brian Salgado Other [facility] Other 01-13-2019 influenza virus vaccine, unspecified formulation [facility] 12-02-2017 influenza virus vaccine, split virus (incl. purified surface antigen) Brian Salgado Other [facility] Other 12-02-2017 influenza virus vaccine, unspecified formulation [facility] 12-27-2016 influenza virus vaccine, split virus (incl. purified surface antigen) Brian Salgado Other [facility] Other 12-27-2016 influenza virus vaccine, unspecified formulation [facility] 12-22-2015 influenza virus vaccine, split virus (incl. purified surface antigen) Brian Salgado Other [facility] Other 12-22-2015 influenza virus vaccine, unspecified formulation [facility] 03-15-2015 pneumococcal conjuga te vaccine, 13 valent Brian Salgado Other [facility] 12-07-2014 influenza virus vaccine, split virus (incl. purified surface antigen) Brian Salgado Other [facility] Other 12-07-2014 influenza virus vaccine, unspecified formulation [facility] 11-10-2013 tetanus and diphther ia toxoids, adsorbed, preservative free, for adult use (5 Lf of tetanus toxoid and 2 Lf of diphtheria toxoid) Brian Salgado Other [facility] 12-10-2012 tetanus and diphther ia toxoids, adsorbed, preservative free, for adult use (5 Lf of tetanus toxoid and 2 Lf of diphtheria toxoid) Brian Salgado Other [facility] 02-14-2011 pneumococcal polysaccharide vaccine, 23 valent Brian Salgado Other [facility] Payers Date Payer Category Payer Medicare [id number] 1960 Unknown [id number] 1945 Unknown [id number] 1945 Unknown [id number] 1945 Unknown [id number] Social History Date Type Detail Facility Sex Assigned At [facility] [employer] Other Start: 1945 Sex Assigned At Male F [facility] Evaluation note 11-08-2022 Note Date & Type [...] < 30 Increase exercise and reduce calories. [facility] Other Evaluation note 08-09-2022 Note Date & [...] High risk medication use (ICD-10 - Z79.899) [facility] Other Evaluation note Note Date & Type Note Facility Evaluation note No Information [facility] Other Evaluation note Note Date & Type Note Facility Evaluation note Diagnosis Onset Date Chronic kidney disease acute Elevated cholesterol acute Hypertension acute Type 2 diabetes mellitus wit h diabetic polyneuropathy acute Type 2 diabetes mellitus with hyperglycemia acute [facility] Work Phone: Evaluation note Note Date & Type Note Facility Evaluation note Diagnosis Onset Date Chronic kidney disease acute Chronic venous insufficiency of lower extremity acute Elevated cholesterol acute Hypertension acute Screening PSA (prostate specific antigen) acute Type 2 diabetes mellitus wit h diabetic polyneuropathy acute Type 2 diabetes mellitus with hyperglycemia acute Medicare annual wellness visit, subsequent noneactive [facility] Work Phone: Evaluation note Note Date & Type Note Facility Evaluation note Diagnosis Onset Date Chronic kidney disease acute Chronic venous insufficiency of lower extremity acute Elevated cholesterol acute Hypertension acute Type 2 diabetes mellitus wit h diabetic polyneuropathy acute Type 2 diabetes mellitus with hyperglycemia acute [facility] Work Phone: Evaluation note Note Date & Type Note Facility Evaluation note Diagnosis Onset Date Chronic kidney disease acute Chronic venous insufficiency of lower extremity acute Elevated cholesterol acute Hypertension acute Type 2 diabetes mellitus wit h diabetic polyneuropathy acute Type 2 diabetes mellitus with hyperglycemia acute Chronic kidney disease acute Chronic venous insufficiency of lower extremity acute Elevated cholesterol acute Hypertension acute Preop exam for internal medicine acute Type 2 diabetes mellitus with hyperglycemia acute [facility] Work Phone: History general Narrative [...] Surgical History APPENDECTOMY Hospitalization History SEE SURGICAL [facility] [employer] Other Summary Purpose Family History No Family [...] diabetes mellitus with hyperglycemia Chief Complaint 3 MONTH F/U Pre-surgical Clearance Reason for Visit Chronic kidney disea se Chronic venous insufficiency of lower extremity Elevated cholesterol Hypertension Type 2 diabetes mellitus with diabetic polyneuropathy Type 2 diabetes mellitus with hyperglycemia Chronic kidney disease Chronic venous insufficiency of lower extremity Elevated cholesterol Hypertension Preop exam for internal medicine Type 2 diabetes mellitus with hyperglycemia Additional Source Comments (unrecognized sect ion and content) No Status Records FoundNo Status Records Found INFORMATION SOURCE (unrecogn ized section and content) DATE CREATED AUTHOR 08/06/2020 Eliazar Gonzalez [facility] DATE CREATED AUTHOR 'S ORGANIZ ATION 12/31/2021 [facility] REASON FOR VISIT (unrecogniz ed section and content) [facility] Care Teams (unrecognized sec tion and content) Team Status: Active Member Role Status Dates Brian Salgado , DO Primary Care Provider Active Team Status: Active Member Role Status Dates [...] 2023 End: December 12, 2023 Team Status: Inactive Member Role Status Luis Salgado , DO Primary Care Provide r, Attending Provider Active Start: June 11, 2023 End: June 11, 2023 Team Status: Inactive Member Role Status Luis Salgado , DO Primary Care Provide r, Attending Provider Active Start: September 10, 2023 End: September 10, 2023 Team Status: Active Member Role Status Luis Salgado , DO Primary Care Provider Active Start: December 16, 2023 Obi Carroll DPM MS Attending Provider Active Start: December 16, 2023 Team Status: Inactive Member Role Status Dates Brian Salgado , DO Primary Care Provide r, Attending Provider Active Start: December 20, 2023 End: December 20, 2023 Goals (unrecognized section and content) Goals [...] BE BASED ON THE PRIMARY CLINICAL RECORDS. [employer] [facility] provides no warranty or guarantee of the accuracy or completeness of information in this document.
[2023-12-26 09:44] LABS: Glucometer 103 mg/dL (74-106)
[2023-12-26] MEDS: 0.9 % SODIUM CHLORIDE 500 ML 50 ML IV ×2 (09:45→12:04)
[2023-12-26] MEDS: CEFAZOLIN SODIUM 2 GM/50 ML D5W PREMIX IV (11:07)
[2023-12-26] MEDS: BUPIVACAINE HCL 0.5% PF 50 MG/10 ML VIAL INJ (11:43)
[2023-12-26] MEDS: LIDOCAINE HCL 1% 100 MG/10 ML MDV INJ (11:43)
[2023-12-26] MEDS: VANCOMYCIN HCL 1,000 MG VIAL 1000 MG TOPICAL (12:00)
--- NOTE | 2023-12-26 12:12 | XR_ITS ---
The [address] [address] Patient Name: JF HERNÁNDEZ MRN: [id number] date: 1945 Sex: M [facility]igned [facility] Current Patient Location: Accession/Order Number: [id number] Exam Date: 12/26/2023 12:35 Report Date: 12/30/2023 06:33 At the request of: EVELIN IPCHARDO Procedure: XR foot LT min 3V PROCEDURE: XR foot LT min 3V HISTORY: ulcer COMPARISON: XR foot left 11/08/2023 FINDINGS: BONES:Resection of the heads of the second and third metatarsals. Joint space narrowing of the first metatarsophalangeal joint. Calcaneal plantar spur. SOFT TISSUES:Dorsal soft tissue swelling. Plantar soft tissue swelling with overlying bandage is seen on the lateral view. EFFUSION:None visible. OTHER: Negative. XR/XR foot LT min 3V IMPRESSION: 1. Soft tissue swelling and history of ulcer. Given the plantar surface bandage I suspect the ulcer is on the plantar surface. 2. No evidence of osteomyelitis. 2. Interval resection of the head of the second metatarsal. Remote resection of the head of the third metatarsal. Electronically authenticated by: MARICARMEN LIEBERMAN Date: 12/30/2023 06:33
--- NOTE | 2023-12-26 12:14 | P.ORON_ITS ---
Brief Operative Note Date of procedure: 12/26/23 Pre-op diagnosis general: Left foot ulcer with bone involvement, chronic osteo myelitis, type 2 diabetes with foot ulcer and peripheral neuropathy Post-op diagnosis: same as pre-op Procedure: Procedure performed: Left second metatarsal head resection, delayed primary closure of ulcer and application of total contact cast Indications for procedure: Patient is a 78-year-old male with type 2 diabetes and multiple medical comorbidities with history of left foot ulceration which have required surgery in the past. He most recently presented to me with a new ulceration subsecond metatarsal head which at that time had obvious tendon exposure. According to the patient the wound has been present for approximately 8 weeks but at most recent follow-up wound did probe to bone and there is no acute signs of infection. Despite local wound care and offloading the depth of the wound was very concerning and there is high risk for infection, and limb loss. When discussing with the patient and his family I outlined the potential risks and benefits of continued nonsurgical treatment versus surgical treatment and the patient wished to undergo the above procedures. I did specifically talk to the patient about transmetatarsal amputation given his prior surgery and that with a second met head resection he is at extraordinarily high risk for recurrent ulceration to the adjacent metatarsal heads. Despite this risk patient did not want to undergo any amputation at this point therefore recommended the above procedures Intraoperative findings: Preoperative ulcer measurements: 1.2 x 1.3 x 1.4 cm with tracking and undermining at 12:00. No acute signs of infection but obvious flexor tendon and second metatarsal exposure. Bone quality was soft and pale yellow in color involving the plantar aspect of the second metatarsal head. After resection bone quality appeared to be within normal limits of the distal aspect of the second metatarsal shaft. Procedure in detail patient was identified in preoperative holding by myself which time correct side and site were marked and consent was obtained. Patient is brought back to the operating theater placed on table in supine position. Preoperative antibiotics were started and general anesthesia was administered. The left lower extremity was prepped and draped in usual sterile fashion with a tourniquet. Formal timeout was performed and local anesthesia was provided using 10 cc of 1% lidocaine plain and 10 cc of 0.5% Marcaine plain. The foot and ankle were exsanguinated and the tourniquet was inflated. The ulcer on the plantar left foot was then excised and a 3-1 ellipse. Further excisional debridement including fat fascia and flexor tendon as well as the plantar plate was performed. All questionable and nonviable tissue was excised. There is no fluid collection or acute signs of infection but there was obvious exposure of the second metatarsal head which was soft and discolored. Exposure of the second metatarsal head was performed with a combination of sharp and blunt dissection. A small piece of plantar plate was excised and sent as specimen the second metatarsal head was then resected utilizing a sagittal saw. Flexor tendon that was excised as well as the second metatarsal head were sent to pathology. Surgical site was irrigated with copious saline. Then utilizing clean rongeur a small portion of the second metatarsal shaft was resected and sent to microbiology as a clean/proximal specimen. 1 g of vancomycin powder was placed into the surgical site. Then the ulceration was closed in a single layer utilizing skin suture. The tourniquet was deflated noting a prompt hyperemic response and brisk capillary refill to the skin edges as well as the left toes. A dry sterile dressing was applied followed by a well-padded total contact cast utilizing the TCC-EZ system accordingly. Patient was then transferred to the recovery room with vital signs stable. Postoperative plan: Discharge home under family's care Prescriptions were sent to his pharmacy utilizing my office EMR. Partial protected weightbearing in total contact cast with use of cane/crutch Follow-up in wound center in 5 to 7 days Anesthesia: General-LMA Surgeon: Obi Carroll Estimated blood loss (mL): 10 Pathology: other (bone and soft tissue) Condition: stable Disposition: PACU
[2023-12-26 12:27] LABS: Glucometer 95 mg/dL (74-106)
== END 2023-12-26 13:36 | disposition home or self-care (01) ==
PROVIDERS: PCP Internal Medicine; Visit Provider Podiatrist Foot & Ankle Surgery
PROC: (CPT 28112; principal; 2023-12-26 09:55)
DX: E11.621 Type 2 diabetes mellitus with foot ulcer (principal); E11.69 Type 2 diabetes mellitus with other specified complication; M86.672 Other chronic osteomyelitis, left ankle and foot; L97.426 Non-pressure chronic ulcer of left heel and midfoot with bone involvement without evidence of necrosis; E11.42 Type 2 diabetes mellitus with diabetic polyneuropathy; Z79.84 Long term (current) use of oral hypoglycemic drugs; Z90.49 Acquired absence of other specified parts of digestive tract; I10 Essential (primary) hypertension; Z87.891 Personal history of nicotine dependence
CPT/HCPCS: 28112; 36415; 73630; 82948; 87070; 87075; 87102; 87116; 87150; 87176; 87186; 87205; 87206; 99999; J0665; J0690; J2371; J2405; J2704; J3010; J3370

== ENCOUNTER 2023-12-31 15:22 | Outpatient (OUT) | payer MEDICARE, SELFPAY | END 2023-12-31 15:23 | disposition home or self-care (01) | LOC: WC 15:22 | PROVIDERS: PCP Internal Medicine; Visit Provider Physician Assistant | DX: L97.526 Non-pressure chronic ulcer of other part of left foot with bone involvement without evidence of necrosis (principal) | CPT/HCPCS: 29445 ==

== ENCOUNTER 2024-01-08 13:55 | Outpatient (OUT) | payer MEDICARE, SELFPAY | END 2024-01-08 13:56 | disposition home or self-care (01) | LOC: WC 13:56 | PROVIDERS: PCP Internal Medicine; Visit Provider Physician Assistant | DX: L97.526 Non-pressure chronic ulcer of other part of left foot with bone involvement without evidence of necrosis (principal) | CPT/HCPCS: 29445 ==

== ENCOUNTER 2024-01-14 13:29 | Outpatient (OUT) | payer MEDICARE, SELFPAY ==
--- OUTSIDE RECORDS SUMMARY | 2024-01-14 13:42 | XMS_ITS | CCD ---
Author Organization [facility] [place] [facility] Care Team Providers Care Factory Focus Technician Name Role Phone QAMAR, DR PRITCHETT Attending [...] Admitting Unavailable BALL, DR PRITCHETT Attending Unavailable Brian Salgado Unavailable EVE Carroll Attending Provider Obi Carroll Attending Unavailable Obi Carroll Admitting Unavailable Allergies Allergy Classification Reported Allergen(s) Allergy Type Date of Onset Reaction(s) Facility (8 sources) empagliflozin Drug Allergy 06-11-19 Unknown, Unknown Reaction [facility] (8 sources) Simvastatin Drug Allergy 06-11-19 Unknown, Unknown Reaction [facility] (3 sources) Sulfonamides (Antibiotic) Propensity to adverse reactions Unknown [facility] Other (1 source) Substance with sulfonamide structure and antibacterial mechanism of action (substance) Drug allergy Unknown [employer] Other (6 sources) Sulfonamides (Antibiotic); Translations: [Sulfa (Sulfonamide Antibiotics)] Allergy to substance 06-11-19 Unknown Reaction [facility] (1 source) empagliflozin Drug Allergy 12-20-19 [facility] Repository (1 source) Simvastatin Drug Allergy 12-20-19 [facility] Repository Medications Current Medications Medication Drug Class(es) Dates Sig (Normalized) Sig (Original) benazepril hydrochloride 20 mg oral tablet (8 sources) Angiotensin Converting Enzyme Inhibitor Start: 06-08-2023 take 20 mg by mouth once daily Benazepril Active 20 MG PO Daily June 08, 2023 12:00am take 1 tablet by mouth once jordan y Benazepril HCl 20 MG TAKE 1 TABLET BY MOUTH DAILY Active fenofibrate 160 mg oral tablet (8 sources) Peroxisome Proliferator Receptor alpha Agonist Start: 06-08-2023 take 160 mg by mouth once daily Fenofibrate Active 160 MG PO Daily June 08, 2023 12:00am take 1 tablet by mouth once jordan y Fenofibrate 160 MG TAKE 1 TABLET BY MOUTH DAILY Active glimepiride 4 mg oral tablet (8 sources) Sulfonylurea Start: 06-08-2023 take 1 tablet [...] BREAKFAST Active linagliptin 5 mg oral tablet (8 sources) Dipeptidyl Peptidase 4 Inhibitor Start: 06-08-2023 take 5 mg by mouth once daily Linagliptin Active 5 MG PO Daily June 08, 2023 12:00am take 1 tablet by mouth once jordan y Tradjenta 5 MG TAKE 1 TABLET BY MOUTH DAILY Active Completed/Discontinued Medications Medication Drug Class(es) Dates Sig (Normalized) Sig (Original) pioglitazone 45 mg oral tablet (8 sources) Peroxisome Proliferator Receptor alpha Agonist, Peroxisome [...] Problem Date Documented Date Episodic/Chronic Anxiety disorders (10 sources) Generalized anxiety disorder; Translations: [Generalized anxiety disorder] Chronic Chronic kidney disease (12 sources) Chronic kidney disease; Translations: [Chronic kidney disease, unspecified] 06-08-2023 Chronic Chronic kidney disease (1 source) Chronic kidney disease; Translations: [CHRONIC KIDNEY DISEASE STAGE 3B] Onset: 08-17-2021 Diabetes mellitus with complications (20 sources) Type 2 diabetes mellitus with hyperglycemia; Translations: [Type 2 diabetes mellitus with diabetic chronic kidney disease] Onset: 08-17-2021 Chronic Disorders of lipid metabolism (20 sources) Mixed hyperlipidemia; Translations: [Hypercholesterolemi a] Onset: 08-15-2021 Chronic Essential hypertension (19 sources) Essential (primary) hypertension; Translations: [Essential hypertension] Onset: 08-17-2021 Chronic Other aftercare (1 source) Other 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 helper (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 therapy Episodic Other diseases of veins and lymphatics (4 sources) Venous insufficiency of leg; Translations: [Venous insufficiency (chronic) (peripheral)] 09-10-2023 Episodic Other diseases of veins and lymphatics (6 sources) Venous insufficiency (chronic) (peripheral); Translations: [Venous [...] conditions (not mental disorders or infectious disease) (7 sources) Encounter for screening for malignant neoplasm of prostate; Translations: [Patient encounter status] Onset: 08-17-2021 Episodic Results Test Name Value Interpretation Reference Range [facility] 12-26-2023 L Specimen: [id number] Received: 12/30/23 Status: GERRI Camp Num: [id number] Spec Type: Surgical Subm Dr: Obi Carroll DPM, MS Tissues: A Tendon/Sheath (LEFT FLEXOR TENDON) B Bone Fragments - Pathologic Fracture (2ND METATARSAL HEAD LFT FOOT) Procedures: HE/3, Gross/Micro L5, Gross/Micro L3, Decalcification Age/ Patient Sex Location Account Attending Physician Sander Hooks 78/M LABELL [id number] Obi Carroll DPM, MS SPEC NUM: [id number] RECD: 12/30/23 STATUS: GERRI CAMP NUM: [id number] DONY: 12/26/[address]: Obi Carroll DPM, MS ENTERED: 12/30/[address]: Hilda,Libertad SPEC TYPE: Surgical DEPT: AMAYA MANZANARES ORDERED: HE/3, Gross/Micro L5, Gross/Micro L3, Decalcification ORDERED: HE/3, Gross/Micro L5, Gross/Micro L3, Decalcification Pathological Diagnosis A. Left foot, flexor tendon, excision: - Tendinous tissue with mixed acute and chronic inflammation. B. Left foot, second metatarsal head, excision: - Reactive osteocartilaginous tissue with focal features suggestive of chronic osteomyelitis. Clinical Information Nonpressure chronic ulcer left planar foot. Gross Description Part A received in formalin with the patient's name and left flexor tendon and consists of a drake-yellow portion of tendon measuring 4.0 cm in length with a diameter of 0.5 cm. The specimen is serially sectioned. The specimen is entirely submitted cassette A1. Part B received in formalin with the patient's name and second metatarsal head left foot and consists of a left second metatarsal head measuring 2.0 x 1.5 x 1.7 cm. The articular surface is drake-white and smooth. The surgical resection margin is inked black. The specimen is serially sectioned. Human Resources Specialist sections are submitted in cassettes B1 and B2. The specimen is placed in the decal for routine processing. -------- Specimen: [id number] Received: 12/30/23 Status: GERRI Camp Num: [id number] Spec Type: Surgical Subm Dr: Obi Carroll,DPM, MS Tissues: A Tendon/Sheath (LEFT FLEXOR TENDON) B Bone Fragments - Pathologic Fracture (2ND METATARSAL HEAD LFT FOOT) Procedures: HE/3, Gross/Micro L5, Gross/Micro L3, Decalcification -------- Patient: Sander Hooks [id number] (Continued) -------- Specimen: [id number] Received: 12/30/23 (Continued) Signed (signature on file) Hill Mehta MD 01/03/24 0836 -------- Specimen: [id number] Received: 12/30/23 Status: GERRI Camp Num: [id number] Spec Type: Surgical Subm Dr: Obi Carroll,EVE, MS Tissues: A Tendon/Sheath (LEFT FLEXOR TENDON) B Bone Fragments - Pathologic Fracture (2ND METATARSAL HEAD LFT FOOT) Procedures: HE/3, Gross/Micro L5, Gross/Micro L3, Decalcification -------- Patient: Sander Hooks [id number] (Continued) -------- Specimen: [id number] Received: 12/30/23 (Continued) Microscopic Description Microscopic examination is performed. CPT Codes 77694 x2, 89913 -------- -------- Specimen: [id number] Received: 12/30/23 Status: GERRI Camp Num: [id number] Spec Type: Surgical Subm Dr: Obi Carroll,EVE, MS Tissues: A Tendon/Sheath (LEFT FLEXOR TENDON) B Bone Fragments - Pathologic Fracture (2ND METATARSAL HEAD LFT FOOT) Procedures: HE/3, Gross/Micro L5, Gross/Micro L3, Decalcification -------- Patient: Sander Hooks [id number] (Continued) -------- Signed (signature on file) Hill Mehta MD 01/03/24 0836 Normal [facility] No Panel InformationOrdered By: Obi Carroll on 12-26-2023 Acid Fast Smear [facility] AFB Specimen Processing [facility] No Panel Informationon 12-25 Fungal Smear Result \R\ Fungus Stain [facility] Gram Stain Result 1 \R\ Gram Stain Result [facility] Miscellaneous Test Comment See comment [facility] Comment on above: Specimen Source: TOE LT2 - Toe Left Second - Toe Lt 2nd - 607.100 Basophils Auto (Bld) [#/Vol] on 12-16-2023 Basophils (Bld) [#/Vol] 0.0 10 3/uL 0.0-0.1 [facility] Basophils/100 WBC Auto (Bld) on 12-16-2023 Basophils/100 WBC (Bld) 0.4 % 0.2-2.0 [facility] Eosinophils/100 WBC Auto (Bl d)on 12-16-2023 Eosinophils/100 WBC (Bld) 0.1 % Low 0.9-7.0 [facility] Erythrocyte distribution wid th Auto (RBC) [Ratio]on 12-16-2023 Erythrocyte distribution width (RBC) [Ratio] 14.8 % 11.0-15.0 [facility] Estimated glomerular filtrat ion rate (GFR) non- Americanon 12-16-2023 GFR/1.73 sq M.predicted among non-blacks MDRD (S/P/Bld) [Vol rate/Area] 40 mL/min/{1.73_m2} Low >=60 mL/min/1.73m 2 [facility] Hematocrit Auto (Bld) [Volum e fraction]on 12-16-2023 Hematocrit (Bld) [Volume fraction] 34.5 % Low 42.0-54.0 [facility] Hemoglobin [Mass/volume] in Bloodon 12-16-2023 Hemoglobin (Bld) [Mass/Vol] 11.1 g/dL Low 14.0-18.0 [facility] Laboratory - Chemistry and C hemistry - challengeon 12-16-2023 Calcium [Mass/Vol] 9.0 mg/dL 8.5-10.1 [facility] Chloride [Moles/Vol] 113 mmol/L High 98-107 [facility] CO2 [Moles/Vol] 23.7 mmol/L 21.0-32.0 [facility] Creatinine [Mass/Vol] 1.67 mg/dL High 0.70-1.30 [facility] GFR/1.73 sq M.predicted MDRD (S/P/Bld) [Vol rate/Area] 48 mL/min/{1.73_m2} Low >=60 mL/min/1.73m 2 [facility] Glucose [Mass/Vol] 106 mg/dL 74-106 [facility] Potassium [Moles/Vol] 4.7 mmol/L 3.5-5.1 [facility] Sodium [Moles/Vol] 145 mmol/L 136-145 [facility] Urea nitrogen [Mass/Vol] 29.0 mg/dL High 7.0-18.0 [facility] Urea nitrogen/Creatinine [Mass ratio] 17.4 mg/mg [facility] Laboratory - Hematology and Cell countson 12-16-2023 Immature granulocytes/100 WBC (Bld) 0.7 % High 0.0-0.5 [facility] Leukocytes [#/volume] correc ben for nucleated erythrocytes in Blood by Automated counon 12-16-2023 WBC corrected for nucl RBC Auto (Bld) [#/Vol] 6.7 10 3/uL 4.0-11.0 [facility] Lymphocytes Auto (Bld) [#/Vo l]on 12-16-2023 Lymphocytes (Bld) [#/Vol] 1.4 10 3/uL 1.2-3.8 [facility] Lymphocytes/100 WBC Auto (Bl d)on 12-16-2023 Lymphocytes/100 WBC (Bld) 21.1 % 20.5-60.0 [facility] MCH Auto (RBC) [Entitic mass ]on 12-16-2023 MCH (RBC) [Entitic mass] 32.0 pg 25.9-34.0 [facility] MCHC Auto (RBC) [Mass/Vol]on 12-16-2023 MCHC (RBC) [Mass/Vol] 32.2 g/dL 29.9-35.2 [facility] MCV Auto (RBC) [Entitic vol] on 12-16-2023 MCV (RBC) [Entitic vol] 99.4 fL High 80.0-94.0 [facility] Monocytes Auto (Bld) [#/Vol] on 12-16-2023 Monocytes (Bld) [#/Vol] 0.7 10 3/uL 0.3-0.8 [facility] Monocytes/100 WBC Auto (Bld) on 12-16-2023 Monocytes/100 WBC (Bld) 10.1 % 1.7-12.0 [facility] Neutrophils Auto (Bld) [#/Vo l]on 12-16-2023 Neutrophils (Bld) [#/Vol] 4.5 10 3/uL 1.4-6.5 [facility] Neutrophils/100 WBC Auto (Bl d)on 12-16-2023 Neutrophils/100 WBC (Bld) 67.6 % 43.0-75.0 [facility] No Panel Informationon 12-15 Eosinophils # (Auto) 0.0 10 3/uL 0.0-0.7 [facility] Immature Granulocyte # (Auto) 0.05 10 3/uL High 0.00-0.03 [facility] Platelet mean volume Auto (B ld) [Entitic vol]on 12-16-2023 Platelet mean volume (Bld) [Entitic vol] 10.7 fL 9.5-13.5 [facility] Platelets Auto (Bld) [#/Vol] on 12-16-2023 Platelets (Bld) [#/Vol] 233 10 3/uL 150-450 [facility] RBC Auto (Bld) [#/Vol]on RBC (Bld) [#/Vol] 3.47 10 6/uL Low 4.70-6.10 [facility] Serum or plasma anion gap de terminationon 12-16-2023 Anion gap [Moles/Vol] 13.0 mmol/L [facility] Albumin [Mass/volume] in Ser um or Plasmaon 12-06-2023 Albumin [Mass/Vol] 3.2 g/dL 2.9-4.4 [facility] Estimated glomerular filtrat ion rate (GFR) non- Americanon 12-06-2023 GFR/1.73 sq M.predicted among non-blacks MDRD (S/P/Bld) [Vol rate/Area] 29 mL/min/{1.73_m2} Low >=60 mL/min/1.73m 2 [facility] Hepatitis B virus surface Ab [Presence] in Serumon 12-06-2023 HBV surface Ab Ql (S) 86155.0 mIU/mL Immunity>1 0 [facility] Comment on above: Results confirmed on dilution. Status of Immunity Anti-HBs Level Inconsistent with Immunity 0.0 - 10.0Consistent with Immunity >10.0 Hepatitis B virus surface Ag [Presence] in Serum or Plasma by Immunoassayon 12-06-2023 HBV surface Ag IA Ql Negative Negative [facility] IgA [Mass/volume] in Serum o r Plasmaon 12-06-2023 IgA [Mass/Vol] 367 mg/dL 61-437 [facility] IgG [Mass/volume] in Serum o r Plasmaon 12-06-2023 IgG [Mass/Vol] 1078 mg/dL 603-1613 [facility] IgM [Mass/volume] in Serum o r Plasmaon 12-06-2023 IgM [Mass/Vol] 38 mg/dL 15-143 [facility] Immunoglobulin light chains. kappa.free [Mass/volume] in Serumon 12-06-2023 Immunoglobulin light chains.kappa.free (S) [Mass/Vol] 34.5 mg/L Abnormal 3.3-19.4 [facility] Immunoglobulin light chains. kappa.free/Immunoglobulin light chains.lambda.free [Luis 12-06-2023 Immunoglobulin light chains.kappa.free/Immuno globulin light chains.lambda.free (S) [Mass ratio] 1.90 Abnormal 0.26-1.65 [facility] Comment on above: Performed at: [address] [id number] Director: Lb Kaur PhD, Phone: [phone] Immunoglobulin light chains. lambda.free [Mass/volume] in Serum or Plasmaon 12-06-2023 Immunoglobulin light chains.lambda.free [Mass/Vol] 18.2 mg/L 5.7-26.3 [facility] Laboratory - Chemistry and C hemistry - challengeon 12-06-2023 Calcium [Mass/Vol] 8.7 mg/dL 8.5-10.1 [facility] Chloride [Moles/Vol] 107 mmol/L 98-107 [facility] CO2 [Moles/Vol] 22.2 mmol/L 21.0-32.0 [facility] Creatinine [Mass/Vol] 2.21 mg/dL High 0.70-1.30 [facility] GFR/1.73 sq M.predicted MDRD (S/P/Bld) [Vol rate/Area] 35 mL/min/{1.73_m2} Low >=60 mL/min/1.73m 2 [facility] Glucose [Mass/Vol] 91 mg/dL 74-106 [facility] Potassium [Moles/Vol] 4.1 mmol/L 3.5-5.1 [facility] Sodium [Moles/Vol] 138 mmol/L 136-145 [facility] Urea nitrogen [Mass/Vol] 51.0 mg/dL High 7.0-18.0 [facility] Urea nitrogen/Creatinine [Mass ratio] 23.1 mg/mg [facility] Bilirubin Ql (U) Negative NEGATIVE [facility] Glucose (U) [Mass/Vol] Negative NEGATIVE [facility] Ketones Ql (U) Negative NEGATIVE [facility] pH (U) 5.5 [pH] 5.0-9.0 [facility] Specific gravity (U) [Rel density] 1.025 1.005-1.025 [facility] Urobilinogen Qn (U) 0.2 {Mirta'U}/dL 0.2-1.0 [facility] Laboratory - Specimen inform ationon 12-06-2023 Appearance (U) CLEAR CLEAR [facility] Color (U) LT. YELLOW YELLOW [facility] Laboratory - Urinalysison Leukocyte esterase Test strip Ql (U) Negative NEGATIVE [facility] Mucus Ql (Urine sed) NONE SEEN NONE SEEN [facility] Nitrite Ql (U) Negative NEGATIVE [facility] Protein Ql (U) Negative NEG/TRACE [facility] No Panel Informationon 12-05 Hepatitis B Core Total Antibody Negative Negative [facility] Comment on above: Performed at: - [facility] [place] [id number] Director: Lb Kaur PhD, Phone: [phone] Protein Electrophoresis M-Alexandru Not Observed g/dL Not Observed [facility] Protein Electrophoresis Note Comment . [facility] Comment on above: Protein electrophore sis scan will follow via computer,mail, or assistant professor of physics delivery. Urine Bacteria NONE SEEN #/HPF NONE SEEN [facility] Urine Occult Blood Negative NEGATIVE [facility] Urine Other Casts NONE SEEN #/LPF NONE SEEN [facility] Urine Other Crystals None Seen #/HPF None Seen [facility] Urine RBC 0-2 #/HPF 0-2 [facility] Urine Squamous Epithelial Cells FEW #/LPF Abnormal NONE/RARE [facility] Urine WBC NONE SEEN #/HPF NONE SEEN [facility] Protein [Mass/volume] in Ser um or Plasmaon 12-06-2023 Protein [Mass/Vol] 6.3 g/dL 6.0-8.5 [facility] Serum globulin measurement ( mass/volume)on 12-06-2023 Globulin (S) [Mass/Vol] 3.1 g/dL 2.2-3.9 [facility] Serum or plasma albumin/glob ulin mass ratioon 12-06-2023 Albumin/Globulin [Mass ratio] 1.1 {ratio} 0.7-1.7 [facility] Serum or plasma alpha 1 glob ulin measurement by electrophoresis (mass/volume)on 12-06-2023 Alpha 1 globulin Elph [Mass/Vol] 0.3 g/dL 0.0-0.4 [facility] Serum or plasma alpha 2 glob ulin measurement by electrophoresis (mass/volume)on 12-06-2023 Alpha 2 globulin Elph [Mass/Vol] 0.8 g/dL 0.4-1.0 [facility] Serum or plasma anion gap de terminationon 12-06-2023 Anion gap [Moles/Vol] 12.9 mmol/L [facility] Serum or plasma beta globuli n measurement by electrophoresis (mass/volume)on 12-06-2023 Beta globulin Elph [Mass/Vol] 1.0 g/dL 0.7-1.3 [facility] Serum or plasma gamma globul in measurement by electrophoresis (mass/volume)on 12-06-2023 Gamma globulin Elph [Mass/Vol] 1.0 g/dL 0.4-1.8 [facility] Serum or plasma immunoelectr ophoresis interpretationon 12-06-2023 Interpretation IEP [Interp] Comment . [facility] Comment on above: No monoclonality det ected. No Panel InformationOrdered By: Brian Salgado on 11-08-2023 Aerobic Culture [facility] Anaerobic Culture [facility] Basophils Auto (Bld) [#/Vol] on 10-30-2023 Basophils (Bld) [#/Vol] 0.1 10 3/uL 0.0-0.1 [facility] Basophils/100 WBC Auto (Bld) on 10-30-2023 Basophils/100 WBC (Bld) 0.8 % 0.2-2.0 [facility] Cholesterol in LDL Calc [Mas s/Vol]on 10-30-2023 Cholesterol in LDL [Mass/Vol] 71.0 mg/dL [facility] Comment on above: <100 mg/dl [id number] 0-129 mg/dl NEAR OR ABOVE [id number] mg/dl BORDERLINE [id number] mg/dl HIGH>190 mg/dl VERY HIGH Cholesterol in VLDL Calc [Ma ss/Vol]on 10-30-2023 Cholesterol in VLDL [Mass/Vol] 19.4 mg/dL [facility] Eosinophils/100 WBC Auto (Bl d)on 10-30-2023 Eosinophils/100 WBC (Bld) 0.0 % Low 0.9-7.0 [facility] Erythrocyte distribution wid th Auto (RBC) [Ratio]on 10-30-2023 Erythrocyte distribution width (RBC) [Ratio] 13.7 % 11.0-15.0 [facility] Estimated glomerular filtrat ion rate (GFR) non- Americanon 10-30-2023 GFR/1.73 sq M.predicted among non-blacks MDRD (S/P/Bld) [Vol rate/Area] 34 mL/min/{1.73_m2} Low >=60 [facility] Globulin Calc (S) [Mass/Vol] on 10-30-2023 Globulin (S) [Mass/Vol] 3.4 g/dL [facility] Glucose mean value [Mass/vol ume] in Blood Estimated from glycated hemoglobinon 10-30-2023 Average glucose Estimated from glycated hemoglobin (Bld) [Mass/Vol] 126 mg/dL [facility] Hematocrit Auto (Bld) [Volum e fraction]on 10-30-2023 Hematocrit (Bld) [Volume fraction] 38.8 % Low 42.0-54.0 [facility] Hemoglobin [Mass/volume] in Bloodon 10-30-2023 Hemoglobin (Bld) [Mass/Vol] 12.8 g/dL Low 14.0-18.0 [facility] Laboratory - Chemistry and C hemistry - challengeon 10-30-2023 Albumin [Mass/Vol] 3.2 g/dL Low 3.4-5.0 [facility] ALP [Catalytic activity/Vol] 31 U/L Low 46-116 [facility] ALT [Catalytic activity/Vol] 22 U/L 16-63 [facility] AST [Catalytic activity/Vol] 22 U/L 15-37 [facility] Bilirubin [Mass/Vol] 0.5 mg/dL 0.2-1.0 [facility] Calcium [Mass/Vol] 9.4 mg/dL 8.5-10.1 [facility] Chloride [Moles/Vol] 109 mmol/L High 98-107 [facility] Cholesterol [Mass/Vol] 116 mg/dL <=200 [facility] Cholesterol in HDL [Mass/Vol] 26 mg/dL Low 40-60 [facility] Comment on above: > or =60 mg/dl - LOW CARDIOVASCULAR RISK<40 mg/dl - HIGH CARDIOVASCULAR RISK CO2 [Moles/Vol] 24.0 mmol/L 21.0-32.0 [facility] Creatinine [Mass/Vol] 1.92 mg/dL High 0.70-1.30 [facility] GFR/1.73 sq M.predicted MDRD (S/P/Bld) [Vol rate/Area] 41 mL/min/{1.73_m2} Low >=60 [facility] Glucose [Mass/Vol] 118 mg/dL High 74-106 [facility] Potassium [Moles/Vol] 5.4 mmol/L High 3.5-5.1 [facility] Protein [Mass/Vol] 6.6 g/dL 6.4-8.2 [facility] Sodium [Moles/Vol] 142 mmol/L 136-145 [facility] Triglyceride [Mass/Vol] 97 mg/dL <=150 [facility] Urea nitrogen [Mass/Vol] 35.0 mg/dL High 7.0-18.0 [facility] Urea nitrogen/Creatinine [Mass ratio] 18.2 mg/mg [facility] Laboratory - Hematology and Cell countson 10-30-2023 HbA1c (Bld) [Mass fraction] 6.0 % 4.5-6.2 [facility] Comment on above: ADA RECOMMENDED LIMI T 4.0 - 6.0ADA THERAPEUTIC TARGET < 7.0ACTION SUGGESTED> 7.0 Immature granulocytes/100 WBC (Bld) 0.6 % High 0.0-0.5 [facility] Laboratory - Urinalysison Protein (U) [Mass/Vol] 15.4 mg/dL High <=11.9 [facility] Leukocytes [#/volume] correc ben for nucleated erythrocytes in Blood by Automated counon 10-30-2023 WBC corrected for nucl RBC Auto (Bld) [#/Vol] 6.6 10 3/uL 4.0-11.0 [facility] Lymphocytes Auto (Bld) [#/Vo l]on 10-30-2023 Lymphocytes (Bld) [#/Vol] 2.1 10 3/uL 1.2-3.8 [facility] Lymphocytes/100 WBC Auto (Bl d)on 10-30-2023 Lymphocytes/100 WBC (Bld) 31.4 % 20.5-60.0 [facility] MCH Auto (RBC) [Entitic mass ]on 10-30-2023 MCH (RBC) [Entitic mass] 31.7 pg 25.9-34.0 [facility] MCHC Auto (RBC) [Mass/Vol]on 10-30-2023 MCHC (RBC) [Mass/Vol] 33.0 g/dL 29.9-35.2 [facility] MCV Auto (RBC) [Entitic vol] on 10-30-2023 MCV (RBC) [Entitic vol] 96.0 fL High 80.0-94.0 [facility] Monocytes Auto (Bld) [#/Vol] on 10-30-2023 Monocytes (Bld) [#/Vol] 0.6 10 3/uL 0.3-0.8 [facility] Monocytes/100 WBC Auto (Bld) on 10-30-2023 Monocytes/100 WBC (Bld) 9.2 % 1.7-12.0 [facility] Neutrophils Auto (Bld) [#/Vo l]on 10-30-2023 Neutrophils (Bld) [#/Vol] 3.8 10 3/uL 1.4-6.5 [facility] Neutrophils/100 WBC Auto (Bl d)on 10-30-2023 Neutrophils/100 WBC (Bld) 58.0 % 43.0-75.0 [facility] No Panel Informationon 10-29 Urine Random Creatinine 148.56 mg/dL 20.00-300. 00 [facility] Eosinophils # (Auto) 0.0 10 3/uL 0.0-0.7 [facility] Immature Granulocyte # (Auto) 0.04 10 3/uL High 0.00-0.03 [facility] Prostate Specific Antigen Screen 1.04 ng/mL <=4.00 [facility] Platelet mean volume Auto (B ld) [Entitic vol]on 10-30-2023 Platelet mean volume (Bld) [Entitic vol] 10.1 fL 9.5-13.5 [facility] Platelets Auto (Bld) [#/Vol] on 10-30-2023 Platelets (Bld) [#/Vol] 221 10 3/uL 150-450 [facility] RBC Auto (Bld) [#/Vol]on RBC (Bld) [#/Vol] 4.04 10 6/uL Low 4.70-6.10 [facility] Serum or plasma albumin/glob ulin mass ratioon 10-30-2023 Albumin/Globulin [Mass ratio] 0.9 {ratio} [facility] Serum or plasma anion gap de terminationon 10-30-2023 Anion gap [Moles/Vol] 14.4 mmol/L [facility] Serum or plasma total choles terol/high density lipoprotein (HDL) cholesterol mass gene 10-30-2023 Cholesterol.total/Choles terol in HDL [Mass ratio] 4.5 {ratio} [facility] Comment on above: 3.3 - 4.4 LOW RISK4. 4 - 7.1 AVERAGE RISK7.1 - 11.0 MODERATE RISK>11.0 HIGH RISK Urine protein/creatinine rat ioon 10-30-2023 Protein/Creatinine (U) [Ratio] 0.10 [facility] GLYCOHEMOGLOBIN A1Con 2021 ADA RECOMMENDATION SEE BELOW Normal [facility] Comment on above: Result Comment: ADA RECOMMENDED LIMIT 4.0 - 6.0 ADA THERAPEUTIC TARGET < 7.0 ACTION SUGGESTED > 7.0 Performed By: #### A 1C #### [facility] [address] [address] [address] Petros Perez Glucose [Mass/Vol] 143 mg/dL Normal [facility] Comment on above: Performed By: #### A 1C #### [facility] [address] [place] [address] Dr. Petros Perez HbA1c (Bld) [Mass fraction] 6.6 % Critically high 4.5-6.2 [facility] Comment on above: Performed By: #### A 1C #### [facility] [address] [place] [address] Dr. Petros Perez CBC AUTO DIFFon 08-15-2021 BASO # 0.0 103/ul Normal 0.0-0.1 [facility] Comment on above: Performed By: #### C BC #### [facility] [address] [place] [address] Dr. Petros Perez Basophils/100 WBC (Bld) 0.3 % Normal 0.2-2.0 [facility] Comment on above: Performed By: #### C BC #### [facility] [address] [place] [address] Dr. Petros Perez EO # 0.1 103/ul Normal 0.0-0.7 [facility] Comment on above: Performed By: #### C BC #### [facility] [address] [place] [address] Dr. Petros Perez Eosinophils/100 WBC (Bld) 2.2 % Normal 0.9-7.0 [facility] Comment on above: Performed By: #### C BC #### [facility] [address] [place] [address] Dr. Petros Perez Erythrocyte distribution width (RBC) [Ratio] 13.4 % Normal 11.0-15.0 [facility] Comment on above: Performed By: #### C BC #### [facility] [address] [place] [address] Dr. Petros Perez Hematocrit (Bld) [Volume fraction] 42.8 % Normal 42.0-54.0 [facility] Comment on above: Performed By: #### C BC #### [facility] [address] [place] [address] Dr. Petros Perez Hemoglobin (Bld) [Mass/Vol] 14.1 g/dL Normal 14.0-18.0 [facility] Comment on above: Performed By: #### C BC #### [facility] [address] [place] [address] Dr. Petros Perez IG # 0.04 10e3/ul Critically high 0.00-0.03 [facility] Comment on above: Performed By: #### C BC #### [facility] [address] [place] [address] Dr. Petros Perez IG % 0.7 % Critically high 0.0-0.5 [facility] Comment on above: Performed By: #### C BC #### [facility] [address] [place] [address] Dr. Petros Perez LYMPH # 2.2 103/ul Normal 1.2-3.8 [facility] Comment on above: Performed By: #### C BC #### [facility] [address] [place] [address] Dr. Petros Perez Lymphocytes/100 WBC (Bld) 38.2 % Normal 20.5-60.0 [facility] Comment on above: Performed By: #### C BC #### [facility] [address] [place] [address] Dr. Petros Perez MANUAL DIFF REQ NO Normal [facility] Comment on above: Performed By: #### C BC #### [facility] [address] [place] [address] Dr. Petros Perez MCH (RBC) [Entitic mass] 30.6 pg Normal 25.9-34.0 [facility] Comment on above: Performed By: #### C BC #### [facility] [address] [place] [address] Dr. Petros Perez MCHC (RBC) [Mass/Vol] 32.9 g/dL Normal 29.9-35.2 [facility] Comment on above: Performed By: #### C BC #### [facility] [address] [place] [address] Dr. Petros Perez MCV (RBC) [Entitic vol] 92.8 fL Normal 80.0-94.0 [facility] Comment on above: Performed By: #### C BC #### [facility] [address] [address] [address] Petros Perez MONO # 0.5 103/ul Normal 0.3-0.8 [facility] Comment on above: Performed By: #### C BC #### [facility] [address] [address] [address] Petros Perez Monocytes/100 WBC (Bld) 8.6 % Normal 1.7-12.0 [facility] Comment on above: Performed By: #### C BC #### [facility] [address] [address] [address] Petros Perez NEUT # 2.9 103/ul Normal 1.4-6.5 [facility] Comment on above: Performed By: #### C BC #### [facility] [address] [place] [address] Dr. Petros Perez Neutrophils/100 WBC (Bld) 50.0 % Normal 43.0-75.0 [facility] Comment on above: Performed By: #### C BC #### [facility] [address] [address] [address] Petros Perez Platelet mean volume (Bld) [Entitic vol] 10.2 fL Normal 9.5-13.5 [facility] Comment on above: Performed By: #### C BC #### [facility] [address] [address] [address] Petros Perez PLT 219 103/ul Normal 150-450 [facility] Comment on above: Performed By: #### C BC #### [facility] [address] [address] [address] Petros Perez RBC 4.61 106/ul Critically low 4.70-6.10 [facility] Comment on above: Performed By: #### C BC #### [facility] [address] [address] [address] Petros Perez WBC 5.8 103/ul Normal 4.0-11.0 [facility] Comment on above: Performed By: #### C BC #### [facility] [address] [address] [address] Petros Perez GLYCOHEMOGLOBIN A1Con 2021 ADA RECOMMENDATION SEE BELOW Normal [facility] Comment on above: Result Comment: ADA RECOMMENDED LIMIT 4.0 - 6.0 ADA THERAPEUTIC TARGET < 7.0 ACTION SUGGESTED > 7.0 Performed By: #### A 1C #### [facility] [address] [address] [address] Petros Perez Glucose [Mass/Vol] 163 mg/dL Normal [facility] Comment on above: Performed By: #### A 1C #### [facility] [address] [place] [address] Dr. Petros Perez HbA1c (Bld) [Mass fraction] 7.3 % Critically high 4.5-6.2 [facility] Comment on above: Performed By: #### A 1C #### [facility] [address] [place] [address] Dr. Petros Perez LIPID PROFILEon 08-15-2021 CHOL-HDL RATIO NORM SEE BELOW Normal [facility] Comment on above: Result Comment: 3.3 - 4.4 LOW RISK 4.4 - 7.1 AVERAGE RISK 7.1 - 11.0 MODERATE RISK >11.0 HIGH RISK Performed By: #### L IPID, BMP #### [facility] [address] [place] [address] Dr. Petros Perez Cholesterol [Mass/Vol] 148 mg/dL Normal <=200 Th [facility] Comment on above: Performed By: #### L IPID, BMP #### [facility] [address] [place] [address] Dr. Petros Perez Cholesterol in HDL [Mass/Vol] 33 mg/dL Critically low 40-60 [facility] Comment on above: Performed By: #### L IPID, BMP #### [facility] [address] [place] [address] Dr. Petros Perez Cholesterol in LDL [Mass/Vol] 95.8 mg/dL Normal [facility] Comment on above: Performed By: #### L IPID, BMP #### [facility] [address] [place] [address] Dr. Petros Perez Cholesterol.total/Choles terol in HDL [Mass ratio] 4.5 {ratio} Normal [facility] Comment on above: Performed By: #### L IPID, BMP #### [facility] [address] [place] [address] Dr. Petros Perez HDL NORMAL > or = 60 mg/dl - LO W CARDIOVASCULAR RISK <40 mg/dl - HIGH CARDIOVASCULAR RISK Normal [facility] Comment on above: Performed By: #### L IPID, BMP #### [facility] [address] [place] [address] Dr. Petros Perez LDL CALC NORMAL SEE BELOW Normal [facility] Comment on above: Result Comment: <100 mg/dl OPTIMAL 100 - 129 mg/dl NEAR OR ABOVE OPTIMAL 130 - 159 mg/dl BORDERLINE HIGH 160 - 189 mg/dl HIGH >190 mg/dl VERY HIGH Performed By: #### L IPID, BMP #### [facility] [address] [place] [address] Dr. Petros Perez Triglyceride [Mass/Vol] 96 mg/dL Normal <=150 T [facility] Comment on above: Performed By: #### L IPID, BMP #### [facility] [address] [place] [address] Dr. Petros Perez VLDL CALC 19.2 mg/dL Normal [facility] Comment on above: Performed By: #### L IPID, BMP #### [facility] [address] [place] [address] Dr. Petros Perez MICROALBUMIN, RAND URon - mALB 3.2 mg/L Normal <=30.0 [facility] Comment on above: Performed By: #### M ALBR #### [facility] [address] [place] [address] Dr. Petros Perez PROF CHEM 8 (BAS METB)on Anion gap [Moles/Vol] 13.1 mmol/L Normal [facility] Comment on above: Performed By: #### L IPID, BMP #### [facility] [address] [place], [place] [id number] Dr. Petros Perez Calcium [Mass/Vol] 9.2 mg/dL Normal 8.5-10.1 [facility] Comment on above: Performed By: #### L IPID, BMP #### [facility] [address] [place] [address] Dr. Petros Perez Chloride [Moles/Vol] 106 mmol/L Normal 98-107 [facility] Comment on above: Performed By: #### L IPID, BMP #### [facility] [address] [place] [address] Dr. Petros Perez CO2 [Moles/Vol] 24.1 mmol/L Normal 21.0-32.0 [facility] Comment on above: Performed By: #### L IPID, BMP #### [facility] [address] [place] [address] Dr. Petros Perez Creatinine [Mass/Vol] 1.56 mg/dL Critically high 0.70-1.30 [facility] Comment on above: Performed By: #### L IPID, BMP #### [facility] [address] [place] [address] Dr. Petros Perez EGFR-AF SALVADOREAN 53 mL/min/1.73m2 Critically low >=60 [facility] Comment on above: Performed By: #### L IPID, BMP #### [facility] [address] [place] [address] Dr. Petros Perez EGFR-NON AF SALVADOREAN 43 mL/min/1.73m2 Critically low >=60 [facility] Comment on above: Performed By: #### L IPID, BMP #### [facility] [address] [place] [address] Dr. Petros Perez Glucose [Mass/Vol] 139 mg/dL Critically high 74-106 [facility] Comment on above: Performed By: #### L IPID, BMP #### [facility] [address] [place] [address] Dr. Petros Perez Potassium [Moles/Vol] 4.2 mmol/L Normal 3.5-5.1 [facility] Comment on above: Performed By: #### L IPID, BMP #### [facility] [address] [address] [address] Petros Perez Sodium [Moles/Vol] 139 mmol/L Normal 136-145 [facility] Comment on above: Performed By: #### L IPID, BMP #### [facility] [address] [place] [address] Dr. Petros Perez Urea nitrogen [Mass/Vol] 25.0 mg/dL Critically high 7.0-18 .0 [facility] Comment on above: Performed By: #### L IPID, BMP #### [facility] [address] [address] [address] Petros Perez Urea nitrogen/Creatinine [Mass ratio] 16.0 mg/mg Normal [facility] Comment on above: Performed By: #### L IPID, BMP #### [facility] [address] [place] [address] Dr. Petros Perez GLYCOHEMOGLOBIN A1Con 2021 ADA RECOMMENDATION ADA THERAPEUTIC TARGET 6.0 - 7.0 ACTION SUGGESTED > 7.0 Normal [facility] Comment on above: Performed By: #### A 1C #### [facility] [address] [place] [address] Dr. Petros Perez Glucose [Mass/Vol] 180 mg/dL Normal [facility] Comment on above: Performed By: #### A 1C #### [facility] [address] [place] [address] Dr. Petros Perez HbA1c (Bld) [Mass fraction] 7.9 % Critically high <=6.0 [facility] Comment on above: Performed By: #### A 1C #### [facility] [address] [address] [address] Petros Perez Consent for COVID Vaccineon 05-14-2020 SARS-CoV-2 (COVID-19) RNA EUN+probe Ql (Unsp spec) [id number]# 1.00CD:127 Normal [facility] Consent for Treatmenton 05-02 Consent for Treatment ..121..2020 030 [id number]# 1.00CD:127 [facility] Coding Summary.on 05-13-2020 Coding Summary. [...] Saritha Simmons Date Saved: 05/13/2020 11:13 am [facility] Vital Signs Date Time Vital Sign Value Performing Clinician Facility 12-20-2023 14:48-0400 Body height 182.88 cm [facility] 12-20-2023 14:48-0400 Body mass index (BMI) [Ratio] 33.5 kg/m2 [facility] 12-20-2023 14:48-0400 Body weight 112.2 kg [facility] 12-20-2023 14:48-0400 Diastolic blood pressure 64 mm[Hg] [facility] 12-20-2023 14:48-0400 Heart rate 69 /min [facility] 12-20-2023 14:48-0400 Respiratory rate 12 /min [facility] 12-20-2023 14:48-0400 Systolic blood pressure 159 mm[Hg] [facility] 12-12-2023 09:25-0400 Body height 182.88 cm [facility] 12-12-2023 09:25-0400 Body mass index (BMI) [Ratio] 33.7 kg/m2 [facility] 12-12-2023 09:25-0400 Body weight 112.94 kg [facility] 12-12-2023 09:25-0400 Diastolic blood pressure 71 mm[Hg] [facility] 12-12-2023 09:25-0400 Heart rate 76 /min [facility] 12-12-2023 09:25-0400 Respiratory rate 12 /min [facility] 12-12-2023 09:25-0400 Systolic blood pressure 149 mm[Hg] [facility] 09-10-2023 09:28-0400 Body height 182.88 cm [facility] 09-10-2023 09:28-0400 Body mass index (BMI) [Ratio] 32.3 kg/m2 [facility] 09-10-2023 09:28-0400 Body weight 108.12 kg [facility] 09-10-2023 09:28-0400 Diastolic blood pressure 61 mm[Hg] [facility] 09-10-2023 09:28-0400 Heart rate 56 /min [facility] 09-10-2023 09:28-0400 Respiratory rate 12 /min [facility] 09-10-2023 09:28-0400 Systolic blood pressure 123 mm[Hg] [facility] 06-11-2023 09:02-0400 Body height 182.88 cm [facility] 06-11-2023 09:02-0400 Body mass index (BMI) [Ratio] 33 kg/m2 [facility] 06-11-2023 09:02-0400 Body weight 110.67 kg [facility] 06-11-2023 09:02-0400 Diastolic blood pressure 65 mm[Hg] [facility] 06-11-2023 09:02-0400 Heart rate 62 /min [facility] 06-11-2023 09:02-0400 Respiratory rate 12 /min [facility] 06-11-2023 09:02-0400 Systolic blood pressure 149 mm[Hg] [facility] 11-08-2022 10:00-0400 Body height 182.88 cm Brian Ball Other [employer] Other 11-08-2022 10:00-0400 Body mass index (BMI) [Ratio] 31.27 kg/m2 Brian Ball Other [employer] Other 11-08-2022 10:00-0400 Body weight 104.6 kg Brian Ball Other [employer] Other 11-08-2022 10:00-0400 Diastolic blood pressure 72 mm[Hg] Brian Ball Other [employer] Other 11-08-2022 10:00-0400 Respiratory rate 12 /min Brian Ball Other [employer] Other 11-08-2022 10:00-0400 Systolic blood pressure 148 mm[Hg] Brian Ball Other [employer] Other 08-09-2022 10:00-0400 Body height 182.88 cm Brian Ball Other [employer] Other 08-09-2022 10:00-0400 Body mass index (BMI) [Ratio] 31.46 kg/m2 Brian Ball Other [employer] Other 08-09-2022 10:00-0400 Body weight 105.24 kg Brian Ball Other [employer] Other 08-09-2022 10:00-0400 Diastolic blood pressure 75 mm[Hg] Brian Ball Other [employer] Other 08-09-2022 10:00-0400 Respiratory rate 12 /min Brian Ball Other [employer] Other 08-09-2022 10:00-0400 Systolic blood pressure 170 mm[Hg] Brian Ball Other [employer] Other Encounters Encounter Date Encounter Type Care Provider Facility Start: 12-26-2023 Non-patient / Non-visit DPM Obi Carroll Work Phone: [facility] [employer] Work Phone: Start: 12-26-2023 End: 12-26-2023 ambulatory Obi Carroll [facility] Work Phone: Start: 12-26-2023 End: 12-26-2023 Departed Referred DPM Obi Carroll Work Phone: [facility] Start: 12-20-2023 End: 12-20-2023 ambulatory [facility] Work Phone: Start: 12-20-2023 End: 12-20-2023 Patient encounter procedure [facility] Work Phone: Start: 12-19-2023 Patient encounter status [facility] Start: 12-16-2023 Non-patient / Non-visit [facility] Work Phone: Start: 12-12-2023 End: 12-12-2023 ambulatory [facility] Work Phone: Start: 12-12-2023 End: 12-12-2023 Patient encounter procedure [facility] Work Phone: Start: 12-06-2023 Non-patient / Non-visit [facility] Work Phone: Start: 11-08-2023 Non-patient / Non-visit [facility] Work Phone: Start: 10-30-2023 Non-patient / Non-visit [facility] Work Phone: Start: 09-10-2023 End: 09-10-2023 ambulatory [facility] Work Phone: Start: 09-10-2023 End: 09-10-2023 Patient encounter procedure [facility] Work Phone: Start: 06-11-2023 End: 06-11-2023 ambulatory [facility] Work Phone: Start: 06-11-2023 End: 06-11-2023 Patient encounter procedure [facility] Work Phone: Start: 11-08-2022 End: 11-08-2022 ambulatory Brian Salgado Other [employer] Other Start: 11-08-2022 Office outpatient visit 25 minutes Brian Salgado [facility] Start: 09-13-2022 End: 09-13-2022 ambulatory Brian Salgado Other [employer] Other Start: 09-13-2022 Telephone encounter Brian Salgado [facility] Start: 08-09-2022 End: 08-09-2022 ambulatory Brian Salgado Other [employer] Other Start: 08-09-2022 Patient encounter procedure Brian Salgado [facility] Start: 12-27-2021 End: 12-28-[address] BRIAN SALGADO Facility:[facility] Start: 08-15-2021 End: 08-16-[address] BRIAN SALGADO Facility:[facility] Start: 04-25-2021 End: 04-26-[address] BRIAN SALGADO Facility:[facility] Procedures Date Procedure Procedure Detail Performing Clinician Start: 12-26-2023 Acid Fast Smear DPM Pet [facility] [place][Note 2] Work Phone: Start: 12-26-2023 AFB Specimen Processing DPM [facility] Work Phone: Start: 11-08-2023 Aerobic Culture Start: 11-08-2023 Anaerobic Culture Start: 08-15-[address] CAROLE [facility] [place] Comment on above: Performed By: #### P [facility] #### [facility] [address] [place] [address] Dr. Petros Perez Plan of Treatment Date Care Activity Detail Author Start: 12-26-2023 Acid Fast Culture Acid Fast Culture [facility] Start: 12-12-2023 Patient referral [facility] Work Phone: Comprehensive metabo lic 2000 panel - Serum or Plasma [facility] Patient referral [facility] Work Phone: [facility] Immunizations Immunization Date Immunization Notes Care Provider Fa kaitlin 01-21-2023 influenza virus vaccine, unspecified formulation [facility] 11-21-2021 influenza virus vaccine, split virus (incl. purified surface antigen) Brian Salgado Other [facility] [employer] Other 11-21-2021 influenza virus vaccine, unspecified formulation [facility] 11-21-2021 influenza, high dose seasonal, preservative-free Brian Salgado Other [facility] [employer] Other 02-22-2021 COVID-19 Vaccine Pfi zer - Documentation Purposes Only Brian Salgado Other [facility] 12-30-2020 influenza virus vaccine, split virus (incl. purified surface antigen) Brian Salgado Other [facility] [employer] Other 12-30-2020 influenza virus vaccine, unspecified formulation [facility] 05-06-2020 COVID-19 Vaccine Slim - Documentation Purposes Only Brian Salgado Other [facility] 01-12-2020 influenza virus vaccine, split virus (incl. purified surface antigen) Brian Salgado Other [facility] [employer] Other 01-12-2020 influenza virus vaccine, unspecified formulation [facility] 01-13-2019 influenza virus vaccine, split virus (incl. purified surface antigen) Brian Salgado Other [facility] [employer] Other 01-13-2019 influenza virus vaccine, unspecified formulation [facility] 12-02-2017 influenza virus vaccine, split virus (incl. purified surface antigen) Brian Salgado Other [facility] [employer] Other 12-02-2017 influenza virus vaccine, unspecified formulation [facility] 12-27-2016 influenza virus vaccine, split virus (incl. purified surface antigen) Brian Salgado Other [facility] [employer] Other 12-27-2016 influenza virus vaccine, unspecified formulation [facility] 12-22-2015 influenza virus vaccine, split virus (incl. purified surface antigen) Brian Salgado Other [facility] [employer] Other 12-22-2015 influenza virus vaccine, unspecified formulation [facility] 03-15-2015 pneumococcal conjuga te vaccine, 13 valent Brian Salgado Other [facility] 12-07-2014 influenza virus vaccine, split virus (incl. purified surface antigen) Brian Salgado Other [facility] [employer] Other 12-07-2014 influenza virus vaccine, unspecified formulation [facility] 11-10-2013 tetanus and diphther ia toxoids, adsorbed, preservative free, for adult use (5 Lf of tetanus toxoid and 2 Lf of diphtheria toxoid) Brian Salgado Other [facility] 12-10-2012 tetanus and diphther ia toxoids, adsorbed, preservative free, for adult use (5 Lf of tetanus toxoid and 2 Lf of diphtheria toxoid) Brian Salgado Other [facility] 02-14-2011 pneumococcal polysaccharide vaccine, 23 valent Brian Salgado Other [facility] Payers Date Payer Category Payer Self-pay 1960 Medicare [id number] 1960 Unknown [id number] 1945 Unknown [id number] [id number] [id number] 1945 Unknown [id number] 2.16.84 [id number] 1945 Unknown [id number] [id number] [id number] Unknown [id number] Social History Date Type Detail Facility Sex Assigned At [facility] [employer] Other Start: 1945 Sex Assigned At Male [facility] Evaluation note 11-08-2022 Note Date & [...] < 30 Increase exercise and reduce calories. [employer] Other Evaluation note 08-09-2022 Note Date & [...] High risk medication use (ICD-10 - Z79.899) [employer] Other Evaluation note Note Date & Type Note Facility Evaluation note No Information [employer] Other Evaluation note Note Date & Type Note Facility Evaluation note Diagnosis Onset Date Chronic kidney disease acute Elevated cholesterol acute Hypertension acute Type 2 diabetes mellitus wit h diabetic polyneuropathy acute Type 2 diabetes mellitus with hyperglycemia acute [facility] Work Phone: Evaluation note Note Date & Type Note Facility Evaluation note Diagnosis Onset Date Chronic kidney disease acute Chronic venous insufficiency of lower extremity acute Elevated cholesterol acute Hypertension acute Screening PSA (prostate specific antigen) acute Type 2 diabetes mellitus wit h diabetic polyneuropathy acute Type 2 diabetes mellitus with hyperglycemia acute Medicare annual wellness visit, subsequent noneactive [facility] Work Phone: Evaluation note Note Date & Type Note Facility Evaluation note Diagnosis Onset Date Chronic kidney disease acute Chronic venous insufficiency of lower extremity acute Elevated cholesterol acute Hypertension acute Type 2 diabetes mellitus wit h diabetic polyneuropathy acute Type 2 diabetes mellitus with hyperglycemia acute [facility] Work Phone: Evaluation note Note Date [...] diabetes mellitus with hyperglycemia acute [facility] Work Phone: History general Narrative - [...] History APPENDECTOMY Hospitalization History SEE SURGICAL HX [facility] [employer] Other Summary Purpose Family History No Family History Records FoundNo Family History Records FoundNo Family History Records Found Advance Directives No Advanced Directives Records Found Advance Directive Response Recorded Date/ Time Advance [...] medicine Type 2 diabetes mellitus with hyperglycemia Chief Complaint 3 MONTH F/U Pre-surgical Clearance ulcer left planar foot Reason for Visit Chronic kidney disea se [...] content) No Status Records FoundNo Status Records FoundNo Status Records Found INFORMATION SOURCE (unrecogn ized section and content) DATE CREATED AUTHOR 08/06/2020 [facility] DATE CREATED AUTHOR AUTHOR'S ORGANIZ ATION 12/31/2021 [facility] DATE CREATED AUTHOR AUTHOR'S ORGANIZ ATION 01/05/2024 [facility] REASON FOR VISIT (unrecogniz ed section and content) WELLNESSLab [facility]3 [facility] Care Teams (unrecognized sec tion and content) Team Status: Active Member Role Status Dates Brian Salgado , DO Primary Care Provider Active Team Status: Active Member Role Status Dates Brian Qamar , DO Primary Care Provide r, Attending Provider Active Start: October 30, 2023 Team Status: Active Member Role Status Dates Brian Qamar , DO Primary Care Provide r, Attending [...] December 20, 2023 End: December 20, 2023 Team Status: Active Member Role Status Luis Salgado , DO Attending Provider Active Sta rt: December 16, 2023 Team Status: Inactive Member Role Status Luis Carroll DPM MS Attending Provider Active Start: December 26, 2023 End: December 26, 2023 Team Status: Active Member Role Status Luis Salgado , DO Primary Care Provider Active Start: December 26, 2023 Obi Carroll DPM MS Attending Provider Active Start: December 26, 2023 Goals (unrecognized section and content) Goals [...] BE BASED ON THE PRIMARY CLINICAL RECORDS. [facility]. provides no warranty or guarantee of the accuracy or completeness of information in this document.
== END 2024-01-14 13:30 | disposition home or self-care (01) ==
LOC: WC 13:29
PROVIDERS: PCP Internal Medicine; Visit Provider Physician Assistant
DX: L97.526 Non-pressure chronic ulcer of other part of left foot with bone involvement without evidence of necrosis (principal)
CPT/HCPCS: 29445

== ENCOUNTER 2024-01-21 15:48 | Outpatient (OUT) | payer MEDICARE, SELFPAY | END 2024-01-21 15:49 | disposition home or self-care (01) | LOC: WC 15:48 | PROVIDERS: PCP Internal Medicine; Visit Provider Physician Assistant | DX: L97.526 Non-pressure chronic ulcer of other part of left foot with bone involvement without evidence of necrosis (principal) | CPT/HCPCS: G0463 ==

== ENCOUNTER 2024-02-05 15:14 | Outpatient (OUT) | payer MEDICARE, SELFPAY | END 2024-02-05 15:15 | disposition home or self-care (01) | LOC: WC 15:14 | PROVIDERS: PCP Internal Medicine; Visit Provider Physician Assistant | DX: L84 Corns and callosities (principal); E11.40 Type 2 diabetes mellitus with diabetic neuropathy, unspecified | CPT/HCPCS: G0463 ==

== ENCOUNTER 2024-03-13 10:48 | Outpatient (OUT) | payer MEDICARE, SELFPAY ==
--- OUTSIDE RECORDS SUMMARY | 2024-03-13 11:01 | XMS_ITS | CCD ---
Author Organization [facility] Care Team Providers Care Grounds Keeper Name Role Phone DR BRIAN FOOTE Attending Unavailable BALL, DR PRITCHETT Consulting Unavailable BALL, DR PRITCHETT Primary Care Unavailable BALL, DR PRITCHETT Admitting Unavailable BALL, DR PRITCHETT Attending Unavailable BALL, DR PRITCHETT Consulting Unavailable BALL, DR PRITCHETT Primary Care Unavailable BALL, DR PRITCHETT Admitting Unavailable BALL, DR PRITCHETT Consulting Unavailable BALL, DR PRITCHETT Primary Care Unavailable BALL, DR PRITCHETT Admitting Unavailable BALL, DR PRITCHETT Attending Unavailable Brian Foote Unavailable EVE Carroll Attending Provider Obi Carroll Attending Obi Moscoso Admitting Unavailable Obi Carroll DPM Attending Provider [phone] Allergies Allergy Classification Reported Allergen(s) Allergy Type Date of Onset Reaction(s) Facility (9 sources) empagliflozin Drug Allergy 06-11-19 Unknown, Unknown Reaction [facility] (9 sources) Simvastatin Drug Allergy 06-11-19 Unknown, Unknown Reaction [facility] (3 sources) Sulfonamides (Antibiotic) Propensity to adverse reactions Unknown [facility] Other (1 source) Substance with sulfonamide structure and antibacterial mechanism of action (substance) Drug allergy Unknown [facility] Other (7 sources) Sulfonamides (Antibiotic); Translations: [Sulfa (Sulfonamide Antibiotics)] Allergy to substance 06-11-19 Unknown Reaction [facility] (1 source) empagliflozin Drug Allergy 12-20-19 [facility] Repository (1 source) Simvastatin Drug Allergy 12-20-19 [facility] Repository Medications Current Medications Medication Drug Class(es) Dates Sig (Normalized) Sig (Original) benazepril hydrochloride 20 mg oral tablet (9 sources) Angiotensin Converting Enzyme Inhibitor Start: 06-08-2023 take 1 tablet by mouth once daily Benazepril 20 mg tablet Active 20 MG PO Daily June 07, 2023 11:00pm take 1 tablet by mouth once jordan y Benazepril HCl 20 MG TAKE 1 TABLET BY MOUTH DAILY Active fenofibrate 160 mg oral tablet (9 sources) Peroxisome Proliferator Receptor alpha Agonist Start: 06-08-2023 take 1 tablet by mouth once daily Fenofibrate 160 mg tablet Active 160 MG PO Daily June 07, 2023 11:00pm take 1 tablet by mouth once jordan y Fenofibrate 160 MG TAKE 1 TABLET BY MOUTH DAILY Active glimepiride 4 mg oral tablet (9 sources) Sulfonylurea Start: 06-08-2023 take 1 tablet by mouth once daily at breakfast Glimepiride 4 mg tablet Active 4 MG PO Daily June 07, 2023 11:00pm TAKE 1 TABLET BY MOUTH DAILY 1/2 HOUR PRIOR TO BREAKFAST take 1 tablet by eddie th once daily at breakfast Glimepiride 4 MG TAKE 1 TABLET BY MOUTH DAILY 1/2 HOUR PRIOR TO BREAKFAST Active linagliptin 5 mg oral tablet (9 sources) Dipeptidyl Peptidase 4 Inhibitor Start: 06-08-2023 take 1 tablet by mouth once daily Linagliptin 5 mg tablet Active 5 MG PO Daily June 07, 2023 11:00pm take 1 tablet by mouth once jordan y Tradjenta 5 MG TAKE 1 TABLET BY MOUTH DAILY Active Completed/Discontinued Medications Medication Drug Class(es) Dates Sig (Normalized) Sig (Original) pioglitazone 45 mg oral tablet (9 sources) Peroxisome Proliferator Receptor alpha Agonist, Peroxisome Proliferator Receptor gamma Agonist, Thiazolidinedione Start: 06-08-2023 End: 12-19-2023 take 1 tablet by mouth once daily Pioglitazone 45 mg tablet Discontinued 45 MG PO Daily June 07, 2023 11:00pm December 19, 2023 8:23pm take 1 tablet by mouth once jordan y Pioglitazone HCl 45 MG TAKE 1 TABLET BY MOUTH DAILY Active Problems Problem Classification Problem Date Documented Date Episodic/Chronic Anxiety disorders (11 sources) Generalized anxiety disorder; Translations: [Generalized anxiety disorder] Chronic Chronic kidney disease (15 sources) Chronic kidney disease; Translations: [Chronic kidney disease, unspecified] 06-08-2023 Chronic Chronic kidney disease (1 source) Chronic kidney disease; Translations: [CHRONIC KIDNEY DISEASE STAGE 3B] Onset: 08-17-2021 Diabetes mellitus with complications (20 sources) Type 2 diabetes mellitus with hyperglycemia; Translations: [Type 2 diabetes mellitus with diabetic chronic kidney disease] Onset: 08-17-2021 Chronic Comment on above: TONI: > 1.0 BL Disorders of lipid metabolism (20 sources) Mixed hyperlipidemia; Translations: [Hypercholesterolemi a] Onset: 08-15-2021 Chronic Essential hypertension (20 sources) Essential (primary) hypertension; Translations: [Essential hypertension] Onset: 08-17-2021 Chronic Other aftercare (1 source) Other 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 therapy Episodic Other diseases of veins and lymphatics (5 sources) Venous insufficiency of leg; Translations: [Venous insufficiency (chronic) (peripheral)] 09-10-2023 Episodic Other diseases of veins and lymphatics (8 sources) Venous insufficiency (chronic) (peripheral); Translations: [Venous [...] conditions (not mental disorders or infectious disease) (8 sources) Encounter for screening for malignant neoplasm of prostate; Translations: [Patient encounter status] Onset: 08-17-2021 Episodic Results Test Name Value Interpretation Reference Range Facility [facility] 12-26-2023 L Specimen: [id number] Received: 12/30/23 Status: GERRI Humphries Num: [id number] Spec Type: Surgical Subm Dr: Obi Carroll DPM, MS Tissues: A Tendon/Sheath (LEFT FLEXOR TENDON) B Bone Fragments - Pathologic Fracture (2ND METATARSAL HEAD LFT FOOT) Procedures: HE/3, Gross/Micro L5, Gross/Micro L3, Decalcification Age/ Patient Sex Location Account Attending Physician Sander Hooks 78/M LABELL [id number] Obi Carroll DPM, MS SPEC NUM: [id number] RECD: 12/30/23 STATUS: GERRI GAMINO NUM: [id number] DONY: 12/26/[address] [facility] [address]: Obi Carroll,EVE, MS ENTERED: 12/30/[address] [facility] [address]: Libertad Stevens SPEC TYPE: Surgical DEPT: AMAYA MANZANARES ORDERED: [...] inked black. The specimen is serially sectioned. Pullman Car Clerk sections are submitted in cassettes B1 and B2. The specimen is placed in the decal for routine processing. Specimen: [id number] Received: 12/30/23 Status: GERRI Gaminorhiannon Num: [id number] Spec Type: Surgical Subm Dr: Obi Carroll DPM, MS Tissues: A Tendon/Sheath (LEFT FLEXOR TENDON) B Bone Fragments - Pathologic Fracture (2ND METATARSAL HEAD LFT FOOT) Procedures: HE/3, Gross/Micro L5, Gross/Micro L3, Decalcification Patient: Sander Hooks [id number] (Continued) Specimen: [id number] Received: 12/30/23 (Continued) Signed (signature on file) Hill Mehta MD 01/03/24 0836 Specimen: [id number] Received: 12/30/23 Status: GERRI Humphries Num: [id number] Spec Type: Surgical Subm Dr: Obi Carroll,DPM, MS Tissues: A Tendon/Sheath (LEFT FLEXOR TENDON) B Bone Fragments - Pathologic Fracture (2ND METATARSAL HEAD LFT FOOT) Procedures: HE/3, Gross/Micro L5, Gross/Micro L3, Decalcification Patient: Sander Hooks [id number] (Continued) Specimen: [id number] Received: 12/30/23 (Continued) Microscopic Description Microscopic examination is performed. CPT Codes 40676 x2, 38166 Specimen: [id number] Received: 12/30/23 Status: GERRI Humphries Num: [id number] Spec Type: Surgical Subm Dr: Obi Carroll,DPM, MS Tissues: A Tendon/Sheath (LEFT FLEXOR TENDON) B Bone Fragments - Pathologic Fracture (2ND METATARSAL HEAD LFT FOOT) Procedures: HE/3, Gross/Micro L5, Gross/Micro L3, Decalcification Patient: Sander Hooks [id number] (Continued) Signed (signature on file) Hill Mehta MD 01/03/24 0836 Normal [facility] No Panel InformationOrdered By: Obi Carroll on 12-26-2023 Acid Fast Smear [facility] Aerobic Culture [facility] AFB Specimen Processing F [facility] Acid Fast Smear [facility] AFB Specimen Processing F [facility] No Panel Informationon 12-25 Fungal Smear Result \R\ Fungus Stain [facility] Gram Stain Result 1 \R\ Gram Stain Result [facility] Miscellaneous Test Comment See comment [facility] Comment on above: Specimen Source: TOE LT2 - Toe Left Second - Toe Lt 2nd - 607.100 Specimen Source: WND - Wound - Wound - 610.200 Basophils Auto (Bld) [#/Vol] on 12-16-2023 Basophils (Bld) [#/Vol] 0.0 10 3/uL 0.0-0.1 [facility] Basophils (Bld) [#/Vol] Automated basoph il count 0.0-0.1 [facility] Basophils/100 WBC Auto (Bld) on 12-16-2023 Basophils/100 WBC (Bld) 0.4 % 0.2-2.0 [facility] Basophils/100 WBC (Bld) Automated basophil % 0. 2-2.0 [facility] Eosinophils/100 WBC Auto (Bl d)on 12-16-2023 Eosinophils/100 WBC (Bld) 0.1 % Low 0.9-7.0 [facility] Eosinophils/100 WBC (Bld) Automated eosinophil % Low 0.9-7.0 [facility] Erythrocyte distribution wid th Auto (RBC) [Ratio]on 12-16-2023 Erythrocyte distribution width (RBC) [Ratio] 14.8 % 11.0-15.0 [facility] Erythrocyte distribution width (RBC) [Ratio] Erythrocyte distribution width [Ratio] by Automated count 11.0-15.0 [facility] Estimated glomerular filtrat ion rate (GFR) non- Americanon 12-16-2023 GFR/1.73 sq M.predicted among non-blacks MDRD (S/P/Bld) [Vol rate/Area] 40 mL/min/{1.73_m2} Low >=60 mL/min/1.73 m 2 [facility] GFR/1.73 sq M.predicted among non-blacks MDRD (S/P/Bld) [Vol rate/Area] Estimated glomerular filtration rate (GFR) non- Low >=60 mL/min/1.73 m 2 [facility] Hematocrit Auto (Bld) [Volum e fraction]on 12-16-2023 Hematocrit (Bld) [Volume fraction] 34.5 % Low 42.0-54.0 [facility] Hematocrit (Bld) [Volume fraction] Hematocrit [Volume Fraction] of Blood by Automated count Low 42.0-54.0 [facility] Hemoglobin [Mass/volume] in Bloodon 12-16-2023 Hemoglobin (Bld) [Mass/Vol] 11.1 g/dL Low 14.0-18.0 [facility] Hemoglobin (Bld) [Mass/Vol] Hemoglobin [Mass/volume] in Blood Low 14.0-18.0 [facility] Laboratory - Chemistry and C hemistry - challengeon 12-16-2023 Calcium [Mass/Vol] 9.0 mg/dL 8.5-10.1 [facility] Chloride [Moles/Vol] 113 mmol/L High 98-107 [facility] CO2 [Moles/Vol] 23.7 mmol/L 21.0-32.0 [facility] Creatinine [Mass/Vol] 1.67 mg/dL High 0.70-1.30 [facility] GFR/1.73 sq M.predicted MDRD (S/P/Bld) [Vol rate/Area] 48 mL/min/{1.73_m2} Low >=60 mL/min/1.73 m 2 [facility] Glucose [Mass/Vol] 106 mg/dL 74-106 [facility] Potassium [Moles/Vol] 4.7 mmol/L 3.5-5.1 [facility] Sodium [Moles/Vol] 145 mmol/L 136-145 [facility] Urea nitrogen [Mass/Vol] 29.0 mg/dL High 7.0-18.0 [facility] Urea nitrogen/Creatinine [Mass ratio] 17.4 mg/mg [facility] Laboratory - Hematology and Cell countson 12-16-2023 Immature granulocytes/100 WBC (Bld) 0.7 % High 0.0-0.5 [facility] Leukocytes [#/volume] correc ben for nucleated erythrocytes in Blood by Automated counon 12-16-2023 WBC corrected for nucl RBC Auto (Bld) [#/Vol] 6.7 10 3/uL 4.0-11.0 [facility] WBC corrected for nucl RBC Auto (Bld) [#/Vol] Leukocytes [#/volume] corrected for nucleated erythrocytes in Blood by Automated coun 4.0-11.0 [facility] Lymphocytes Auto (Bld) [#/Vo l]on 12-16-2023 Lymphocytes (Bld) [#/Vol] 1.4 10 3/uL 1.2-3.8 [facility] Lymphocytes (Bld) [#/Vol] Lymphocytes [#/volume] in Blood by Automated count 1.2-3.8 [facility] Lymphocytes/100 WBC Auto (Bl d)on 12-16-2023 Lymphocytes/100 WBC (Bld) 21.1 % 20.5-60.0 [facility] Lymphocytes/100 WBC (Bld) Lymphocytes/100 leukocytes in Blood by Automated count 20.5-60.0 [facility] MCH Auto (RBC) [Entitic mass ]on 12-16-2023 MCH (RBC) [Entitic mass] 32.0 pg 25.9-34.0 [facility] MCH (RBC) [Entitic mass] MCH [Entitic ma ss] by Automated count 25.9-34.0 [facility] MCHC Auto (RBC) [Mass/Vol]on 12-16-2023 MCHC (RBC) [Mass/Vol] 32.2 g/dL 29.9-35.2 [facility] MCHC (RBC) [Mass/Vol] MCHC [Mass/volume] by Automated count 29.9-35.2 [facility] MCV Auto (RBC) [Entitic vol] on 12-16-2023 MCV (RBC) [Entitic vol] 99.4 fL High 80.0-94.0 F [facility] MCV (RBC) [Entitic vol] MCV [Entitic vol ume] by Automated count High 80.0-94.0 [facility] Monocytes Auto (Bld) [#/Vol] on 12-16-2023 Monocytes (Bld) [#/Vol] 0.7 10 3/uL 0.3-0.8 [facility] Monocytes (Bld) [#/Vol] Automated blood monocyte count 0.3-0.8 [facility] Monocytes/100 WBC Auto (Bld) on 12-16-2023 Monocytes/100 WBC (Bld) 10.1 % 1.7-12.0 F [facility] Monocytes/100 WBC (Bld) Automated monocyte % 1. 7-12.0 [facility] Neutrophils Auto (Bld) [#/Vo l]on 12-16-2023 Neutrophils (Bld) [#/Vol] 4.5 10 3/uL 1.4-6.5 [facility] Neutrophils (Bld) [#/Vol] Neutrophils [#/volume] in Blood by Automated count 1.4-6.5 [facility] Neutrophils/100 WBC Auto (Bl d)on 12-16-2023 Neutrophils/100 WBC (Bld) 67.6 % 43.0-75.0 [facility] Neutrophils/100 WBC (Bld) Automated neutrophil % 43.0-75.0 [facility] No Panel Informationon 12-15 Eosinophils # (Auto) 0.0 10 3/uL 0.0-0.7 [facility] Immature Granulocyte # (Auto) 0.05 10 3/uL High 0.00-0.03 [facility] Platelet mean volume Auto (B ld) [Entitic vol]on 12-16-2023 Platelet mean volume (Bld) [Entitic vol] 10.7 fL 9.5-13.5 [facility] Platelet mean volume (Bld) [Entitic vol] Platelet mean volume [Entitic volume] in Blood by Automated count 9.5-13.5 [facility] Platelets Auto (Bld) [#/Vol] on 12-16-2023 Platelets (Bld) [#/Vol] 233 10 3/uL 150-450 [facility] Platelets (Bld) [#/Vol] Platelets [#/vol ume] in Blood by Automated count 150-450 [facility] RBC Auto (Bld) [#/Vol]on RBC (Bld) [#/Vol] 3.47 10 6/uL Low 4.70-6.10 [facility] RBC (Bld) [#/Vol] Erythrocytes [#/volu me] in Blood by Automated count Low 4.70-6.10 [facility] Serum or plasma anion gap de terminationon 12-16-2023 Anion gap [Moles/Vol] 13.0 mmol/L [facility] Anion gap [Moles/Vol] Serum or plasma an ion gap determination [facility] Albumin [Mass/volume] in Ser um or Plasmaon 12-06-2023 Albumin [Mass/Vol] 3.2 g/dL 2.9-4.4 [facility] Albumin [Mass/Vol] Albumin [Mass/volume ] in Serum or Plasma 2.9-4.4 [facility] Estimated glomerular filtrat ion rate (GFR) non- Americanon 12-06-2023 GFR/1.73 sq M.predicted among non-blacks MDRD (S/P/Bld) [Vol rate/Area] 29 mL/min/{1.73_m2} Low >=60 mL/min/1.73 m 2 [facility] GFR/1.73 sq M.predicted among non-blacks MDRD (S/P/Bld) [Vol rate/Area] Estimated glomerular filtration rate (GFR) non- Low >=60 mL/min/1.73 m 2 [facility] Hepatitis B virus surface Ab [Presence] in Serumon 12-06-2023 HBV surface Ab Ql (S) 78927.0 mIU/mL Immunity>1 0 [facility] Comment on above: Results confirmed on dilution. Status of Immunity Anti-HBs Level Inconsistent with Immunity 0.0 - 10.0Consistent with Immunity >10.0 HBV surface Ab Ql (S) Hepatitis B virus surface Ab [Presence] in Serum Immunity>10 [facility] Comment on above: Results confirmed on dilution. Status of Immunity Anti-HBs Level Inconsistent with Immunity 0.0 - 10.0Consistent with Immunity >10.0 Hepatitis B virus surface Ag [Presence] in Serum or Plasma by Immunoassayon 12-06-2023 HBV surface Ag IA Ql Negative Negative [facility] HBV surface Ag IA Ql Hepatitis B virus surface Ag [Presence] in Serum or Plasma by Immunoassay Negative [facility] IgA [Mass/volume] in Serum o r Plasmaon 12-06-2023 IgA [Mass/Vol] 367 mg/dL 61-437 [facility] IgA [Mass/Vol] IgA [Mass/volume] in Serum or Plasma 61-437 [facility] IgG [Mass/volume] in Serum o r Plasmaon 12-06-2023 IgG [Mass/Vol] 1078 mg/dL 603-1613 [facility] IgG [Mass/Vol] IgG [Mass/volume] in Serum or Plasma 603-1613 [facility] IgM [Mass/volume] in Serum o r Plasmaon 12-06-2023 IgM [Mass/Vol] 38 mg/dL 15-143 [facility] IgM [Mass/Vol] IgM [Mass/volume] in Serum or Plasma 15-143 [facility] Immunoglobulin light chains. kappa.free [Mass/volume] in Serumon 12-06-2023 Immunoglobulin light chains.kappa.free (S) [Mass/Vol] 34.5 mg/L Abnormal 3.3-19.4 [facility] Immunoglobulin light chains.kappa.free (S) [Mass/Vol] Immunoglobulin light chains.kappa.free [Mass/volume] in Serum Abnormal 3.3-19.4 [facility] Immunoglobulin light chains. kappa.free/Immunoglobulin light chains.lambda.free [Luis 12-06-2023 Immunoglobulin light chains.kappa.free/Immuno globulin light chains.lambda.free (S) [Mass ratio] 1.90 Abnormal 0.26-1.65 [facility] Comment on above: Performed at: [employer] [place], [place] [id number] Director: Lb Kaur PhD, Phone: [phone] Immunoglobulin light chains.kappa.free/Immuno globulin light chains.lambda.free (S) [Mass ratio] Immunoglobulin light chains.kappa.free/Immun oglobulin light chains.lambda.free [Mass Abnormal 0.26-1.65 [facility] Comment on above: Performed at: [employer] [id number] [place], [place] [id number] Director: Lb Kaur PhD, Phone: [phone] Immunoglobulin light chains. lambda.free [Mass/volume] in Serum or Plasmaon 12-06-2023 Immunoglobulin light chains.lambda.free [Mass/Vol] 18.2 mg/L 5.7-26.3 [facility] Immunoglobulin light chains.lambda.free [Mass/Vol] Immunoglobulin light chains.lambda.free [Mass/volume] in Serum or Plasma 5.7-26.3 [facility] Laboratory - Chemistry and C hemistry - challengeon 12-06-2023 Calcium [Mass/Vol] 8.7 mg/dL 8.5-10.1 [facility] Chloride [Moles/Vol] 107 mmol/L 98-107 [facility] CO2 [Moles/Vol] 22.2 mmol/L 21.0-32.0 [facility] Creatinine [Mass/Vol] 2.21 mg/dL High 0.70-1.30 [facility] GFR/1.73 sq M.predicted MDRD (S/P/Bld) [Vol rate/Area] 35 mL/min/{1.73_m2} Low >=60 mL/min/1.73 m 2 [facility] Glucose [Mass/Vol] 91 mg/dL 74-106 [facility] Potassium [Moles/Vol] 4.1 mmol/L 3.5-5.1 [facility] Sodium [Moles/Vol] 138 mmol/L 136-145 [facility] Urea nitrogen [Mass/Vol] 51.0 mg/dL High 7.0-18.0 [facility] Urea nitrogen/Creatinine [Mass ratio] 23.1 mg/mg [facility] Bilirubin Ql (U) Negative NEGATIVE [facility] Glucose (U) [Mass/Vol] Negative NEGATIVE [facility] Ketones Ql (U) Negative NEGATIVE [facility] pH (U) 5.5 [pH] 5.0-9.0 [facility] Specific gravity (U) [Rel density] 1.025 1.005-1.025 [facility] Urobilinogen Qn (U) 0.2 {Mirta'U}/dL 0.2-1.0 [facility] Laboratory - Specimen inform ationon 12-06-2023 Appearance (U) CLEAR CLEAR [facility] Color (U) LT. YELLOW YELLOW [facility] Laboratory - Urinalysison Leukocyte esterase Test strip Ql (U) Negative NEGATIVE [facility] Mucus Ql (Urine sed) NONE SEEN NONE SEEN [facility] Nitrite Ql (U) Negative NEGATIVE [facility] Protein Ql (U) Negative NEG/TRACE [facility] No Panel Informationon 12-05 Hepatitis B Core Total Antibody Negative Negative [facility] Comment on above: Performed at: - [facility] [address] [id number] Director: Lb Kaur PhD, Phone: [phone] Protein Electrophoresis M-Alexandru Not Observed g/dL Not Observed [facility] Protein Electrophoresis Note Comment . [facility] Comment on above: Protein electrophore sis scan will follow via computer,mail, or authorization manager delivery. Urine Bacteria NONE SEEN #/HPF NONE SEEN [facility] Urine Occult Blood Negative NEGATIVE [facility] Urine Other Casts NONE SEEN #/LPF NONE SEEN [facility] Urine Other Crystals None Seen #/HPF None Seen [facility] Urine RBC 0-2 #/HPF 0-2 [facility] Urine Squamous Epithelial Cells FEW #/LPF Abnormal NONE/RARE [facility] Urine WBC NONE SEEN #/HPF NONE SEEN [facility] Protein [Mass/volume] in Ser um or Plasmaon 12-06-2023 Protein [Mass/Vol] 6.3 g/dL 6.0-8.5 [facility] Protein [Mass/Vol] Protein [Mass/volume ] in Serum or Plasma 6.0-8.5 [facility] Serum globulin measurement ( mass/volume)on 12-06-2023 Globulin (S) [Mass/Vol] 3.1 g/dL 2.2-3.9 [facility] Globulin (S) [Mass/Vol] Serum globulin measurement (mass/volume) 2.2-3.9 [facility] Serum or plasma albumin/glob ulin mass ratioon 12-06-2023 Albumin/Globulin [Mass ratio] 1.1 {ratio} 0.7-1.7 [facility] Albumin/Globulin [Mass ratio] Serum or plasma albumin/globulin mass ratio 0.7-1.7 [facility] Serum or plasma alpha 1 glob ulin measurement by electrophoresis (mass/volume)on 12-06-2023 Alpha 1 globulin Elph [Mass/Vol] 0.3 g/dL 0.0-0.4 [facility] Alpha 1 globulin Elph [Mass/Vol] Serum or plasma alpha 1 globulin measurement by electrophoresis (mass/volume) 0.0-0.4 [facility] Serum or plasma alpha 2 glob ulin measurement by electrophoresis (mass/volume)on 12-06-2023 Alpha 2 globulin Elph [Mass/Vol] 0.8 g/dL 0.4-1.0 [facility] Alpha 2 globulin Elph [Mass/Vol] Serum or plasma alpha 2 globulin measurement by electrophoresis (mass/volume) 0.4-1.0 [facility] Serum or plasma anion gap de terminationon 12-06-2023 Anion gap [Moles/Vol] 12.9 [facility] Anion gap [Moles/Vol] Serum or plasma an ion gap determination [facility] Serum or plasma beta globuli n measurement by electrophoresis (mass/volume)on 12-06-2023 Beta globulin Elph [Mass/Vol] 1.0 g/dL 0.7-1.3 [facility] Beta globulin Elph [Mass/Vol] Serum or plasma beta globulin measurement by electrophoresis (mass/volume) 0.7-1.3 [facility] Serum or plasma gamma globul in measurement by electrophoresis (mass/volume)on 12-06-2023 Gamma globulin Elph [Mass/Vol] 1.0 g/dL 0.4-1.8 [facility] Gamma globulin Elph [Mass/Vol] Serum or plasma gamma globulin measurement by electrophoresis (mass/volume) 0.4-1.8 [facility] Serum or plasma immunoelectr ophoresis interpretationon 12-06-2023 Interpretation IEP [Interp] Comment . [facility] Comment on above: No monoclonality det ected. Interpretation IEP [Interp] Serum or plasma immunoelectrophoresis interpretation . [facility] Comment on above: No monoclonality det ected. No Panel InformationOrdered By: Brian Foote on 11-08-2023 Aerobic Culture [facility] Anaerobic Culture [facility] Aerobic Culture [facility] [facility] Basophils Auto (Bld) [#/Vol] on 10-30-2023 Basophils (Bld) [#/Vol] 0.1 10 3/uL 0.0-0.1 [facility] Basophils (Bld) [#/Vol] Automated basoph il count 0.0-0.1 [facility] Basophils/100 WBC Auto (Bld) on 10-30-2023 Basophils/100 WBC (Bld) 0.8 % 0.2-2.0 [facility] Basophils/100 WBC (Bld) Automated basophil % 0. 2-2.0 [facility] Cholesterol in LDL Calc [Mas s/Vol]on 10-30-2023 Cholesterol in LDL [Mass/Vol] 71.0 mg/dL [facility] Comment on above: <100 mg/dl [id number] 0-129 mg/dl NEAR OR ABOVE [id number] mg/dl BORDERLINE [id number] mg/dl HIGH>190 mg/dl VERY HIGH Cholesterol in LDL [Mass/Vol] Cholesterol in LDL [Mass/volume] in Serum or Plasma by calculation [facility] Comment on above: <100 mg/dl [id number] 0-129 mg/dl NEAR OR ABOVE [id number] mg/dl BORDERLINE [id number] mg/dl HIGH>190 mg/dl VERY HIGH Cholesterol in VLDL Calc [Ma ss/Vol]on 10-30-2023 Cholesterol in VLDL [Mass/Vol] 19.4 mg/dL [facility] Cholesterol in VLDL [Mass/Vol] Cholesterol in VLDL [Mass/volume] in Serum or Plasma by calculation [facility] Eosinophils/100 WBC Auto (Bl d)on 10-30-2023 Eosinophils/100 WBC (Bld) 0.0 % Low 0.9-7.0 [facility] Eosinophils/100 WBC (Bld) Automated eosinophil % Low 0.9-7.0 [facility] Erythrocyte distribution wid th Auto (RBC) [Ratio]on 10-30-2023 Erythrocyte distribution width (RBC) [Ratio] 13.7 % 11.0-15.0 [facility] Erythrocyte distribution width (RBC) [Ratio] Erythrocyte distribution width [Ratio] by Automated count 11.0-15.0 [facility] Estimated glomerular filtrat ion rate (GFR) non- Americanon 10-30-2023 GFR/1.73 sq M.predicted among non-blacks MDRD (S/P/Bld) [Vol rate/Area] 34 mL/min/{1.73_m2} Low >=60 [facility] GFR/1.73 sq M.predicted among non-blacks MDRD (S/P/Bld) [Vol rate/Area] Estimated glomerular filtration rate (GFR) non- Low >=60 [facility] Globulin Calc (S) [Mass/Vol] on 10-30-2023 Globulin (S) [Mass/Vol] 3.4 g/dL F [facility] Globulin (S) [Mass/Vol] Serum globulin measurement by calculation (mass/volume) [facility] Glucose mean value [Mass/vol ume] in Blood Estimated from glycated hemoglobinon 10-30-2023 Average glucose Estimated from glycated hemoglobin (Bld) [Mass/Vol] 126 mg/dL [facility] Average glucose Estimated from glycated hemoglobin (Bld) [Mass/Vol] Glucose mean value [Mass/volume] in Blood Estimated from glycated hemoglobin [facility] Hematocrit Auto (Bld) [Volum e fraction]on 10-30-2023 Hematocrit (Bld) [Volume fraction] 38.8 % Low 42.0-54.0 [facility] Hematocrit (Bld) [Volume fraction] Hematocrit [Volume Fraction] of Blood by Automated count Low 42.0-54.0 [facility] Hemoglobin [Mass/volume] in Bloodon 10-30-2023 Hemoglobin (Bld) [Mass/Vol] 12.8 g/dL Low 14.0-18.0 [facility] Hemoglobin (Bld) [Mass/Vol] Hemoglobin [Mass/volume] in Blood Low 14.0-18.0 [facility] Laboratory - Chemistry and C hemistry - challengeon 10-30-2023 Albumin [Mass/Vol] 3.2 g/dL Low 3.4-5.0 [facility] ALP [Catalytic activity/Vol] 31 U/L Low 46-116 [facility] ALT [Catalytic activity/Vol] 22 U/L 16-63 [facility] AST [Catalytic activity/Vol] 22 U/L 15-37 [facility] Bilirubin [Mass/Vol] 0.5 mg/dL 0.2-1.0 [facility] Calcium [Mass/Vol] 9.4 mg/dL 8.5-10.1 [facility] Chloride [Moles/Vol] 109 mmol/L High 98-107 [facility] Cholesterol [Mass/Vol] 116 mg/dL <=[address] [facility] Cholesterol in HDL [Mass/Vol] 26 mg/dL Low 40-60 [facility] Comment on above: > or =60 mg/dl - LOW CARDIOVASCULAR RISK<40 mg/dl - HIGH CARDIOVASCULAR RISK CO2 [Moles/Vol] 24.0 mmol/L 21.0-32.0 [facility] Creatinine [Mass/Vol] 1.92 mg/dL High 0.70-1.30 [facility] GFR/1.73 sq M.predicted MDRD (S/P/Bld) [Vol rate/Area] 41 mL/min/{1.73_m2} Low >=60 [facility] Glucose [Mass/Vol] 118 mg/dL High 74-106 [facility] Potassium [Moles/Vol] 5.4 mmol/L High 3.5-5.1 [facility] Protein [Mass/Vol] 6.6 g/dL 6.4-8.2 [facility] Sodium [Moles/Vol] 142 mmol/L 136-145 [facility] Triglyceride [Mass/Vol] 97 mg/dL <=150 F [facility] Urea nitrogen [Mass/Vol] 35.0 mg/dL High 7.0-18.0 [facility] Urea nitrogen/Creatinine [Mass ratio] 18.2 mg/mg [facility] Laboratory - Hematology and Cell countson 10-30-2023 HbA1c (Bld) [Mass fraction] 6.0 % 4.5-6.2 [facility] Comment on above: ADA RECOMMENDED LIMI T 4.0 - 6.0ADA THERAPEUTIC TARGET < 7.0ACTION SUGGESTED> 7.0 Immature granulocytes/100 WBC (Bld) 0.6 % High 0.0-0.5 [facility] Laboratory - Urinalysison Protein (U) [Mass/Vol] 15.4 mg/dL High <=11.[address] [facility] Leukocytes [#/volume] correc ben for nucleated erythrocytes in Blood by Automated counon 10-30-2023 WBC corrected for nucl RBC Auto (Bld) [#/Vol] 6.6 10 3/uL 4.0-11.0 [facility] WBC corrected for nucl RBC Auto (Bld) [#/Vol] Leukocytes [#/volume] corrected for nucleated erythrocytes in Blood by Automated coun 4.0-11.0 [facility] Lymphocytes Auto (Bld) [#/Vo l]on 10-30-2023 Lymphocytes (Bld) [#/Vol] 2.1 10 3/uL 1.2-3.8 [facility] Lymphocytes (Bld) [#/Vol] Lymphocytes [#/volume] in Blood by Automated count 1.2-3.8 [facility] Lymphocytes/100 WBC Auto (Bl d)on 10-30-2023 Lymphocytes/100 WBC (Bld) 31.4 % 20.5-60.0 [facility] Lymphocytes/100 WBC (Bld) Lymphocytes/100 leukocytes in Blood by Automated count 20.5-60.0 [facility] MCH Auto (RBC) [Entitic mass ]on 10-30-2023 MCH (RBC) [Entitic mass] 31.7 pg 25.9-34.0 [facility] MCH (RBC) [Entitic mass] MCH [Entitic ma ss] by Automated count 25.9-34.0 [facility] MCHC Auto (RBC) [Mass/Vol]on 10-30-2023 MCHC (RBC) [Mass/Vol] 33.0 g/dL 29.9-35.2 [facility] MCHC (RBC) [Mass/Vol] MCHC [Mass/volume] by Automated count 29.9-35.2 [facility] MCV Auto (RBC) [Entitic vol] on 10-30-2023 MCV (RBC) [Entitic vol] 96.0 fL High 80.0-94.0 F [facility] MCV (RBC) [Entitic vol] MCV [Entitic vol ume] by Automated count High 80.0-94.0 [facility] Monocytes Auto (Bld) [#/Vol] on 10-30-2023 Monocytes (Bld) [#/Vol] 0.6 10 3/uL 0.3-0.8 [facility] Monocytes (Bld) [#/Vol] Automated blood monocyte count 0.3-0.8 [facility] Monocytes/100 WBC Auto (Bld) on 10-30-2023 Monocytes/100 WBC (Bld) 9.2 % 1.7-12.0 F [facility] Monocytes/100 WBC (Bld) Automated monocyte % 1. 7-12.0 [facility] Neutrophils Auto (Bld) [#/Vo l]on 10-30-2023 Neutrophils (Bld) [#/Vol] 3.8 10 3/uL 1.4-6.5 [facility] Neutrophils (Bld) [#/Vol] Neutrophils [#/volume] in Blood by Automated count 1.4-6.5 [facility] Neutrophils/100 WBC Auto (Bl d)on 10-30-2023 Neutrophils/100 WBC (Bld) 58.0 % 43.0-75.0 [facility] Neutrophils/100 WBC (Bld) Automated neutrophil % 43.0-75.0 [facility] No Panel Informationon 10-29 Urine Random Creatinine 148.56 mg/dL 20.0 0-300.0 0 [facility] Eosinophils # (Auto) 0.0 10 3/uL 0.0-0.7 [facility] Immature Granulocyte # (Auto) 0.04 10 3/uL High 0.00-0.03 [facility] Prostate Specific Antigen Screen 1.04 ng/mL <=4.00 [facility] Platelet mean volume Auto (B ld) [Entitic vol]on 10-30-2023 Platelet mean volume (Bld) [Entitic vol] 10.1 fL 9.5-13.5 [facility] Platelet mean volume (Bld) [Entitic vol] Platelet mean volume [Entitic volume] in Blood by Automated count 9.5-13.5 [facility] Platelets Auto (Bld) [#/Vol] on 10-30-2023 Platelets (Bld) [#/Vol] 221 10 3/uL 150-450 [facility] Platelets (Bld) [#/Vol] Platelets [#/vol ume] in Blood by Automated count 150-450 [facility] RBC Auto (Bld) [#/Vol]on RBC (Bld) [#/Vol] 4.04 10 6/uL Low 4.70-6.10 [facility] RBC (Bld) [#/Vol] Erythrocytes [#/volu me] in Blood by Automated count Low 4.70-6.10 [facility] Serum or plasma albumin/glob ulin mass ratioon 10-30-2023 Albumin/Globulin [Mass ratio] 0.9 {ratio} [facility] Albumin/Globulin [Mass ratio] Serum or plasma albumin/globulin mass ratio [facility] Serum or plasma anion gap de terminationon 10-30-2023 Anion gap [Moles/Vol] 14.4 mmol[facility] Anion gap [Moles/Vol] Serum or plasma an ion gap determination [facility] Serum or plasma total choles terol/high density lipoprotein (HDL) cholesterol mass gene 10-30-2023 Cholesterol.total/Choles terol in HDL [Mass ratio] 4.5 {ratio} [facility] Comment on above: 3.3 - 4.4 LOW RISK4. 4 - 7.1 AVERAGE RISK7.1 - 11.0 MODERATE RISK>11.0 HIGH RISK Cholesterol.total/Choles terol in HDL [Mass ratio] Serum or plasma total cholesterol/high density lipoprotein (HDL) cholesterol mass rat [facility] Comment on above: 3.3 - 4.4 LOW RISK4. 4 - 7.1 AVERAGE RISK7.1 - 11.0 MODERATE RISK>11.0 HIGH RISK Urine protein/creatinine rat ioon 10-30-2023 Protein/Creatinine (U) [Ratio] 0.10 [facility] Protein/Creatinine (U) [Ratio] Urine protein/creatinine ratio [facility] GLYCOHEMOGLOBIN A1Con 2021 ADA RECOMMENDATION SEE BELOW Normal [facility] Comment on above: Result Comment: ADA RECOMMENDED LIMIT 4.0 - 6.0 ADA THERAPEUTIC TARGET < 7.0 ACTION SUGGESTED > 7.0 Performed By: #### A 1C #### [facility] [address] [place] [address] Dr. Petros Perez Glucose [Mass/Vol] 143 mg/dL Normal [facility] Comment on above: Performed By: #### A 1C #### [facility] [address] [address] [address] Petros Perez HbA1c (Bld) [Mass fraction] 6.6 % Critically high 4.5-6.2 [facility] Comment on above: Performed By: #### A 1C #### [facility] [address] [address] [address] Petros Perez CBC AUTO DIFFon 08-15-2021 BASO # 0.0 103/ul Normal 0.0-0.1 [facility] Comment on above: Performed By: #### C BC #### [facility] [address] [address] [address] Petros Perez Basophils/100 WBC (Bld) 0.3 % Normal 0.2-2.0 [facility] Comment on above: Performed By: #### C BC #### [facility] [address] [address] [address] Petros Perez EO # 0.1 103/ul Normal 0.0-0.7 [facility] Comment on above: Performed By: #### C BC #### [facility] [address] [address] [address] Petros Perez Eosinophils/100 WBC (Bld) 2.2 % Normal 0.9-7.0 [facility] Comment on above: Performed By: #### C BC #### [facility] [address] [address] [address] Petros Perez Erythrocyte distribution width (RBC) [Ratio] 13.4 % Normal 11.0-15.0 [facility] Comment on above: Performed By: #### C BC #### [facility] [address] [address] [address] Petros Perez Hematocrit (Bld) [Volume fraction] 42.8 % Normal 42.0-54.0 [facility] Comment on above: Performed By: #### C BC #### [facility] [address] [address] [address] Petros Perez Hemoglobin (Bld) [Mass/Vol] 14.1 g/dL Normal 14.0-18.0 [facility] Comment on above: Performed By: #### C BC #### [facility] [address] [address] [address] Petros Perez IG # 0.04 10e3/ul Critically high 0.00-0.03 [facility] Comment on above: Performed By: #### C BC #### [facility] [address] [place] [address] Dr. Petros Perez IG % 0.7 % Critically high 0.0-0.5 [facility] Comment on above: Performed By: #### C BC #### [facility] [address] [place] [address] Dr. Petros Perez LYMPH # 2.2 103/ul Normal 1.2-3.8 [facility] Comment on above: Performed By: #### C BC #### [facility] [address] [place] [address] Dr. Petros Perez Lymphocytes/100 WBC (Bld) 38.2 % Normal 20.5-60.0 [facility] Comment on above: Performed By: #### C BC #### [facility] [address] [place] [address] Dr. Petros Perez MANUAL DIFF REQ NO Normal [facility] Comment on above: Performed By: #### C BC #### [facility] [address] [place] [address] Dr. Petros Perez MCH (RBC) [Entitic mass] 30.6 pg Normal 25.9-34.0 [facility] Comment on above: Performed By: #### C BC #### [facility] [address] [place] [address] Dr. Petros Perez MCHC (RBC) [Mass/Vol] 32.9 g/dL Normal 29.9-35.2 [facility] Comment on above: Performed By: #### C BC #### [facility] [address] [place] [address] Dr. Petros Perez MCV (RBC) [Entitic vol] 92.8 fL Normal 80.0-94.0 [facility] Comment on above: Performed By: #### C BC #### [facility] [address] [place] [address] Dr. Petros Perez MONO # 0.5 103/ul Normal 0.3-0.8 [facility] Comment on above: Performed By: #### C BC #### [facility] [address] [place] [address] Dr. Petros Perez Monocytes/100 WBC (Bld) 8.6 % Normal 1.7-12.0 T [facility] Comment on above: Performed By: #### C BC #### [facility] [address] [place] [address] Dr. Petros Perez NEUT # 2.9 103/ul Normal 1.4-6.5 [facility] Comment on above: Performed By: #### C BC #### [facility] [address] [place] [address] Dr. Petros Perez Neutrophils/100 WBC (Bld) 50.0 % Normal 43.0-75.0 [facility] Comment on above: Performed By: #### C BC #### [facility] [address] [place] [address] Dr. Petros Perez Platelet mean volume (Bld) [Entitic vol] 10.2 fL Normal 9.5-13.5 [facility] Comment on above: Performed By: #### C BC #### [facility] [address] [place] [address] Dr. Petros Perez PLT 219 103/ul Normal 150-450 [facility] Comment on above: Performed By: #### C BC #### [facility] [address] [place] [address] Dr. Petros Perez RBC 4.61 106/ul Critically low 4.70-6.10 [facility] Comment on above: Performed By: #### C BC #### [facility] [address] [place] [address] Dr. Petros Perez WBC 5.8 103/ul Normal 4.0-11.0 [facility] Comment on above: Performed By: #### C BC #### [facility] [address] [place] [address] Dr. Petros Perez GLYCOHEMOGLOBIN A1Con 2021 ADA RECOMMENDATION SEE BELOW Normal [facility] Comment on above: Result Comment: ADA RECOMMENDED LIMIT 4.0 - 6.0 ADA THERAPEUTIC TARGET < 7.0 ACTION SUGGESTED > 7.0 Performed By: #### A 1C #### [facility] [address] [address] [address] Petros Perez Glucose [Mass/Vol] 163 mg/dL Normal [facility] Comment on above: Performed By: #### A 1C #### [facility] [address] [address] [address] Petros Perez HbA1c (Bld) [Mass fraction] 7.3 % Critically high 4.5-6.2 [facility] Comment on above: Performed By: #### A 1C #### [facility] [address] [address] [address] Petros Perez LIPID PROFILEon 08-15-2021 CHOL-HDL RATIO NORM SEE BELOW Normal [facility] Comment on above: Result Comment: 3.3 - 4.4 LOW RISK 4.4 - 7.1 AVERAGE RISK 7.1 - 11.0 MODERATE RISK >11.0 HIGH RISK Performed By: #### L IPID, BMP #### [facility] [address] [place] [address] Dr. Petros Perez Cholesterol [Mass/Vol] 148 mg/dL Normal <=200 [facility] Comment on above: Performed By: #### L IPID, BMP #### [facility] [address] [address] [address] Petros Perez Cholesterol in HDL [Mass/Vol] 33 mg/dL Critically low 40-60 [facility] Comment on above: Performed By: #### L IPID, BMP #### [facility] [address] [address] [address] Petros Perez Cholesterol in LDL [Mass/Vol] 95.8 mg/dL Normal [facility] Comment on above: Performed By: #### L IPID, BMP #### [facility] [address] [address] [address] Petros Perez Cholesterol.total/Choles terol in HDL [Mass ratio] 4.5 {ratio} Normal [facility] Comment on above: Performed By: #### L IPID, BMP #### [facility] [address] [address] [address] Petros Perez HDL NORMAL > or = 60 mg/dl - LO W CARDIOVASCULAR RISK <40 mg/dl - HIGH CARDIOVASCULAR RISK Normal [facility] Comment on above: Performed By: #### L IPID, BMP #### [facility] [address] [place] [address] Dr. Petros Perez LDL CALC NORMAL SEE BELOW Normal [facility] Comment on above: Result Comment: <100 mg/dl OPTIMAL 100 - 129 mg/dl NEAR OR ABOVE OPTIMAL 130 - 159 mg/dl BORDERLINE HIGH 160 - 189 mg/dl HIGH >190 mg/dl VERY HIGH Performed By: #### L IPID, BMP #### [facility] [address] [place] [address] Dr. Petros Perez Triglyceride [Mass/Vol] 96 mg/dL Normal <=150 [facility] Comment on above: Performed By: #### L IPID, BMP #### [facility] [address] [place] [address] Dr. Petros Perez VLDL CALC 19.2 mg/dL Normal [facility] Comment on above: Performed By: #### L IPID, BMP #### [facility] [address] [place] [address] Dr. Petros Perez MICROALBUMIN, SPENCER URon 08-02 mALB 3.2 mg/L Normal <=30.0 [facility] Comment on above: Performed By: #### M ALBR #### [facility] [address] [place] [address] Dr. Petros Perez PROF CHEM 8 (BAS METB)on Anion gap [Moles/Vol] 13.1 mmol/L Normal [facility] Comment on above: Performed By: #### L IPID, BMP #### [facility] [address] [place] [address] Dr. Petros Perez Calcium [Mass/Vol] 9.2 mg/dL Normal 8.5-10.1 [facility] Comment on above: Performed By: #### L IPID, BMP #### [facility] [address] [place] [address] Dr. Petros Perez Chloride [Moles/Vol] 106 mmol/L Normal 98-107 [facility] Comment on above: Performed By: #### L IPID, BMP #### [facility] [address] [place] [address] Dr. Petros Perez CO2 [Moles/Vol] 24.1 mmol/L Normal 21.0-32.0 [facility] Comment on above: Performed By: #### L IPID, BMP #### [facility] [address] [place] [address] Dr. Petros Perez Creatinine [Mass/Vol] 1.56 mg/dL Critically high 0.70-1.30 [facility] Comment on above: Performed By: #### L IPID, BMP #### [facility] [address] [place] [address] Dr. Petros Perez EGFR-AF CENTRAL AFRICAN 53 mL/min/1.73m2 Critically low >=60 [facility] Comment on above: Performed By: #### L IPID, BMP #### [facility] [address] [place] [address] Dr. Petros Perez EGFR-NON AF CENTRAL AFRICAN 43 mL/min/1.73m2 Critically low >=60 [facility] Comment on above: Performed By: #### L IPID, BMP #### [facility] [address] [place] [address] Dr. Petros Perez Glucose [Mass/Vol] 139 mg/dL Critically high 74-106 [facility] Comment on above: Performed By: #### L IPID, BMP #### [facility] [address] [place] [address] Dr. Petros Perez Potassium [Moles/Vol] 4.2 mmol/L Normal 3.5-5.1 [facility] Comment on above: Performed By: #### L IPID, BMP #### [facility] [address] [place] [address] Dr. Petros Perez Sodium [Moles/Vol] 139 mmol/L Normal 136-145 [facility] Comment on above: Performed By: #### L IPID, BMP #### [facility] [address] [place] [address] Dr. Petros Perez Urea nitrogen [Mass/Vol] 25.0 mg/dL Critically high 7.0-18 .0 [facility] Comment on above: Performed By: #### L IPID, BMP #### [facility] [address] [address] [address] Petros Perez Urea nitrogen/Creatinine [Mass ratio] 16.0 mg/mg Normal [facility] Comment on above: Performed By: #### L IPID, BMP #### [facility] [address] [place] [address] Dr. Petros Perez GLYCOHEMOGLOBIN A1Con 2021 ADA RECOMMENDATION ADA THERAPEUTIC TARG ET 6.0 - 7.0 ACTION SUGGESTED > 7.0 Normal [facility] Comment on above: Performed By: #### A 1C #### [facility] [address] [place] [address] Dr. Petros Perez Glucose [Mass/Vol] 180 mg/dL Normal [facility] Comment on above: Performed By: #### A 1C #### [facility] [address] [place] [address] Dr. Petros Perez HbA1c (Bld) [Mass fraction] 7.9 % Critically high <=6.0 [facility] Comment on above: Performed By: #### A 1C #### [facility] [address] [place] [address] Dr. Petros Perez Consent for COVID Vaccineon 05-14-2020 SARS-CoV-2 (COVID-19) RNA EUN+probe Ql (Unsp spec) [id number] CD:127 Normal [facility] Consent for Treatmenton 05-02 Consent for Treatment [id number] CD:127 Normal [facility] Coding Summary.on 05-13-2020 Coding Summary. CODING DATE: 021 [facility] STATUS: PAYOR: Medicare ADMIT DX: REASON FOR [...] Saritha Simmons Date Saved: 05/13/2020 11:13 am [facility] Vital Signs Date Time Vital Sign Value Performing Clinician Facility 12-20-2023 14:48-0400 Body height 182.88 cm [facility] 12-20-2023 14:48-0400 Body mass index (BMI) [Ratio] 33.5 kg/m2 [facility] 12-20-2023 14:48-0400 Body weight 112.2 kg [facility] 12-20-2023 14:48-0400 Diastolic blood pressure 64 mm[Hg] [facility] 12-20-2023 14:48-0400 Heart rate 69 /min [facility] 12-20-2023 14:48-0400 Respiratory rate 12 /min [facility] 12-20-2023 14:48-0400 Systolic blood pressure 159 mm[Hg] [facility] 12-12-2023 09:25-0400 Body height 182.88 cm [facility] 12-12-2023 09:25-0400 Body mass index (BMI) [Ratio] 33.7 kg/m2 [facility] 12-12-2023 09:25-0400 Body weight 112.94 kg [facility] 12-12-2023 09:25-0400 Diastolic blood pressure 71 mm[Hg] [facility] 12-12-2023 09:25-0400 Heart rate 76 /min [facility] 12-12-2023 09:25-0400 Respiratory rate 12 /min [facility] 12-12-2023 09:25-0400 Systolic blood pressure 149 mm[Hg] [facility] 09-10-2023 09:28-0400 Body height 182.88 cm [facility] 09-10-2023 09:28-0400 Body mass index (BMI) [Ratio] 32.3 kg/m2 [facility] 09-10-2023 09:28-0400 Body weight 108.12 kg [facility] 09-10-2023 09:28-0400 Diastolic blood pressure 61 mm[Hg] [facility] 09-10-2023 09:28-0400 Heart rate 56 /min [facility] 09-10-2023 09:28-0400 Respiratory rate 12 /min [facility] 09-10-2023 09:28-0400 Systolic blood pressure 123 mm[Hg] [facility] 06-11-2023 09:02-0400 Body height 182.88 cm [facility] 06-11-2023 09:02-0400 Body mass index (BMI) [Ratio] 33 kg/m2 [facility] 06-11-2023 09:02-0400 Body weight 110.67 kg [facility] 06-11-2023 09:02-0400 Diastolic blood pressure 65 mm[Hg] [facility] 06-11-2023 09:02-0400 Heart rate 62 /min [facility] 06-11-2023 09:02-0400 Respiratory rate 12 /min [facility] 06-11-2023 09:02-0400 Systolic blood pressure 149 mm[Hg] [facility] 11-08-2022 10:00-0400 Body height 182.88 cm Brian Ball Other [facility] [employer] Other 11-08-2022 10:00-0400 Body mass index (BMI) [Ratio] 31.27 kg/m2 Brian Ball Other [facility] [employer] Other 11-08-2022 10:00-0400 Body weight 104.6 kg Brian Ball Other [facility] Other 11-08-2022 10:00-0400 Diastolic blood pressure 72 mm[Hg] Brian Ball Other [facility] [employer] Other 11-08-2022 10:00-0400 Respiratory rate 12 /min Brian Ball Other [facility] Other 11-08-2022 10:00-0400 Systolic blood pressure 148 mm[Hg] Brian [employer] Other [facility] Other 08-09-2022 10:00-0400 Body height 182.88 cm Brian [employer] Other [facility] Other 08-09-2022 10:00-0400 Body mass index (BMI) [Ratio] 31.46 kg/m2 Brian [employer] Other [facility] Other 08-09-2022 10:00-0400 Body weight 105.24 kg Brian [employer] Other [facility] Other 08-09-2022 10:00-0400 Diastolic blood pressure 75 mm[Hg] [employer] Other [facility] Other 08-09-2022 10:00-0400 Respiratory rate 12 /min [employer] Other [facility] Other 08-09-2022 10:00-0400 Systolic blood pressure 170 mm[Hg] Brian [employer] Other [facility] Other Encounters Encounter Date Encounter Type Care Provider Facility Start: 01-14-2024 End: 01-14-2024 ambulatory Obi Carroll DPM Work Phone: [facility] Work Phone: Start: 01-14-2024 End: 01-14-2024 Patient encounter procedure Obi Carroll DPM Work Phone: [facility] Work Phone: Start: 12-26-2023 Non-patient / Non-visit DPM Rodrigo Schulz Work Phone: [facility] Work Phone: Start: 12-26-2023 End: 12-26-2023 [facility] Work Phone: Start: 12-26-2023 End: 12-26-2023 Departed Referred DPM Obi Carroll Work Phone: [facility] Start: 12-20-2023 End: 12-20-2023 ambulatory [facility] [place] Work Phone: Start: 12-20-2023 End: 12-20-2023 Encounter for other preprocedural examination Obi Carroll DPM Work Phone: [facility] Start: 12-20-2023 End: 12-20-2023 Patient encounter procedure [facility] Work Phone: Start: 12-19-2023 Patient encounter status [facility] Start: 12-16-2023 Non-patient / Non-visit [facility] Work Phone: Start: 12-12-2023 End: 12-12-2023 ambulatory [facility] Work Phone: Start: 12-12-2023 End: 12-12-2023 Patient encounter procedure [facility] Work Phone: Start: 12-06-2023 Non-patient / Non-visit [facility] Work Phone: Start: 11-08-2023 Non-patient / Non-visit [facility] Work Phone: Start: 10-30-2023 Non-patient / Non-visit [facility] Work Phone: Start: 09-10-2023 End: 09-10-2023 ambulatory [facility] Work Phone: Start: 09-10-2023 End: 09-10-2023 Patient encounter procedure [facility] Work Phone: Start: 06-11-2023 End: 06-11-2023 ambulatory [facility] Work Phone: Start: 06-11-2023 End: 06-11-2023 Patient encounter procedure [facility] Work Phone: Start: 11-08-2022 End: 11-08-2022 ambulatory Brian Foote Other [facility] Other Start: 11-08-2022 Office outpatient vi sit 25 minutes Brian Foote [facility] Start: 09-13-2022 End: 09-13-2022 ambulatory Brian Foote Other [facility] Other Start: 09-13-2022 Telephone encounter Brian Foote [facility] Start: 08-09-2022 End: 08-09-2022 ambulatory Brian Foote Other [facility] Other Start: 08-09-2022 Patient encounter procedure Brian Foote [facility] Start: 12-27-2021 End: 12-28-[address] BRIAN FOOTE Facility:[facility] Start: 08-15-2021 End: 08-16-[address] BRIAN FOOTE Facility:[facility] Start: 04-25-2021 End: 04-26-[address] BRIAN FOOTE Facility:[facility] Procedures Date Procedure Procedure Detail Performing Clinician Start: 12-26-2023 Acid Fast Smear DPM Pet werner [facility] Work Phone: Start: 12-26-2023 Aerobic Culture Obi SANCHEZ Work Phone: Start: 12-26-2023 AFB Specimen Processing DPM Obi [facility] Work Phone: Start: 11-08-2023 Aerobic Culture Start: 11-08-2023 Anaerobic Culture Start: 08-15-[address] CAROLE MILLER [place] Comment on above: Performed By: #### P [facility] #### [facility] [address] [address] [address] Petros Perez Plan of Treatment Date Care Activity Detail Author Start: 12-26-2023 Acid Fast Culture Acid Fast Culture [facility] Start: 12-12-2023 Patient referral [facility] Work Phone: Comprehensive metabo lic 2000 panel - Serum or Plasma [facility] Patient referral [facility] Work Phone: [facility] Immunizations Immunization Date Immunization Notes Care Provider Fa ciligabi 01-14-2024 influenza, high dose seasonal, preservative-free Obi Carroll DPM Work Phone: [facility] 01-21-2023 influenza virus vaccine, unspecified formulation [facility] 11-21-2021 influenza virus vaccine, split virus (incl. purified surface antigen) Brian Foote Other [facility] [employer] Other 11-21-2021 influenza virus vaccine, unspecified formulation [facility] 11-21-2021 influenza, high dose seasonal, preservative-free Brian Foote Other [facility] [employer] Other 02-22-2021 COVID-19 Vaccine Pfi zer - Documentation Purposes Only Brian Foote Other [facility] 12-30-2020 influenza virus vaccine, split virus (incl. purified surface antigen) Brian Foote Other [facility] [employer] Other 12-30-2020 influenza virus vaccine, unspecified formulation [facility] 05-06-2020 COVID-19 Vaccine Slim - Documentation Purposes Only Brian Foote Other [facility] 01-12-2020 influenza virus vaccine, split virus (incl. purified surface antigen) Brian Foote Other [facility] [employer] Other 01-12-2020 influenza virus vaccine, unspecified formulation [facility] 01-13-2019 influenza virus vaccine, split virus (incl. purified surface antigen) Brian Foote Other [facility] [employer] Other 01-13-2019 influenza virus vaccine, unspecified formulation [facility] 12-02-2017 influenza virus vaccine, split virus (incl. purified surface antigen) Brian Foote Other [facility] [employer] Other 12-02-2017 influenza virus vaccine, unspecified formulation [facility] 12-27-2016 influenza virus vaccine, split virus (incl. purified surface antigen) Brian Foote Other [facility] [employer] Other 12-27-2016 influenza virus vaccine, unspecified formulation [facility] 12-22-2015 influenza virus vaccine, split virus (incl. purified surface antigen) Brian Foote Other [facility] [employer] Other 12-22-2015 influenza virus vaccine, unspecified formulation [facility] 03-15-2015 pneumococcal conjuga te vaccine, 13 valent Brian Foote Other [facility] 12-07-2014 influenza virus vaccine, split virus (incl. purified surface antigen) Brian Qamar Other [facility] [employer] Other 12-07-2014 influenza virus vaccine, unspecified formulation [facility] 11-10-2013 tetanus and diphther ia toxoids, adsorbed, preservative free, for adult use (5 Lf of tetanus toxoid and 2 Lf of diphtheria toxoid) Brian Qamar Other [facility] 12-10-2012 tetanus and diphther ia toxoids, adsorbed, preservative free, for adult use (5 Lf of tetanus toxoid and 2 Lf of diphtheria toxoid) Brian Foote Other [facility] 02-14-2011 pneumococcal polysaccharide vaccine, 23 valent Brian Qamar Other [facility] Payers Date Payer Category Payer Self-pay 1960 Medicare [id number] 1960 Unknown [id number] 1945 Unknown [id number] 1945 Unknown [id number] 1945 Unknown [id number] Unknown [id number] Social History Date Type Detail Facility Sex Assigned At [facility] Other Start: 1945 Sex Assigned At Male F [facility] Tobacco smoking stat [facility] Unknown if ever smoked [facility] Work Phone: Start: 01-14-2024 Sex Male (finding) [facility] Evaluation note 12-12-2023 Note Date & Type Note Facility 12-12-2023 Evaluation note Diagnosis Onset Date Resolution Chronic kidney disease acute Oc tober 2023 9:14am Chronic venous insufficiency of lower extremity acute December 11 9:14am Elevated cholesterol acute Octo 2023 9:14am Hypertension acute December 9:14am Type 2 diabetes mellitus with diabetic polyneuropathy acute December 11 9:14am Type 2 diabetes mellitus with hyperglycemia acute December 12, 2023 9:14am Chronic kidney disease acute Oc tober 2023 2:46pm Chronic venous insufficiency of lower extremity acute December 19 2:46pm Elevated cholesterol acute Octo demi 2023 2:46pm Hypertension acute December 2:46pm Preop exam for internal medicine acute December 19 2:46pm Type 2 diabetes mellitus with hyperglycemia acute December 20, 2023 2:46pm [facility] Work Phone: Evaluation note 11-08-2022 Note Date & Type [...] < 30 Increase exercise and reduce calories. [facility] Other Evaluation note 08-09-2022 Note Date & [...] High risk medication use (ICD-10 - Z79.899) [facility] Other Evaluation note Note Date & Type Note Facility Evaluation note No Information [facility] Other Evaluation note Note Date & Type [...] noneactive [facility] Work Phone: Evaluation [...] acute [facility] Work Phone: History [...] History APPENDECTOMY Hospitalization History SEE SURGICAL HX [facility] Other Summary Purpose Family History No Family History Records FoundNo Family History Records FoundNo Family History Records Found Advance Directives Advance Directive Response Recorded Date/ Time Advance Directives No March 27, 2023 1:44pm Advance Directive Response Recorded Date/ Time Advance Directives No March 27, 2023 12:44pm Chief Complaint and Reason for Visit Chief [...] 2 diabetes mellitus with hyperglycemia Chief Complaint Admit Date 3 MONTH F/U December 12, 2023 9 :14am Pre-surgical Clearance December 19 2:46pm ulcer left planar foot December 25 9:18am flu shot January 14, 2024 10:57am Reason for Visit Admit Date Chronic kidney disease December 11 9:14am Chronic venous insufficiency of lower ex tremity December 12, 2023 9:14am Elevated cholesterol December 12, 2023 9:14am Hypertension December 12, 2023 9 :14am Type 2 diabetes mellitus with diabetic p olyneuropathy December 12, 2023 9:14am Type 2 diabetes mellitus with hyperglyce vandana December 12, 2023 9:14am Chronic kidney disease December 19 2:46pm Chronic venous insufficiency of lower ex tremity December 20, 2023 2:46pm Elevated cholesterol December 20, 2023 2:46pm Hypertension December 20, 2023 2 :46pm Preop exam for internal medicine December 20, 2023 2:46pm Type 2 diabetes mellitus with hyperglyce vandana December 20, 2023 2:46pm Additional Source Comments (unrecognized sect ion and content) No Status Records FoundNo Status Records FoundNo Status Records Found INFORMATION SOURCE (unrecogn ized section and content) DATE CREATED AUTHOR 08/06/2020 Eliazar Carlos [facility] DATE CREATED AUTHOR AUTHOR'S ORGANIZ ATION 12/31/2021 [facility] DATE CREATED AUTHOR AUTHOR'S ORGANIZ ATION 01/05/2024 [facility] REASON FOR VISIT (unrecogniz ed section and content) WELL[facility]Lab Results[facility] Care Teams (unrecognized sec tion and content) Team Status: Active Member Role Status Dates Brian Foote DO Primary Care Provider Active Team Status: Active Member Role Status Luis Foote DO Primary Care Provide r, Attending Provider Active Start: October 30, 2023 Team Status: Active Member Role Status Luis Foote DO Primary Care Provide r, Attending Provider Active Start: November 08, 2023 Team Status: Active Member Role Status Luis Foote DO Primary Care Provide r, Attending Provider Active Start: December 06, 2023 Team Status: Inactive Member Role Status Luis Foote DO Primary Care Provide r, Attending Provider Active Start: December 12, 2023 End: December 12, 2023 Team Status: Inactive Member Role Status Luis Foote DO Primary Care Provide r, Attending Provider Active Start: June 11, 2023 End: June 11, 2023 Team Status: Inactive Member Role Status Luis Foote DO Primary Care Provide r, Attending Provider Active Start: September 10, 2023 End: September 10, 2023 Team Status: Active Member Role Status Luis Foote DO Primary Care Provider Active Start: December 16, 2023 Obi Carroll DPM MS Attending Provider Active Start: December 16, 2023 Team Status: Inactive Member Role Status Luis Foote DO Primary Care Provide r, Attending Provider Active Start: December 20, 2023 End: December 20, 2023 Team Status: Active Member Role Status Luis Foote DO Attending Provider Active Sta rt: December 16, 2023 Team Status: Inactive Member Role Status Luis Carroll DPM MS Attending Provider Active Start: December 26, 2023 End: December 26, 2023 Team Status: Active Member Role Status Dates Brian Foote , Primary Care Provider Active Start: December 26, 2023 Obi Carroll DPM [place] Attending Provider Active Start: December 26, 2023 Team Status: Inactive Member Role Status Dates Brian Foote , DO Primary Care Provide r, Attending Provider Active Start: January 14, 2024 End: January 14, 2024 Goals (unrecognized section and content) Goals may [...] BE BASED ON THE PRIMARY CLINICAL RECORDS. [facility] [employer] provides no warranty or guarantee of the accuracy or completeness of information in this document.
== END 2024-03-13 10:49 | disposition home or self-care (01) ==
LOC: WC 10:48
PROVIDERS: PCP Internal Medicine; Visit Provider Podiatrist Foot & Ankle Surgery
DX: E11.621 Type 2 diabetes mellitus with foot ulcer (principal)
CPT/HCPCS: G0463

== ENCOUNTER 2024-03-20 08:19 | Outpatient (OUT) | payer MEDICARE, SELFPAY ==
--- OUTSIDE RECORDS SUMMARY | 2024-03-20 08:26 | XMS_ITS | CCD ---
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 Role Phone DR BRIAN FOOTE Attending [...] Admitting Unavailable Obi Carroll DPM Attending Provider Allergies Allergy Classification Reported Allergen(s) Allergy Type Date of Onset Reaction(s) Facility (10 sources) empagliflozin Drug Allergy 06-11-19 Unknown, Unknown Reaction [facility] (10 sources) Simvastatin Drug Allergy 06-11-19 Unknown, Unknown Reaction [facility] (3 sources) Sulfonamides (Antibiotic) Propensity to adverse reactions Unknown [facility] Other (1 source) Substance with sulfonamide structure and antibacterial mechanism of action (substance) Drug allergy Unknown [facility] Other (8 sources) Sulfonamides (Antibiotic); Translations: [Sulfa (Sulfonamide Antibiotics)] Allergy to substance 06-11-19 Unknown Reaction [facility] (1 source) empagliflozin Drug Allergy 12-20-19 [facility] Repository (1 source) Simvastatin Drug Allergy 12-20-19 [facility] Medications Current Medications Medication Drug Class(es) Dates Sig (Normalized) Sig (Original) benazepril hydrochloride 20 mg oral tablet (10 sources) Angiotensin Converting Enzyme Inhibitor Start: 06-08-2023 take 1 tablet by mouth once daily Benazepril 20 mg tablet Active 20 MG PO Daily June 07, 2023 11:00pm take 1 tablet by mouth once jordan y Benazepril HCl 20 MG TAKE 1 TABLET BY MOUTH DAILY Active fenofibrate 160 mg oral tablet (10 sources) Peroxisome Proliferator Receptor alpha Agonist Start: 06-08-2023 take 1 tablet by mouth once daily Fenofibrate 160 mg tablet Active 160 MG PO Daily June 07, 2023 11:00pm take 1 tablet by mouth once jordan y Fenofibrate 160 MG TAKE 1 TABLET BY MOUTH DAILY Active glimepiride 4 mg oral tablet (10 sources) Sulfonylurea Start: 06-08-2023 take 1 tablet [...] BREAKFAST Active linagliptin 5 mg oral tablet (10 sources) Dipeptidyl Peptidase 4 Inhibitor Start: 06-08-2023 take 1 tablet by mouth once daily Linagliptin 5 mg tablet Active 5 MG PO Daily June 07, 2023 11:00pm take 1 tablet by mouth once jordan y Tradjenta 5 MG TAKE 1 TABLET BY MOUTH DAILY Active Completed/Discontinued Medications Medication Drug Class(es) Dates Sig (Normalized) Sig (Original) pioglitazone 45 mg oral tablet (10 sources) Peroxisome Proliferator Receptor alpha Agonist, Peroxisome [...] Problem Date Documented Date Episodic/Chronic Anxiety disorders (12 sources) Generalized anxiety disorder; Translations: [Generalized anxiety disorder] Chronic Chronic kidney disease (18 sources) Chronic kidney disease; Translations: [Chronic kidney disease, unspecified] 06-08-2023 Chronic Chronic kidney disease (1 source) Chronic kidney disease; Translations: [CHRONIC KIDNEY DISEASE STAGE 3B] Onset: 08-17-2021 Deficiency and other anemia (1 source) Macrocytic anemia; Translations: [Nutritional anemia, unspecified] 02-15-2024 Episodic Deficiency and other anemia (1 source) Nutritional anemia, unspecified; Translations: [Unspecified deficiency anemia] 03-11-2024 Episodic Diabetes mellitus with complications (20 sources) Type [...] 08-17-2021 Chronic Other aftercare (1 source) 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 Episodic Other diseases of veins and lymphatics (6 sources) Venous insufficiency of leg; Translations: [Venous insufficiency (chronic) (peripheral)] 09-10-2023 Episodic Other diseases of veins and lymphatics (10 sources) Venous insufficiency (chronic) (peripheral); Translations: [Venous [...] conditions (not mental disorders or infectious disease) (9 sources) Encounter for screening for malignant neoplasm of prostate; Translations: [Patient encounter status] Onset: 08-17-2021 Episodic Results Test Name Value Interpretation Reference Range Facility [facility] 12-26-2023 L Specimen: [id number] Received: 12/30/23 Status: GERRI Humphries Num: [id number] Spec Type: Surgical Subm Dr: Obi Carroll,DPM, MS Tissues: A Tendon/Sheath (LEFT FLEXOR TENDON) B Bone Fragments - Pathologic Fracture (2ND METATARSAL HEAD LFT FOOT) Procedures: HE/3, Gross/Micro L5, Gross/Micro L3, Decalcification Age/ Patient Sex Location Account Attending Physician Sander Hooks 78/M LABELL [id number] Obi Carroll DPM, MS SPEC NUM: [id number] RECD: 12/30/23 STATUS: GERRI HUMPHRIES NUM: [id number] DONY: 12/26/[address]: Obi Carroll DPM, MS ENTERED: 12/30/23 [facility] DR: Hilda,Libertad SPEC TYPE: Surgical DEPT: AMAYA [...] inked black. The specimen is serially sectioned. Box Toe Flanger Stitchdowns sections are submitted in cassettes B1 and B2. The specimen is placed in the decal for routine processing. Specimen: [id number] Received: 12/30/23 Status: CAMILOJoseph Humphries Num: [id number] Spec Type: Surgical Subm Dr: Obi Carroll DPM, MS Tissues: A Tendon/Sheath (LEFT FLEXOR TENDON) B Bone Fragments - Pathologic Fracture (2ND METATARSAL HEAD LFT FOOT) Procedures: HE/3, Gross/Micro L5, Gross/Micro L3, Decalcification Patient: Sander Hooks [id number] (Continued) Specimen: [id number] Received: 12/30/23 (Continued) Signed (signature on file) Hill Mehta MD 01/03/24 0836 Specimen: [id number] Received: 12/30/23 Status: GERRI Humphries Num: [id number] Spec Type: Surgical Subm Dr: Obi Carroll DPM, MS Tissues: A Tendon/Sheath (LEFT FLEXOR TENDON) B Bone Fragments - Pathologic Fracture (2ND METATARSAL HEAD LFT FOOT) Procedures: HE/3, Gross/Micro L5, Gross/Micro L3, Decalcification Patient: Sander Hooks [id number] (Continued) Specimen: [id number] Received: 12/30/23 (Continued) Microscopic Description Microscopic examination is performed. CPT Codes 03595 x2, 98436 Specimen: [id number] Received: 12/30/23 Status: GERRI Humphries Num: [id number] Spec Type: Surgical Subm Dr: Obi Carroll,DPM, MS Tissues: A Tendon/Sheath (LEFT FLEXOR TENDON) B Bone Fragments - Pathologic Fracture (2ND METATARSAL HEAD LFT FOOT) Procedures: HE/3, Gross/Micro L5, Gross/Micro L3, Decalcification Patient: Sander Hooks [id number] (Continued) Signed (signature on file) Hill Mehta MD 01/03/24 0836 Normal [facility] No Panel InformationOrdered By: Obi Carroll on 12-26-2023 Acid Fast Culture [facility] Acid Fast Smear [facility] Aerobic Culture [facility] AFB Specimen Processing F [facility] Acid Fast Smear [facility] AFB Specimen Processing [facility] No Panel Informationon 12-25 Fungal Culture Status \R\ Fungus (Mycolo gy) Culture [facility] Fungal Smear Result \R\ Fungus Stain [facility] Gram Stain Result 1 \R\ Gram Stain Result [facility] Miscellaneous Test Comment See comment [facility] Comment on above: Specimen Source: TOE LT2 - Toe Left Second - Toe Lt 2nd - 607.100 Specimen Source: WND - Wound - Wound - 610.200 Basophils Auto (Bld) [#/Vol] on 12-16-2023 Basophils (Bld) [#/Vol] 0.0 10 3/uL 0.0-0.1 [facility] Basophils (Bld) [#/Vol] Automated basoph il count 0.0-0.1 [facility] Basophils/100 WBC Auto (Bld) on 12-16-2023 Basophils/100 WBC (Bld) 0.4 % 0.2-2.0 [facility] Basophils/100 WBC (Bld) Automated basophil % 0. 2-2.0 [facility] Eosinophils/100 WBC Auto (Bl d)on 12-16-2023 Eosinophils/100 WBC (Bld) 0.1 % Low 0.9-7.0 [facility] Eosinophils/100 WBC (Bld) Automated eosinophil % Low 0.9-7.0 [facility] Erythrocyte distribution wid th Auto (RBC) [Ratio]on 12-16-2023 Erythrocyte distribution width (RBC) [Ratio] 14.8 % 11.0-15.0 [facility] Erythrocyte distribution width (RBC) [Ratio] Erythrocyte distribution width [Ratio] by Automated count 11.0-15.0 [facility] Estimated glomerular filtrat ion rate (GFR) non- Americanon 12-16-2023 GFR/1.73 sq M.predicted among non-blacks MDRD (S/P/Bld) [Vol rate/Area] 40 mL/min/{1.73_m2} Low >=60 mL/min/1.73 m 2 [facility] GFR/1.73 sq M.predicted among non-blacks MDRD (S/P/Bld) [Vol rate/Area] Estimated glomerular filtration rate (GFR) non- Low >=60 mL/min/1.73 m 2 [facility] Hematocrit Auto (Bld) [Volum e fraction]on 12-16-2023 Hematocrit (Bld) [Volume fraction] 34.5 % Low 42.0-54.0 [facility] Hematocrit (Bld) [Volume fraction] Hematocrit [Volume Fraction] of Blood by Automated count Low 42.0-54.0 [facility] Hemoglobin [Mass/volume] in Bloodon 12-16-2023 Hemoglobin (Bld) [Mass/Vol] 11.1 g/dL Low 14.0-18.0 [facility] Hemoglobin (Bld) [Mass/Vol] Hemoglobin [Mass/volume] in Blood Low 14.0-18.0 [facility] Laboratory - Chemistry and C hemistry - challengeon 12-16-2023 Calcium [Mass/Vol] 9.0 mg/dL 8.5-10.1 [facility] Chloride [Moles/Vol] 113 mmol/L High 98-107 [facility] CO2 [Moles/Vol] 23.7 mmol/L 21.0-32.0 [facility] Creatinine [Mass/Vol] 1.67 mg/dL High 0.70-1.30 [facility] GFR/1.73 sq M.predicted MDRD (S/P/Bld) [Vol rate/Area] 48 mL/min/{1.73_m2} Low >=60 mL/min/1.73 m 2 [facility] Glucose [Mass/Vol] 106 mg/dL 74-106 [facility] Potassium [Moles/Vol] 4.7 mmol/L 3.5-5.1 [facility] Sodium [Moles/Vol] 145 mmol/L 136-145 [facility] Urea nitrogen [Mass/Vol] 29.0 mg/dL High 7.0-18.0 [facility] Urea nitrogen/Creatinine [Mass ratio] 17.4 mg/mg [facility] Laboratory - Hematology and Cell countson 12-16-2023 Immature granulocytes/100 WBC (Bld) 0.7 % High 0.0-0.5 [facility] Leukocytes [#/volume] correc ben for nucleated erythrocytes in Blood by Automated counon 12-16-2023 WBC corrected for nucl RBC Auto (Bld) [#/Vol] 6.7 10 3/uL 4.0-11.0 [facility] WBC corrected for nucl RBC Auto (Bld) [#/Vol] Leukocytes [#/volume] corrected for nucleated erythrocytes in Blood by Automated coun 4.0-11.0 [facility] Lymphocytes Auto (Bld) [#/Vo l]on 12-16-2023 Lymphocytes (Bld) [#/Vol] 1.4 10 3/uL 1.2-3.8 [facility] Lymphocytes (Bld) [#/Vol] Lymphocytes [#/volume] in Blood by Automated count 1.2-3.8 [facility] Lymphocytes/100 WBC Auto (Bl d)on 12-16-2023 Lymphocytes/100 WBC (Bld) 21.1 % 20.5-60.0 [facility] Lymphocytes/100 WBC (Bld) Lymphocytes/100 leukocytes in Blood by Automated count 20.5-60.0 [facility] MCH Auto (RBC) [Entitic mass ]on 12-16-2023 MCH (RBC) [Entitic mass] 32.0 pg 25.9-34.0 [facility] MCH (RBC) [Entitic mass] MCH [Entitic ma ss] by Automated count 25.9-34.0 [facility] MCHC Auto (RBC) [Mass/Vol]on 12-16-2023 MCHC (RBC) [Mass/Vol] 32.2 g/dL 29.9-35.2 [facility] MCHC (RBC) [Mass/Vol] MCHC [Mass/volume] by Automated count 29.9-35.2 [facility] MCV Auto (RBC) [Entitic vol] on 12-16-2023 MCV (RBC) [Entitic vol] 99.4 fL High 80.0-94.0 F [facility] MCV (RBC) [Entitic vol] MCV [Entitic vol ume] by Automated count High 80.0-94.0 [facility] Monocytes Auto (Bld) [#/Vol] on 12-16-2023 Monocytes (Bld) [#/Vol] 0.7 10 3/uL 0.3-0.8 [facility] Monocytes (Bld) [#/Vol] Automated blood monocyte count 0.3-0.8 [facility] Monocytes/100 WBC Auto (Bld) on 12-16-2023 Monocytes/100 WBC (Bld) 10.1 % 1.7-12.0 F [facility] Monocytes/100 WBC (Bld) Automated monocyte % 1. 7-12.0 [facility] Neutrophils Auto (Bld) [#/Vo l]on 12-16-2023 Neutrophils (Bld) [#/Vol] 4.5 10 3/uL 1.4-6.5 [facility] Neutrophils (Bld) [#/Vol] Neutrophils [#/volume] in Blood by Automated count 1.4-6.5 [facility] Neutrophils/100 WBC Auto (Bl d)on 12-16-2023 Neutrophils/100 WBC (Bld) 67.6 % 43.0-75.0 [facility] Neutrophils/100 WBC (Bld) Automated neutrophil % 43.0-75.0 [facility] No Panel Informationon 12-15 Eosinophils # (Auto) 0.0 10 3/uL 0.0-0.7 [facility] Immature Granulocyte # (Auto) 0.05 10 3/uL High 0.00-0.03 [facility] Platelet mean volume Auto (B ld) [Entitic vol]on 12-16-2023 Platelet mean volume (Bld) [Entitic vol] 10.7 fL 9.-. [facility] Platelet mean volume (Bld) [Entitic vol] Platelet mean volume [Entitic volume] in Blood by Automated count 9.-. [facility] Platelets Auto (Bld) [#/Vol] on 12-16-2023 Platelets (Bld) [#/Vol] 233 10 3/uL 150-450 [facility] Platelets (Bld) [#/Vol] Platelets [#/vol ume] in Blood by Automated count 150-450 [facility] RBC Auto (Bld) [#/Vol]on RBC (Bld) [#/Vol] 3.47 10 6/uL Low 4.70-6.10 [facility] RBC (Bld) [#/Vol] Erythrocytes [#/volu me] in Blood by Automated count Low 4.70-6.10 [facility] Serum or plasma anion gap de terminationon 12-16-2023 Anion gap [Moles/Vol] 13.0 [facility] Anion gap [Moles/Vol] Serum or plasma an ion gap determination [facility] Albumin [Mass/volume] in Ser um or Plasmaon 12-06-2023 Albumin [Mass/Vol] 3.2 g/dL 2.9-4.4 [facility] Albumin [Mass/Vol] Albumin [Mass/volume ] in Serum or Plasma 2.9-4.4 [facility] Estimated glomerular filtrat ion rate (GFR) non- Americanon 12-06-2023 GFR/1.73 sq M.predicted among non-blacks MDRD (S/P/Bld) [Vol rate/Area] 29 mL/min/{1.73_m2} Low >=60 mL/min/1.73 m 2 [facility] GFR/1.73 sq M.predicted among non-blacks MDRD (S/P/Bld) [Vol rate/Area] Estimated glomerular filtration rate (GFR) non- Low >=60 mL/min/1.73 m 2 [facility] Hepatitis B virus surface Ab [Presence] in Serumon 12-06-2023 HBV surface Ab Ql (S) 43886.0 mIU/mL Immunity>1 0 [facility] Comment on above: Results confirmed on dilution. Status of Immunity Anti-HBs Level Inconsistent with Immunity 0.0 - 10.0Consistent with Immunity >10.0 HBV surface Ab Ql (S) Hepatitis B virus surface Ab [Presence] in Serum Immunity>10 [facility] Comment on above: Results confirmed on dilution. Status of Immunity Anti-HBs Level Inconsistent with Immunity 0.0 - 10.0Consistent with Immunity >10.0 Hepatitis B virus surface Ag [Presence] in Serum or Plasma by Immunoassayon 12-06-2023 HBV surface Ag IA Ql Negative Negative [facility] HBV surface Ag IA Ql Hepatitis B virus surface Ag [Presence] in Serum or Plasma by Immunoassay Negative [facility] IgA [Mass/volume] in Serum o r Plasmaon 12-06-2023 IgA [Mass/Vol] 367 mg/dL 61-437 [facility] IgA [Mass/Vol] IgA [Mass/volume] in Serum or Plasma 61-437 [facility] IgG [Mass/volume] in Serum o r Plasmaon 12-06-2023 IgG [Mass/Vol] 1078 mg/dL 603-1613 [facility] IgG [Mass/Vol] IgG [Mass/volume] in Serum or Plasma 603-1613 [facility] IgM [Mass/volume] in Serum o r Plasmaon 12-06-2023 IgM [Mass/Vol] 38 mg/dL 15-143 [facility] IgM [Mass/Vol] IgM [Mass/volume] in Serum or Plasma 15-143 [facility] Immunoglobulin light chains. kappa.free [Mass/volume] in Serumon 12-06-2023 Immunoglobulin light chains.kappa.free (S) [Mass/Vol] 34.5 mg/L Abnormal 3.3-19.4 [facility] Immunoglobulin light chains.kappa.free (S) [Mass/Vol] Immunoglobulin light chains.kappa.free [Mass/volume] in Serum Abnormal 3.3-19.4 [facility] Immunoglobulin light chains. kappa.free/Immunoglobulin light chains.lambda.free [Luis 12-06-2023 Immunoglobulin light chains.kappa.free/Immuno globulin light chains.lambda.free (S) [Mass ratio] 1.90 Abnormal 0.26-1.65 [facility] Comment on above: Performed at: [facility] [place] [address] [id number] Director: Lb Kaur PhD, Phone: [employer] Immunoglobulin light chains.kappa.free/Immuno globulin light chains.lambda.free (S) [Mass ratio] Immunoglobulin light chains.kappa.free/Immun oglobulin light chains.lambda.free [Mass Abnormal 0.26-1.65 [facility] Comment on above: Performed at: [facility] [place] [address] [id number] Director: Lb Kaur PhD, Phone: [employer] Immunoglobulin light chains. lambda.free [Mass/volume] in Serum or Plasmaon 12-06-2023 Immunoglobulin light chains.lambda.free [Mass/Vol] 18.2 mg/L 5.7-26.3 [facility] Immunoglobulin light chains.lambda.free [Mass/Vol] Immunoglobulin light chains.lambda.free [Mass/volume] in Serum or Plasma 5.7-26.3 [facility] Laboratory - Chemistry and C hemistry - challengeon 12-06-2023 Calcium [Mass/Vol] 8.7 mg/dL 8.5-10.1 [facility] Chloride [Moles/Vol] 107 mmol/L 98-107 [facility] CO2 [Moles/Vol] 22.2 mmol/L 21.0-32.0 [facility] Creatinine [Mass/Vol] 2.21 mg/dL High 0.70-1.30 [facility] GFR/1.73 sq M.predicted MDRD (S/P/Bld) [Vol rate/Area] 35 mL/min/{1.73_m2} Low >=60 mL/min/1.73 m 2 [facility] Glucose [Mass/Vol] 91 mg/dL 74-106 [facility] Potassium [Moles/Vol] 4.1 mmol/L 3.5-5.1 [facility] Sodium [Moles/Vol] 138 mmol/L 136-145 [facility] Urea nitrogen [Mass/Vol] 51.0 mg/dL High 7.0-18.0 [facility] Urea nitrogen/Creatinine [Mass ratio] 23.1 mg/mg [facility] Bilirubin Ql (U) Negative NEGATIVE [facility] Glucose (U) [Mass/Vol] Negative NEGATIVE [facility] Ketones Ql (U) Negative NEGATIVE [facility] pH (U) 5.5 [pH] 5.0-9.0 [facility] Specific gravity (U) [Rel density] 1.025 1.005-1.025 [facility] Urobilinogen Qn (U) 0.2 {Mirta'U}/dL 0.2-1.0 [facility] Laboratory - Specimen inform ationon 12-06-2023 Appearance (U) CLEAR CLEAR [facility] Color (U) LT. YELLOW YELLOW [facility] Laboratory - Urinalysison Leukocyte esterase Test strip Ql (U) Negative NEGATIVE [facility] Mucus Ql (Urine sed) NONE SEEN NONE SEEN [facility] Nitrite Ql (U) Negative NEGATIVE [facility] Protein Ql (U) Negative NEG/TRACE [facility] No Panel Informationon 12-05 Hepatitis B Core Total Antibody Negative Negative [facility] Comment on above: Performed at: [facility] [address] [id number] Director: Lb Kaur PhD, Phone: [phone] Protein Electrophoresis M-Alexandru Not Observed g/dL Not Observed [facility] Protein Electrophoresis Note Comment . [facility] Comment on above: Protein electrophore sis scan will follow via computer,mail, or dado operator delivery. Urine Bacteria NONE SEEN #/HPF NONE SEEN [facility] Urine Occult Blood Negative NEGATIVE [facility] Urine Other Casts NONE SEEN #/LPF NONE SEEN [facility] Urine Other Crystals None Seen #/HPF None Seen [facility] Urine RBC 0-2 #/HPF 0-2 [facility] Urine Squamous Epithelial Cells FEW #/LPF Abnormal NONE/RARE [facility] Urine WBC NONE SEEN #/HPF NONE SEEN [facility] Protein [Mass/volume] in Ser um or Plasmaon 12-06-2023 Protein [Mass/Vol] 6.3 g/dL 6.0-8.5 [facility] Protein [Mass/Vol] Protein [Mass/volume ] in Serum or Plasma 6.0-8.5 [facility] Serum globulin measurement ( mass/volume)on 12-06-2023 Globulin (S) [Mass/Vol] 3.1 g/dL 2.2-3.9 [facility] Globulin (S) [Mass/Vol] Serum globulin measurement (mass/volume) 2.2-3.9 [facility] Serum or plasma albumin/glob ulin mass ratioon 12-06-2023 Albumin/Globulin [Mass ratio] 1.1 {ratio} 0.7-1.7 [facility] Albumin/Globulin [Mass ratio] Serum or plasma albumin/globulin mass ratio 0.7-1.7 [facility] Serum or plasma alpha 1 glob ulin measurement by electrophoresis (mass/volume)on 12-06-2023 Alpha 1 globulin Elph [Mass/Vol] 0.3 g/dL 0.0-0.4 [facility] Alpha 1 globulin Elph [Mass/Vol] Serum or plasma alpha 1 globulin measurement by electrophoresis (mass/volume) 0.0-0.4 [facility] Serum or plasma alpha 2 glob ulin measurement by electrophoresis (mass/volume)on 12-06-2023 Alpha 2 globulin Elph [Mass/Vol] 0.8 g/dL 0.4-1.0 [facility] Alpha 2 globulin Elph [Mass/Vol] Serum or plasma alpha 2 globulin measurement by electrophoresis (mass/volume) 0.4-1.0 [facility] Serum or plasma anion gap de terminationon 12-06-2023 Anion gap [Moles/Vol] 12.9 mmol[facility] Anion gap [Moles/Vol] Serum or plasma an ion gap determination [facility] Serum or plasma beta globuli n measurement by electrophoresis (mass/volume)on 12-06-2023 Beta globulin Elph [Mass/Vol] 1.0 g/dL 0.7-1.3 [facility] Beta globulin Elph [Mass/Vol] Serum or plasma beta globulin measurement by electrophoresis (mass/volume) 0.7-1.3 [facility] Serum or plasma gamma globul in measurement by electrophoresis (mass/volume)on 12-06-2023 Gamma globulin Elph [Mass/Vol] 1.0 g/dL 0.4-1.8 [facility] Gamma globulin Elph [Mass/Vol] Serum or plasma gamma globulin measurement by electrophoresis (mass/volume) 0.4-1.8 [facility] Serum or plasma immunoelectr ophoresis interpretationon 12-06-2023 Interpretation IEP [Interp] Comment . [facility] Comment on above: No monoclonality det ected. Interpretation IEP [Interp] Serum or plasma immunoelectrophoresis interpretation . [facility] Comment on above: No monoclonality det ected. No Panel InformationOrdered By: Brian Foote on 11-08-2023 Aerobic Culture [facility] Anaerobic Culture [facility] Aerobic Culture [facility] Anaerobic Culture [facility] Basophils Auto (Bld) [#/Vol] on 10-30-2023 Basophils (Bld) [#/Vol] 0.1 10 3/uL 0.0-0.1 [facility] Basophils (Bld) [#/Vol] Automated basoph il count 0.0-0.1 [facility] Basophils/100 WBC Auto (Bld) on 10-30-2023 Basophils/100 WBC (Bld) 0.8 % 0.2-2.0 F [facility] Basophils/100 WBC (Bld) Automated basophil % 0. 2-2.0 [facility] Cholesterol in LDL Calc [Mas s/Vol]on 10-30-2023 Cholesterol in LDL [Mass/Vol] 71.0 mg/dL [facility] Comment on above: <100 mg/dl [id number] 0-129 mg/dl NEAR OR ABOVE [id number] mg/dl BORDERLINE [id number] mg/dl HIGH>190 mg/dl VERY HIGH Cholesterol in LDL [Mass/Vol] Cholesterol in LDL [Mass/volume] in Serum or Plasma by calculation [facility] Comment on above: <100 mg/dl [id number] 0-129 mg/dl NEAR OR ABOVE [id number] mg/dl BORDERLINE [id number] mg/dl HIGH>190 mg/dl VERY HIGH Cholesterol in VLDL Calc [Ma ss/Vol]on 10-30-2023 Cholesterol in VLDL [Mass/Vol] 19.4 mg/dL [facility] Cholesterol in VLDL [Mass/Vol] Cholesterol in VLDL [Mass/volume] in Serum or Plasma by calculation [facility] [facility]/100 WBC Auto (Bl d)on 10-30-2023 Eosinophils/100 WBC (Bld) 0.0 % Low 0.9-7.0 [facility] Eosinophils/100 WBC (Bld) Automated eosinophil % Low 0.9-7.0 [facility] Erythrocyte distribution wid th Auto (RBC) [Ratio]on 10-30-2023 Erythrocyte distribution width (RBC) [Ratio] 13.7 % 11.0-15.0 [facility] Erythrocyte distribution width (RBC) [Ratio] Erythrocyte distribution width [Ratio] by Automated count 11.0-15.0 [facility] Estimated glomerular filtrat ion rate (GFR) non- Americanon 10-30-2023 GFR/1.73 sq M.predicted among non-blacks MDRD (S/P/Bld) [Vol rate/Area] 34 mL/min/{1.73_m2} Low >=60 [facility] GFR/1.73 sq M.predicted among non-blacks MDRD (S/P/Bld) [Vol rate/Area] Estimated glomerular filtration rate (GFR) non- Low >=60 [facility] Globulin Calc (S) [Mass/Vol] on 10-30-2023 Globulin (S) [Mass/Vol] 3.4 g/dL F [facility] Globulin (S) [Mass/Vol] Serum globulin measurement by calculation (mass/volume) [facility] Glucose mean value [Mass/vol ume] in Blood Estimated from glycated hemoglobinon 10-30-2023 Average glucose Estimated from glycated hemoglobin (Bld) [Mass/Vol] 126 mg/dL [facility] Average glucose Estimated from glycated hemoglobin (Bld) [Mass/Vol] Glucose mean value [Mass/volume] in Blood Estimated from glycated hemoglobin [facility] Hematocrit Auto (Bld) [Volum e fraction]on 10-30-2023 Hematocrit (Bld) [Volume fraction] 38.8 % Low 42.0-54.0 [facility] Hematocrit (Bld) [Volume fraction] Hematocrit [Volume Fraction] of Blood by Automated count Low 42.0-54.0 [facility] Hemoglobin [Mass/volume] in Bloodon 10-30-2023 Hemoglobin (Bld) [Mass/Vol] 12.8 g/dL Low 14.0-18.0 [facility] Hemoglobin (Bld) [Mass/Vol] Hemoglobin [Mass/volume] in Blood Low 14.0-18.0 [facility] Laboratory - Chemistry and C hemistry - challengeon 10-30-2023 Albumin [Mass/Vol] 3.2 g/dL Low 3.4-5.0 [facility] ALP [Catalytic activity/Vol] 31 U/L Low 46-116 [facility] ALT [Catalytic activity/Vol] 22 U/L 16-63 [facility] AST [Catalytic activity/Vol] 22 U/L 15-37 [facility] Bilirubin [Mass/Vol] 0.5 mg/dL 0.2-1.0 [facility] Calcium [Mass/Vol] 9.4 mg/dL 8.5-10.1 [facility] Chloride [Moles/Vol] 109 mmol/L High 98-107 [facility] Cholesterol [Mass/Vol] 116 mg/dL <=200 [facility] Cholesterol in HDL [Mass/Vol] 26 mg/dL Low 40-60 [facility] Comment on above: > or =60 mg/dl - LOW CARDIOVASCULAR RISK<40 mg/dl - HIGH CARDIOVASCULAR RISK CO2 [Moles/Vol] 24.0 mmol/L 21.0-32.0 [facility] Creatinine [Mass/Vol] 1.92 mg/dL High 0.70-1.30 [facility] GFR/1.73 sq M.predicted MDRD (S/P/Bld) [Vol rate/Area] 41 mL/min/{1.73_m2} Low >=60 [facility] Glucose [Mass/Vol] 118 mg/dL High 74-106 [facility] Potassium [Moles/Vol] 5.4 mmol/L High 3.5-5.1 [facility] Protein [Mass/Vol] 6.6 g/dL 6.4-8.2 [facility] Sodium [Moles/Vol] 142 mmol/L 136-145 [facility] Triglyceride [Mass/Vol] 97 mg/dL <=150 [facility] Urea nitrogen [Mass/Vol] 35.0 mg/dL High 7.0-18.0 [facility] Urea nitrogen/Creatinine [Mass ratio] 18.2 mg/mg [facility] Laboratory - Hematology and Cell countson 10-30-2023 HbA1c (Bld) [Mass fraction] 6.0 % 4.5-6.2 [facility] Comment on above: ADA RECOMMENDED LIMI T 4.0 - 6.0ADA THERAPEUTIC TARGET < 7.0ACTION SUGGESTED> 7.0 Immature granulocytes/100 WBC (Bld) 0.6 % High 0.0-0.5 [facility] Laboratory - Urinalysison Protein (U) [Mass/Vol] 15.4 mg/dL High <=11.9 [facility] Leukocytes [#/volume] correc ben for nucleated erythrocytes in Blood by Automated counon 10-30-2023 WBC corrected for nucl RBC Auto (Bld) [#/Vol] 6.6 10 3/uL 4.0-11.0 [facility] WBC corrected for nucl RBC Auto (Bld) [#/Vol] Leukocytes [#/volume] corrected for nucleated erythrocytes in Blood by Automated coun 4.0-11.0 [facility] Lymphocytes Auto (Bld) [#/Vo l]on 10-30-2023 Lymphocytes (Bld) [#/Vol] 2.1 10 3/uL 1.2-3.8 [facility] Lymphocytes (Bld) [#/Vol] Lymphocytes [#/volume] in Blood by Automated count 1.2-3.8 [facility] Lymphocytes/100 WBC Auto (Bl d)on 10-30-2023 Lymphocytes/100 WBC (Bld) 31.4 % 20.5-60.0 [facility] Lymphocytes/100 WBC (Bld) Lymphocytes/100 leukocytes in Blood by Automated count 20.5-60.0 [facility] MCH Auto (RBC) [Entitic mass ]on 10-30-2023 MCH (RBC) [Entitic mass] 31.7 pg 25.9-34.0 [facility] MCH (RBC) [Entitic mass] MCH [Entitic ma ss] by Automated count 25.9-34.0 [facility] MCHC Auto (RBC) [Mass/Vol]on 10-30-2023 MCHC (RBC) [Mass/Vol] 33.0 g/dL 29.9-35.2 [facility] MCHC (RBC) [Mass/Vol] MCHC [Mass/volume] by Automated count 29.9-35.2 [facility] MCV Auto (RBC) [Entitic vol] on 10-30-2023 MCV (RBC) [Entitic vol] 96.0 fL High 80.0-94.0 [facility] MCV (RBC) [Entitic vol] MCV [Entitic vol ume] by Automated count High 80.0-94.0 [facility] Monocytes Auto (Bld) [#/Vol] on 10-30-2023 Monocytes (Bld) [#/Vol] 0.6 10 3/uL 0.3-0.8 [facility] Monocytes (Bld) [#/Vol] Automated blood monocyte count 0.3-0.8 [facility] Monocytes/100 WBC Auto (Bld) on 10-30-2023 Monocytes/100 WBC (Bld) 9.2 % 1.7-12.0 F [facility] Monocytes/100 WBC (Bld) Automated monocyte % 1. 7-12.0 [facility] Neutrophils Auto (Bld) [#/Vo l]on 10-30-2023 Neutrophils (Bld) [#/Vol] 3.8 10 3/uL 1.4-6.5 [facility] Neutrophils (Bld) [#/Vol] Neutrophils [#/volume] in Blood by Automated count 1.4-6.5 [facility] Neutrophils/100 WBC Auto (Bl d)on 10-30-2023 Neutrophils/100 WBC (Bld) 58.0 % 43.0-75.0 [facility] Neutrophils/100 WBC (Bld) Automated neutrophil % 43.0-75.0 [facility] No Panel Informationon 10-29 Urine Random Creatinine 148.56 mg/dL 20.0 0-300.0 0 [facility] Eosinophils # (Auto) 0.0 10 3/uL 0.0-0.7 [facility] Immature Granulocyte # (Auto) 0.04 10 3/uL High 0.00-0.03 [facility] Prostate Specific Antigen Screen 1.04 ng/mL <=4.00 [facility] Platelet mean volume Auto (B ld) [Entitic vol]on 10-30-2023 Platelet mean volume (Bld) [Entitic vol] 10.1 fL 9.5-13.5 [facility] Platelet mean volume (Bld) [Entitic vol] Platelet mean volume [Entitic volume] in Blood by Automated count .-. [facility] Platelets Auto (Bld) [#/Vol] on 10-30-2023 Platelets (Bld) [#/Vol] 221 10 3/uL 150-450 [facility] Platelets (Bld) [#/Vol] Platelets [#/vol ume] in Blood by Automated count 150-450 [facility] RBC Auto (Bld) [#/Vol]on RBC (Bld) [#/Vol] 4.04 10 6/uL Low 4.70-6.10 [facility] RBC (Bld) [#/Vol] Erythrocytes [#/volu me] in Blood by Automated count Low 4.70-6.10 [facility] Serum or plasma albumin/glob ulin mass ratioon 10-30-2023 Albumin/Globulin [Mass ratio] 0.9 {ratio} [facility] Albumin/Globulin [Mass ratio] Serum or plasma albumin/globulin mass ratio [facility] Serum or plasma anion gap de terminationon 10-30-2023 Anion gap [Moles/Vol] 14.4 mmol/L [facility] Anion gap [Moles/Vol] Serum or plasma an ion gap determination [facility] Serum or plasma total choles terol/high density lipoprotein (HDL) cholesterol mass gene 10-30-2023 Cholesterol.total/Choles terol in HDL [Mass ratio] 4.5 {ratio} [facility] Comment on above: 3.3 - 4.4 LOW RISK4. 4 - 7.1 AVERAGE RISK7.1 - 11.0 MODERATE RISK>11.0 HIGH RISK Cholesterol.total/Choles terol in HDL [Mass ratio] Serum or plasma total cholesterol/high density lipoprotein (HDL) cholesterol mass rat [facility] Comment on above: 3.3 - 4.4 LOW RISK4. 4 - 7.1 AVERAGE RISK7.1 - 11.0 MODERATE RISK>11.0 HIGH RISK Urine protein/creatinine rat ioon 10-30-2023 Protein/Creatinine (U) [Ratio] 0.10 [facility] Protein/Creatinine (U) [Ratio] Urine protein/creatinine ratio [facility] GLYCOHEMOGLOBIN A1Con 2021 ADA RECOMMENDATION SEE BELOW Normal [facility] Comment on above: Result Comment: ADA RECOMMENDED LIMIT 4.0 - 6.0 ADA THERAPEUTIC TARGET < 7.0 ACTION SUGGESTED > 7.0 Performed By: #### A 1C #### [facility] [address] [address] [address] Petros Perez Glucose [Mass/Vol] 143 mg/dL Normal [facility] Comment on above: Performed By: #### A 1C #### [facility] [address] [place] [address] Dr. Petros Perez HbA1c (Bld) [Mass fraction] 6.6 % Critically high 4.5-6.2 [facility] Comment on above: Performed By: #### A 1C #### [facility] [address] [place] [address] Dr. Petros Perez CBC AUTO DIFFon 08-15-2021 BASO # 0.0 103/ul Normal 0.0-0.1 [facility] Comment on above: Performed By: #### C BC #### [facility] [address] [place] [address] Dr. Petros Perez Basophils/100 WBC (Bld) 0.3 % Normal 0.2-2.0 [facility] Comment on above: Performed By: #### C BC #### [facility] [address] [place] [address] Dr. Petros Perez EO # 0.1 103/ul Normal 0.0-0.7 [facility] Comment on above: Performed By: #### C BC #### [facility] [address] [place] [address] Dr. Petros Perez Eosinophils/100 WBC (Bld) 2.2 % Normal 0.9-7.0 [facility] Comment on above: Performed By: #### C BC #### [facility] [address] [place] [address] Dr. Petros Perez Erythrocyte distribution width (RBC) [Ratio] 13.4 % Normal 11.0-15.0 [facility] Comment on above: Performed By: #### C BC #### [facility] [address] [place] [address] Dr. Petros Perez Hematocrit (Bld) [Volume fraction] 42.8 % Normal 42.0-54.0 [facility] Comment on above: Performed By: #### C BC #### [facility] [address] [place] [address] Dr. Petros Perez Hemoglobin (Bld) [Mass/Vol] 14.1 g/dL Normal 14.0-18.0 [facility] Comment on above: Performed By: #### C BC #### [facility] [address] [place] [address] Dr. Petros Perez IG # 0.04 10e3/ul Critically high 0.00-0.03 [facility] Comment on above: Performed By: #### C BC #### [facility] [address] [place] [address] Dr. Petros Perez IG % 0.7 % Critically high 0.0-0.5 [facility] Comment on above: Performed By: #### C BC #### [facility] [address] [place] [address] Dr. Petros Perez LYMPH # 2.2 103/ul Normal 1.2-3.8 [facility] Comment on above: Performed By: #### C BC #### [facility] [address] [place] [address] Dr. Petros Perez Lymphocytes/100 WBC (Bld) 38.2 % Normal 20.5-60.0 [facility] Comment on above: Performed By: #### C BC #### [facility] [address] [place] [address] Dr. Petros Perez MANUAL DIFF REQ NO Normal [facility] Comment on above: Performed By: #### C BC #### [facility] [address] [place] [address] Dr. Petros Perez MCH (RBC) [Entitic mass] 30.6 pg Normal 25.9-34.0 [facility] Comment on above: Performed By: #### C BC #### [facility] [address] [place] [address] Dr. Petros Perez MCHC (RBC) [Mass/Vol] 32.9 g/dL Normal 29.9-35.2 [facility] Comment on above: Performed By: #### C BC #### [facility] [address] [place] [address] Dr. Petros Perez MCV (RBC) [Entitic vol] 92.8 fL Normal 80.0-94.0 [facility] Comment on above: Performed By: #### C BC #### [facility] [address] [place] [address] Dr. Petros Perez MONO # 0.5 103/ul Normal 0.3-0.8 [facility] Comment on above: Performed By: #### C BC #### [facility] [address] [place] [address] Dr. Petros Perez Monocytes/100 WBC (Bld) 8.6 % Normal 1.7-12.0 [facility] Comment on above: Performed By: #### C BC #### [facility] [address] [place] [address] Dr. Petros Perez NEUT # 2.9 103/ul Normal 1.4-6.5 [facility] Comment on above: Performed By: #### C BC #### [facility] [address] [place] [address] Dr. Petros Perez Neutrophils/100 WBC (Bld) 50.0 % Normal 43.0-75.0 [facility] Comment on above: Performed By: #### C BC #### [facility] [address] [place] [address] Dr. Petros Perez Platelet mean volume (Bld) [Entitic vol] 10.2 fL Normal 9.5-13.5 [facility] Comment on above: Performed By: #### C BC #### [facility] [address] [place] [address] Dr. Petros Perez PLT 219 103/ul Normal 150-450 [facility] Comment on above: Performed By: #### C BC #### [facility] [address] [place] [address] Dr. Petros Perez RBC 4.61 106/ul Critically low 4.70-6.10 [facility] Comment on above: Performed By: #### C BC #### [facility] [address] [place] [address] Dr. Petros Perez WBC 5.8 103/ul Normal 4.0-11.0 [facility] Comment on above: Performed By: #### C BC #### [facility] [address] [place] [address] Dr. Petros Perez GLYCOHEMOGLOBIN A1Con 2021 ADA RECOMMENDATION SEE BELOW Normal [facility] Comment on above: Result Comment: ADA RECOMMENDED LIMIT 4.0 - 6.0 ADA THERAPEUTIC TARGET < 7.0 ACTION SUGGESTED > 7.0 Performed By: #### A 1C #### [facility] [address] [place] [address] Dr. Petros Perez Glucose [Mass/Vol] 163 mg/dL Normal [facility] Comment on above: Performed By: #### A 1C #### [facility] [address] [place] [address] Dr. Petros Perez HbA1c (Bld) [Mass fraction] 7.3 % Critically high 4.5-6.2 [facility] Comment on above: Performed By: #### A 1C #### [facility] [address] [place] [address] Dr. Petros Perez LIPID PROFILEon 08-15-2021 CHOL-HDL RATIO NORM SEE BELOW Normal [facility] Comment on above: Result Comment: 3.3 - 4.4 LOW RISK 4.4 - 7.1 AVERAGE RISK 7.1 - 11.0 MODERATE RISK >11.0 HIGH RISK Performed By: #### L IPID, BMP #### [facility] [address] [place] [address] Dr. Petros Perez Cholesterol [Mass/Vol] 148 mg/dL Normal <=200 [facility] Comment on above: Performed By: #### L IPID, BMP #### [facility] [address] [place] [address] Dr. Petros Perez Cholesterol in HDL [Mass/Vol] 33 mg/dL Critically low 40-60 [facility] Comment on above: Performed By: #### L IPID, BMP #### [facility] [address] [place] [address] Dr. Petros Perez Cholesterol in LDL [Mass/Vol] 95.8 mg/dL Normal [facility] Comment on above: Performed By: #### L IPID, BMP #### [facility] [address] [place] [address] Dr. Petros Perez Cholesterol.total/Choles terol in HDL [Mass ratio] 4.5 {ratio} Normal [facility] Comment on above: Performed By: #### L IPID, BMP #### [facility] [address] [place] [address] Dr. Petros Perez HDL NORMAL > or = 60 mg/dl - LO W CARDIOVASCULAR RISK <40 mg/dl - HIGH CARDIOVASCULAR RISK Normal [facility] Comment on above: Performed By: #### L IPID, BMP #### [facility] [address] [place] [address] Dr. Petros Perez LDL CALC NORMAL SEE BELOW Normal [facility] Comment on above: Result Comment: <100 mg/dl OPTIMAL 100 - 129 mg/dl NEAR OR ABOVE OPTIMAL 130 - 159 mg/dl BORDERLINE HIGH 160 - 189 mg/dl HIGH >190 mg/dl VERY HIGH Performed By: #### L IPID, BMP #### [facility] [address] [place] [address] Dr. Petros Perez Triglyceride [Mass/Vol] 96 mg/dL Normal <=150 [facility] Comment on above: Performed By: #### L IPID, BMP #### [facility] [address] [place] [address] Dr. Petros Perez VLDL CALC 19.2 mg/dL Normal [facility] Comment on above: Performed By: #### L IPID, BMP #### [facility] [address] [place] [address] Dr. Petros Perez MICROALBUMIN, RAND URon - mALB 3.2 mg/L Normal <=30.0 [facility] Comment on above: Performed By: #### M ALBR #### [facility] [address] [place] [address] Dr. Petros Perez PROF CHEM 8 (BAS METB)on Anion gap [Moles/Vol] 13.1 mmol/L Normal [facility] Comment on above: Performed By: #### L IPID, BMP #### [facility] [address] [place] [address] Dr. Petros Peerz Calcium [Mass/Vol] 9.2 mg/dL Normal 8.5-10.1 [facility] Comment on above: Performed By: #### L IPID, BMP #### [facility] [address] [place] [address] Dr. Petros Perez Chloride [Moles/Vol] 106 mmol/L Normal 98-107 [facility] Comment on above: Performed By: #### L IPID, BMP #### [facility] [address] [place] [address] Dr. Petros Perez CO2 [Moles/Vol] 24.1 mmol/L Normal 21.0-32.0 [facility] Comment on above: Performed By: #### L IPID, BMP #### [facility] [address] [place] [address] Dr. Petros Perez Creatinine [Mass/Vol] 1.56 mg/dL Critically high 0.70-1.30 [facility] Comment on above: Performed By: #### L IPID, BMP #### [facility] [address] [place] [address] Dr. Petros Perez EGFR-AF EQUATORIAL GUINEAN 53 mL/min/1.73m2 Critically low >=60 [facility] Comment on above: Performed By: #### L IPID, BMP #### [facility] [address] [place] [address] Dr. Petros Perez EGFR-NON AF EQUATORIAL GUINEAN 43 mL/min/1.73m2 Critically low >=60 [facility] Comment on above: Performed By: #### L IPID, BMP #### [facility] [address] [place] [address] Dr. Petros Perez Glucose [Mass/Vol] 139 mg/dL Critically high 74-106 [facility] Comment on above: Performed By: #### L IPID, BMP #### [facility] [address] [place] [address] Dr. Petros Perez Potassium [Moles/Vol] 4.2 mmol/L Normal 3.5-5.1 [facility] Comment on above: Performed By: #### L IPID, BMP #### [facility] [address] [address] [address] Petros Perez Sodium [Moles/Vol] 139 mmol/L Normal 136-145 [facility] Comment on above: Performed By: #### L IPID, BMP #### [facility] [address] [place] [address] Dr. Petros Perez Urea nitrogen [Mass/Vol] 25.0 mg/dL Critically high 7.0-18 .0 [facility] Comment on above: Performed By: #### L IPID, BMP #### [facility] [address] [place] [address] Dr. Petros Perez Urea nitrogen/Creatinine [Mass ratio] 16.0 mg/mg Normal [facility] Comment on above: Performed By: #### L IPID, BMP #### [facility] [address] [place] [address] Dr. Petros Perez GLYCOHEMOGLOBIN A1Con 2021 ADA RECOMMENDATION ADA THERAPEUTIC TARG ET 6.0 - 7.0 ACTION SUGGESTED > 7.0 Normal [facility] Comment on above: Performed By: #### A 1C #### [facility] [address] [place] [address] Dr. Petros Perez Glucose [Mass/Vol] 180 mg/dL Normal [facility] Comment on above: Performed By: #### A 1C #### [facility] [address] [place] [address] Dr. Petros Perez HbA1c (Bld) [Mass fraction] 7.9 % Critically high <=6.0 [facility] Comment on above: Performed By: #### A 1C #### [facility] [address] [place] [address] Dr. Petros Perez Consent for COVID Vaccineon 05-14-2020 SARS-CoV-2 (COVID-19) RNA EUN+probe Ql (Unsp spec) ....[id number]#1.00 CD:127 Normal [facility] Consent for Treatmenton 05-02 Consent for Treatment .[id number]#[id number] CD:127 [facility] Coding Summary.on 05-13-2020 Coding Summary. CODING DATE: 021 [facility] STATUS: PAYOR: Medicare ADMIT DX: REASON [...] Saritha Simmons Date Saved: 05/13/2020 11:13 am [facility] Vital Signs Date Time Vital Sign Value Performing Clinician Facility 03-11-2024 09:19-0500 Body height 182.88 cm Obi Carroll DPM Work Phone: [facility] 03-11-2024 09:19-0500 Body mass index (BMI) [Ratio] 29.9 kg/m2 Obi Carroll DPM Work Phone: [facility] 03-11-2024 09:19-0500 Body weight 100.3 kg Obi Carroll DPM Work Phone: [facility] 03-11-2024 09:19-0500 Diastolic blood pressure 80 mm[Hg] Obi Carroll DPM Work Phone: [facility] 03-11-2024 09:19-0500 Heart rate 74 /min Obi Carroll DPM Work Phone: [facility] 03-11-2024 09:19-0500 Respiratory rate 12 /min Obi Carroll DPM Work Phone: [facility] 03-11-2024 09:19-0500 Systolic blood pressure 162 mm[Hg] Obi Carroll DPM Work Phone: [facility] 12-20-2023 14:48-0400 Body height 182.88 cm [facility] 12-20-2023 14:48-0400 Body mass index (BMI) [Ratio] 33.5 kg/m2 [facility] 12-20-2023 14:48-0400 Body weight 112.2 kg [facility] 12-20-2023 14:48-0400 Diastolic blood pressure 64 mm[Hg] [facility] 12-20-2023 14:48-0400 Heart rate 69 /min [facility] 12-20-2023 14:48-0400 Respiratory rate 12 /min [facility] 12-20-2023 14:48-0400 Systolic blood pressure 159 mm[Hg] [facility] 12-12-2023 09:25-0400 Body height 182.88 cm [facility] 12-12-2023 09:25-0400 Body mass index (BMI) [Ratio] 33.7 kg/m2 [facility] 12-12-2023 09:25-0400 Body weight 112.94 kg [facility] 12-12-2023 09:25-0400 Diastolic blood pressure 71 mm[Hg] [facility] 12-12-2023 09:25-0400 Heart rate 76 /min [facility] 12-12-2023 09:25-0400 Respiratory rate 12 /min [facility] 12-12-2023 09:25-0400 Systolic blood pressure 149 mm[Hg] [facility] 09-10-2023 09:28-0400 Body height 182.88 cm [facility] 09-10-2023 09:28-0400 Body mass index (BMI) [Ratio] 32.3 kg/m2 [facility] 09-10-2023 09:28-0400 Body weight 108.12 kg [facility] 09-10-2023 09:28-0400 Diastolic blood pressure 61 mm[Hg] [facility] 09-10-2023 09:28-0400 Heart rate 56 /min [facility] 09-10-2023 09:28-0400 Respiratory rate 12 /min [facility] 09-10-2023 09:28-0400 Systolic blood pressure 123 mm[Hg] [facility] 06-11-2023 09:02-0400 Body height 182.88 cm [facility] 06-11-2023 09:02-0400 Body mass index (BMI) [Ratio] 33 kg/m2 [facility] 06-11-2023 09:02-0400 Body weight 110.67 kg [facility] 06-11-2023 09:02-0400 Diastolic blood pressure 65 mm[Hg] [facility] 06-11-2023 09:02-0400 Heart rate 62 /min [facility] 06-11-2023 09:02-0400 Respiratory rate 12 /min [facility] 06-11-2023 09:02-0400 Systolic blood pressure 149 mm[Hg] [facility] 11-08-2022 10:00-0400 Body height 182.88 cm Brian Ball Other [facility] [employer] Other 11-08-2022 10:00-0400 Body mass index (BMI) [Ratio] 31.27 kg/m2 Brian Ball Other [facility] [employer] Other 11-08-2022 10:00-0400 Body weight 104.6 kg Brian Ball Other [facility] [employer] Other 11-08-2022 10:00-0400 Diastolic blood pressure 72 mm[Hg] Brian Ball Other [facility] [employer] Other 11-08-2022 10:00-0400 Respiratory rate 12 /min Brian Ball Other [facility] [employer] Other 11-08-2022 10:00-0400 Systolic blood pressure 148 mm[Hg] Brian Ball Other [facility] Other 08-09-2022 10:00-0400 Body height 182.88 cm Brian Ball Other [facility] Other 08-09-2022 10:00-0400 Body mass index (BMI) [Ratio] 31.46 kg/m2 Brian Foote Other [facility] Other 08-09-2022 10:00-0400 Body weight 105.24 kg Brian Foote Other [facility] Other 08-09-2022 10:00-0400 Diastolic blood pressure 75 mm[Hg] Brian Foote Other [facility] Other 08-09-2022 10:00-0400 Respiratory rate 12 /min Brian [employer] Other [facility] Other 08-09-2022 10:00-0400 Systolic blood pressure 170 mm[Hg] Brian [employer] Other [facility] Other Encounters Encounter Date Encounter Type Care Provider Facility Start: 03-11-2024 End: 03-11-2024 ambulatory Obi Carroll DPM Work Phone: [facility] Work Phone: Start: 03-11-2024 End: 03-11-2024 Patient encounter procedure Obi Carroll DPM Work Phone: [facility] Work Phone: Start: 01-14-2024 End: 01-14-2024 ambulatory Obi Carroll DPM Work Phone: [facility] Work Phone: Start: 01-14-2024 End: 01-14-2024 Patient encounter procedure Obi Carroll DPM Work Phone: [facility] Work Phone: Start: 12-26-2023 Non-patient / Non-visit DPM Rodrigo leon Glen Work Phone: [facility] Work Phone: Start: 12-26-2023 End: 12-26-2023 ambulatory Obi Nanda Carroll [facility] Work Phone: Start: 12-26-2023 End: 12-26-2023 Departed Referred DPM Obi Carroll Work Phone: [facility] Start: 12-20-2023 End: 12-20-2023 ambulatory [facility] Work Phone: Start: 12-20-2023 End: 12-20-2023 Encounter for other preprocedural examination Obi Carroll DPM Work Phone: [facility] Start: 12-20-2023 End: 12-20-2023 Patient encounter procedure [facility] Work Phone: Start: 12-19-2023 Patient encounter status [facility] Start: 12-16-2023 Non-patient / Non-visit [facility] Work Phone: Start: 12-12-2023 End: 12-12-2023 ambulatory [facility] Work Phone: Start: 12-12-2023 End: 12-12-2023 Patient encounter procedure [facility] Work Phone: Start: 12-06-2023 Non-patient / Non-visit [facility] Work Phone: Start: 11-08-2023 Non-patient / Non-visit [facility] Work Phone: Start: 10-30-2023 Non-patient / Non-visit [facility] Work Phone: Start: 09-10-2023 End: 09-10-2023 ambulatory [facility] Work Phone: Start: 09-10-2023 End: 09-10-2023 Patient encounter procedure [facility] Work Phone: Start: 06-11-2023 End: 06-11-2023 ambulatory [facility] Work Phone: Start: 06-11-2023 End: 06-11-2023 Patient encounter procedure [facility] Work Phone: Start: 11-08-2022 End: 11-08-2022 ambulatory Brian Foote Other [facility] Other Start: 11-08-2022 Office outpatient vi sit 25 minutes Brian Foote [facility] Start: 09-13-2022 End: 09-13-2022 ambulatory Brian Foote Other [facility] Other Start: 09-13-2022 Telephone encounter Brian Foote [facility] Start: 08-09-2022 End: 08-09-2022 ambulatory Brian Foote Other [facility] Other Start: 08-09-2022 Patient encounter procedure Brian Foote [facility] Start: 12-27-2021 End: 12-28-[address] BRIAN FOOTE Facility:[facility] Start: 08-15-2021 End: 08-16-[address] BRIAN FOOTE Facility:[facility] Start: 04-25-2021 End: 04-26-[address] BRIAN FOOTE Facility:[facility] Procedures Date Procedure Procedure Detail Performing Clinician Start: 12-26-2023 Acid Fast Culture Obi Carroll DP Work Phone: Start: 12-26-2023 Acid Fast Smear DPM Pet werner [facility] Work Phone: Start: 12-26-2023 Aerobic Culture Obi dalton DP Work Phone: Start: 12-26-2023 AFB Specimen Processing DPM Obi [facility] Work Phone: Start: 11-08-2023 Aerobic Culture Start: 11-08-2023 Anaerobic Culture Start: 08-15-[address] LAM IN [place]EL[place] Comment on above: Performed By: #### P [facility] #### [facility] [address] [address] [address] Petros Perez Plan of Treatment Date Care Activity Detail Author Start: 12-26-2023 Acid Fast Culture Acid Fast Culture [facility] Start: 12-12-2023 Patient referral [facility] Work Phone: Comprehensive metabo lic 2000 panel - Serum or Plasma [facility] Patient referral [facility] Work Phone: [facility] Immunizations Immunization Date Immunization Notes Care Provider Fa ciligabi 01-14-2024 influenza, high dose seasonal, preservative-free Obi Carroll DPM Work Phone: [facility] 01-21-2023 influenza virus vaccine, unspecified formulation [facility] 11-21-2021 influenza virus vaccine, split virus (incl. purified surface antigen) Brian Foote Other [facility] [employer] Other 11-21-2021 influenza virus vaccine, unspecified formulation [facility] 11-21-2021 influenza, high dose seasonal, preservative-free Brian Foote Other [facility] [employer] Other 02-22-2021 COVID-19 Vaccine Pfi zer - Documentation Purposes Only Brian Foote Other [facility] 12-30-2020 influenza virus vaccine, split virus (incl. purified surface antigen) Brian Foote Other [facility] [employer] Other 12-30-2020 influenza virus vaccine, unspecified formulation [facility] 05-06-2020 COVID-19 Vaccine Slim - Documentation Purposes Only Brian Foote Other [facility] 01-12-2020 influenza virus vaccine, split virus (incl. purified surface antigen) Brian Foote Other [facility] [employer] Other 01-12-2020 influenza virus vaccine, unspecified formulation [facility] 01-13-2019 influenza virus vaccine, split virus (incl. purified surface antigen) Brian Foote Other [facility] Other 01-13-2019 influenza virus vaccine, unspecified formulation [facility] 12-02-2017 influenza virus vaccine, split virus (incl. purified surface antigen) Brian Foote Other [facility] [employer] Other 12-02-2017 influenza virus vaccine, unspecified formulation [facility] 12-27-2016 influenza virus vaccine, split virus (incl. purified surface antigen) Brian Qamar Other [facility] [employer] Other 12-27-2016 influenza virus vaccine, unspecified formulation [facility] 12-22-2015 influenza virus vaccine, split virus (incl. purified surface antigen) Brian Foote Other [facility] Other 12-22-2015 influenza virus vaccine, unspecified formulation [facility] 03-15-2015 pneumococcal conjuga te vaccine, 13 valent Brian Foote Other [facility] 12-07-2014 influenza virus vaccine, split virus (incl. purified surface antigen) Brian Foote Other [facility] [employer] Other 12-07-2014 influenza virus vaccine, unspecified formulation [facility] 11-10-2013 tetanus and diphther ia toxoids, adsorbed, preservative free, for adult use (5 Lf of tetanus toxoid and 2 Lf of diphtheria toxoid) Brian Foote Other [facility] 12-10-2012 tetanus and diphther ia toxoids, adsorbed, preservative free, for adult use (5 Lf of tetanus toxoid and 2 Lf of diphtheria toxoid) Brian Foote Other [facility] 02-14-2011 pneumococcal polysaccharide vaccine, 23 valent Brian Foote Other [facility] Payers Date Payer Category Payer Self-pay 1960 Medicare [id number] 1960 Unknown [id number] 1945 Unknown [id number] 1945 Unknown [id number] 1945 Unknown [id number] Unknown [id number] Social History Date Type Detail Facility Sex Assigned At [facility] Other Start: 1945 Sex Assigned At Male F [facility] Tobacco smoking stat [facility] Unknown if ever smoked [facility] Work Phone: Start: 01-14-2024 End: 03-11-2024 Sex Male (finding) [facility] Evaluation note 12-20-2023 Note Date & Type Note Facility 12-20-2023 Evaluation note Diagnosis Onset Date Resolution Chronic kidney disease acute Oc tober 2023 2:46pm Chronic venous insufficiency of lower extremity acute December 19 2:46pm Elevated cholesterol acute Octo 2023 2:46pm Hypertension acute December 2:46pm Preop exam for internal medicine acute December 19 2:46pm Type 2 diabetes mellitus with hyperglycemia acute December 20, 2023 2:46pm Chronic kidney disease acute Ja nuary 2024 9:10am Chronic venous insufficiency of lower extremity acute March 11 9:10am Elevated cholesterol acute Aditya laura 2024 9:10am Hypertension acute March 11, 2024 9:10am Macrocytic anemia acute March 11, 2024 9:10am Type 2 diabetes mellitus with diabetic polyneuropathy acute March 11 9:10am Type 2 diabetes mellitus with hyperglycemia acute March 11, 2024 9:10am [facility] Work Phone: Evaluation note 12-12-2023 Note Date & Type [...] with hyperglycemia acute December 20, 2023 2:46pm [facility] Work Phone: Evaluation note 11-08-2022 Note Date [...] < 30 Increase exercise and reduce calories. [facility] Other Evaluation note 08-09-2022 Note Date & [...] High risk medication use (ICD-10 - Z79.899) [facility] Other Evaluation note Note Date & Type Note Facility Evaluation note No Information [employer] Other Evaluation note Note Date & Type Note Facility Evaluation note Diagnosis Onset Date Chronic kidney disease acute Elevated cholesterol acute Hypertension acute Type 2 diabetes mellitus wit h diabetic polyneuropathy acute Type 2 diabetes mellitus with hyperglycemia acute [facility] Work Phone: Evaluation note Note Date & Type Note Facility Evaluation note Diagnosis Onset Date Chronic kidney disease acute Chronic venous insufficiency of lower extremity acute Elevated cholesterol acute Hypertension acute Screening PSA (prostate specific antigen) acute Type 2 diabetes mellitus wit h diabetic polyneuropathy acute Type 2 diabetes mellitus with hyperglycemia acute Medicare annual wellness visit, subsequent noneactive [facility] Work Phone: Evaluation note Note Date & Type Note Facility Evaluation note Diagnosis Onset Date Chronic kidney disease acute Chronic venous insufficiency of lower extremity acute Elevated cholesterol acute Hypertension acute Type 2 diabetes mellitus wit h diabetic polyneuropathy acute Type 2 diabetes mellitus with hyperglycemia acute [facility] Work Phone: Evaluation note Note Date & [...] Type 2 diabetes mellitus with hyperglycemia acute [facility] Work Phone: History general Narrative - Reported [...] History APPENDECTOMY Hospitalization History SEE SURGICAL HX [facility] Other Summary Purpose Family History No Family [...] 9:14am Type 2 diabetes mellitus with hyperglyce [facility] December 12, 2023 9:14am Chronic kidney disease December 19 2:46pm Chronic venous insufficiency of lower ex tremity December 20, 2023 2:46pm Elevated cholesterol December 20, 2023 2:46pm Hypertension December 20, 2023 2 :46pm Preop exam for internal medicine December 20, 2023 2:46pm Type 2 diabetes mellitus with hyperglyce [facility] December 20, 2023 2:46pm Chief Complaint Admit Date Pre-surgical Clearance December 19 2:46pm ulcer left planar foot December 25 9:18am flu shot January 14, 2024 10:57am 3 month f/u March 11, 2024 9: 10am Reason for Visit Admit Date Chronic kidney disease December 19 2:46pm Chronic venous insufficiency of lower ex tremity December 20, 2023 2:46pm Elevated cholesterol December 20, 2023 2:46pm Hypertension December 20, 2023 2 :46pm Preop exam for internal medicine December 20, 2023 2:46pm Type 2 diabetes mellitus with hyperglyce [facility] December 20, 2023 2:46pm Chronic kidney disease March 11, 2024 9:10am Chronic venous insufficiency of lower ex tremity March 11, 2024 9:10am Elevated cholesterol March 11, 2024 9 :10am Hypertension March 11, 2024 9: 10am Macrocytic anemia March 11, 2024 9: 10am Type 2 diabetes mellitus with diabetic p olyneuropathy March 11, 2024 9:10am Type 2 diabetes mellitus with hyperglyce vandana March 11, 2024 9:10am Additional Source Comments (unrecognized sect ion and content) No Status Records FoundNo Status Records FoundNo Status Records Found INFORMATION SOURCE (unrecogn ized section and content) DATE CREATED AUTHOR 08/06/2020 Perea Carlos [facility] DATE CREATED AUTHOR AUTHOR'S ORGANIZ ATION 12/31/2021 [facility] DATE CREATED AUTHOR AUTHOR'S ORGANIZ ATION 01/05/2024 [facility] REASON FOR VISIT (unrecogniz ed section and content) [facility] Care Teams (unrecognized sec tion and content) Team Status: Active Member Role Status Dates Brian Foote DO Primary Care Provider Active Team Status: Active Member Role Status Dates Brian Foote DO Primary Care Provide r, Attending Provider Active Start: October 30, 2023 Team Status: Active Member Role Status Dates Brian Foote DO Primary Care Provide r, Attending [...] Inactive Member Role Status Dates Brian Foote DO Primary Care Provide r, Attending Provider Active Start: September 10, 2023 End: September 10, 2023 Team Status: Active Member Role Status Dates Brian Foote DO Primary Care Provider Active Start: December 16, 2023 Obi Carrlol DPM MS Attending Provider Active Start: December 16, 2023 Team Status: Inactive Member Role Status Luis Foote DO Primary Care Provide r, Attending Provider Active Start: December 20, 2023 End: December 20, 2023 Team Status: Active Member Role Status Dates Brian Foote DO Attending Provider Active Sta rt: December 16, 2023 Team Status: Inactive Member Role Status Dates Obi Vee SaulEVE quiroz MS Attending Provider Active Start: December 26, [...] January 14, 2024 End: January 14, 2024 Team Status: Inactive Member Role Status Dates Brian Fotoe , DO Primary Care Provide r, Attending Provider Active Start: March 11, 2024 End: March 11, 2024 Goals (unrecognized section and content) Goals [...] BE BASED ON THE PRIMARY CLINICAL RECORDS. [employer] [facility]. provides no warranty or guarantee of the accuracy or completeness of information in this document.
[2024-03-20 08:40] LABS: Basophils Percent Auto 0.3 % (0.2-2.0); Eosinophils Percent Auto 0.3 % (0.9-7.0); Hematocrit 43.4 % (42.0-54.0); Hemoglobin 14.6 g/dL (14.0-18.0); Immature Granulocytes Abs Auto 0.04 10^3/uL (0.00-0.03); Immature Granulocytes Pct Auto 0.6 % (0.0-0.5); Lymphocytes Absolute Auto 2.4 10^3/uL (1.2-3.8); Lymphocytes Percent Auto 34.9 % (20.5-60.0); Mean Corpuscular HGB Conc 33.6 g/dL (29.9-35.2); Mean Corpuscular Hemoglobin 31.3 pg (25.9-34.0); Mean Corpuscular Volume 93.1 fL (80.0-94.0); Mean Platelet Volume 10.1 fL (9.5-13.5); Monocytes Absolute Auto 0.6 10^3/uL (0.3-0.8); Monocytes Percent Auto 9.3 % (1.7-12.0); Neutrophils Absolute Auto 3.8 10^3/uL (1.4-6.5); Neutrophils Percent Auto 54.6 % (43.0-75.0); Platelet Count 193 10^3/uL (150-450); Red Blood Count 4.66 10^6/uL (4.70-6.10); Reticulocyte Pct Auto 2.34 % (0.60-3.10); White Blood Count 6.9 10^3/uL (4.0-11.0)
[2024-03-20 09:11] LABS: Estimated Average Glucose 203 mg/dL; Glycohemoglobin A1C 8.7 % (4.5-6.2)
[2024-03-20 09:55] LABS: Percent Iron Saturation 17.3 %
[2024-03-21 04:15] LABS: Vitamin B12 650 pg/mL (232-1245)
== END 2024-03-20 08:20 | disposition home or self-care (01) ==
LOC: LAB 08:21
PROVIDERS: PCP Internal Medicine; Visit Provider Internal Medicine
DX: D53.9 Nutritional anemia, unspecified (principal); E11.65 Type 2 diabetes mellitus with hyperglycemia
CPT/HCPCS: 36415; 82607; 82728; 82746; 83036; 83540; 83550; 85025; 85045

== ENCOUNTER 2024-04-21 10:26 | Emergency (ER) | payer MEDICARE, SELFPAY ==
--- NOTE | 2024-04-21 10:35 | ECG_ITS ---
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
--- OUTSIDE RECORDS SUMMARY | 2024-04-21 10:49 | XMS_ITS | CCD ---
Author Organization [facility] Care Team Providers Care Senior Marketing Analyst Name Role Phone DR BRIAN FOOTE Attending [...] Admitting Unavailable Obi Carroll DPM Attending Provider [phone] Allergies Allergy Classification Reported Allergen(s) Allergy Type Date of Onset Reaction(s) Facility (10 sources) empagliflozin Drug Allergy 06-11-19 Unknown, Unknown Reaction [facility] (10 sources) Simvastatin Drug Allergy 06-11-19 Unknown, Unknown Reaction [facility] (3 sources) Sulfonamides (Antibiotic) Propensity to adverse reactions Unknown [employer] Other (1 source) Substance with sulfonamide structure and antibacterial mechanism of action (substance) Drug allergy Unknown [employer] Other (8 sources) Sulfonamides (Antibiotic); Translations: [Sulfa (Sulfonamide Antibiotics)] Allergy to substance 06-11-19 Unknown Reaction [facility] (1 source) empagliflozin Drug Allergy 12-20-19 [facility] (1 source) Simvastatin Drug Allergy 12-20-19 [facility] Medications Current Medications Medication Drug [...] 08-17-2021 Chronic Other aftercare (1 source) Other fpc (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 therapy Episodic Other diseases of [...] Test Name Value Interpretation Reference Range Facility [facility] 12-26-2023 L Specimen: [id number] Received: 12/30/23 Status: GERRI Humphries Num: [id number] Spec Type: Surgical Subm Dr: Obi Carroll,DPM, MS Tissues: A Tendon/Sheath (LEFT FLEXOR TENDON) B Bone Fragments - Pathologic Fracture (2ND METATARSAL HEAD LFT FOOT) Procedures: HE/3, Gross/Micro L5, Gross/Micro L3, Decalcification Age/ Patient Sex Location Account Attending Physician Sander Hooks 78/M LABELL [id number] Obi Carroll DPM, MS SPEC NUM: [id number] RECD: 12/30/23 STATUS: GERRI HUMPHRIES NUM: [id number] DONY: 12/26/[address]: Obi Carroll DPM, MS ENTERED: 12/30/[address] [facility] [address]: Hilda,Libertad SPEC TYPE: Surgical DEPT: AMAYA [...] inked black. The specimen is serially sectioned. [employer] sections are submitted in cassettes B1 and B2. The specimen is placed in the decal for routine processing. Specimen: [id number] Received: 12/30/23 Status: CAMILOJoseph Humphries Num: [id number] Spec Type: Surgical Subm Dr: Obi Carroll DPM, MS Tissues: A Tendon/Sheath (LEFT FLEXOR TENDON) B Bone Fragments - Pathologic Fracture (2ND METATARSAL HEAD LFT FOOT) Procedures: HE/3, Gross/Micro L5, Gross/Micro L3, Decalcification Patient: Sander Hooks [id number] (Continued) Specimen: [id number] Received: 12/30/23 (Continued) Signed (signature on file) Hill Mehta MD 01/03/24 0836 Specimen: [id number] Received: 12/30/23 Status: GERRI Humphries Num: [id number] Spec Type: Surgical Subm Dr: Obi Carroll DPM, MS Tissues: A Tendon/Sheath (LEFT FLEXOR TENDON) B Bone Fragments - Pathologic Fracture (2ND METATARSAL HEAD LFT FOOT) Procedures: HE/3, Gross/Micro L5, Gross/Micro L3, Decalcification Patient: Sander Hooks [id number] (Continued) Specimen: [id number] Received: 12/30/23 (Continued) Microscopic Description Microscopic examination is performed. CPT Codes 89274 x2, 34018 Specimen: [id number] Received: 12/30/23 Status: GERRI Humphries Num: [id number] Spec Type: Surgical Subm Dr: Obi Carroll,DPM, MS Tissues: A Tendon/Sheath (LEFT FLEXOR TENDON) B Bone Fragments - Pathologic Fracture (2ND METATARSAL HEAD LFT FOOT) Procedures: HE/3, Gross/Micro L5, Gross/Micro L3, Decalcification Patient: Sander Hooks [id number] (Continued) Signed (signature on file) Hill Mehta MD 01/03/24 0836 Normal [facility] No Panel InformationOrdered By: Obi Carroll on 12-26-2023 Acid Fast Culture [facility] Acid Fast Smear [facility] Aerobic Culture [facility] AFB Specimen Processing [facility] Acid Fast Smear [facility] AFB Specimen Processing [facility] No Panel Informationon 12-25 Fungal Culture Status \R\ Fungus (Mycolo gy) Culture [facility] Fungal Smear Result \R\ Fungus Stain [facility] Gram Stain Result 1 \R\ Gram Stain Result [facility] Miscellaneous Test Comment See comment [facility] Comment on above: Specimen Source: TOE LT2 - Toe Left Second - Toe Lt 2nd - 607.100 Specimen Source: WND - Wound - Wound - 610.200 Basophils Auto (Bld) [#/Vol] on 12-16-2023 Basophils (Bld) [#/Vol] 0.0 10 3/uL 0.0-0.1 [facility] Basophils (Bld) [#/Vol] Automated basoph il count 0.0-0.1 [facility] Basophils/100 WBC Auto (Bld) on 12-16-2023 Basophils/100 WBC (Bld) 0.4 % 0.2-2.0 [facility] Basophils/100 WBC (Bld) Automated basophil % 0. 2-2.0 [facility] Eosinophils/100 WBC Auto (Bl d)on 12-16-2023 Eosinophils/100 WBC (Bld) 0.1 % Low 0.9-7.0 [facility] Eosinophils/100 WBC (Bld) Automated eosinophil % Low 0.9-7.0 [facility] Erythrocyte distribution wid th Auto (RBC) [Ratio]on 12-16-2023 Erythrocyte distribution width (RBC) [Ratio] 14.8 % 11.0-15.0 [facility] Erythrocyte distribution width (RBC) [Ratio] Erythrocyte distribution width [Ratio] by Automated count 11.0-15.0 [facility] Estimated glomerular filtrat ion rate (GFR) non- Americanon 12-16-2023 GFR/1.73 sq M.predicted among non-blacks MDRD (S/P/Bld) [Vol rate/Area] 40 mL/min/{1.73_m2} Low >=60 mL/min/1.73 m 2 [facility] GFR/1.73 sq M.predicted among non-blacks MDRD (S/P/Bld) [Vol rate/Area] Estimated glomerular filtration rate (GFR) non- Low >=60 mL/min/1.73 m 2 [facility] Hematocrit Auto (Bld) [Volum e fraction]on 12-16-2023 Hematocrit (Bld) [Volume fraction] 34.5 % Low 42.0-54.0 [facility] Hematocrit (Bld) [Volume fraction] Hematocrit [Volume Fraction] of Blood by Automated count Low 42.0-54.0 [facility] Hemoglobin [Mass/volume] in Bloodon 12-16-2023 Hemoglobin (Bld) [Mass/Vol] 11.1 g/dL Low 14.0-18.0 [facility] Hemoglobin (Bld) [Mass/Vol] Hemoglobin [Mass/volume] in Blood Low 14.0-18.0 [facility] Laboratory - Chemistry and C hemistry - challengeon 12-16-2023 Calcium [Mass/Vol] 9.0 mg/dL 8.5-10.1 [facility] Chloride [Moles/Vol] 113 mmol/L High 98-107 [facility] CO2 [Moles/Vol] 23.7 mmol/L 21.0-32.0 [facility] Creatinine [Mass/Vol] 1.67 mg/dL High 0.70-1.30 [facility] GFR/1.73 sq M.predicted MDRD (S/P/Bld) [Vol rate/Area] 48 mL/min/{1.73_m2} Low >=60 mL/min/1.73 m 2 [facility] Glucose [Mass/Vol] 106 mg/dL 74-106 [facility] Potassium [Moles/Vol] 4.7 mmol/L 3.5-5.1 [facility] Sodium [Moles/Vol] 145 mmol/L 136-145 [facility] Urea nitrogen [Mass/Vol] 29.0 mg/dL High 7.0-18.0 [facility] Urea nitrogen/Creatinine [Mass ratio] 17.4 mg/mg [facility] Laboratory - Hematology and Cell countson 12-16-2023 Immature granulocytes/100 WBC (Bld) 0.7 % High 0.0-0.5 [facility] Leukocytes [#/volume] correc ben for nucleated erythrocytes in Blood by Automated counon 12-16-2023 WBC corrected for nucl RBC Auto (Bld) [#/Vol] 6.7 10 3/uL 4.0-11.0 [facility] WBC corrected for nucl RBC Auto (Bld) [#/Vol] Leukocytes [#/volume] corrected for nucleated erythrocytes in Blood by Automated coun 4.0-11.0 [facility] Lymphocytes Auto (Bld) [#/Vo l]on 12-16-2023 Lymphocytes (Bld) [#/Vol] 1.4 10 3/uL 1.2-3.8 [facility] Lymphocytes (Bld) [#/Vol] Lymphocytes [#/volume] in Blood by Automated count 1.2-3.8 [facility] Lymphocytes/100 WBC Auto (Bl d)on 12-16-2023 Lymphocytes/100 WBC (Bld) 21.1 % 20.5-60.0 [facility] Lymphocytes/100 WBC (Bld) Lymphocytes/100 leukocytes in Blood by Automated count 20.5-60.0 [facility] MCH Auto (RBC) [Entitic mass ]on 12-16-2023 MCH (RBC) [Entitic mass] 32.0 pg 25.9-34.0 [facility] MCH (RBC) [Entitic mass] MCH [Entitic ma ss] by Automated count 25.9-34.0 [facility] MCHC Auto (RBC) [Mass/Vol]on 12-16-2023 MCHC (RBC) [Mass/Vol] 32.2 g/dL 29.9-35.2 [facility] MCHC (RBC) [Mass/Vol] MCHC [Mass/volume] by Automated count 29.9-35.2 [facility] MCV Auto (RBC) [Entitic vol] on 12-16-2023 MCV (RBC) [Entitic vol] 99.4 fL High 80.0-94.0 [facility] MCV (RBC) [Entitic vol] MCV [Entitic vol ume] by Automated count High 80.0-94.0 [facility] Monocytes Auto (Bld) [#/Vol] on 12-16-2023 Monocytes (Bld) [#/Vol] 0.7 10 3/uL 0.3-0.8 [facility] Monocytes (Bld) [#/Vol] Automated blood monocyte count 0.3-0.8 [facility] Monocytes/100 WBC Auto (Bld) on 12-16-2023 Monocytes/100 WBC (Bld) 10.1 % 1.7-12.0 [facility] Monocytes/100 WBC (Bld) Automated monocyte % 1. 7-12.0 [facility] Neutrophils Auto (Bld) [#/Vo l]on 12-16-2023 Neutrophils (Bld) [#/Vol] 4.5 10 3/uL 1.4-6.5 [facility] Neutrophils (Bld) [#/Vol] Neutrophils [#/volume] in Blood by Automated count 1.4-6.5 [facility] Neutrophils/100 WBC Auto (Bl d)on 12-16-2023 Neutrophils/100 WBC (Bld) 67.6 % 43.0-75.0 [facility] Neutrophils/100 WBC (Bld) Automated neutrophil % 43.0-75.0 [facility] No Panel Informationon 12-15 Eosinophils # (Auto) 0.0 10 3/uL 0.0-0.7 [facility] Immature Granulocyte # (Auto) 0.05 10 3/uL High 0.00-0.03 [facility] Platelet mean volume Auto (B ld) [Entitic vol]on 12-16-2023 Platelet mean volume (Bld) [Entitic vol] 10.7 fL 9.-. [facility] Platelet mean volume (Bld) [Entitic vol] Platelet mean volume [Entitic volume] in Blood by Automated count 9.-. [facility] Platelets Auto (Bld) [#/Vol] on 12-16-2023 Platelets (Bld) [#/Vol] 233 10 3/uL 150-450 [facility] Platelets (Bld) [#/Vol] Platelets [#/vol ume] in Blood by Automated count 150-450 [facility] RBC Auto (Bld) [#/Vol]on RBC (Bld) [#/Vol] 3.47 10 6/uL Low 4.70-6.10 [facility] RBC (Bld) [#/Vol] Erythrocytes [#/volu me] in Blood by Automated count Low 4.70-6.10 [facility] Serum or plasma anion gap de terminationon 12-16-2023 Anion gap [Moles/Vol] 13.0 mmol/L [facility] Anion gap [Moles/Vol] Serum or plasma an ion gap determination [facility] Albumin [Mass/volume] in Ser um or Plasmaon 12-06-2023 Albumin [Mass/Vol] 3.2 g/dL 2.9-4.4 [facility] Albumin [Mass/Vol] Albumin [Mass/volume ] in Serum or Plasma 2.9-4.4 [facility] Estimated glomerular filtrat ion rate (GFR) non- Americanon 12-06-2023 GFR/1.73 sq M.predicted among non-blacks MDRD (S/P/Bld) [Vol rate/Area] 29 mL/min/{1.73_m2} Low >=60 mL/min/1.73 m 2 [facility] GFR/1.73 sq M.predicted among non-blacks MDRD (S/P/Bld) [Vol rate/Area] Estimated glomerular filtration rate (GFR) non- Low >=60 mL/min/1.73 m 2 [facility] Hepatitis B virus surface Ab [Presence] in Serumon 12-06-2023 HBV surface Ab Ql (S) 71612.0 mIU/mL Immunity>1 0 [facility] Comment on above: Results confirmed on dilution. Status of Immunity Anti-HBs Level Inconsistent with Immunity 0.0 - 10.0Consistent with Immunity >10.0 HBV surface Ab Ql (S) Hepatitis B virus surface Ab [Presence] in Serum Immunity>10 [facility] Comment on above: Results confirmed on dilution. Status of Immunity Anti-HBs Level Inconsistent with Immunity 0.0 - 10.0Consistent with Immunity >10.0 Hepatitis B virus surface Ag [Presence] in Serum or Plasma by Immunoassayon 12-06-2023 HBV surface Ag IA Ql Negative Negative [facility] HBV surface Ag IA Ql Hepatitis B virus surface Ag [Presence] in Serum or Plasma by Immunoassay Negative [facility] IgA [Mass/volume] in Serum o r Plasmaon 12-06-2023 IgA [Mass/Vol] 367 mg/dL 61-437 [facility] IgA [Mass/Vol] IgA [Mass/volume] in Serum or Plasma 61-437 [facility] IgG [Mass/volume] in Serum o r Plasmaon 12-06-2023 IgG [Mass/Vol] 1078 mg/dL 603-1613 [facility] IgG [Mass/Vol] IgG [Mass/volume] in Serum or Plasma 603-1613 [facility] IgM [Mass/volume] in Serum o r Plasmaon 12-06-2023 IgM [Mass/Vol] 38 mg/dL 15-143 [facility] IgM [Mass/Vol] IgM [Mass/volume] in Serum or Plasma 15-143 [facility] Immunoglobulin light chains. kappa.free [Mass/volume] in Serumon 12-06-2023 Immunoglobulin light chains.kappa.free (S) [Mass/Vol] 34.5 mg/L Abnormal 3.3-19.4 [facility] Immunoglobulin light chains.kappa.free (S) [Mass/Vol] Immunoglobulin light chains.kappa.free [Mass/volume] in Serum Abnormal 3.3-19.4 [facility] Immunoglobulin light chains. kappa.free/Immunoglobulin light chains.lambda.free [Luis 12-06-2023 Immunoglobulin light chains.kappa.free/Immuno globulin light chains.lambda.free (S) [Mass ratio] 1.90 Abnormal 0.26-1.65 [facility] Comment on above: Performed at: [employer] [place] [address] [id number] Director: Lb Kaur PhD, Phone: [employer] Immunoglobulin light chains.kappa.free/Immuno globulin light chains.lambda.free (S) [Mass ratio] Immunoglobulin light chains.kappa.free/Immun oglobulin light chains.lambda.free [Mass Abnormal 0.26-1.65 [facility] Comment on above: Performed at: [facility] [place] [address] [id number] Director: Lb Kaur PhD, Phone: [employer] Immunoglobulin light chains. lambda.free [Mass/volume] in Serum or Plasmaon 12-06-2023 Immunoglobulin light chains.lambda.free [Mass/Vol] 18.2 mg/L 5.7-26.3 [facility] Immunoglobulin light chains.lambda.free [Mass/Vol] Immunoglobulin light chains.lambda.free [Mass/volume] in Serum or Plasma 5.7-26.3 [facility] Laboratory - Chemistry and C hemistry - challengeon 12-06-2023 Calcium [Mass/Vol] 8.7 mg/dL 8.5-10.1 [facility] Chloride [Moles/Vol] 107 mmol/L 98-107 [facility] CO2 [Moles/Vol] 22.2 mmol/L 21.0-32.0 [facility] Creatinine [Mass/Vol] 2.21 mg/dL High 0.70-1.30 [facility] GFR/1.73 sq M.predicted MDRD (S/P/Bld) [Vol rate/Area] 35 mL/min/{1.73_m2} Low >=60 mL/min/1.73 m 2 [facility] Glucose [Mass/Vol] 91 mg/dL 74-106 [facility] Potassium [Moles/Vol] 4.1 mmol/L 3.5-5.1 [facility] Sodium [Moles/Vol] 138 mmol/L 136-145 [facility] Urea nitrogen [Mass/Vol] 51.0 mg/dL High 7.0-18.0 [facility] Urea nitrogen/Creatinine [Mass ratio] 23.1 mg/mg [facility] Bilirubin Ql (U) Negative NEGATIVE [facility] Glucose (U) [Mass/Vol] Negative NEGATIVE [facility] Ketones Ql (U) Negative NEGATIVE [facility] pH (U) 5.5 [pH] 5.0-9.0 [facility] Specific gravity (U) [Rel density] 1.025 1.005-1.025 [facility] Urobilinogen Qn (U) 0.2 {Mirta'U}/dL 0.2-1.0 [facility] Laboratory - Specimen inform ationon 12-06-2023 Appearance (U) CLEAR CLEAR [facility] Color (U) LT. YELLOW YELLOW [facility] Laboratory - Urinalysison Leukocyte esterase Test strip Ql (U) Negative NEGATIVE [facility] Mucus Ql (Urine sed) NONE SEEN NONE SEEN [facility] Nitrite Ql (U) Negative NEGATIVE [facility] Protein Ql (U) Negative NEG/TRACE [facility] No Panel Informationon 12-05 Hepatitis B Core Total Antibody Negative Negative [facility] Comment on above: Performed at: [facility] [address] [id number] Director: Lb Kaur PhD, Phone: [phone] Protein Electrophoresis M-Alexandru Not Observed g/dL Not Observed [facility] Protein Electrophoresis Note Comment . [facility] Comment on above: Protein electrophore sis scan will follow via computer,mail, or filling hauler delivery. Urine Bacteria NONE SEEN #/HPF NONE SEEN [facility] Urine Occult Blood Negative NEGATIVE [facility] Urine Other Casts NONE SEEN #/LPF NONE SEEN [facility] Urine Other Crystals None Seen #/HPF None Seen [facility] Urine RBC 0-2 #/HPF 0-2 [facility] Urine Squamous Epithelial Cells FEW #/LPF Abnormal NONE/RARE [facility] Urine WBC NONE SEEN #/HPF NONE SEEN [facility] Protein [Mass/volume] in Ser um or Plasmaon 12-06-2023 Protein [Mass/Vol] 6.3 g/dL 6.0-8.5 [facility] Protein [Mass/Vol] Protein [Mass/volume ] in Serum or Plasma 6.0-8.5 [facility] Serum globulin measurement ( mass/volume)on 12-06-2023 Globulin (S) [Mass/Vol] 3.1 g/dL 2.2-3.9 [facility] Globulin (S) [Mass/Vol] Serum globulin measurement (mass/volume) 2.2-3.9 [facility] Serum or plasma albumin/glob ulin mass ratioon 12-06-2023 Albumin/Globulin [Mass ratio] 1.1 {ratio} 0.7-1.7 [facility] Albumin/Globulin [Mass ratio] Serum or plasma albumin/globulin mass ratio 0.7-1.7 [facility] Serum or plasma alpha 1 glob ulin measurement by electrophoresis (mass/volume)on 12-06-2023 Alpha 1 globulin Elph [Mass/Vol] 0.3 g/dL 0.0-0.4 [facility] Alpha 1 globulin Elph [Mass/Vol] Serum or plasma alpha 1 globulin measurement by electrophoresis (mass/volume) 0.0-0.4 [facility] Serum or plasma alpha 2 glob ulin measurement by electrophoresis (mass/volume)on 12-06-2023 Alpha 2 globulin Elph [Mass/Vol] 0.8 g/dL 0.4-1.0 [facility] Alpha 2 globulin Elph [Mass/Vol] Serum or plasma alpha 2 globulin measurement by electrophoresis (mass/volume) 0.4-1.0 [facility] Serum or plasma anion gap de terminationon 12-06-2023 Anion gap [Moles/Vol] 12.9 mmol/L [facility] Anion gap [Moles/Vol] Serum or plasma an ion gap determination [facility] Serum or plasma beta globuli n measurement by electrophoresis (mass/volume)on 12-06-2023 Beta globulin Elph [Mass/Vol] 1.0 g/dL 0.7-1.3 [facility] Beta globulin Elph [Mass/Vol] Serum or plasma beta globulin measurement by electrophoresis (mass/volume) 0.7-1.3 [facility] Serum or plasma gamma globul in measurement by electrophoresis (mass/volume)on 12-06-2023 Gamma globulin Elph [Mass/Vol] 1.0 g/dL 0.4-1.8 [facility] Gamma globulin Elph [Mass/Vol] Serum or plasma gamma globulin measurement by electrophoresis (mass/volume) 0.4-1.8 [facility] Serum or plasma immunoelectr ophoresis interpretationon 12-06-2023 Interpretation IEP [Interp] Comment . [facility] Comment on above: No monoclonality det ected. Interpretation IEP [Interp] Serum or plasma immunoelectrophoresis interpretation . [facility] Comment on above: No monoclonality det ected. No Panel InformationOrdered By: Brian Foote on 11-08-2023 Aerobic Culture [facility] Anaerobic Culture [facility] Aerobic Culture [facility] Anaerobic Culture [facility] Basophils Auto (Bld) [#/Vol] on 10-30-2023 Basophils (Bld) [#/Vol] 0.1 10 3/uL 0.0-0.1 [facility] Basophils (Bld) [#/Vol] Automated basoph il count 0.0-0.1 [facility] Basophils/100 WBC Auto (Bld) on 10-30-2023 Basophils/100 WBC (Bld) 0.8 % 0.2-2.0 [facility] Basophils/100 WBC (Bld) Automated basophil % 0. 2-2.0 [facility] Cholesterol in LDL Calc [Mas s/Vol]on 10-30-2023 Cholesterol in LDL [Mass/Vol] 71.0 mg/dL [facility] Comment on above: <100 mg/dl [id number] 0-129 mg/dl NEAR OR ABOVE [id number] mg/dl BORDERLINE [id number] mg/dl HIGH>190 mg/dl VERY HIGH Cholesterol in LDL [Mass/Vol] Cholesterol in LDL [Mass/volume] in Serum or Plasma by calculation [facility] Comment on above: <100 mg/dl [id number] 0-129 mg/dl NEAR OR ABOVE [id number] mg/dl BORDERLINE [id number] mg/dl HIGH>190 mg/dl VERY HIGH Cholesterol in VLDL Calc [Ma ss/Vol]on 10-30-2023 Cholesterol in VLDL [Mass/Vol] 19.4 mg/dL [facility] Cholesterol in VLDL [Mass/Vol] Cholesterol in VLDL [Mass/volume] in Serum or Plasma by calculation [facility] Eosinophils/100 WBC Auto (Bl d)on 10-30-2023 Eosinophils/100 WBC (Bld) 0.0 % Low 0.9-7.0 [facility] Eosinophils/100 WBC (Bld) Automated eosinophil % Low 0.9-7.0 [facility] Erythrocyte distribution wid th Auto (RBC) [Ratio]on 10-30-2023 Erythrocyte distribution width (RBC) [Ratio] 13.7 % 11.0-15.0 [facility] Erythrocyte distribution width (RBC) [Ratio] Erythrocyte distribution width [Ratio] by Automated count 11.0-15.0 [facility] Estimated glomerular filtrat ion rate (GFR) non- Americanon 10-30-2023 GFR/1.73 sq M.predicted among non-blacks MDRD (S/P/Bld) [Vol rate/Area] 34 mL/min/{1.73_m2} Low >=60 [facility] GFR/1.73 sq M.predicted among non-blacks MDRD (S/P/Bld) [Vol rate/Area] Estimated glomerular filtration rate (GFR) non- Low >=60 [facility] Globulin Calc (S) [Mass/Vol] on 10-30-2023 Globulin (S) [Mass/Vol] 3.4 g/dL [facility] Globulin (S) [Mass/Vol] Serum globulin measurement by calculation (mass/volume) [facility] Glucose mean value [Mass/vol ume] in Blood Estimated from glycated hemoglobinon 10-30-2023 Average glucose Estimated from glycated hemoglobin (Bld) [Mass/Vol] 126 mg/dL [facility] Average glucose Estimated from glycated hemoglobin (Bld) [Mass/Vol] Glucose mean value [Mass/volume] in Blood Estimated from glycated hemoglobin [facility] Hematocrit Auto (Bld) [Volum e fraction]on 10-30-2023 Hematocrit (Bld) [Volume fraction] 38.8 % Low 42.0-54.0 [facility] Hematocrit (Bld) [Volume fraction] Hematocrit [Volume Fraction] of Blood by Automated count Low 42.0-54.0 [facility] Hemoglobin [Mass/volume] in Bloodon 10-30-2023 Hemoglobin (Bld) [Mass/Vol] 12.8 g/dL Low 14.0-18.0 [facility] Hemoglobin (Bld) [Mass/Vol] Hemoglobin [Mass/volume] in Blood Low 14.0-18.0 [facility] Laboratory - Chemistry and C hemistry - challengeon 10-30-2023 Albumin [Mass/Vol] 3.2 g/dL Low 3.4-5.0 [facility] ALP [Catalytic activity/Vol] 31 U/L Low 46-116 [facility] ALT [Catalytic activity/Vol] 22 U/L 16-63 [facility] AST [Catalytic activity/Vol] 22 U/L 15-37 [facility] Bilirubin [Mass/Vol] 0.5 mg/dL 0.2-1.0 [facility] Calcium [Mass/Vol] 9.4 mg/dL 8.5-10.1 [facility] Chloride [Moles/Vol] 109 mmol/L High 98-107 [facility] Cholesterol [Mass/Vol] 116 mg/dL <=200 [facility] Cholesterol in HDL [Mass/Vol] 26 mg/dL Low 40-60 [facility] Comment on above: > or =60 mg/dl - LOW CARDIOVASCULAR RISK<40 mg/dl - HIGH CARDIOVASCULAR RISK CO2 [Moles/Vol] 24.0 mmol/L 21.0-32.0 [facility] Creatinine [Mass/Vol] 1.92 mg/dL High 0.70-1.30 [facility] GFR/1.73 sq M.predicted MDRD (S/P/Bld) [Vol rate/Area] 41 mL/min/{1.73_m2} Low >=60 [facility] Glucose [Mass/Vol] 118 mg/dL High 74-106 [facility] Potassium [Moles/Vol] 5.4 mmol/L High 3.5-5.1 [facility] Protein [Mass/Vol] 6.6 g/dL 6.4-8.2 [facility] Sodium [Moles/Vol] 142 mmol/L 136-145 [facility] Triglyceride [Mass/Vol] 97 mg/dL <=150 [facility] Urea nitrogen [Mass/Vol] 35.0 mg/dL High 7.0-18.0 [facility] Urea nitrogen/Creatinine [Mass ratio] 18.2 mg/mg [facility] Laboratory - Hematology and Cell countson 10-30-2023 HbA1c (Bld) [Mass fraction] 6.0 % 4.5-6.2 [facility] Comment on above: ADA RECOMMENDED LIMI T 4.0 - 6.0ADA THERAPEUTIC TARGET < 7.0ACTION SUGGESTED> 7.0 Immature granulocytes/100 WBC (Bld) 0.6 % High 0.0-0.5 [facility] Laboratory - Urinalysison Protein (U) [Mass/Vol] 15.4 mg/dL High <=11.9 [facility] Leukocytes [#/volume] correc ben for nucleated erythrocytes in Blood by Automated counon 10-30-2023 WBC corrected for nucl RBC Auto (Bld) [#/Vol] 6.6 10 3/uL 4.0-11.0 [facility] WBC corrected for nucl RBC Auto (Bld) [#/Vol] Leukocytes [#/volume] corrected for nucleated erythrocytes in Blood by Automated coun 4.0-11.0 [facility] Lymphocytes Auto (Bld) [#/Vo l]on 10-30-2023 Lymphocytes (Bld) [#/Vol] 2.1 10 3/uL 1.2-3.8 [facility] Lymphocytes (Bld) [#/Vol] Lymphocytes [#/volume] in Blood by Automated count 1.2-3.8 [facility] Lymphocytes/100 WBC Auto (Bl d)on 10-30-2023 Lymphocytes/100 WBC (Bld) 31.4 % 20.5-60.0 [facility] Lymphocytes/100 WBC (Bld) Lymphocytes/100 leukocytes in Blood by Automated count 20.5-60.0 [facility] MCH Auto (RBC) [Entitic mass ]on 10-30-2023 MCH (RBC) [Entitic mass] 31.7 pg 25.9-34.0 [facility] MCH (RBC) [Entitic mass] MCH [Entitic ma ss] by Automated count 25.9-34.0 [facility] MCHC Auto (RBC) [Mass/Vol]on 10-30-2023 MCHC (RBC) [Mass/Vol] 33.0 g/dL 29.9-35.2 [facility] - [facility] (RBC) [Mass/Vol] MCHC [Mass/volume] by Automated count 29.9-35.2 [facility] MCV Auto (RBC) [Entitic vol] on 10-30-2023 MCV (RBC) [Entitic vol] 96.0 fL High 80.0-94.0 [facility] MCV (RBC) [Entitic vol] MCV [Entitic vol ume] by Automated count High 80.0-94.0 [facility] Monocytes Auto (Bld) [#/Vol] on 10-30-2023 Monocytes (Bld) [#/Vol] 0.6 10 3/uL 0.3-0.8 [facility] Monocytes (Bld) [#/Vol] Automated blood monocyte count 0.3-0.8 [facility] Monocytes/100 WBC Auto (Bld) on 10-30-2023 Monocytes/100 WBC (Bld) 9.2 % 1.7-12.0 [facility] Monocytes/100 WBC (Bld) Automated monocyte % 1. 7-12.0 [facility] Neutrophils Auto (Bld) [#/Vo l]on 10-30-2023 Neutrophils (Bld) [#/Vol] 3.8 10 3/uL 1.4-6.5 [facility] Neutrophils (Bld) [#/Vol] Neutrophils [#/volume] in Blood by Automated count 1.4-6.5 [facility] Neutrophils/100 WBC Auto (Bl d)on 10-30-2023 Neutrophils/100 WBC (Bld) 58.0 % 43.0-75.0 [facility] Neutrophils/100 WBC (Bld) Automated neutrophil % 43.0-75.0 [facility] No Panel Informationon 10-29 Urine Random Creatinine 148.56 mg/dL 20.0 0-300.0 0 [facility] Eosinophils # (Auto) 0.0 10 3/uL 0.0-0.7 [facility] Immature Granulocyte # (Auto) 0.04 10 3/uL High 0.00-0.03 [facility] Prostate Specific Antigen Screen 1.04 ng/mL <=4.00 [facility] Platelet mean volume Auto (B ld) [Entitic vol]on 10-30-2023 Platelet mean volume (Bld) [Entitic vol] 10.1 fL 9.5-13.5 [facility] Platelet mean volume (Bld) [Entitic vol] Platelet mean volume [Entitic volume] in Blood by Automated count .-. [facility] Platelets Auto (Bld) [#/Vol] on 10-30-2023 Platelets (Bld) [#/Vol] 221 10 3/uL 150-450 [facility] Platelets (Bld) [#/Vol] Platelets [#/vol ume] in Blood by Automated count 150-450 [facility] RBC Auto (Bld) [#/Vol]on RBC (Bld) [#/Vol] 4.04 10 6/uL Low 4.70-6.10 [facility] RBC (Bld) [#/Vol] Erythrocytes [#/volu me] in Blood by Automated count Low 4.70-6.10 [facility] Serum or plasma albumin/glob ulin mass ratioon 10-30-2023 Albumin/Globulin [Mass ratio] 0.9 {ratio} [facility] Albumin/Globulin [Mass ratio] Serum or plasma albumin/globulin mass ratio [facility] Serum or plasma anion gap de terminationon 10-30-2023 Anion gap [Moles/Vol] 14.4 mmol/L [facility] Anion gap [Moles/Vol] Serum or plasma an ion gap determination [facility] Serum or plasma total choles terol/high density lipoprotein (HDL) cholesterol mass gene 10-30-2023 Cholesterol.total/Choles terol in HDL [Mass ratio] 4.5 {ratio} [facility] Comment on above: 3.3 - 4.4 LOW RISK4. 4 - 7.1 AVERAGE RISK7.1 - 11.0 MODERATE RISK>11.0 HIGH RISK Cholesterol.total/Choles terol in HDL [Mass ratio] Serum or plasma total cholesterol/high density lipoprotein (HDL) cholesterol mass rat [facility] Comment on above: 3.3 - 4.4 LOW RISK4. 4 - 7.1 AVERAGE RISK7.1 - 11.0 MODERATE RISK>11.0 HIGH RISK Urine protein/creatinine rat ioon 10-30-2023 Protein/Creatinine (U) [Ratio] 0.10 [facility] Protein/Creatinine (U) [Ratio] Urine protein/creatinine ratio [facility] GLYCOHEMOGLOBIN A1Con 2021 ADA RECOMMENDATION SEE BELOW Normal [facility] Comment on above: Result Comment: ADA RECOMMENDED LIMIT 4.0 - 6.0 ADA THERAPEUTIC TARGET < 7.0 ACTION SUGGESTED > 7.0 Performed By: #### A 1C #### [facility] [address] [address] [address] Petros Perez Glucose [Mass/Vol] 143 mg/dL Normal [facility] Comment on above: Performed By: #### A 1C #### [facility] [address] [place] [address] Dr. Petros Perez HbA1c (Bld) [Mass fraction] 6.6 % Critically high 4.5-6.2 [facility] Comment on above: Performed By: #### A 1C #### [facility] [address] [place] [address] Dr. Petros Perez CBC AUTO DIFFon 08-15-2021 BASO # 0.0 103/ul Normal 0.0-0.1 [facility] Comment on above: Performed By: #### C BC #### [facility] [address] [place] [address] Dr. Petros Perez Basophils/100 WBC (Bld) 0.3 % Normal 0.2-2.0 [facility] Comment on above: Performed By: #### C BC #### [facility] [address] [place] [address] Dr. Petros Perez EO # 0.1 103/ul Normal 0.0-0.7 [facility] Comment on above: Performed By: #### C BC #### [facility] [address] [place] [address] Dr. Petros Perez Eosinophils/100 WBC (Bld) 2.2 % Normal 0.9-7.0 [facility] Comment on above: Performed By: #### C BC #### [facility] [address] [place] [address] Dr. Petros Perez Erythrocyte distribution width (RBC) [Ratio] 13.4 % Normal 11.0-15.0 [facility] Comment on above: Performed By: #### C BC #### [facility] [address] [place] [address] Dr. Petros Perez Hematocrit (Bld) [Volume fraction] 42.8 % Normal 42.0-54.0 [facility] Comment on above: Performed By: #### C BC #### [facility] [address] [place] [address] Dr. Petros Perez Hemoglobin (Bld) [Mass/Vol] 14.1 g/dL Normal 14.0-18.0 [facility] Comment on above: Performed By: #### C BC #### [facility] [address] [place] [address] Dr. Petros Perez IG # 0.04 10e3/ul Critically high 0.00-0.03 [facility] Comment on above: Performed By: #### C BC #### [facility] [address] [place] [address] Dr. Petros Perez IG % 0.7 % Critically high 0.0-0.5 [facility] Comment on above: Performed By: #### C BC #### [facility] [address] [place] [address] Dr. Petros Perez LYMPH # 2.2 103/ul Normal 1.2-3.8 [facility] Comment on above: Performed By: #### C BC #### [facility] [address] [place] [address] Dr. Petros Perez Lymphocytes/100 WBC (Bld) 38.2 % Normal 20.5-60.0 [facility] Comment on above: Performed By: #### C BC #### [facility] [address] [place] [address] Dr. Petros Perez MANUAL DIFF REQ NO Normal [facility] Comment on above: Performed By: #### C BC #### [facility] [address] [place] [address] Dr. Petros Perez MCH (RBC) [Entitic mass] 30.6 pg Normal 25.9-34.0 [facility] Comment on above: Performed By: #### C BC #### [facility] [address] [place] [address] Dr. Petros Perez MCHC (RBC) [Mass/Vol] 32.9 g/dL Normal 29.9-35.2 [facility] Comment on above: Performed By: #### C BC #### [facility] [address] [place] [address] Dr. Petros Perez MCV (RBC) [Entitic vol] 92.8 fL Normal 80.0-94.0 [facility] Comment on above: Performed By: #### C BC #### [facility] [address] [place] [address] Dr. Petros Perez MONO # 0.5 103/ul Normal 0.3-0.8 [facility] Comment on above: Performed By: #### C BC #### [facility] [address] [place] [address] Dr. Petros Perez Monocytes/100 WBC (Bld) 8.6 % Normal 1.7-12.0 [facility] Comment on above: Performed By: #### C BC #### [facility] [address] [place] [address] Dr. Petros Perez NEUT # 2.9 103/ul Normal 1.4-6.5 [facility] Comment on above: Performed By: #### C BC #### [facility] [address] [place] [address] Dr. Petros Perez Neutrophils/100 WBC (Bld) 50.0 % Normal 43.0-75.0 [facility] Comment on above: Performed By: #### C BC #### [facility] [address] [place] [address] Dr. Petros Perez Platelet mean volume (Bld) [Entitic vol] 10.2 fL Normal 9.5-13.5 [facility] Comment on above: Performed By: #### C BC #### [facility] [address] [place] [address] Dr. Petros Perez PLT 219 103/ul Normal 150-450 [facility] Comment on above: Performed By: #### C BC #### [facility] [address] [place] [address] Dr. Petros Perez RBC 4.61 106/ul Critically low 4.70-6.10 [facility] Comment on above: Performed By: #### C BC #### [facility] [address] [place] [address] Dr. Petros Perez WBC 5.8 103/ul Normal 4.0-11.0 [facility] Comment on above: Performed By: #### C BC #### [facility] [address] [place] [address] Dr. Petros Perez GLYCOHEMOGLOBIN A1Con 2021 ADA RECOMMENDATION SEE BELOW Normal [facility] Comment on above: Result Comment: ADA RECOMMENDED LIMIT 4.0 - 6.0 ADA THERAPEUTIC TARGET < 7.0 ACTION SUGGESTED > 7.0 Performed By: #### A 1C #### [facility] [address] [place] [address] Dr. Petros Perez Glucose [Mass/Vol] 163 mg/dL Normal [facility] Comment on above: Performed By: #### A 1C #### [facility] [address] [place] [address] Dr. Petros Perez HbA1c (Bld) [Mass fraction] 7.3 % Critically high 4.5-6.2 [facility] Comment on above: Performed By: #### A 1C #### [facility] [address] [place] [address] Dr. Petros Perez LIPID PROFILEon 08-15-2021 CHOL-HDL RATIO NORM SEE BELOW Normal [facility] Comment on above: Result Comment: 3.3 - 4.4 LOW RISK 4.4 - 7.1 AVERAGE RISK 7.1 - 11.0 MODERATE RISK >11.0 HIGH RISK Performed By: #### L IPID, BMP #### [facility] [address] [place] [address] Dr. Petros Perez Cholesterol [Mass/Vol] 148 mg/dL Normal <=200 [facility] Comment on above: Performed By: #### L IPID, BMP #### [facility] [address] [place] [address] Dr. Petros Perez Cholesterol in HDL [Mass/Vol] 33 mg/dL Critically low 40-60 [facility] Comment on above: Performed By: #### L IPID, BMP #### [facility] [address] [place] [address] Dr. Petros Perez Cholesterol in LDL [Mass/Vol] 95.8 mg/dL Normal [facility] Comment on above: Performed By: #### L IPID, BMP #### [facility] [address] [place] [address] Dr. Petros Perez Cholesterol.total/Choles terol in HDL [Mass ratio] 4.5 {ratio} Normal [facility] Comment on above: Performed By: #### L IPID, BMP #### [facility] [address] [place] [address] Dr. Petros Perez HDL NORMAL > or = 60 mg/dl - LO W CARDIOVASCULAR RISK <40 mg/dl - HIGH CARDIOVASCULAR RISK Normal [facility] Comment on above: Performed By: #### L IPID, BMP #### [facility] [address] [place] [address] Dr. Petros Perez LDL CALC NORMAL SEE BELOW Normal [facility] Comment on above: Result Comment: <100 mg/dl OPTIMAL 100 - 129 mg/dl NEAR OR ABOVE OPTIMAL 130 - 159 mg/dl BORDERLINE HIGH 160 - 189 mg/dl HIGH >190 mg/dl VERY HIGH Performed By: #### L IPID, BMP #### [facility] [address] [place] [address] Dr. Petros Perez Triglyceride [Mass/Vol] 96 mg/dL Normal <=150 [facility] Comment on above: Performed By: #### L IPID, BMP #### [facility] [address] [place] [address] Dr. Petros Perez VLDL CALC 19.2 mg/dL Normal [facility] Comment on above: Performed By: #### L IPID, BMP #### [facility] [address] [place] [address] Dr. Petros Perez MICROALBUMIN, RAND URon - mALB 3.2 mg/L Normal <=30.0 [facility] Comment on above: Performed By: #### M ALBR #### [facility] [address] [place] [address] Dr. Petros Perez PROF CHEM 8 (BAS METB)on Anion gap [Moles/Vol] 13.1 mmol/L Normal [facility] Comment on above: Performed By: #### L IPID, BMP #### [facility] [address] [place] [address] Dr. Petros Perez Calcium [Mass/Vol] 9.2 mg/dL Normal 8.5-10.1 [facility] Comment on above: Performed By: #### L IPID, BMP #### [facility] [address] [place] [address] Dr. Petros Perez Chloride [Moles/Vol] 106 mmol/L Normal 98-107 [facility] Comment on above: Performed By: #### L IPID, BMP #### [facility] [address] [place] [address] Dr. Petros Perez CO2 [Moles/Vol] 24.1 mmol/L Normal 21.0-32.0 [facility] Comment on above: Performed By: #### L IPID, BMP #### [facility] [address] [place] [address] Dr. Petros Perez Creatinine [Mass/Vol] 1.56 mg/dL Critically high 0.70-1.30 [facility] Comment on above: Performed By: #### L IPID, BMP #### [facility] [address] [place] [address] Dr. Petros Perez EGFR-AF STATELESS 53 mL/min/1.73m2 Critically low >=60 [facility] Comment on above: Performed By: #### L IPID, BMP #### [facility] [address] [place] [address] Dr. Petros Perez EGFR-NON AF STATELESS 43 mL/min/1.73m2 Critically low >=60 [facility] Comment on above: Performed By: #### L IPID, BMP #### [facility] [address] [place] [address] Dr. Petros Perez Glucose [Mass/Vol] 139 mg/dL Critically high 74-106 [facility] Comment on above: Performed By: #### L IPID, BMP #### [facility] [address] [place] [address] Dr. Petros Perez Potassium [Moles/Vol] 4.2 mmol/L Normal 3.5-5.1 [facility] Comment on above: Performed By: #### L IPID, BMP #### [facility] [address] [address] [address] Petros Perez Sodium [Moles/Vol] 139 mmol/L Normal 136-145 [facility] Comment on above: Performed By: #### L IPID, BMP #### [facility] [address] [place] [address] Dr. Petros Perez Urea nitrogen [Mass/Vol] 25.0 mg/dL Critically high 7.0-18 .0 [facility] Comment on above: Performed By: #### L IPID, BMP #### [facility] [address] [place] [address] Dr. Petros Perez Urea nitrogen/Creatinine [Mass ratio] 16.0 mg/mg Normal [facility] Comment on above: Performed By: #### L IPID, BMP #### [facility] [address] [place] [address] Dr. Petros Perez GLYCOHEMOGLOBIN A1Con 2021 ADA RECOMMENDATION ADA THERAPEUTIC TARG ET 6.0 - 7.0 ACTION SUGGESTED > 7.0 Normal [facility] Comment on above: Performed By: #### A 1C #### [facility] [address] [place] [address] Dr. Petros Perez Glucose [Mass/Vol] 180 mg/dL Normal [facility] Comment on above: Performed By: #### A 1C #### [facility] [address] [place] [address] Dr. Petros Perez HbA1c (Bld) [Mass fraction] 7.9 % Critically high <=6.0 [facility] Comment on above: Performed By: #### A 1C #### [facility] [address] [place] [address] Dr. Petros Perez Consent for COVID Vaccineon 05-14-2020 SARS-CoV-2 (COVID-19) RNA EUN+probe Ql (Unsp spec) ....[id number]#1.00 CD:127 Normal [facility] Consent for Treatmenton 05-02 Consent for Treatment .121. [id number]#1.00 CD:127 [facility] Coding Summary.on 05-13-2020 Coding Summary. CODING DATE: 021 [facility] STATUS: PAYOR: Medicare ADMIT DX: REASON [...] Saritha Simmons Date Saved: 05/13/2020 11:13 am [facility] Vital Signs Date Time Vital Sign Value Performing Clinician Facility 03-11-2024 09:19-0500 Body height 182.88 cm Obi Carroll DPM Work Phone: [facility] 03-11-2024 09:19-0500 Body mass index (BMI) [Ratio] 29.9 kg/m2 Obi Carroll DPM Work Phone: [facility] 03-11-2024 09:19-0500 Body weight 100.3 kg Obi Carroll DPM Work Phone: [facility] 03-11-2024 09:19-0500 Diastolic blood pressure 80 mm[Hg] Obi Carroll DPM Work Phone: [facility] 03-11-2024 09:19-0500 Heart rate 74 /min Obi Carroll DPM Work Phone: [facility] 03-11-2024 09:19-0500 Respiratory rate 12 /min Obi Carroll DPM Work Phone: [facility] 03-11-2024 09:19-0500 Systolic blood pressure 162 mm[Hg] Obi Carroll DPM Work Phone: [facility] 12-20-2023 14:48-0400 Body height 182.88 cm [facility] 12-20-2023 14:48-0400 Body mass index (BMI) [Ratio] 33.5 kg/m2 [facility] 12-20-2023 14:48-0400 Body weight 112.2 kg [facility] 12-20-2023 14:48-0400 Diastolic blood pressure 64 mm[Hg] [facility] 12-20-2023 14:48-0400 Heart rate 69 /min [facility] 12-20-2023 14:48-0400 Respiratory rate 12 /min [facility] 12-20-2023 14:48-0400 Systolic blood pressure 159 mm[Hg] [facility] 12-12-2023 09:25-0400 Body height 182.88 cm [facility] 12-12-2023 09:25-0400 Body mass index (BMI) [Ratio] 33.7 kg/m2 [facility] 12-12-2023 09:25-0400 Body weight 112.94 kg [facility] 12-12-2023 09:25-0400 Diastolic blood pressure 71 mm[Hg] [facility] 12-12-2023 09:25-0400 Heart rate 76 /min [facility] 12-12-2023 09:25-0400 Respiratory rate 12 /min [facility] 12-12-2023 09:25-0400 Systolic blood pressure 149 mm[Hg] [facility] 09-10-2023 09:28-0400 Body height 182.88 cm [facility] 09-10-2023 09:28-0400 Body mass index (BMI) [Ratio] 32.3 kg/m2 [facility] 09-10-2023 09:28-0400 Body weight 108.12 kg [facility] 09-10-2023 09:28-0400 Diastolic blood pressure 61 mm[Hg] [facility] 09-10-2023 09:28-0400 Heart rate 56 /min [facility] 09-10-2023 09:28-0400 Respiratory rate 12 /min [facility] 09-10-2023 09:28-0400 Systolic blood pressure 123 mm[Hg] [facility] 06-11-2023 09:02-0400 Body height 182.88 cm [facility] 06-11-2023 09:02-0400 Body mass index (BMI) [Ratio] 33 kg/m2 [facility] 06-11-2023 09:02-0400 Body weight 110.67 kg [facility] 06-11-2023 09:02-0400 Diastolic blood pressure 65 mm[Hg] [facility] 06-11-2023 09:02-0400 Heart rate 62 /min [facility] 06-11-2023 09:02-0400 Respiratory rate 12 /min [facility] 06-11-2023 09:02-0400 Systolic blood pressure 149 mm[Hg] [facility] 11-08-2022 10:00-0400 Body height 182.88 cm Brian Ball Other [facility] [employer] Other 11-08-2022 10:00-0400 Body mass index (BMI) [Ratio] 31.27 kg/m2 Brian Ball Other [employer] [facility] [employer] Other 11-08-2022 10:00-0400 Body weight 104.6 kg Brian Ball Other [facility] [facility] [employer] Other 11-08-2022 10:00-0400 Diastolic blood pressure 72 mm[Hg] Brian Ball Other [facility] [facility] [employer] Other 11-08-2022 10:00-0400 Respiratory rate 12 /min Brian Ball Other [facility] [facility] [employer] Other 11-08-2022 10:00-0400 Systolic blood pressure 148 mm[Hg] Brian Ball Other [employer] Other 08-09-2022 10:00-0400 Body height 182.88 cm Brian Ball Other [employer] Other 08-09-2022 10:00-0400 Body mass index (BMI) [Ratio] 31.46 kg/m2 Brian Foote Other [employer] Other 08-09-2022 10:00-0400 Body weight 105.24 kg Brian Foote Other [employer] Other 08-09-2022 10:00-0400 Diastolic blood pressure 75 mm[Hg] Brian Foote Other [employer] Other 08-09-2022 10:00-0400 Respiratory rate 12 /min Brian Tracour Other [employer] Other 08-09-2022 10:00-0400 Systolic blood pressure 170 mm[Hg] Brian Tracour Other [employer] Other Encounters Encounter Date Encounter Type Care Provider Facility Start: 03-11-2024 End: 03-11-2024 ambulatory Obi Carroll DPM Work Phone: [facility] Work Phone: Start: 03-11-2024 End: 03-11-2024 Patient encounter procedure Obi Carroll DPM Work Phone: [facility] Work Phone: Start: 01-14-2024 End: 01-14-2024 ambulatory Obi Carroll DPM Work Phone: [facility] Work Phone: Start: 01-14-2024 End: 01-14-2024 Patient encounter procedure Obi Carroll DPM Work Phone: [facility] Work Phone: Start: 12-26-2023 Non-patient / Non-visit DPM Rodrigo leon Glen Work Phone: [facility] Work Phone: Start: 12-26-2023 End: 12-26-2023 ambulatory Obi Nanda Carroll [facility] Work Phone: Start: 12-26-2023 End: 12-26-2023 Departed Referred DPM Obi Carroll Work Phone: [facility] Start: 12-20-2023 End: 12-20-2023 ambulatory [facility] Work Phone: Start: 12-20-2023 End: 12-20-2023 Encounter for other preprocedural examination Obi Carroll DPM Work Phone: [facility] Start: 12-20-2023 End: 12-20-2023 Patient encounter procedure [facility] Work Phone: Start: 12-19-2023 Patient encounter status [facility] Start: 12-16-2023 Non-patient / Non-visit [facility] Work Phone: Start: 12-12-2023 End: 12-12-2023 ambulatory [facility] Work Phone: Start: 12-12-2023 End: 12-12-2023 Patient encounter procedure [facility] Work Phone: Start: 12-06-2023 Non-patient / Non-visit [facility] Work Phone: Start: 11-08-2023 Non-patient / Non-visit [facility] Work Phone: Start: 10-30-2023 Non-patient / Non-visit [facility] Work Phone: Start: 09-10-2023 End: 09-10-2023 ambulatory [facility] Work Phone: Start: 09-10-2023 End: 09-10-2023 Patient encounter procedure [facility] Work Phone: Start: 06-11-2023 End: 06-11-2023 ambulatory [facility] Work Phone: Start: 06-11-2023 End: 06-11-2023 Patient encounter procedure [facility] Work Phone: Start: 11-08-2022 End: 11-08-2022 ambulatory Brian Fotoe Other [employer] Other Start: 11-08-2022 Office outpatient vi sit 25 minutes Brian Foote [facility] Start: 09-13-2022 End: 09-13-2022 ambulatory Brian Foote Other [employer] Other Start: 09-13-2022 Telephone encounter Brian Foote [facility] Start: 08-09-2022 End: 08-09-2022 ambulatory Brian Foote Other [employer] Other Start: 08-09-2022 Patient encounter procedure Brian Foote [facility] Start: 12-27-2021 End: 12-28-[address] BRIAN FOOTE Facility:[facility] Start: 08-15-2021 End: 08-16-[address] BRIAN FOOTE Facility:[facility] Start: 04-25-2021 End: 04-26-[address] BRIAN FOOTE Facility:[facility] Procedures Date Procedure Procedure Detail Performing Clinician Start: 12-26-2023 Acid Fast Culture Obi Carroll DP Work Phone: Start: 12-26-2023 Acid Fast Smear DPM Pet [facility] Work Phone: Start: 12-26-2023 Aerobic Culture Obi dalton DP Work Phone: Start: 12-26-2023 AFB Specimen Processing DPM Obi [facility] Work Phone: Start: 11-08-2023 Aerobic Culture Start: 11-08-2023 Anaerobic Culture Start: 08-15-[address] LAM [place] Comment on above: Performed By: #### [facility] #### [facility] [address] [address] [address] Petros Perez Plan of Treatment Date Care Activity Detail Author Start: 12-26-2023 Acid Fast Culture Acid Fast Culture [facility] Start: 12-12-2023 Patient referral [facility] Work Phone: Comprehensive metabo lic 2000 panel - Serum or Plasma [facility] Patient referral [facility] Work Phone: [facility] Immunizations Immunization Date Immunization Notes Care Provider Fa ciligabi 01-14-2024 influenza, high dose seasonal, preservative-free Obi Carroll DPM Work Phone: [facility] 01-21-2023 influenza virus vaccine, unspecified formulation [facility] 11-21-2021 influenza virus vaccine, split virus (incl. purified surface antigen) Brian Foote Other [facility] [employer] Other 11-21-2021 influenza virus vaccine, unspecified formulation [facility] 11-21-2021 influenza, high dose seasonal, preservative-free Brian Foote Other [facility] [employer] Other 02-22-2021 COVID-19 Vaccine Pfi zer - Documentation Purposes Only Brian Foote Other [facility] 12-30-2020 influenza virus vaccine, split virus (incl. purified surface antigen) Brian Foote Other [facility] [employer] Other 12-30-2020 influenza virus vaccine, unspecified formulation [facility] 05-06-2020 COVID-19 Vaccine Slim - Documentation Purposes Only Brian Foote Other [facility] 01-12-2020 influenza virus vaccine, split virus (incl. purified surface antigen) Brian Foote Other [facility] [employer] Other 01-12-2020 influenza virus vaccine, unspecified formulation [facility] 01-13-2019 influenza virus vaccine, split virus (incl. purified surface antigen) Brian Foote Other [facility] [employer] Other 01-13-2019 influenza virus vaccine, unspecified formulation [facility] 12-02-2017 influenza virus vaccine, split virus (incl. purified surface antigen) Brian Foote Other [facility] [employer] Other 12-02-2017 influenza virus vaccine, unspecified formulation [facility] 12-27-2016 influenza virus vaccine, split virus (incl. purified surface antigen) Brian Qamar Other [facility] [employer] Other 12-27-2016 influenza virus vaccine, unspecified formulation [facility] 12-22-2015 influenza virus vaccine, split virus (incl. purified surface antigen) Brian Foote Other [facility] [employer] Other 12-22-2015 influenza virus vaccine, unspecified formulation [facility] 03-15-2015 pneumococcal conjuga te vaccine, 13 valent Brian Foote Other [facility] 12-07-2014 influenza virus vaccine, split virus (incl. purified surface antigen) Brian Foote Other [facility] [employer] Other 12-07-2014 influenza virus vaccine, unspecified formulation [facility] 11-10-2013 tetanus and diphther ia toxoids, adsorbed, preservative free, for adult use (5 Lf of tetanus toxoid and 2 Lf of diphtheria toxoid) Brian Foote Other [facility] 12-10-2012 tetanus and diphther ia toxoids, adsorbed, preservative free, for adult use (5 Lf of tetanus toxoid and 2 Lf of diphtheria toxoid) Brian Foote Other [facility] 02-14-2011 pneumococcal polysaccharide vaccine, 23 valent Brian Foote Other [facility] Payers Date Payer Category Payer Self-pay 1960 Medicare [id number] 1960 Unknown [id number] 1945 Unknown [id number] [id number] 1945 Unknown [id number] [id number] 1945 Unknown [id number] [id number] [id number] Unknown [id number] [id number] Social History Date Type Detail Facility Sex Assigned At [employer] Other Start: 1945 Sex Assigned At Male F [facility] Tobacco smoking stat [facility] Unknown if ever smoked [facility] Work Phone: Start: 01-14-2024 End: 03-11-2024 Sex Male (finding) [facility] Evaluation note 12-20-2023 Note Date & Type [...] with hyperglycemia acute March 11, 2024 9:10am [facility] Work Phone: Evaluation note 12-12-2023 Note Date [...] with hyperglycemia acute December 20, 2023 2:46pm [facility] Work Phone: Evaluation note 11-08-2022 Note Date [...] < 30 Increase exercise and reduce calories. [employer] Other Evaluation note 08-09-2022 Note Date & [...] High risk medication use (ICD-10 - Z79.899) [employer] Other Evaluation note Note Date & Type Note Facility Evaluation note No Information [employer] Other Evaluation note Note Date & Type Note Facility Evaluation note Diagnosis Onset Date Chronic kidney disease acute Elevated cholesterol acute Hypertension acute Type 2 diabetes mellitus wit h diabetic polyneuropathy acute Type 2 diabetes mellitus with hyperglycemia acute [facility] Work Phone: Evaluation note Note Date & Type Note Facility Evaluation note Diagnosis Onset Date Chronic kidney disease acute Chronic venous insufficiency of lower extremity acute Elevated cholesterol acute Hypertension acute Screening PSA (prostate specific antigen) acute Type 2 diabetes mellitus wit h diabetic polyneuropathy acute Type 2 diabetes mellitus with hyperglycemia acute Medicare annual wellness visit, subsequent noneactive [facility] Work Phone: Evaluation note Note Date & Type Note Facility Evaluation note Diagnosis Onset Date Chronic kidney disease acute Chronic venous insufficiency of lower extremity acute Elevated cholesterol acute Hypertension acute Type 2 diabetes mellitus wit h diabetic polyneuropathy acute Type 2 diabetes mellitus with hyperglycemia acute [facility] Work Phone: Evaluation note Note [...] Type 2 diabetes mellitus with hyperglycemia acute [facility] Work Phone: History general Narrative [...] History APPENDECTOMY Hospitalization History SEE SURGICAL HX [employer] Other Summary Purpose Family History No Family [...] 9:14am Type 2 diabetes mellitus with hyperglyce [facility] December 12, 2023 9:14am Chronic kidney disease December 19 2:46pm Chronic venous insufficiency of lower ex tremity December 20, 2023 2:46pm Elevated cholesterol December 20, 2023 2:46pm Hypertension December 20, 2023 2 :46pm Preop exam for internal medicine December 20, 2023 2:46pm Type 2 diabetes mellitus with hyperglyce [facility] December 20, 2023 2:46pm Chief Complaint Admit [...] 2:46pm Type 2 diabetes mellitus with hyperglyce [facility] December 20, 2023 2:46pm Chronic kidney disease [...] content) DATE CREATED AUTHOR 08/06/2020 [facility] DATE CREATED AUTHOR AUTHOR'S ORGANIZ ATION 12/31/2021 [facility] DATE CREATED AUTHOR AUTHOR'S ORGANIZ ATION 01/05/2024 [facility] [employer] REASON FOR VISIT (unrecogniz ed section and content) WELLNESSLab Results3 month [facility] Care Teams (unrecognized sec tion and [...] BE BASED ON THE PRIMARY CLINICAL RECORDS. [employer] [facility]. provides no warranty or guarantee of the accuracy or completeness of information in this document.
[2024-04-21 10:50] LABS: Hematocrit 37.2 % (42.0-54.0); Hemoglobin 10.9 g/dL (14.0-18.0); Mean Corpuscular HGB Conc 29.3 g/dL (29.9-35.2); Mean Corpuscular Hemoglobin 31.7 pg (25.9-34.0); Mean Corpuscular Volume 108.1 fL (80.0-94.0); Mean Platelet Volume 10.9 fL (9.5-13.5); Platelet Count 51 10^3/uL (150-450); Red Blood Count 3.44 10^6/uL (4.70-6.10); Red Cell Distribution Width 13.2 % (11.0-15.0); White Blood Count 10.9 10^3/uL (4.0-11.0)
[2024-04-21 11:04] LABS: Albumin Globulin Ratio 0.7; Albumin Level 1.9 g/dL (3.4-5.0); Alkaline Phosphatase 47 U/L (46-116); Anion Gap 28.7; BUN Creatinine Ratio 22.1; Bilirubin Total 0.6 mg/dL (0.2-1.0); Calcium 7.6 mg/dL (8.5-10.1); Carbon Dioxide 8.2 mmol/L (21.0-32.0); Chloride 115 mmol/L (98-107); Estimated GFR (African America 57 (>=60 mL/min/1.73m^2); Estimated GFR (Non-African Ame 47 (>=60 mL/min/1.73m^2); Globulin 2.6 g/dL; Glucose 285 mg/dL (74-106); Potassium 4.9 mmol/L (3.5-5.1); Sodium 147 mmol/L (136-145); Total Protein 4.5 g/dL (6.4-8.2)
[2024-04-21 11:08] LABS: Anisocytosis 1+; Band Neutrophils Absolute 0.5 10^3/uL (0.0-0.3); Lymphocytes Absolute Manual 6.32 10^3/uL (1.20-3.80); Macrocytosis 1+; Monocytes Absolute Manual 1.19 10^3/uL (0.30-0.80); Segmented Neut Absolute Manual 2.72 10^3/uL (1.4-6.5)
[2024-04-21 11:09] LABS: Alanine Aminotransferase 536 U/L (16-63); Aspartate Amino Transferase 767 U/L (15-37)
[2024-04-21 11:10] LABS: Lactate/Lactic Acid 12.5 mmol/L (0.4-2.0)
[2024-04-21 11:13] LABS: Magnesium 2.2 mg/dL (1.8-2.4); Troponin I High Sensitivity 67.8 pg/mL (4.0-76.1)
[2024-04-21 11:29] LABS: Ethanol <3 mg/dL
[2024-04-21 11:30] LABS: Bilirubin Urine NEGATIVE (NEGATIVE); Blood Urine LARGE (NEGATIVE); Clarity Urine CLEAR (CLEAR); Color Urine YELLOW (YELLOW); Glucose Urine UA >=1000 mg/dL (NEGATIVE); Ketones Urine NEGATIVE (NEGATIVE); Leukocyte Esterase Urine NEGATIVE (NEGATIVE); Nitrite Urine NEGATIVE (NEGATIVE); Protein Urine 30 mg/dL (NEG/TRACE); Specific Gravity Urine 1.025 (1.005-1.025); Urobilinogen Urine 0.2 EU/dL (0.2-1.0); pH Urine 5.5 (5.0-9.0)
[2024-04-21 11:41] LABS: Bacteria Urine TRACE #/HPF (NONE SEEN); Cast Seen? SEEN #/LPF (NONE SEEN); Crystals Seen? None Seen #/HPF (None Seen); Hyaline Casts Urine FEW; Mucus Urine TRACE (NONE SEEN); RBC Urine 50-75 #/HPF (0-2); Squamous Epithelial Cell Urine MODERATE #/LPF (NONE/RARE); Urine Culture Indicated NO; WBC Urine 0-2 #/HPF (NONE SEEN)
--- NOTE | 2024-04-21 11:49 | PC.NURSE ---
[facility] notified of pending of this patient.
--- NOTE | 2024-04-21 11:52 | PC.NURSE ---
[facility] wants called back with official time of Cardiac . Referral number #[id number]
--- NOTE | 2024-04-21 12:06 | PC.NURSE ---
Call to [facility] to let them know of Cardiac @ 12pm. no follow up for organ or tissue per the LC.
--- NOTE | 2024-04-21 12:20 | PC.NURSE ---
see code flow sheet, Time of 1200
--- NOTE | 2024-04-21 12:46 | ED_ITS ---
HPI HPI - General Adult General Stated complaint: CARDIAC ARREST Time Seen by Provider: 04/21/24 10:35 History of Present Illness HPI narrative: 79-year-old male to the emergency department his cardiac arrest. Initial history was obtained from EMS. Patient found by son-in-law complaining of shortness of breath. Witnessed collapse and immediate initiation of CPR by family member who is a director of programming. Presenting rhythm PEA/asystole. No shockable rhythm for EMS. Received 3 epinephrine, worked for 15 minutes in the field prior to arrival. Related Data Home Medications ?Medication ?Instructions ?Recorded ?Confirmed benazepril 20 mg tablet 20 mg PO DAILY 12/16/23 12/26/23 fenofibrate 160 mg tablet 160 mg PO DAILY 12/16/23 12/26/23 glimepiride 4 mg tablet 4 mg PO DAILY 12/16/23 12/26/23 linagliptin 5 mg tablet (Tradjenta) 5 mg PO DAILY 12/16/23 12/26/23 pioglitazone 15 mg tablet 15 mg PO DAILY 12/16/23 12/26/23 Allergies Allergy/AdvReac Type Severity Reaction Status Date / Time No Known Drug Allergies Allergy Verified 12/16/23 13:42 Opioid HPI Opioid Management Most Recent Opioid Data: No Data to Display Review of Systems ROS Status of ROS unobtainable due to medical condition [facility] Medical History (Updated 04/21/24 @ 12:56 by Elías Malik MD) Osteoarthritis ?M19.90 - Unspecified osteoarthritis, unspecified site (ICD-10) Hypertension ?I10 - Essential (primary) hypertension (ICD-10) Neuropathy ?G62.9 - Polyneuropathy, unspecified (ICD-10) Chronic kidney disease, stage 3 ?N18.30 - Chronic kidney disease, stage 3 unspecified (ICD-10) Hammertoe of left foot ?M20.42 - Other hammer toe(s) (acquired), left foot (ICD-10) Acquired deformity of left foot ?M21.962 - Unspecified acquired deformity of left lower leg (ICD-10) Diabetes ?E11.9 - Type 2 diabetes mellitus without complications (ICD-10) Diabetic foot ulcer ?E11.621 - Type 2 diabetes mellitus with foot ulcer (ICD-10) ?L97.509 - Non-pressure chronic ulcer of other part of unspecified foot with unspecified severity (ICD-10) Surgical History (Updated 12/16/23 @ 13:47 by Yvonne Sexton NP) S/P cataract extraction and insertion of intraocular lens ?Z98.49 - Cataract extraction status, unspecified eye (ICD-10) ?Z96.1 - Presence of intraocular lens (ICD-10) History of foot surgery ?Z98.890 - Other specified postprocedural states (ICD-10) History of appendectomy ?Z90.49 - Acquired absence of other specified parts of digestive tract (ICD- 10) Family History (Updated 12/16/23 @ 13:32 by Yvonne Sexton NP) Other Family history of cancer Heart disease Social History (Updated 12/16/23 @ 13:43 by Yvonne Sexton NP) Within the past year, how often did you have a drink containing alcohol: monthly or less Smoking status: Former smoker Non-prescribed substance use: denies use Highest level of school completed/degree received: high school graduate Exam Narrative Exam Narrative: Airway: I-gel Breathing: Bags easily, equal chest rise, equal lung sounds Circulation: Cool, mottled, no palpable pulse Disability: GCS 3 T Exposure: No evidence of trauma, IO in the left humerus Medical Decision Making MDM Narrative Medical decision making narrative: 79-year-old male to the emergency department as cardiac arrest. CPR in progress upon arrival. 15 minutes downtime with 3 epinephrine prior to arrival in the emergency department. ALS interventions were continued. He was placed on our monitor. ACLS continued. See code sheet for details. H's and T's were reviewed. No reversible causes. Patient had several brief episodes of ROSC that were sustained only for a moment. I was able to intubate the patient during one of the episodes of ROSC. ROSC EKG is without STEMI criteria. Family arrived and discussion was had with them. He has been down for greater than 45 minutes. He has had no shockable rhythm. No reversible causes. Temporary response to heroic interventions. Family would like a coroner technician to come and give last rights and then withdraw care and allow him to pass peacefully with them at the bedside. I believe this is reasonable. The patient passed peacefully at the bedside surrounded by his family. Time of 12:00PM. Condolences were given to the family. I did call and notify Dr. Brian Foote his primary care physician for certificate. [employer] Operator Nick was notified. Body is released. Not a food and nutrition services assistant's case. Nursing staff notified [facility]. Medical Records Medical records reviewed: Yes I reviewed the patient's medical records Lab Data Lab results reviewed: Yes I reviewed the patient's lab results Labs: Lab Results 04/21/24 04/21/24 Range/Units 10:34 10:42 WBC 10.9 (4.0-11.0) 10^3/uL RBC 3.44 L (4.70-6.10) 10^6/uL Hgb 10.9 L (14.0-18.0) g/dL Hct 37.2 L (42.0-54.0) % MCV 108.1 H (80.0-94.0) fL MCH 31.7 (25.9-34.0) pg MCHC 29.3 L (29.9-35.2) g/dL RDW 13.2 (11.0-15.0) % Plt Count 51 L (150-450) 10^3/uL MPV 10.9 (9.5-13.5) fL Seg Neuts % (Manual) 25.0 L (43.0-75.0) Band Neutrophils % 5.0 (0-5) % Lymphocytes % (Manual) 58.0 (20.5-60.0) % Monocytes % (Manual) 11.0 (1.7-12.0) % Eosinophils % (Manual) 1.0 (0.9-7.0) % Basophils % (Manual) 0.0 L (0.2-2.0) % Neutrophils # (Manual) 2.72 (1.4-6.5) 10^3/uL Band Neutrophils # 0.5 H (0.0-0.3) 10^3/uL Lymphocytes # (Manual) 6.32 H (1.20-3.80) 10^3/uL Monocytes # (Manual) 1.19 H (0.30-0.80) 10^3/uL Eosinophils # (Manual) 0.10 (0.00-0.70) 10^3/uL Basophils # (Manual) 0.00 (0.00-0.10) 10^3/uL Anisocytosis 1+ Macrocytosis 1+ Sodium 147 H (136-145) mmol/L Potassium 4.9 (3.5-5.1) mmol/L Chloride 115 H (98-107) mmol/L Carbon Dioxide 8.2 L (21.0-32.0) mmol/L Anion Gap 28.7 BUN 32.0 H (7.0-18.0) mg/dL Creatinine 1.45 H (0.70-1.30) mg/dL Est GFR ( Amer) 57 L (>=60 mL/min/1.73m^2) Est GFR (Non-Af Amer) 47 L (>=60 mL/min/1.73m^2) BUN/Creatinine Ratio 22.1 Glucose 285 H (74-106) mg/dL Lactate 12.5 H* (0.4-2.0) mmol/L Calcium 7.6 L (8.5-10.1) mg/dL Magnesium 2.2 (1.8-2.4) mg/dL Total Bilirubin 0.6 (0.2-1.0) mg/dL AST 767 H* (15-37) U/L ALT 536 H* (16-63) U/L Alkaline Phosphatase 47 (46-116) U/L Troponin I High Sens 67.8 (4.0-76.1) pg/mL NT-Pro-B Natriuret Pep 708.0 (<=1800.0) pg/mL Total Protein 4.5 L (6.4-8.2) g/dL Albumin 1.9 L (3.4-5.0) g/dL Globulin 2.6 g/dL Albumin/Globulin Ratio 0.7 Urine Color Yellow (YELLOW) Urine Clarity Clear (CLEAR) Urine pH 5.5 (5.0-9.0) Ur Specific [place] 1.025 (1.005-1.025) Urine Protein 30 A (NEG/TRACE) mg/dL Urine Glucose (UA) >=1000 A (NEGATIVE) mg/dL Urine Ketones Negative (NEGATIVE) mg/dL Urine Occult Blood Large A (NEGATIVE) Urine Nitrite Negative (NEGATIVE) Urine Bilirubin Negative (NEGATIVE) Urine Urobilinogen 0.2 (0.2-1.0) EU/dL Ur Leukocyte Esterase Negative (NEGATIVE) Urine RBC 50-75 A (0-2) #/HPF Urine WBC 0-2 A (NONE SEEN) #/HPF Ur Squamous Epith Cells Moderate A (NONE/RARE) #/LPF Urine Crystals None seen (None Seen) #/HPF Urine Bacteria Trace A (NONE SEEN) #/HPF Urine Casts Seen A (NONE SEEN) #/LPF Hyaline Casts Few Urine Mucus Trace A (NONE SEEN) Ur Culture Indicated? No Ethanol Quant <3 mg/dL ECG Data Attestation: ?I have reviewed the pertinent ECG results. Critical Care Time Critical Care Time Critical Care Time: Yes Total Critical Care Time: 35 Attestation: Critical Care Procedure Note Authorized and Performed by: Elías Malik DO Total critical care time: 35 min Due to a high probability of clinically significant, life threatening deterioration, the patient required my highest level of preparedness to intervene emergently and I personally spent this critical care time directly and personally managing the patient. This critical care time included obtaining a history; examining the patient; pulse oximetry; ordering and review of studies; arranging urgent treatment with development of a management plan; evaluation of patient's response to treatment; frequent reassessment; and, discussions with other providers. This critical care time was performed to assess and manage the high probability of imminent, life-threatening deterioration that could result in multi-organ failure. It was exclusive of separately billable procedures and treating other patients and teaching time. Please see MDM section and the rest of the note for further information on patient assessment and treatment. Discharge Plan Discharge Clinical Impression: Cardiac arrest, Patient Disposition: Prescriptions / Home Meds: No Action glimepiride 4 mg tablet 4 mg PO DAILY benazepril 20 mg tablet 20 mg PO DAILY fenofibrate 160 mg tablet 160 mg PO DAILY Tradjenta 5 mg tablet 5 mg PO DAILY pioglitazone 15 mg tablet 15 mg PO DAILY Print Language: Urdu Referrals: Brian Foote DO [Primary Care Provider] - 1 week Probable Cause of Probable Cause of : Cardiac arrest Procedures ED Procedure Instructions Procedures Procedures: Procedure: Intubation Indication: The patient required emergent endotracheal intubation. Contraindications: None Medications: 15 mg etomidate, 100 mg rocuronium After the patient was adequately sedated and paralyzed an S4 blade was used to video visualize the patient?s vocal cords. Under direct visualization a 8.0 tube was passed easily through the cords. The tube was inserted to a depth of 22 cm at the teeth. The patient bagged easily. Breath sounds were equal bilaterally and there was no gurgling over the gastrum. Qualitative capnography showed appropriate color change with bagging. Tube was secured in the standard fashion. Patient tolerated the procedure well. Elías Malik DO, FAAEM
--- NOTE | 2024-04-21 15:40 | ECG_ITS ---
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: : 1945 Requested By: YARELY SALGADO Order Number: [id number] Reading MD: YARELY SALGADO Measurements Intervals [place] Rate: 87 P: 90 TX: 214 QRS: -21 QRSD: 102 T: -44 QT: 370 QTc: 414 Interpretive Statements 1100 Sinus rhythm 1108 Marked sinus arrhythmia 96212 Cannot rule out atrial fibrillation 2420 RSR (QR) in lead V1/V2, consistent with right ventricular conduction delay 3114 Cannot rule out anterior myocardial infarction, age undetermined [address] depression 4664 Twave abnormality, possible inferior ischemia 8102 Low QRS voltage in chest leads 9150 abnormal ECG Electronically Signed On 04-22-2024 7:06:36 EST by YARELY SALGADO
[2024-04-23 08:16] LABS: Glucometer 250 mg/dL (74-106)
[2024-04-23 08:17] LABS: Glucometer 250 mg/dL (74-106)
== END 2024-04-21 12:00 | disposition expired ==
PROVIDERS: Emergency Provider Student in an Organized Health Care Education/Training Program; PCP Internal Medicine
DX: I46.9 Cardiac arrest, cause unspecified (principal); Z87.891 Personal history of nicotine dependence
CPT/HCPCS: 31500; 36415; 80053; 80320; 81001; 82805; 82948; 83605; 83735; 83880; 84484; 85007; 85027; 85610; 85730; 86850; 86900; 86901; 87040; 92950; 93005; 99291; 99292; J0171; J0612; J3010